=== PATIENT | female | born 1980 | race Caucasian/White ===

== ENCOUNTER 2019-06-28 15:25 | Observation (INO) | payer OTHER, SELFPAY ==
[2019-06-28] VITALS (8 sets, daily range): BP systolic 131–136; BP diastolic 72–86; PULSE 110–127; RESP 13–19; TEMP 36.7–38.5; O2SAT 94–100; BMI 42.5; BMI 41.6
--- NOTE | 2019-06-28 15:38 | EKG12_ITS ---
Test Reason : CP ADMIT Blood Pressure : / mmHG Vent. Rate : 109 BPM Atrial Rate : 109 BPM P-R Int : 130 ms QRS Dur : 088 ms QT Int : 328 ms P-R-T Axes : 018 051 003 degrees QTc Int : 441 ms Sinus tachycardia Otherwise normal ECG No previous ECGs available Confirmed by FÁTIMA MCCULLOUGH, DARNELL ([id number]), associate entertainment editor MIRANDA HODGE ([id number]) on 07/06/2019 10:38:45 AM Referred By: DR LORA Confirmed By:FRAN SHINE MD
--- NOTE | 2019-06-28 15:39 | CT_ITS ---
STUDY: CTA CHEST REASON FOR EXAM: Female, 39 years old. Palpitations and shortness of breath RADIATION DOSAGE (If Supplied By Facility): CTDIvol = ( 21.43 ) mGy, DLP = ( 748.76 ) mGycm TECHNIQUE: The examination was performed with the intravenous administration of 100mL Isovue-370. Post-processing of the angiographic images was performed, with multiplanar reformation and 3D reconstruction. Individualized dose optimization techniques were used for this CT. COMPARISON: None. FINDINGS: Normal enhancement of the main pulmonary artery and right and left pulmonary arteries. Motion artifact limits evaluation of segmental pulmonary arteries. There is no demonstrated pulmonary embolism. Normal thoracic aorta and visualized great vessels. There is no demonstrated aortic dissection. Normal heart and pericardium. Normal mediastinum. Normal hilar regions. Normal visualized trachea and bronchi. The lungs are well expanded. Normal pulmonary parenchyma. Normal pleura. Normal chest wall structures. There are degenerative changes of thoracic spine. The liver is enlarged and diminished in density suggesting hepatic steatosis. There are small calcifications of the upper left kidney. CT/CTA Chest W/WO Contrast IMPRESSION: 1. No central or obvious segmental pulmonary embolism. 2. Hepatomegaly. Hepatic steatosis. 3. Left nephrolithiasis. Electronically Signed: Shalom Sanchez MD (Brooks) at 17:18 EST , Service support ,
--- NOTE | 2019-06-28 15:50 | ED.DCSUM_ITS ---
- ER Visit Summary Date of Service: 06/28/19 Chief Complaint: Palpitations History of Present Illness: The patient is a 39 F presenting with palpitations. Patient states this started yesterday. It was intermittent. She states palpitations have been more persistent today. She initially denied chest pain. She has associated shortness of breath. She has upper back pain. She denies injury. She had recent travel to [facility] and has a family history of DVT, no other PE/DVT risk factors. No recent change in her medications. Denies fever. Denies other complaints. Physical Examination: Vitals are stable. Patient is afebrile. Alert no acute distress. HEENT exam is unremarkable. Neck is supple. Lungs are clear and equal bilaterally. Heart is regular and tachycardic Abdomen is soft nontender nondistended. Extremities are unremarkable. Skin is warm and dry. No focal neurologic deficit. Remainder of exam is unremarkable. Emergency Department Course and Treatment: Patient was given IV fluids. EKG is sinus tachycardia rate of 122. CBC normal except hemoglobin 11.3. Chemistries normal except for glucose 128. Troponin is negative. CTA chest shows no central or obvious segmental pulmonary embolism. Hepatomegaly. Hepatic alberto atosis. Left nephrolithiasis. On reevaluation patient is now complaining of more pressure in her mid chest. Heart rate is 110. Will discuss with hospitalist for observation. Disposition: Observation Impression: Chest pain, palpitations This note was generated with Lucidity (Member[employer]) dictation software. It may contain incorrect words, spelling, and punctuation that were not noted in review of the chart prior to signing ED Disposition - Plan for ED Patient: Referrals: Erick Paez MD [Primary Care Provider] -
[2019-06-28] MEDS: 0.9% Normal Saline 1,000 ML 1000 ML IV (16:08)
[2019-06-28 16:16] LABS: Absolute Lymphocyte Count 0.74 X10^3/uL (0.83-4.51); Absolute Neutrophil Count 7.4 X10^3/uL (2.0-7.7); Basophil# 0.01 X10^3/uL; Basophil% 0.1 % (0-1); Eosinophil# 0.07 X10^3/uL; Eosinophils% 0.8 % (0-5); Hematocrit 35.6 % (37-47); Hemoglobin 11.3 g/dL (12.0-15.0); Lymphocyte # 0.74 X10^3/ul (4.0); Lymphocyte % 8.5 % (19-41); Mean Corp Hgb Conc 31.7 g/dL (32-36); Mean Corpuscular Hgb 26.6 pg (27.0-32.0); Mean Corpuscular Volume 83.8 fL (81-99); Mean Platelet Vol. 9.5 fl (6.2-12.0); Monocyte# 0.46 X10^3/uL; Monocyte% 5.3 % (0-10); NRBC Flagged by Analyzer 0 % (0-5); Neutrophil # 7.38 X10^3/uL (2.7-7.7); Neutrophil % 84.7 % (47-70); Platelet Count 257 K/mm3 (150-450); RBC Distribution Width CV 15.8 % (11.6-14.6); RBC Distribution Width SD 47.5 fl (35.1-43.9); Red Blood Count 4.25 M/mm3 (4.2-5.4); White Blood Count 8.7 K/mm3 (4.4-11.0)
[2019-06-28 16:36] LABS: Anion Gap 7 (5-15); BUN 10 mg/dL (7-18); BUN/Creat Ratio 14.6 RATIO (10-20); Calcium,Total 8.6 mg/dL (8.5-10.1); Chloride 101 mmol/L (98-107); Creatinine, Serum 0.68 mg/dL (0.55-1.02); EST Glomerular Filtration Rate 101 mL/min (>60); Est Glom Filt Rate - Afr Amer 122 mL/min (>60); Estimated Creatinine Clearance 102.95 ml/min; Glucose 128 mg/dL (74-106); Sodium Level 136 mmol/L (136-145)
--- NOTE | 2019-06-28 17:48 | PCM.HP.STD ---
Problem List (1) Chest pain Status: Acute (2) Diabetes mellitus type 2 Status: Chronic (3) OCD (obsessive compulsive disorder) Status: Chronic (4) Anxiety and depression Status: Chronic (5) Seasonal allergic rhinitis Status: Chronic (6) Hypertension Status: Chronic (7) Dyslipidemia Status: Chronic (8) GERD Status: Chronic History of Present Illness Date of Admission: 06/28/19 Chief Complaint: Shortness of breath and palpitation since yesterday The patient is a 39 year old F with history of diabetes mellitus type 2 and hypertension with recent flight from [place] about 3 days ago came to ER with shortness of breath and palpitation since yesterday. Then today she started having intrascapular pain and in ER complaining of burning pain retrosternal with radiation to throat, worse on supine position. Patient does not have a history of coronary artery disease and is not had prior stress or echo. In ED, CTPA was done is negative for PE although shows hepatomegaly and hepatic steatosis and left nephrolithiasis. Triage vitals shows tachycardia, heart rate 127, blood pressure 136/83 no hypoxia or tachypnea. EKG normal sinus tachycardia [address]-T changes. Past Medical History Past Medical History (Chronic Problems): Chronic Problems Diabetes mellitus type 2 (Chronic) OCD (obsessive compulsive disorder) (Chronic) Anxiety and depression (Chronic) Seasonal allergic rhinitis (Chronic) Hypertension (Chronic) Dyslipidemia (Chronic) GERD (Chronic) Allergies amoxicillin Allergy (Verified 06/28/19 15:42) Rash azithromycin Allergy (Verified 06/28/19 15:42) Rash bupropion [From Wellbutrin] Allergy (Verified 06/28/19 15:42) Hives Sulfa (Sulfonamide Antibiotics) Allergy (Verified 06/28/19 15:42) Rash sulfamethoxazole [From Bactrim] Allergy (Verified 06/28/19 15:42) Rash trimethoprim [From Bactrim] Allergy (Verified 06/28/19 15:42) Rash Home Medications: Ambulatory Orders Medication Instructions Recorded Ferrous Sulfate 650 tab PO DAILY 08/02/17 Pyridoxine HCl [Vitamin B-6] 50 mg PO DAILY 08/02/17 Sertraline HCl [Zoloft] 100 mg PO DAILY 08/02/17 metFORMIN HCl [Glucophage] 1,000 tab PO BID 08/02/17 traZODone [Desyrel] 50 mg PO QHS 08/02/17 Armodafinil 250 mg PO DAILY 06/28/19 Atorvastatin Calcium [Lipitor] 10 mg PO QHS 06/28/19 Cholecalciferol (Vitamin D3) 2,000 unit PO DAILY 06/28/19 [Vitamin D3] DiphenhydrAMINE [Benadryl] 25 mg PO DAILY PRN PRN 06/28/19 Esomeprazole Magnesium 20 mg PO DAILY 06/28/19 Glimepiride [Amaryl] 1 mg PO DAILY 06/28/19 Ibuprofen 800 mg PO DAILY PRN PRN 06/28/19 Levocetirizine Dihydrochloride 5 mg PO DAILY 06/28/19 [Xyzal] Lisinopril [Zestril] 5 mg PO DAILY 06/28/19 Multivitamin with Minerals 1 tab PO DAILY 06/28/19 [Multiple Vitamin] Norgestimate-Ethinyl Estradiol 1 tab PO DAILY 06/28/19 [Norg-Ee 0.18-0.215-0.25/0.035] Smoking Status: Never smoker Tobacco Use: Non-smoker - *Family History Maternal History Items: Heart Disease - CHF with chronic lung disease Review of Systems Constitutional: Denies: Chills, Fever, Weight Change HEENT: Denies: Head Aches, Sinus Congestion, Sinus Drainage Cardiovascular: Reports: Chest Pain, Chest Tightness. Denies: Palpitations Respiratory: Reports: Shortness of breath upon exertion. Denies: Cough, Shortness of breath at rest, Sputum production Gastrointestinal: Denies: Abdominal Pain, Nausea, Vomiting Genitourinary: Denies: Dysuria, Frequency, Hesitancy Gynecological: Denies: Breast symptoms Musculoskeletal: Reports: Back Pain - Lumbar spine pain with disc herniation, Joint Pain. Denies: Joint Tenderness Skin: Reports: - - History of allergic reaction pollen. Denies: Rash, Wounds Neurological: Denies: Numbness, Tingling, Focal weakness Psychiatric: Reports: Anxiety, Depression. Denies: Homicidal Ideations, Suicidal Ideations Hematologic/ Lymphatic: Denies: Easy Bruising, Easy Bleeding VTE Information - Inpt Only VTE Present on Admission: No VTE Mechan Device Prophylaxis: None VTE Pharm Prophylaxis ordered?: Yes Patient Problems: Active and Suspected Problems Chest pain (Acute) - Physical Exam Vitals/I&O's: Vital Signs Temp Pulse Resp BP Pulse Ox 98.8 F 115 H 19 H 131/72 H 99 06/28/19 15:32 06/28/19 17:11 06/28/19 17:11 06/28/19 17:11 06/28/19 17:11 Oxygen Delivery Method Room Air Weight: 263 lb 14.293 oz Body Mass Index (BMI) 42.5 General: Alert, Oriented x3, Cooperative HEENT: Atraumatic, PERRLA, EOMI, Normocephalic Neck: Supple, No JVD, Negative Carotid Bruits Lungs: Clear to auscultation, Normal air movement, No rhonchi, No wheeze, No rales Cardiovascular: Regular rate, Regular Rhythm, Normal S1, Normal S2, No murmurs Abdomen: Bowel Sounds Present, Soft, Non Tender, Non-Distended Extremities: No edema, Capillary Refill Less than 3 Seconds Skin: No rashes, No breakdown Musculoskeletal: No Tenderness to Palpation of Joints or Extremities, Arthritic Changes Neurological: Cranial nerves II-XII grossly intact, Deep Tendon Reflexes 2+/4 and Symmetrical, Neuro grossly intact Psych/Mental Status: Normal Affect, Appropriate Microbiology Past 72 Hours 06/28/19 16:05 Mucosa - Nasopharyngeal Influenza Types A,B Direct FA (RAHEEM) - Final Laboratory Results 06/28/19 16:05: WBC 8.7, RBC 4.25, Hgb 11.3 L, Hct 35.6 L, MCV 83.8, MCH 26.6 L, MCHC 31.7 L, RDW Std Deviation 47.5 H, RDW Coeff of Tiny 15.8 H, Plt Count 257, MPV 9.5, Immature Gran % (Auto) 0.600, Neut % (Auto) 84.7 H, Lymph % (Auto) 8.5 L, [place] % (Auto) 5.3, Eos % (Auto) 0.8, Baso % (Auto) 0.1, Absolute Neuts (auto) 7.4, Absolute Lymphs (auto) 0.74 L, Nucleated RBC % 0 06/28/19 16:05: Sodium 136, Potassium 4.0, Chloride 101, Carbon Dioxide 28.0, Anion Gap 7, BUN 10, Creatinine 0.68, Estim Creat Clear Calc 102.95, Est GFR (MDRD) Af Amer 122, Est GFR (MDRD) Non-Af 101, BUN/Creatinine Ratio 14.6, Glucose 128 H, Calcium 8.6, Troponin I < 0.015 Assessment/Plan All Active Problems Chest pain (Acute) The patient is a 39 year old F with history of diabetes mellitus type 2 and hypertension with recent flight from [place] about 3 days ago came to ER with shortness of breath and palpitation since yesterday. Then today she started having intrascapular pain and in ER complaining of burning pain retrosternal with radiation to throat, worse on supine position. Patient does not have a history of coronary artery disease and is not had prior stress or echo. In ED, CTPA was done is negative for PE although shows hepatomegaly and hepatic steatosis and left nephrolithiasis. Triage vitals shows tachycardia, heart rate 127, blood pressure 136/83 no hypoxia or tachypnea. EKG normal sinus tachycardia [address]-T changes. 1. Atypical chest pain rule out acute coronary syndrome although since most probably GERD: Patient is being admitted in PCU. Serial troponin enzymes. Repeat EKG. Treadmill nuclear stress test tomorrow morning. PE ruled out. 2. GERD: Protonix 40 mg IV and then 40 mg daily. Patient might need repeat EGD as an outpatient. She had EGD in the past suggestive of GERD as per patient. 3. Hypertension, dyslipidemia, diabetes mellitus type 2: We will hold metformin but continue glimepiride, lisinopril and atorvastatin. Fasting profile tomorrow a.m. 4. Other comorbidities include anxiety, depression, OCD, chronic back pain, chronic anemia mostly redness and same anemia on ferrous sulfate, obstructive sleep apnea on CPAP: Home medication reconciliation done. Continue CPAP at night. DVT prophylaxis: On Lovenox 40 mg subcu daily. Clinical Impression(s) from Imaging Studies Chest CTA 06/28/19 15:39 IMPRESSION: 1. No central or obvious segmental pulmonary embolism. 2. Hepatomegaly. Hepatic steatosis. 3. Left nephrolithiasis. Code Visit OBSV E&M: 34814 Initial observation care L3
[2019-06-28] MEDS: Aspirin 325 MG Tablet PO (18:05)
--- NOTE | 2019-06-28 18:32 | EKG12_ITS ---
Test Reason : PALPITATIONS Blood Pressure : / mmHG Vent. Rate : 122 BPM Atrial Rate : 122 BPM P-R Int : 150 ms QRS Dur : 082 ms QT Int : 316 ms P-R-T Axes : 040 062 -02 degrees QTc Int : 450 ms Sinus tachycardia Nonspecific ST and T wave abnormality Abnormal ECG Confirmed by PIERRE MCCULLOUGH, LUIS ARMANDO ([id number]), newspaper photo editor ERIC GUEVARA ([id number]) on 07/02/2019 11:32:18 AM Referred By: SERENITY Confirmed By:LUIS ARMANDO JAY MD
[2019-06-28] MEDS: 0.9% Normal Saline 1,000 ML 100 ML IV (18:57)
[2019-06-28] MEDS: 0.9% Saline Lock 10 ML Syringe IV (19:07)
[2019-06-28] MEDS: Enoxaparin 40 MG/0.4 ML Syringe SC (19:07)
[2019-06-28] MEDS: oxyCODONE 5 MG Tablet PO (19:07)
[2019-06-28] MEDS: proCHLORPERazine 10 MG/2 ML Vial 5 MG IV (19:07)
--- NOTE | 2019-06-28 20:41 | CPS ---
pt brought her own bipap in to wear tonight
[2019-06-28] MEDS: Atorvastatin Calcium 10 MG Tablet PO (21:41)
[2019-06-28] MEDS: Acetaminophen 325 MG Tablet 650 MG PO (21:44)
[2019-06-28] MEDS: traZODone 50 MG Tablet PO (21:44)
[2019-06-28 22:20] LABS: Bedside Glucose 138 mg/dL (70-110)
[2019-06-29] VITALS (15 sets, daily range): BP systolic 96–138; BP diastolic 34–81; PULSE 70–97; RESP 16–18; TEMP 36.6–37; O2SAT 94–98
--- NOTE | 2019-06-29 05:55 | EKG12_ITS ---
Test Reason : AM EKG Blood Pressure : / mmHG Vent. Rate : 085 BPM Atrial Rate : 085 BPM P-R Int : 116 ms QRS Dur : 088 ms QT Int : 376 ms P-R-T Axes : 009 064 028 degrees QTc Int : 447 ms Normal sinus rhythm Normal ECG When compared with ECG of 28-JUN-2019 19:44, MANUAL COMPARISON REQUIRED, DATA IS UNCONFIRMED Confirmed by FÁTIMA MCCULLOUGH, DARNELL ([id number]), fan mail editor MIRANDA HODGE ([id number]) on 07/06/2019 10:37:22 AM Referred By: GENO Confirmed By:FRAN SHINE MD
[2019-06-29 06:26] LABS: Cholesterol 131 mg/dL (200); High Density Lipoprotein 46 mg/dL; Thyroid Stim Hormone (TSH) 1.58 uIU/mL (0.358-3.74); Triglycerides 237 mg/dL; Very Low Density Lipoprotein 47 mg/dL (5-40)
[2019-06-29] MEDS: Aspirin E.C. 81 MG Tablet PO (06:35)
[2019-06-29] MEDS: Lisinopril 5 MG Tablet PO (06:35)
[2019-06-29 06:46] LABS: Bedside Glucose 124 mg/dL (70-110)
[2019-06-29] MEDS: Ferrous Sulfate 325 MG Tablet PO (11:11)
[2019-06-29] MEDS: Glimepiride 1 MG Tablet PO (11:11)
[2019-06-29] MEDS: Pyridoxine HCl 50 MG Tablet PO (11:13)
[2019-06-29] MEDS: Pantoprazole Sodium 40 MG Tablet PO (11:13)
[2019-06-29] MEDS: Sertraline 100 MG Tablet PO (11:14)
[2019-06-29 11:20] LABS: Bedside Glucose 138 mg/dL (70-110)
[2019-06-29] MEDS: Ibuprofen 400 MG Tablet 800 MG PO (11:25)
--- NOTE | 2019-06-29 11:27 | PCM.DC ---
- Discharge Diagnoses Current Active Problems: Current Active and Chronic Problems Chest pain (Acute) Diabetes mellitus type 2 (Chronic) OCD (obsessive compulsive disorder) (Chronic) Anxiety and depression (Chronic) Seasonal allergic rhinitis (Chronic) Hypertension (Chronic) Dyslipidemia (Chronic) GERD (Chronic) You will use the following diet at home:: Calorie/Carbohydrate Controlled (specify 1200, 1400, etc) Your food should be the consistency of: Regular Your liquids should be the consistency of: Regular/Thin Discharge Activity: May Not Drive - For 1 week Weight Bearing Status: Weight bearing as tolerated Call your doctor if you observe: Fever of 101 or Higher, Coldness, Increased Pain, Numbness or Tingling, Inability to urinate, Inability to have a bowel movement, Shortness of breath, Dizziness, Fainting spells, Swelling in the ankles, Prolonged hiccoughing Additional Instructions: Patient usually drinks alcohol occasionally. Advised to stop alcohol altogether at least for 1 month. After that Allergies/Adverse Reactions: Allergies amoxicillin Allergy (Verified 06/28/19 15:42) Rash azithromycin Allergy (Verified 06/28/19 15:42) Rash bupropion [From Wellbutrin] Allergy (Verified 06/28/19 15:42) Hives Sulfa (Sulfonamide Antibiotics) Allergy (Verified 06/28/19 15:42) Rash sulfamethoxazole [From Bactrim] Allergy (Verified 06/28/19 15:42) Rash trimethoprim [From Bactrim] Allergy (Verified 06/28/19 15:42) Rash Medications to take at Discharge Ferrous Sulfate 650 tab PO DAILY 08/02/17 Pyridoxine HCl [Vitamin B6] 50 mg PO DAILY 08/02/17 Sertraline HCl [Zoloft] 100 mg PO DAILY 08/02/17 traZODone [Desyrel] 50 mg PO QHS 08/02/17 Armodafinil 250 mg PO DAILY 06/28/19 Cholecalciferol (Vitamin D3) [Vitamin D3] 2,000 unit PO DAILY 06/28/19 DiphenhydrAMINE [Benadryl] 25 mg PO DAILY PRN PRN 06/28/19 Glimepiride [Amaryl] 1 mg PO DAILY 06/28/19 Levocetirizine Dihydrochloride [Xyzal] 5 mg PO DAILY 06/28/19 Lisinopril [Zestril] 5 mg PO DAILY 06/28/19 Multivitamin with Minerals [Multiple Vitamin] 1 tab PO DAILY 06/28/19 Norgestimate-Ethinyl Estradiol [Norg-Ee 0.18-0.215-0.25/0.035] 1 tab PO DAILY 06/28/19 Atorvastatin Calcium [Lipitor] 40 mg PO QHS #30 tab 06/29/19 Esomeprazole Magnesium 40 mg PO DAILY #30 capsule. 06/29/19 metFORMIN HCl [Glucophage] 1,000 tab PO BID #0 06/29/19 The following prescriptions were given: Esomeprazole Magnesium 40 mg PO DAILY #30 capsule. [facility]: [facility] Atorvastatin Calcium [Lipitor] 40 mg PO QHS #30 tab Transmission Status: Pending to [facility] Primary Care Physician: Erick Paez MD [Primary Care Provider] - Please follow up with your Primary Care Physician in: In 1 to 2 weeks Test Results: Test results from this visit will be discussed in further detail at your follow-up appointment, if applicable.
--- NOTE | 2019-06-29 12:34 | STRESSREP_ITS ---
Stress Test Report Date: 06-29-19 Procedure: Exercise tolerance test/imaging study Indications: Chest pain; dyspnea; palpitations Consent: Per the patient Procedure: The patient exercised on a Tom protocol for 7 minutes completing Stage II and 1 minute of Stage III achieving a peak heart rate of 181 bpm (100 % predicted maximal heart rate) with a peak blood pressure 164/70 mmHg and a peak MET capacity of 8 METs. The baseline ECG demonstrated normal sinus rhythm. The peak exercise ECG demonstrated somatic/motion artifact with no obvious ECG changes. There were no cardiac dysrhythmias pretest, during exercise, or recovery. The functional capacity was considered average. There was no complaint of chest discomfort during exercise or recovery. The examination was discontinued secondary to dyspnea. Impression: 1. Technically adequate (percent predicted maximal heart rate greater than 85%) exercise tolerance test 2. Peak exercise ECG with somatic/motion artifact with no obvious ECG changes 3. There were no cardiac dysrhythmias pretest, during exercise, or recovery 4. Nuclear images pending Myocardial perfusion imaging study: Technique: The patient was injected with 11.0 mCi of technetium 99m Cardiolite and subsequently rest SPECT Cardiolite nuclear imaging was obtained in the horizontal long, vertical long, and short axis views. The patient exercised on a Tom protocol for 7 minutes completing Stage II and 1 minute of Stage III achieving a peak heart rate of 181 bpm (100 % predicted maximal heart rate) with a peak blood pressure 164/70 mmHg and a peak MET capacity of 8 METs. The patient was injected with 33.0 mCi of technetium 99m Cardiolite and subsequently stress SPECT Cardiolite nuclear imaging was obtained in the horizontal long, vertical long, and short axis views. A gated Cardiolite study at peak stress was obtained. Interpretation: Rest and stress SPECT Cardiolite nuclear imaging status post realignment, normalization, and attenuation correction, demonstrates discrepancies between the pre attenuation and post attenuation images, however, the appearance at rest of an area of diminished tracer uptake to absence of tracer uptake in portions of the basal to mid anterior segments which status post stress appear to be demonstrating additional areas of diminished tracer uptake in portions of the ba tino towards distal anterior and anteroseptal segments. There is end systolic thickening and brightening. The gated Cardiolite study demonstrates myocardial thickening and inward wall motion. The reported LVEF is 65 %. Impression: 1. Rest and stress SPECT Cardiolite nuclear imaging demonstrate myocardial perfusion changes demonstrating discrepancies between the pre-attenuation and post attenuation images, however, at rest and stress potentially compatible with an area of previous myocardial injury/infarction involving portions of the basal to mid anterior segments with post stress myocardial perfusion changes concerning for suzi-infarct related myocardial ischemia in portions of the anterior and anteroseptal segments. 2. The gated Cardiolite study reports an LVEF of 65 %. This note was generated with EngineLab[employer] software. It may contain incorrect words, spelling, and punctuation that were not noted in checking the note before signing.
[2019-06-29] MEDS: Morphine 2 MG/ML Syringe IV (12:48)
[2019-06-29] MEDS: proCHLORPERazine 10 MG/2 ML Vial 5 MG IV (12:48)
[2019-06-29] MEDS: Sucralfate 1 GM Tablet PO ×2 (13:06→15:52)
--- NOTE | 2019-06-29 13:15 | NURSING ---
This RN called report to pie bakery laborer LUIS Scott. Notified that pt's prep has not been done and consent needs signed. Urine for test will be sent to lab.
--- NOTE | 2019-06-29 13:42 | CASEMGMT ---
Addendum entered by Willem Vealsquez 06/29/19 14:00: Called to [facility] to verify [facility] facilities. Original Note: [facility] Insurance review for Tertiary care if transfer is recommended. CC, [facility], [facility], [place]; [facility]; [facility], [facility]
[2019-06-29 13:50] LABS: Internal QC Validated? YES +Cl - CLEAR BKGD; Pregnancy, Urine Negative Negative
[2019-06-29] MEDS: 0.9% Normal Saline 1,000 ML 15 ML IV (14:00)
--- NOTE | 2019-06-29 14:28 | CL.D_ITS ---
Patient Name: WILFRED RAO Study Date: 06/29/2019 Performing: Raghavendra Curry MD Ht: 66.14 inches 168 cm : 1980 Wt: 257.94 lbs 117 kg Age: 39 Gender: female BSA: 2.23 PROCEDURE(S) PERFORMED ME11-YED/COR/LV CLINICAL PROFILE AND INDICATIONS Indications: Suspected CAD Heart Failure: None Stress/Imaging Date: 06/29/2019Stress Test with SPECT MPI: Positive Low Risk CAD Presentations: Symptom unlikely to be ischemic. CONCLUSIONS Normal coronary arteries Normal LV size, wall motion,and systolic function RECOMMENDATIONS Medical therapy DESCRIPTION OF PROCEDURE The patient arrived to the procedure lab. The risks and benefits of the procedure as well as a full d escription of our services here and current unavailability of surgical backup were fully explained to the patient and/or their significant other prior to the catheterization. The Timeout was completed, verifying the correct patient and procedure. The patient's procedural site was prepped and draped in the usual fashion. Local anesthetic was given subcutaneously to right radial region with Lidocaine 2% . Local anesthetic was given subcutaneously to right groin region with Lidocaine 2%. Using a modified Seldinger technique, arterial access was obtained via the right femoral artery, a 5Fr sheath was ins erted. Left Coronary Artery selective angiography was performed in multiple views using a 5 Fr. JL4 catheter. Right Coronary Artery selective angiography was then performed in multiple views using a 5 Fr. 3DRC (Gavin) catheter. Left Ventriculography was performed in YARBROUGH projection using a 5 Fr. Pigtail catheter. LV to AO pullback pressures were then recorded.Contrast was injected throug h the sheath and the Right Iliac and Femoral artery were assessed for possible closure device.The art erial sheath was pulled and a Mynx closure device was deployed for hemostasis CORONARY ANGIOGRAPHY DOMINANCE: Right Dominant LEFT HEART ASSESSMENT Left Ventricular Ejection Fraction: by LV Gram 60 % Normal Left Ventricular systolic function Normal Left Ventricular systolic function LEFT MAIN: Angiographically normal LEFT ANTERIOR DESCENDING ARTERY: Angiographically normal CIRCUMFLEX ARTERY: Angiographically normal RIGHT CORONARY ARTERY: Angiographically normal COMPLICATIONS No Complications PROCEDURE MEDICATIONS Versed 1 mg IV Fentanyl 50 mcg IV Versed 1 mg IV Fentanyl 25 mcg IV Oxygen: 2 L/min via nasal cannula SUMMARY OF HEMODYNAMIC DATA Time AIR REST ECG 13:41:49 AO 134/100 (116) SA 14:09:13 LV 130/19, 25 14:15:16 LV 128/19, 25 14:15:23 LV 128/22, 28 14:15:52 LVp 127/22, 28 14:15:55 AOp 129/42 (79) 14:16:00 Signed By Raghavendra Curry MD On 06/29/2019 14:27:47 Raghavendra Curry MD
--- NOTE | 2019-06-29 15:33 | US_ITS ---
STUDY: ABDOMINAL ULTRASOUND - RIGHT UPPER QUADRANT REASON FOR VISIT: Female, 39 years old DYSPEPSIA, ABD PAIN TECHNIQUE: Ultrasound evaluation of the right upper quadrant was performed with real-time and static trujillo-scale imaging. TECHNICAL QUALITY: Adequate. COMPARISON: None. FINDINGS: Liver: The liver measures 21 cm. There is fatty echogenicity of the liver. Probable focal fatty sparing adjacent to the gallbladder. The bile ducts are within normal limits. There is hepatic color flow. The direction of portal flow is hepatopetal. There are up to 1.7 cm hypoechoic hepatic nodules. Gallbladder: Normal distended gallbladder. The gallbladder wall measures 2.6 mm. There is a negative sonographic Jack''s sign. There is no pericholecystic fluid. There are no gallstones. Common Bile Duct (C.B.D.): The common bile duct measures 3.5 mm. Pancreas: Normal size of the head, body and tail of the pancreas. There is increased echogenicity of the pancreas. There is no demonstrated pancreatic mass or cyst. Right Kidney: Normal size of the right kidney. The right kidney measures 12.9 x 6.6 x 4.7 cm. Normal renal cortex. The right cortex measures 1.4 cm. There is no demonstrated renal mass or cyst. There is no right hydronephrosis. US/Abdomen Limited IMPRESSION: Fatty liver with hypoechoic nodules. No cholelithiasis or biliary dilatation. Electronically Signed: Justin Carreon DO at 18:09 EST Tel [phone], Service support ,
--- NOTE | 2019-06-29 15:33 | PN_ITS ---
Patient Problems: Active and Suspected Problems Chest pain (Acute) Reason for Visit: Interscapular burning pain. Burning pain in throat. Patient has history of GERD. Stress test was abnormal and patient went for cardiac cath. Objective: Patient was crying because of pain. Protonix 40 mg IV ordered. Vitals/I&O's: Vital Signs Temp Pulse Resp BP Pulse Ox 97.8 F 82 18 124/70 H 97 06/29/19 15:15 06/29/19 15:15 06/29/19 15:15 06/29/19 15:15 06/29/19 15:15 Oxygen Delivery Method Room Air Weight: 258 lb Body Mass Index (BMI) 41.6 Intake and Output for Last 24 Hours 06/27/19 06/28/19 06/29/19 23:59 23:59 23:59 Intake Total 1260 / 1260 960 / 960 Balance 1260 / 1260 960 / 960 General: Alert, Oriented x3, Cooperative HEENT: Atraumatic, PERRLA, EOMI, Normocephalic Neck: Supple, No JVD, Negative Carotid Bruits Lungs: Clear to auscultation, Normal air movement, No rhonchi, No wheeze, No rales Cardiovascular: Regular rate, Regular Rhythm, Normal S1, Normal S2, No murmurs Abdomen: Bowel Sounds Present, Soft Extremities: No edema, Capillary Refill Less than 3 Seconds Skin: No rashes, No breakdown Musculoskeletal: No Tenderness to Palpation of Joints or Extremities, Arthritic Changes Neurological: Cranial nerves II-XII grossly intact Psych/Mental Status: Normal Affect, Appropriate Microbiology Past 72 Hours 06/28/19 16:05 Mucosa - Nasopharyngeal Influenza Types A,B Direct FA (RAHEEM) - Final Laboratory Results 06/28/19 16:05: WBC 8.7, RBC 4.25, Hgb 11.3 L, Hct 35.6 L, MCV 83.8, MCH 26.6 L, MCHC 31.7 L, RDW Std Deviation 47.5 H, RDW Coeff of Tiny 15.8 H, Plt Count 257, MPV 9.5, Immature Gran % (Auto) 0.600, Neut % (Auto) 84.7 H, Lymph % (Auto) 8.5 L, [place] % (Auto) 5.3, Eos % (Auto) 0.8, Baso % (Auto) 0.1, Absolute Neuts (auto) 7.4, Absolute Lymphs (auto) 0.74 L, Nucleated RBC % 0 06/28/19 16:05: Sodium 136, Potassium 4.0, Chloride 101, Carbon Dioxide 28.0, Anion Gap 7, BUN 10, Creatinine 0.68, Estim Creat Clear Calc 102.95, Est GFR (MDRD) Af Amer 122, Est GFR (MDRD) Non-Af 101, BUN/Creatinine Ratio 14.6, Glucose 128 H, Calcium 8.6, Troponin I < 0.015 06/28/19 18:49: Troponin I < 0.015 06/28/19 21:35: POC Glucose 138 H 06/28/19 22:45: Troponin I < 0.015 06/29/19 05:27: Triglycerides 237 H, Cholesterol 131, LDL Cholesterol 38, VLDL Cholesterol 47 H, HDL Cholesterol 46, TSH 1.58 06/29/19 06:37: POC Glucose 124 H 06/29/19 11:07: POC Glucose 138 H 06/29/19 13:25: Urine Test Negative Current Medications Acetaminophen (Tylenol) 650 mg PO Q6H PRN PRN PRN Reason: Pain Score 1-3/Temp > 100.7 F Last Admin: 06/28/19 21:44 Dose: 650 mg Documented by: Aspirin (Ecotrin) 81 mg PO DAILY@0800 [facility] Last Admin: 06/29/19 06:35 Dose: 81 mg Documented by: Atorvastatin Calcium (Lipitor) 10 mg PO QHS [facility] Last Admin: 06/28/19 21:41 Dose: 10 mg Documented by: Cholecalciferol (Vitamin D) 2,000 unit PO DAILY [facility] Last Admin: 06/29/19 11:11 Dose: 2,000 unit Documented by: Diphenhydramine HCl (Benadryl) 25 mg PO DAILY PRN PRN PRN Reason: ALLERGIES Enoxaparin Sodium (Lovenox) 40 mg SC DAILY [facility] Last Admin: 06/29/19 11:09 Dose: Not Given Documented by: Ferrous Sulfate ([facility]ous Sulfate) [facility] Last Admin: 06/29/19 11:11 Dose: 325 mg Documented by: Glimepiride (Amaryl) [facility] Last Admin: 06/29/19 11:11 Dose: 1 mg Documented by: Glucagon () 1 mg IM .X1 PRN PRN Reason: Hypoglycemia Heparin Sodium (Beef Lung) (Heparin 500 Unit/5 Ml (100/Ml)) 500 unit IV UD PRN PRN Reason: HEPARIN FLUSH Dextrose (Dextrose 10%-Water) 250 mls @ 999 mls/hr IV .Q16M PRN; Protocol PRN Reason: HYPOGLYCEMIA Sodium Chloride () 1,000 mls @ 15 mls/hr IV .Q48H [facility] Last Admin: 06/29/19 14:00 Dose: 15 mls/hr Documented by: Ibuprofen (Motrin) 800 mg PO DAILY PRN PRN PRN Reason: Pain Score 1-10/10 Last Admin: 06/29/19 11:25 Dose: 800 mg Documented by: Insulin Human Lispro (Humalog Kwikpen (Bkc)) 0 unit SC ACHS [facility]; Protocol Last Admin: 06/29/19 11:09 Dose: Not Given Documented by: Labetalol HCl (Trandate) 5 mg IV X1 PRN PRN Reason: SBP > 160 prior to sheath pull Stop: 07/01/19 14:24 Lisinopril (Zestril) 5 mg PO DAILY [facility] Last Admin: 06/29/19 06:35 Dose: 5 mg Documented by: Loratadine (Claritin) 5 mg PO DAILY [facility] Last Admin: 06/29/19 11:11 Dose: Not Given Documented by: Morphine Sulfate () 2 mg IV Q3H PRN PRN PRN Reason: Pain Score 6-10/10 Last Admin: 06/29/19 12:48 Dose: 2 mg Documented by: Multivitamins/Minerals (Multivitamin With Minerals) 1 tablet PO DAILY@0800 [facility] Last Admin: 06/29/19 11:13 Dose: Not Given Documented by: Nitroglycerin (Nitrostat) 0.4 mg SUBLINGUAL Q5M PRN PRN Reason: CARDIAC/CHEST PAIN Oxycodone HCl (Oxyir) 5 mg PO Q4H PRN PRN PRN Reason: Pain Score 4-5/10 Last Admin: 06/28/19 19:07 Dose: 5 mg Documented by: Pantoprazole Sodium (Protonix) 40 mg PO DAILY [facility] Last Admin: 06/29/19 11:13 Dose: 40 mg Documented by: Prochlorperazine Edisylate (Compazine Iv) 5 mg IV Q4H PRN PRN PRN Reason: Breakthrough Nausea/Vomiting Last Admin: 06/29/19 12:48 Dose: 5 mg Documented by: Pyridoxine HCl (Vitamin B-6) 50 mg PO DAILY [facility] Last Admin: 06/29/19 11:13 Dose: 50 mg Documented by: Senna/Docusate Sodium (Senokot-S, Suzi-Colace) 2 tablet PO BID PRN PRN PRN Reason: Constipation Sertraline HCl (Zoloft) 100 mg PO DAILY [facility] Last Admin: 06/29/19 11:14 Dose: 100 mg Documented by: Sodium Chloride () 10 - 40 ml IV UD PRN PRN Reason: SALINE FLUSH Last Admin: 06/28/19 19:07 Dose: 10 ml Documented by: Sucralfate (Carafate) 1 gm PO 1HR_ACHS [facility] Last Admin: 06/29/19 13:06 Dose: 1 gm Documented by: Trazodone HCl (Desyrel) 50 mg PO QHS [facility] Last Admin: 06/28/19 21:44 Dose: 50 mg Documented by: STROKE Vital Signs/Narrative: Vital Signs Temp Pulse Resp BP Pulse Ox 06/29/19 15:15 97.8 F 82 18 124/70 H 97 06/29/19 15:06 87 06/29/19 15:00 97.8 F 78 18 119/78 94 06/29/19 14:45 97.8 F 77 18 121/76 H 94 Medical Necessity - Tobacco Use Smoking Status: Never smoker Tobacco Use: Non-smoker Assessment/Plan All Active Problems Chest pain (Acute) The patient is a 39 year old F with history of diabetes mellitus type 2 and hypertension with recent flight from [place] about 3 days ago came to ER with shortness of breath and palpitation since yesterday. Then today she started having intrascapular pain and in ER complaining of burning pain retrosternal with radiation to throat, worse on supine position. Patient does not have a history of coronary artery disease and is not had prior stress or echo. In ED, CTPA was done is negative for PE although shows hepatomegaly and hepatic steatosis and left nephrolithiasis. Triage vitals shows tachycardia, heart rate 127, blood pressure 136/83 no hypoxia or tachypnea. EKG normal sinus tachycardia [address]-T changes. 1. Atypical chest pain rule out acute coronary syndrome although since most probably GERD: Patient is being admitted in PCU. Serial troponin enzymes. Repeat EKG. Treadmill nuclear stress test tomorrow morning. PE ruled out. 07/07/2019: A stress test was read abnormal with potential area of previous [place] in basal to mid anterior segment and positive stress myocardial perfusion changes concerning for suzi-infarct related to myocardial ischemia. Subsequently cardiac cath was done. Cardiac cath reported angiographically normal. EF 60% by LV gram. Patient continues to have dyspeptic symptoms burning pain interscapular area with history of GERD, LFT and right upper quadrant sonogram ordered. 2. GERD: Protonix 40 mg IV and then 40 mg daily. Patient might need repeat EGD as an outpatient. She had EGD in the past suggestive of GERD as per patient. Fasting profile profile TG 237, LDL 38, HDL 46. On high intensity statin, atorvastatin 40 mg daily at bedtime. 4. Other comorbidities include anxiety, depression, OCD, chronic back pain, chronic anemia mostly redness and same anemia on ferrous sulfate, obstructive sleep apnea on CPAP: Home medication reconciliation done. Continue CPAP at night. DVT prophylaxis: On Lovenox 40 mg subcu daily. Clinical Impression(s) from Imaging Studies Chest CTA 06/28/19 15:39 IMPRESSION: 1. No central or obvious segmental pulmonary embolism. 2. Hepatomegaly. Hepatic steatosis. 3. Left nephrolithiasis. Microbiology Past 72 Hours 06/28/19 16:05 Mucosa - Nasopharyngeal Influenza Types A,B Direct FA (RAHEEM) - Final Laboratory Results 06/28/19 16:05: WBC 8.7, RBC 4.25, Hgb 11.3 L, Hct 35.6 L, MCV 83.8, MCH 26.6 L, MCHC 31.7 L, RDW Std Deviation 47.5 H, RDW Coeff of Tiny 15.8 H, Plt Count 257, MPV 9.5, Immature Gran % (Auto) 0.600, Neut % (Auto) 84.7 H, Lymph % (Auto) 8.5 L, [place] % (Auto) 5.3, Eos % (Auto) 0.8, Baso % (Auto) 0.1, Absolute Neuts (auto) 7.4, Absolute Lymphs (auto) 0.74 L, Nucleated RBC % 0 12/19/19 16:05: Sodium 136, Potassium 4.0, Chloride 101, Carbon Dioxide 28.0, Anion Gap 7, BUN 10, Creatinine 0.68, Estim Creat Clear Calc 102.95, Est GFR (MDRD) Af Amer 122, Est GFR (MDRD) Non-Af 101, BUN/Creatinine Ratio 14.6, Glucose 128 H, Calcium 8.6, Troponin I < 0.015 06/28/19 18:49: Troponin I < 0.015 06/28/19 21:35: POC Glucose 138 H 06/28/19 22:45: Troponin I < 0.015 06/29/19 05:27: Triglycerides 237 H, Cholesterol 131, LDL Cholesterol 38, VLDL Cholesterol 47 H, HDL Cholesterol 46, TSH 1.58 06/29/19 06:37: POC Glucose 124 H 06/29/19 11:07: POC Glucose 138 H 06/29/19 13:25: Urine Test Negative Code Visit Inpatient E&M: 49921 Subs Hosp L2
[2019-06-29 16:00] LABS: AST(SGOT) 78 U/L (15-37); Alanine Aminotransfer ALT/SGPT 66 U/L (13-56); Albumin, Serum 2.9 g/dL (3.2-5.0); Alkaline Phosphatase 44 U/L (45-117); Bilirubin, Direct 0.09 mg/dL (0.00-0.30); GGTP 60 U/L (5-55); Globulin 3.4 g/dL (2.2-4.2); Protein, Total 6.3 g/dL (6.4-8.2)
--- NOTE | 2019-06-29 16:35 | PCM.DC.SUM ---
Discharge Date and Diagnosis Date of Admission: 06/28/19 Date of Discharge: 06/29/19 - Primary Discharge Diagnosis Active and Suspected Problems Chest pain (Acute) - Secondary Discharge Diagnosis Chronic Problems Diabetes mellitus type 2 (Chronic) OCD (obsessive compulsive disorder) (Chronic) Anxiety and depression (Chronic) Seasonal allergic rhinitis (Chronic) Hypertension (Chronic) Dyslipidemia (Chronic) GERD (Chronic) Hospital Course and Treatment Imaging Results: 06/29/19 05:55 Nuclear Stress Test - Treadmil [NM] AM (NON MEDS) Summary of Care Provided: The patient is a 39 year old F [] The patient is a 39 year old F with history of diabetes mellitus type 2 and hypertension with recent flight from [place] [employer] [place] about 3 days ago came to ER with shortness of breath and palpitation since yesterday. Then today she started having intrascapular pain and in ER complaining of burning pain retrosternal with radiation to throat, worse on supine position. Patient does not have a history of coronary artery disease and is not had prior stress or echo. In ED, CTPA was done is negative for PE although shows hepatomegaly and hepatic steatosis and left nephrolithiasis. Triage vitals shows tachycardia, heart rate 127, blood pressure 136/83 no hypoxia or tachypnea. EKG normal sinus tachycardia [address]-T changes. 1. Atypical chest pain rule out acute coronary syndrome although since most probably GERD: Patient is being admitted in PCU. Serial troponin enzymes. Repeat EKG. Treadmill nuclear stress test tomorrow morning. PE ruled out. 07/07/2019: A stress test was read abnormal with potential area of previous [place] in basal to mid anterior segment and positive stress myocardial perfusion changes concerning for candy-infarct related to myocardial ischemia. Subsequently cardiac cath was done. Cardiac cath reported angiographically normal. EF 60% by LV gram. Patient continues to have dyspeptic symptoms burning pain interscapular area with history of GERD, LFT and right upper quadrant sonogram ordered. 2. GERD: Protonix 40 mg IV and then 40 mg daily. Patient might need repeat EGD as an outpatient. She had EGD in the past suggestive of GERD as per patient. Fasting profile profile TG 237, LDL 38, HDL 46. On high intensity statin, atorvastatin 40 mg daily at bedtime. 3. Acute alcoholic hepatitis: LFT was done. AST 78, ALT 66, GGT 60 alk phos low 44. Albumin 2.9. Patient stated she was drinking heavily tequila about 6 hours every day during vacation in [facility]. Patient was advised to stop alcohol at least for 1 month completely. Right upper quadrant sonogram shows fatty echogenicity of liver. No cholelithiasis or biliary dilatation. No features of acute cholecystitis. 4. Other comorbidities include anxiety, depression, OCD, chronic back pain, chronic anemia mostly redness and same anemia on ferrous sulfate, obstructive sleep apnea on CPAP: Continue CPAP at night. DVT prophylaxis: On Lovenox 40 mg subcu daily. Discharge medication reconciliation done. Discharge follow-up instructions completed. Discharge process discussed with the patient and all questions were answered to patient's satisfaction.. Total time spent, exact 35 minutes on discharge meds reconciliation, examination, review of imaging and blood test and discussion with the patient on follow-up instructions. Clinical Impression(s) from Imaging Studies Chest CTA 06/28/19 15:39 IMPRESSION: 1. No central or obvious segmental pulmonary embolism. 2. Hepatomegaly. Hepatic steatosis. 3. Left nephrolithiasis. Microbiology Past 72 Hours 06/28/19 16:05 Mucosa - Nasopharyngeal Influenza Types A,B Direct FA (RAHEEM) - Final Laboratory Results 06/28/19 16:05: Sodium 136, Potassium 4.0, Chloride 101, Carbon Dioxide 28.0, Anion Gap 7, BUN 10, Creatinine 0.68, Estim Creat Clear Calc 102.95, Est GFR (MDRD) Af Amer 122, Est GFR (MDRD) Non-Af 101, BUN/Creatinine Ratio 14.6, Glucose 128 H, Calcium 8.6, Troponin I < 0.015 06/28/19 18:49: Troponin I < 0.015 06/28/19 21:35: POC Glucose 138 H 06/28/19 22:45: Troponin I < 0.015 06/29/19 05:27: Triglycerides 237 H, Cholesterol 131, LDL Cholesterol 38, VLDL Cholesterol 47 H, HDL Cholesterol 46, TSH 1.58 06/29/19 05:27: Total Bilirubin 0.30, Direct Bilirubin 0.09, GGT 60 H, AST 78 H, ALT 66 H, Alkaline Phosphatase 44 L, Total Protein 6.3 L, Albumin 2.9 L, Globulin 3.4 06/29/19 06:37: POC Glucose 124 H 06/29/19 11:07: POC Glucose 138 H 06/29/19 13:25: Urine Test Negative Clinical Impression(s) from Imaging Studies Chest CTA 06/28/19 15:39 IMPRESSION: 1. No central or obvious segmental pulmonary embolism. 2. Hepatomegaly. Hepatic steatosis. 3. Left nephrolithiasis. Electronically Signed: Shalom Sanchez MD (Brooks) at 17:18 EST , Service support , Abdomen Ultrasound 06/29/19 15:33 IMPRESSION: Fatty liver with hypoechoic nodules. No cholelithiasis or biliary dilatation. Subjective: Patient complained of burning pain over the interscapular area after she returned from stress test about 1220. Seen and examined. Patient stated that that usually she drinks alcohol, beer 1-2 occasionally during the weekend but while on vacation in [facility] she drinks heavily tequila about 5 to 6 hours daily. Denies right upper quadrant pain or epigastric pain. - Physical Exam Vitals/I&O's: Vital Signs Temp Pulse Resp BP Pulse Ox 98.1 F 97 16 118/80 96 06/29/19 11:27 06/29/19 11:27 06/29/19 11:27 06/29/19 11:27 06/29/19 11:27 Oxygen Delivery Method Room Air Weight: 258 lb Body Mass Index (BMI) 41.6 Intake and Output for Last 24 Hours 06/27/19 06/28/19 06/29/19 23:59 23:59 23:59 Intake Total 1260 / 1260 850 / 850 Balance 1260 / 1260 850 / 850 General: Alert, Oriented x3, Cooperative HEENT: Atraumatic, PERRLA, EOMI, Normocephalic Neck: Supple, No JVD, Negative Carotid Bruits Lungs: Clear to auscultation, Normal air movement, No rhonchi, No wheeze, No rales Cardiovascular: Regular rate, Regular Rhythm, Normal S1, Normal S2, No murmurs Abdomen: Bowel Sounds Present, Soft, Non Tender, Non-Distended, No Hepato-splenomegaly Extremities: No edema, Capillary Refill Less than 3 Seconds Skin: No rashes, No breakdown Musculoskeletal: No Tenderness to Palpation of Joints or Extremities Neurological: Cranial nerves II-XII grossly intact Psych/Mental Status: Normal Affect, Appropriate Microbiology Past 72 Hours 06/28/19 16:05 Mucosa - Nasopharyngeal Influenza Types A,B Direct FA (RAHEEM) - Final Laboratory Results 06/28/19 16:05: WBC 8.7, RBC 4.25, Hgb 11.3 L, Hct 35.6 L, MCV 83.8, MCH 26.6 L, MCHC 31.7 L, RDW Std Deviation 47.5 H, RDW Coeff of Tiny 15.8 H, Plt Count 257, MPV 9.5, Immature Gran % (Auto) 0.600, Neut % (Auto) 84.7 H, Lymph % (Auto) 8.5 L, [place] % (Auto) 5.3, Eos % (Auto) 0.8, Baso % (Auto) 0.1, Absolute Neuts (auto) 7.4, Absolute Lymphs (auto) 0.74 L, Nucleated RBC % 0 06/28/19 16:05: Sodium 136, Potassium 4.0, Chloride 101, Carbon Dioxide 28.0, Anion Gap 7, BUN 10, Creatinine 0.68, Estim Creat Clear Calc 102.95, Est GFR (MDRD) Af Amer 122, Est GFR (MDRD) Non-Af 101, BUN/Creatinine Ratio 14.6, Glucose 128 H, Calcium 8.6, Troponin I < 0.015 06/28/19 18:49: Troponin I < 0.015 06/28/19 21:35: POC Glucose 138 H 06/28/19 22:45: Troponin I < 0.015 06/29/19 05:27: Triglycerides 237 H, Cholesterol 131, LDL Cholesterol 38, VLDL Cholesterol 47 H, HDL Cholesterol 46, TSH 1.58 06/29/19 06:37: POC Glucose 124 H 06/29/19 11:07: POC Glucose 138 H Current Medications Acetaminophen (Tylenol) 650 mg PO Q6H PRN PRN PRN Reason: Pain Score 1-3/Temp > 100.7 F Last Admin: 06/28/19 21:44 Dose: 650 mg Documented by: Aspirin (Ecotrin) 81 mg PO DAILY@0800 [facility] Last Admin: 06/29/19 06:35 Dose: 81 mg Documented by: Atorvastatin Calcium (Lipitor) 10 mg PO QHS [facility] Last Admin: 06/28/19 21:41 Dose: 10 mg Documented by: Cholecalciferol (Vitamin D) 2,000 unit PO DAILY [facility] Last Admin: 06/29/19 11:11 Dose: 2,000 unit Documented by: Diphenhydramine HCl (Benadryl) 25 mg PO DAILY PRN PRN PRN Reason: ALLERGIES Enoxaparin Sodium (Lovenox) 40 mg SC DAILY [facility] Last Admin: 06/29/19 11:09 Dose: Not Given Documented by: Ferrous Sulfate ([facility] Sulfate) [facility] Last Admin: 06/29/19 11:11 Dose: 325 mg Documented by: Glimepiride (Amaryl) [facility] Last Admin: 06/29/19 11:11 Dose: 1 mg Documented by: Glucagon () 1 mg IM .X1 PRN PRN Reason: Hypoglycemia Dextrose (Dextrose 10%-Water) 250 mls @ 999 mls/hr IV .Q16M PRN; Protocol PRN Reason: HYPOGLYCEMIA Pantoprazole Sodium 40 mg/ (Sodium Chloride) 110 mls @ 330 mls/hr IV X1 ONE Stop: 06/29/19 12:41 Ibuprofen (Motrin) 800 mg PO DAILY PRN PRN PRN Reason: Pain Score 1-10/10 Last Admin: 06/29/19 11:25 Dose: 800 mg Documented by: Insulin Human Lispro (Humalog Kwikpen (Bkc)) 0 unit SC ACHS [facility]; Protocol Last Admin: 06/29/19 11:09 Dose: Not Given Documented by: Lisinopril (Zestril) 5 mg PO DAILY [facility] Last Admin: 06/29/19 06:35 Dose: 5 mg Documented by: Loratadine (Claritin) 5 mg PO DAILY [facility] Last Admin: 06/29/19 11:11 Dose: Not Given Documented by: Morphine Sulfate () 2 mg IV Q3H PRN PRN PRN Reason: Pain Score 6-10/10 Multivitamins/Minerals (Multivitamin With Minerals) 1 tablet PO DAILY@0800 [facility] Last Admin: 06/29/19 11:13 Dose: Not Given Documented by: Nitroglycerin (Nitrostat) 0.4 mg SUBLINGUAL Q5M PRN PRN Reason: CARDIAC/CHEST PAIN Non-Formulary Medication (Norgestimate-Ethinyl Estradiol [Norg-Ee 0.18-0.215-0.25/0.035]) 1 tab PO DAILY [facility] Oxycodone HCl (Oxyir) 5 mg PO Q4H PRN PRN PRN Reason: Pain Score 4-5/10 Last Admin: 06/28/19 19:07 Dose: 5 mg Documented by: Pantoprazole Sodium (Protonix) 40 mg PO DAILY [facility] Last Admin: 06/29/19 11:13 Dose: 40 mg Documented by: Prochlorperazine Edisylate (Compazine Iv) 5 mg IV Q4H PRN PRN PRN Reason: Breakthrough Nausea/Vomiting Last Admin: 06/28/19 19:07 Dose: 5 mg Documented by: Pyridoxine HCl (Vitamin B-6) 50 mg PO DAILY [facility] Last Admin: 06/29/19 11:13 Dose: 50 mg Documented by: Senna/Docusate Sodium (Senokot-S, Candy-Colace) 2 tablet PO BID PRN PRN PRN Reason: Constipation Sertraline HCl (Zoloft) 100 mg PO DAILY [facility] Last Admin: 06/29/19 11:14 Dose: 100 mg Documented by: Sodium Chloride () 10 - 40 ml IV UD PRN PRN Reason: SALINE FLUSH Last Admin: 06/28/19 19:07 Dose: 10 ml Documented by: Sucralfate (Carafate) 1 gm PO 1HR_ACHS [facility] Trazodone HCl (Desyrel) 50 mg PO QHS [facility] Last Admin: 06/28/19 21:44 Dose: 50 mg Documented by: Home Medications: Medications to take at Discharge Ferrous Sulfate 650 tab PO DAILY 08/02/17 Pyridoxine HCl [Vitamin B6] 50 mg PO DAILY 08/02/17 Sertraline HCl [Zoloft] 100 mg PO DAILY 08/02/17 traZODone [Desyrel] 50 mg PO QHS 08/02/17 Armodafinil 250 mg PO DAILY 06/28/19 Cholecalciferol (Vitamin D3) [Vitamin D3] 2,000 unit PO DAILY 06/28/19 DiphenhydrAMINE [Benadryl] 25 mg PO DAILY PRN PRN 06/28/19 Glimepiride [Amaryl] 1 mg PO DAILY 06/28/19 Levocetirizine Dihydrochloride [Xyzal] 5 mg PO DAILY 06/28/19 Lisinopril [Zestril] 5 mg PO DAILY 06/28/19 Multivitamin with Minerals [Multiple Vitamin] 1 tab PO DAILY 06/28/19 Norgestimate-Ethinyl Estradiol [Norg-Ee 0.18-0.215-0.25/0.035] 1 tab PO DAILY 06/28/19 Atorvastatin Calcium [Lipitor] 40 mg PO QHS #30 tab 06/29/19 Esomeprazole Magnesium 40 mg PO DAILY #30 capsule. 06/29/19 metFORMIN HCl [Glucophage] 1,000 tab PO BID #0 06/29/19 Following Prescrptions Were Given to Patient: Esomeprazole Magnesium 40 mg PO DAILY #30 capsule. Transmission Status: Received by [address] Atorvastatin Calcium [Lipitor] 40 mg PO QHS #30 tab Transmission Status: Received by [address] Primary Care Physician: Erick Paez MD [Primary Care Provider] - Medical Necessity - Tobacco Use Smoking Status: Never smoker Tobacco Use: Non-smoker Meaningful Use Info Meaningful Use Diagnoses (Choose all that apply): None applicable Code Visit OBSV E&M: 50596 Observation care discharge
[2019-06-29 16:50] LABS: Bedside Glucose 108 mg/dL (70-110)
[2019-06-29 18:36] LABS: Alcohol, Blood (Medical)-Serum < 3.0 mg/dL
== END 2019-06-29 12:27 | disposition home or self-care (01) ==
LOC: ED 15:57 → PCU 19:14
PROVIDERS: Internal Medicine Cardiovascular Disease; Admitting Provider Internal Medicine; Emergency Provider Emergency Medicine; Family Provider Family Medicine; PCP Family Medicine; Visit Provider Internal Medicine
DX: R07.89 Other chest pain (principal); K21.9 Gastro-esophageal reflux disease without esophagitis; E78.5 Hyperlipidemia, unspecified; E11.9 Type 2 diabetes mellitus without complications; I10 Essential (primary) hypertension; F42.9 Obsessive-compulsive disorder, unspecified; F41.9 Anxiety disorder, unspecified; F32.9 Major depressive disorder, single episode, unspecified; G47.33 Obstructive sleep apnea (adult) (pediatric); D64.9 Anemia, unspecified; G89.29 Other chronic pain; K70.10 Alcoholic hepatitis without ascites; Z79.899 Other long term (current) drug therapy; Z79.84 Long term (current) use of oral hypoglycemic drugs
CPT/HCPCS: 36415; 71275; 76705; 78452; 80048; 80061; 80076; 80320; 81025; 82962; 82977; 84443; 84484; 85025; 87804; 93005; 93017; 93458; 96361; 96365; 96366; 96375; 96376; 99152; 99153; 99218; 99285; A9500; C1760; J7030; Q9967; A4216; C1769; C1894; G0378; G0480

== ENCOUNTER → 2021-06-10 13:04 | Outpatient (CLI) | payer OTHER, SELFPAY | PROVIDERS: PCP Family Medicine; Visit Provider Family Medicine | DX: Z23 Encounter for immunization (principal) | CPT/HCPCS: 0004A; 91300 ==

== ENCOUNTER → 2024-05-02 | Outpatient (CLI) | payer OTHER, SELFPAY ==
--- OUTSIDE RECORDS SUMMARY | 2024-05-02 20:10 | XMS RPT_ITS | CCD ---
Author Organization [facility] Care Team Providers Care Neon Sign Mechanic Name Role Phone Donal Howard Unavailable Unavailable PROVIDER, UNKNOWN Unavailable Merlyn Rodriguez Unavailable AARON Douglas JR Unavailable Unavailable JAZ TATUM Unavailable Unavailable JAZ TATUM Unavailable Merlyn Rodriguez MD Primary Care Provider Merlyn Paez MD Primary Care Provider Merlyn Paez MD Primary Care Provider Merlyn Paez MD Primary Care Provider FANTA KIRAN Attending Unavailable KATHY WILKINS Referring Unavailable MERLYN PAEZ Primary Care Unavailab le PODLOGKATHY DUNCAN Attending Unavailable MERLYN PAEZ Primary Care Unavailab le SELF Referring Unavailable AARON ALMANZA JR Attending Unavailable MERLYN PAEZ Referring Unavailab le MERLYN PAEZ Primary Care Unavailab MERLYN Avilez Referring Unavailab le MERLYN PAEZ Primary Care Unavailab le PODLOGKATHY DUNCAN Attending Unavailable MERLYN PAEZ Primary Care Unavailab le TESTROCKY MCCLURE Attending Unavailable MERLYN PAEZ Referring Unavailab le MERLYN PAEZ Primary Care Unavailab MERLYN Avilez Attending Unavailab MERLYN Avilez Primary Care Unavailab le PODLOGKATHY DUNCAN Attending Unavailable MERLYN PAEZ Primary Care Unavailab le TESTROCKY MCCLURE Attending Unavailable MERLYN PAEZ Primary Care Unavailab AARON Cohen JR Referring Unavailable MERLYN PAEZ Primary Care Unavailab AARON Cohen JR Attending Unavailable AARON ALMANZA JR Referring Unavailable MERLYN PAEZ Primary Care Unavailab le PODLOGAR, KATHY Referring Unavailable MERLYN PAEZ Primary Care Unavailab le O'FANTA REEVES Attending Unavailable PODLOGAR, KATHY Referring Unavailable MERLYN PAEZ Primary Care Unavailab le O'RAJFANTA MIRANDA Attending Unavailable PODLOGAR, KATHY Referring Unavailable MERLYN PAEZ Primary Care Unavailab le O'RAJFANTA MIRANDA Attending Unavailable PODLOGAR, KATHY Referring Unavailable MERLYN PAEZ Primary Care Unavailab le Allergies Allergy Classification Reported Allergen(s) Allergy Type Date of Onset Reaction(s) Facility Aminoketones (1 source) buPROPion Drug Allergy 08-24-19 Rash, Other: See Comments [facility] Work Phone: Macrolides (antibiotic) (1 source) Erythromycin Drug Allergy 04-16-20 03 [facility] Penicillins (antibiotic) (1 source) Amoxicillin Drug Allergy 04-16-20 03 [facility] Sulfamethoxazole / Trimethoprim (1 source) Sulfamethoxazole / Trimethoprim Drug Allergy 08-21-19 10 Rash [facility] Sulfonamides (antibiotic) (1 source) Sulfonamides (Antibiotic) Drug Allergy 04-16-20 [facility] (20 sources) amoxicillin; Translations: [AMOXICILLIN] Drug Allergy 04-16-20 [facility] Repository (20 sources) buPROPion; Translations: [BUPROPION HCL] Drug Allergy 08-24-19 18 Rash, Other: See Comments [facility] Repository (20 sources) sulfamethoxazole / trimethoprim; Translations: [SULFAMETHOXAZOLE-T RIMETHOPRIM] Drug Allergy 08-21-19 10 Rash [facility] Repository (20 sources) Sulfonamides (Antibiotic); Translations: [SULFA (SULFONAMIDE ANTIBIOTICS)] Propensity to adverse reactions to drug (disorder) 04-16-20 [facility] Repository (20 sources) ERYTHROMYCIN BASE; Translations: [ERYTHROMYCIN BASE] Propensity to adverse reactions to drug (disorder) 04-16-20 [facility] Repository Medications Current Medications Medication Drug Class(es) Dates Sig (Normalized) Sig (Original) acetaminophen 500 mg oral tablet (20 sources) acetaminophen (TYLENOL) 500 mg tablet Take 500 mg by mouth as needed. Active Comment on above: Take 500 mg by mouth as needed. armodafinil 250 mg oral tablet (20 sources) Start: 01-31-2023 End: 08-11-2024 take 1 tablet by mouth once daily armodafinil (NUVIGIL) 250 mg tab Indications: Obstructive sleep apnea syndrome , Hypersomnia Take 1 tablet by mouth once daily for 180 days. 90 tablet 1 02/13/2024 08/11/2024 Active Start: 08-06-2021 End: 01-29-2023 take 1 tablet by mouth once daily armodafinil (NUVIGIL) 250 mg tab Indications: Obstructive sleep apnea syndrome , Hypersomnia Take 1 tablet by mouth once daily for 180 days. 90 tablet 1 11/23/2021 06/15/2022 Discontinued Comment on above: Take 1 tablet by roxie th once daily for 90 days. Take 1 tablet by roxie th once daily for 180 days. atorvastatin 10 mg oral tablet (20 sources) HMG-CoA Reductase Inhibitor Start: 01-31-2023 End: 12-07-2023 atorvastatin (LIPITOR) 10 mg tablet Indications: Controlled type 2 diabetes mellitus without complication, without long-term current use of insulin ([facility]) TAKE 1 TABLET DAILY AT BEDTIME FOR CHOLESTEROL 90 tablet 1 12/07/2023 Active Start: 08-10-2022 atorvastatin ( LIPITOR) 10 mg tablet Indications: Controlled type 2 diabetes mellitus without complication, without long-term current use of insulin (HCC) TAKE 1 TABLET DAILY AT BEDTIME FOR CHOLESTEROL 90 tablet 1 08/10/2022 Active Start: 07-30-2021 End: 04-23-2022 atorvastatin (LIPITOR) 10 mg tablet Indications: Controlled type 2 diabetes mellitus without complication, without long-term current use of insulin ([facility]) TAKE 1 TABLET DAILY AT BEDTIME FOR CHOLESTEROL 90 tablet 01/06/2022 04/23/2022 Discontinued Comment on above: TAKE 1 TABLET DAILY AT BEDTIME FOR CHOLESTEROL benzoyl peroxide 0.05 mg/mg / clindamycin 0.01 mg/mg topical gel (20 sources) Lincosamide Antibacterial Start: 11-06-2021 Clindamycin-Benzoyl Peroxide 1-5 % gel Indications: Acne vulgaris Apply to affected area once daily. 50 g 1 11/06/2021 Active Start: 06-06-2018 End: 11-06-2021 Clindamycin-Benzoyl Peroxide 1-5 % gel Indications: Acne vulgaris apply topically to affected area twice a day 50 g 1 06/06/2018 11/06/2021 Discontinued Comment on above: apply topically to a ffected area twice a day Apply to affected ar ea once daily. Blood-Glucose Meter (ONETOUCH ULTRA2 METER) (4 sources) Start: 02-13-2024 Blood-Glucose Meter (ONETOUCH ULTRA2 METER) Indications: Uncontrolled type 2 diabetes mellitus with hyperglycemia (HCC) 1 Device once daily. 1 Each 02/13/2024 Active Start: 02-13-2024 Blood-Glucose Meter (ONETOUCH ULTRA2 METER) Indications: Uncontrolled type 2 diabetes mellitus with hyperglycemia (HCC) 1 Device once daily. 1 Each 0 02/13/2024 Active cholecalciferol 0.05 mg oral capsule (20 sources) Vitamin D Start: 01-21-2016 take 1 tablet by mouth once daily Cholecalciferol, Vitamin D3, 2,000 unit cap Indications: Vitamin D deficiency Take 1 tablet by mouth once daily. 0 01/21/2016 Active Comment on above: Take 1 tablet by roxie th once daily. CPAP (20 sources) Start: 01-31-2023 CPAP Indications: Obstructive sleep apnea syndrome Auto Bilevel PAP with humidification IPAP max 19, EPAP min 10 cmH2O, with pressure support of 4 cmH2O (Resmed). Lifetime supplies. 1 Each [id number] 01/31/2023 Active Start: 11-23-2021 CPAP Indicatio ns: Obstructive sleep apnea syndrome Lower PAP to 17/13 cmH2O. Also please fit with a Wisp nasal mask. Current mask leaking and headgear not maintaining appropriate position. Lifetime supplies. 1 Each [id number] 11/23/2021 Active Start: 01-05-2021 End: 01-31-2023 CPAP Indications: Obstructiv e sleep apnea syndrome Decrease PAP setting to 19/15 cmH2O. DME = [facility]. 1 Device 01/05/2021 01/31/2023 Discontinued Start: 01-05-2021 CPAP Indicatio ns: Obstructive sleep apnea syndrome Decrease PAP setting to 19/15 cmH2O. DME = [facility]. 1 Device 01/05/2021 Active Start: 08-04-2020 CPAP Indicatio ns: Obstructive sleep apnea syndrome Please fit patient with a dreamwear under the nose nasal mask. Please provide download 2 weeks later. Thank you. 1 Device 08/04/2020 Active Start: 10-31-2017 CPAP Bilevel P AP 21/17 cmH2O with humidification. A small/medium Sleep Bustos nasal mask, HUMIDITY. LIFETIME SUPPLIES. Dx: G47.33 1 Device 10/31/2017 Active Start: 10-31-2017 CPAP Bilevel P AP 21/17 cmH2O with humidification. A small/medium Sleep Bustos nasal mask, HUMIDITY. LIFETIME SUPPLIES. Dx: G47.33 1 Device 0 10/31/2017 Active Comment on above: Bilevel PAP 21/17 cm H2O with humidification. A small/medium Sleep Bustos nasal mask, HUMIDITY. LIFETIME SUPPLIES. Dx: G47.33 Please fit patient w ith a dreamwear under the nose nasal mask. Please provide download 2 weeks later. Thank you. Decrease PAP setting to 19/15 cmH2O. DME = [facility]. Lower PAP to 17/13 c mH2O. Also please fit with a Wisp nasal mask. Current mask leaking and headgear not maintaining appropriate position. Lifetime supplies. Auto Bilevel PAP wit h humidification IPAP max 19, EPAP min 10 cmH2O, with pressure support of 4 cmH2O (Resmed). Lifetime supplies. Ethinyl Estradiol / norgestimate (20 sources) Progestin, Estrogen Start: 03-19-2024 Norgestimate-Ethinyl Estradiol 0.18/0.215/0.25 mg-35 mcg (28) take 1 tablet daily 84 tablet 3 03/19/2024 Active Start: 04-18-2023 End: 03-19-2024 Norgestimate-Ethinyl Estradi ol 0.18/0.215/0.25 mg-35 mcg (28) take 1 tablet daily 84 tablet 3 04/18/2023 03/19/2024 Discontinued Start: 04-18-2023 Norgestimate-E thinyl Estradiol 0.18/0.215/0.25 mg-35 mcg (28) take 1 tablet daily 84 tablet 3 04/18/2023 Active Start: 05-17-2022 Norgestimate-E thinyl Estradiol 0.18/0.215/0.25 mg-35 mcg (28) TAKE 1 TABLET DAILY 84 tablet 3 05/17/2022 Active Start: 06-15-2021 End: 05-17-2022 Norgestimate-Ethinyl Estradi ol 0.18/0.215/0.25 mg-35 mcg (28) TAKE 1 TABLET DAILY 84 tablet 3 06/15/2021 05/17/2022 Discontinued Start: 06-15-2021 Norgestimate-E thinyl Estradiol 0.18/0.215/0.25 mg-35 mcg (28) TAKE 1 TABLET DAILY 84 tablet 3 06/15/2021 Active Comment on above: TAKE 1 TABLET DAILY Famotidine (20 sources) Histamine-2 Receptor Antagonist famotidine (PEPCID ORAL) Take by mouth. Active famotidine (PEPC ID ORAL) Take by mouth. 0 Active Comment on above: Take by mouth. glimepiride 1 mg oral tablet (20 sources) Sulfonylurea Start: 01-31-2023 End: 12-07-2023 take 1 tablet by mouth once daily at breakfast glimepiride (AMARYL) 1 mg tablet Indications: Controlled type 2 diabetes mellitus without complication, without long-term current use of insulin (HCC) Take 1 tablet by mouth daily with breakfast. 90 tablet 1 12/07/2023 Active Start: 08-10-2022 take 1 tablet by roxie th once daily at breakfast glimepiride (AMARYL) 1 mg tablet Indications: Controlled type 2 diabetes mellitus without complication, without long-term current use of insulin (HCC) Take 1 tablet by mouth daily with breakfast. 90 tablet 1 08/10/2022 Active Start: 07-30-2021 End: 04-23-2022 take 1 tablet by mouth once daily at breakfast glimepiride (AMARYL) 1 mg tablet Indications: Controlled type 2 diabetes mellitus without complication, without long-term current use of insulin (HCC) Take 1 tablet by mouth daily with breakfast. 90 tablet 01/06/2022 04/23/2022 Discontinued Comment on above: Take 1 tablet by roxie th daily with breakfast. ipratropium bromide 0.042 mg/actuat metered dose nasal spray (20 sources) Anticholinergic Start: 018 ipratropium bromide (ATROVENT) 42 mcg (0.06 %) nasal spray Use 2 Sprays in the nose as needed. 06/06/2018 Active Comment on above: Use 2 Sprays in the nose as needed. levocetirizine (20 sources) Histamine-1 Receptor Antagonist take 1 tablet by mouth once daily levocetirizine dihydrochloride (LEVOCETIRIZINE ORAL) Take 1 tablet by mouth once daily. Active take 1 tablet by mouth once alicja y levocetirizine dihydrochloride (LEVOCETIRIZINE ORAL) Take 1 tablet by mouth once daily. 0 Active Comment on above: Take 1 tablet by roxie th once daily. lisinopril 5 mg oral tablet (20 sources) Angiotensin Converting Enzyme Inhibitor Start: 01-31-2023 End: 12-07-2023 take 1 tablet by mouth once daily lisinopril (ZESTRIL) 5 mg tablet Indications: Controlled type 2 diabetes mellitus without complication, without long-term current use of insulin (HCC) Take 1 tablet by mouth once daily. 90 tablet 1 12/07/2023 Active Start: 08-10-2022 take 1 tablet by roxie th once daily lisinopril (ZESTRIL, PRINIVIL) 5 mg tablet Indications: Controlled type 2 diabetes mellitus without complication, without long-term current use of insulin (HCC) Take 1 tablet by mouth once daily. 90 tablet 1 08/10/2022 Active Start: 07-30-2021 End: 04-23-2022 take 1 tablet by mouth once daily lisinopril (ZESTRIL, PRINIVIL) 5 mg tablet Indications: Controlled type 2 diabetes mellitus without complication, without long-term current use of insulin (HCC) Take 1 tablet by mouth once daily. 90 tablet 01/06/2022 04/23/2022 Discontinued Comment on above: Take 1 tablet by roxie th once daily. metFORMIN hydrochloride 1000 mg oral tablet (20 sources) Biguanide Start: 3 End: 4 take 1 tablet by mouth twice daily at mealtime metFORMIN (GLUCOPHAGE) 1,000 mg tablet Indications: Controlled type 2 diabetes mellitus without complication, without long-term current use of insulin (HCC) Take 1 tablet by mouth two times a day with meals. 180 tablet 1 12/07/2023 Active Start: 08-10-2022 take 1 tablet by roxie th twice daily at mealtime metFORMIN (GLUCOPHAGE) 1,000 mg tablet Indications: Controlled type 2 diabetes mellitus without complication, without long-term current use of insulin (HCC) Take 1 tablet by mouth twice daily with meals. 180 tablet 1 08/10/2022 Active Start: 07-30-2021 End: 04-23-2022 take 1 tablet by mouth twice daily at mealtime metFORMIN (GLUCOPHAGE) 1,000 mg tablet Indications: Controlled type 2 diabetes mellitus without complication, without long-term current use of insulin (HCC) Take 1 tablet by mouth twice daily with meals. 180 tablet 01/06/2022 04/23/2022 Discontinued Comment on above: Take 1 tablet by roxie th twice daily with meals. modafinil 200 mg oral tablet (20 sources) Sympathomimetic-li ke Agent Start: 3 End: 5 modafinil (PROVIGIL) 200 mg tablet Indications: Obstructive sleep apnea syndrome , Hypersomnia Take 1 tablet in mid afternoon (no later than 5PM) as needed. 90 tablet 1 02/13/2024 08/15/2024 Active Comment on above: Take 1 tablet in mid afternoon (no later than 5PM) as needed. multivitamin tablet (20 sources) Start: 6 take 1 tablet by mouth once daily multivitamin tablet Take 1 tablet by mouth once daily. 0 01/21/2016 Active Comment on above: Take 1 tablet by roxie once daily. sertraline 100 mg oral tablet (20 sources) Serotonin Reuptake Inhibitor Start: 3 End: 4 take 2 tablets by mouth once daily sertraline (ZOLOFT) 100 mg tablet Take 2 tablets by mouth once daily. 180 tablet 1 12/07/2023 Active Start: 06-15-2021 End: 07-02-2022 take 2 tablets by mouth once daily sertraline (ZOLOFT) 100 mg tablet Take 2 tablets by mouth once daily. 180 tablet 1 01/06/2022 07/02/2022 Discontinued Comment on above: Take 2 tablets by mo [facility] once daily. tirzepatide (MOUNJARO) 2.5 mg/0.5 mL pen injector (12 sources) Start: 02-13-20 24 inject 2.5 mg by subcutaneous injection every week tirzepatide (MOUNJARO) 2.5 mg/0.5 mL pen injector Indications: Uncontrolled type 2 diabetes mellitus with hyperglycemia (HCC) Inject 2.5 mg subcutaneously one time a week. 4 Each 2 02/13/2024 Active Start: 01-16-2024 End: 02-13-2024 inject 2.5 mg by subcutaneous injection every week tirzepatide (MOUNJARO) 2.5 mg/0.5 mL pen injector Indications: Uncontrolled type 2 diabetes mellitus with hyperglycemia (HCC) Inject 2.5 mg subcutaneously one time a week. 4 Each 0 01/16/2024 02/13/2024 Discontinued Start: 01-16-2024 inject 2.5 mg by sub cutaneous injection every week tirzepatide (MOUNJARO) 2.5 mg/0.5 mL pen injector Indications: Uncontrolled type 2 diabetes mellitus with hyperglycemia (HCC) Inject 2.5 mg subcutaneously one time a week. 4 Each 0 01/16/2024 Active Start: 01-03-2024 End: 01-16-2024 inject 2.5 mg by subcutaneous injection every week tirzepatide (MOUNJARO) 2.5 mg/0.5 mL pen injector Indications: Uncontrolled type 2 diabetes mellitus with hyperglycemia (HCC) Inject 2.5 mg subcutaneously one time a week. 4 Each 0 01/03/2024 01/16/2024 Discontinued Start: 01-03-2024 inject 2.5 mg by sub cutaneous injection every week tirzepatide (MOUNJARO) 2.5 mg/0.5 mL pen injector Indications: Uncontrolled type 2 diabetes mellitus with hyperglycemia (HCC) Inject 2.5 mg subcutaneously one time a week. 4 Each 0 01/03/2024 Active Start: 12-12-2023 End: 01-03-2024 inject 2.5 mg by subcutaneous injection every week tirzepatide (MOUNJARO) 2.5 mg/0.5 mL pen injector Indications: Uncontrolled type 2 diabetes mellitus with hyperglycemia (HCC) Inject 2.5 mg subcutaneously one time a week. 4 Each 0 12/12/2023 01/03/2024 Discontinued Start: 12-12-2023 inject 2.5 mg by sub cutaneous injection every week tirzepatide (MOUNJARO) 2.5 mg/0.5 mL pen injector Indications: Uncontrolled type 2 diabetes mellitus with hyperglycemia (HCC) Inject 2.5 mg subcutaneously one time a week. 4 Each 0 12/12/2023 Active vitamin b12 1 mg oral tablet (20 sources) Vitamin B12 Start: 01-21-2016 take 1 tablet by mouth once daily cyanocobalamin (VITAMIN B-12) 1,000 mcg tab Indications: Carpal tunnel syndrome of right wrist Take 1 tablet by mouth once daily. 0 01/21/2016 Active Comment on above: Take 1 tablet by mouth once daily. vitamin b6 100 mg oral tablet (20 sources) Start: 01-21-2016 take 1 tablet by mouth once daily pyridoxine, vitamin B6, (VITAMIN B-6) 100 mg tablet Indications: Carpal tunnel syndrome of right wrist Take 100 mg by mouth once daily. 0 01/21/2016 Active Comment on above: Take 100 mg by mouth once daily. Completed/Discontinued Medications Medication Drug Class(es) Dates Sig (Normalized) Sig (Original) gabapentin 300 mg oral capsule (20 sources) Anti-epileptic Agent Start: 11-23-2021 End: 12-31-2024 gabapentin (NEURONTIN) 300 mg capsule Indications: RLS (restless legs syndrome) Take 1-2 capsules 1 hour before bedtime. 180 capsule 1 11/23/2021 08/02/2022 Discontinued Start: 01-05-2021 End: 11-23-2021 gabapentin (NEURONTIN) 300 m g capsule Indications: RLS (restless legs syndrome) Take 2 capsules 1 hour before bedtime. 180 capsule 1 01/05/2021 11/23/2021 Discontinued Comment on above: Take 2 capsules 1 ho ur before bedtime. Take 1-2 capsules 1 hour before bedtime. magnesium oxide 400 mg oral capsule (8 sources) End: 11-23 take 1 capsule by mouth once daily magnesium oxide 400 mg magnesium cap Take 400 mg by mouth once daily. 0 11/23/2021 Discontinued Comment on above: Take 400 mg by mouth once daily. 1 ml medroxyPROGESTERone acetate 150 mg/ml injection (11 sources) Progestin Start : 06-10 End: 01-06 medroxyPROGESTERone (DEPO-PROVERA) 150 mg/mL injection Inject 1 mL intramuscularly every 12 weeks. 1 Vial 3 06/10/2020 01/06/2022 Discontinued (Course of therapy completed) Comment on above: Inject 1 mL intramus cularly every 12 weeks. meloxicam 15 mg oral tablet (12 sources) Nonsteroidal Anti-inflammatory Drug Start : 07-22 End: 02-12 take 1 tablet by mouth once daily as needed for pain meloxicam (MOBIC) 15 mg tablet Take 1 tablet by mouth once daily as needed for pain. With food. 30 tablet 07/22/2023 12/07/2023 Discontinued Comment on above: Take 1 tablet by roxie th once daily as needed for pain. With food. montelukast 10 mg oral tablet (20 sources) Leukotriene Receptor Antagonist Start : 05-29 End: 02-12 take 1 tablet by mouth once daily montelukast (SINGULAIR) 10 mg tablet Take 10 mg by mouth once daily. 05/29/2021 02/13/2024 Discontinued (Course of therapy completed) Comment on above: Take 10 mg by mouth once daily. traZODone hydrochloride 50 mg oral tablet (20 sources) Serotonin Reuptake Inhibitor Start : 01-31 End: 08-15 take 1 tablet by mouth once daily at bedtime traZODone (DESYREL) 50 mg tablet Take 1 tablet by mouth daily at bedtime. 90 tablet 3 01/31/2023 08/15/2023 Discontinued Start: 09-25-2021 End: 12-17-2022 traZODone (DESYREL) 50 mg ta blet TAKE 1 TABLET DAILY AT BEDTIME 90 tablet 3 12/22/2021 12/17/2022 Discontinued Comment on above: TAKE 1 TABLET DAILY AT BEDTIME Take 1 tablet by roxie th daily at bedtime. Problems Active Problems Problem Classification Problem Date Documented Date Episodic/Chronic Allergic reactions (4 sources) Allergy status to other antibiotic agents status; Translations: [Allergy status to other drugs, medicaments and biological substances status] Onset: 12-19-2017 Episodic Anxiety disorders (20 sources) Obsessive-compulsive disorder; Translations: [Obsessive-compulsive disorder, unspecified] 09-17-2014 Chronic Deficiency and other anemia (20 sources) Iron deficiency anemia due to blood loss; Translations: [Iron deficiency anemia secondary to blood loss (chronic)] Onset: 12-23-2016 12-23-2016 Chronic Deficiency and other anemia (1 source) Iron deficiency anemia secondary to blood loss (chronic); Translations: [Iron deficiency anemia due to chronic blood loss] Onset: 12-23-2016 Chronic Deficiency and other anemia (2 sources) Iron deficiency anemia; Translations: [Iron deficiency anemia, unspecified] Episodic Diabetes mellitus with complications (5 sources) Type II diabetes mellitus uncontrolled; Translations: [Type 2 diabetes mellitus with hyperglycemia] Onset: 02-13-2024 12-12-2023 Chronic Diabetes mellitus without complication (20 sources) Type 2 diabetes mellitus without complications; Translations: [Diabetes mellitus without complication] Onset: 05-30-2016 05-30-2016 Chronic Disorders of lipid metabolism (20 sources) Mixed hyperlipidemia; Translations: [Mixed hyperlipidemia] Onset: 09-29-2017 09-29-2017 Chronic Esophageal disorders (20 sources) Gastro-esophageal reflux disease without esophagitis; Translations: [Gastroesophageal reflux disease] Onset: 12-06-2006 12-06-2006 Chronic Nutritional deficiencies (1 source) Serum iron low; Translations: [Iron deficiency] Episodic Other aftercare (1 source) H/O: high risk medication; Translations: [Other terminologist (current) drug therapy] 02-13-2024 Episodic Other aftercare (1 source) Other shelter (current) drug therapy; Translations: [Long-term use of high-risk medication] Onset: 02-13-2024 Episodic Other congenital anomalies (2 sources) Talipes cavus; Translations: [Congenital pes cavus, right foot] 08-15-2023 Chronic Other connective tissue disease (4 sources) Other myositis, right ankle and foot; Translations: [Pain in right foot] Onset: 12-19-2017 Episodic Other connective tissue disease (20 sources) Pain in right foot; Translations: [Pain in right foot] Onset: 02-28-2023 Episodic Other connective tissue disease (1 source) Pain in both feet; Translations: [Pain in right foot] Episodic Other connective tissue disease (3 sources) Chronic pain of right foot; Translations: [Pain in right foot] 08-15-2023 Episodic Other hereditary and degenerative nervous system conditions (20 sources) Restless legs; Translations: [Restless legs syndrome] Onset: 11-30-2019 11-30-2019 Chronic Other hereditary and degenerative nervous system conditions (1 source) Restless legs syndrome; Translations: [RLS (restless legs syndrome)] Onset: 11-30-2019 Chronic Other injuries and conditions due to external causes (1 source) Injury of right ankle; Translations: [Unspecified injury of right ankle, initial encounter] 02-08-2022 Episodic Other nervous system disorders (20 sources) Carpal tunnel syndrome; Translations: [Carpal tunnel syndrome, unspecified upper limb] 07-06-2021 Chronic Other nervous system disorders (1 source) Sleep-wake schedule disorder, delayed phase type; Translations: [Circadian rhythm sleep disorder, delayed sleep phase type] 02-13-2024 Chronic Other nervous system disorders (1 source) Circadian rhythm sleep disorder, delayed sleep phase type; Translations: [Delayed sleep phase syndrome] Onset: 02-13-2024 Chronic Other nervous system disorders (1 source) Other chronic pain; Translations: [Chronic foot pain, right] Onset: 07-22-2023 Chronic Other non-traumatic joint disorders (1 source) Acute ankle pain; Translations: [Pain in right ankle and joints of right foot] 02-08-2022 Episodic Other nutritional; endocrine; and metabolic disorders (20 sources) Simple obesity ; Translations: [Other obesity due to excess calories] Onset: 01-21-2016 01-21-2016 Chronic Other nutritional; endocrine; and metabolic disorders (20 sources) Body mass index 40+ - severely obese; Translations: [Morbid (severe) obesity due to excess calories] 06-28-2017 Chronic Other nutritional; endocrine; and metabolic disorders (20 sources) Obese class II; Translations: [Obesity, unspecified] Onset: 08-10-2022 08-10-2022 Chronic Other nutritional; endocrine; and metabolic disorders (20 sources) Obesity caused by energy imbalance; Translations: [Other obesity due to excess calories] Onset: 01-21-2016 01-21-2016 Chronic Other nutritional; endocrine; and metabolic disorders (2 sources) Obesity; Translations: [Obesity, unspecified] 08-15-2023 Chronic Other nutritional; endocrine; and metabolic disorders (2 sources) Obesity, unspecified; Translations: [Class 2 obesity with body mass index (BMI) of 36.0 to 36.9 in adult, unspecified obesity type, unspecified whether serious comorbidity present] Onset: 08-15-2023 Chronic Other nutritional; endocrine; and metabolic disorders (1 source) Body mass index (BMI) 36.0-36.9, adult; Translations: [Class 2 obesity with body mass index (BMI) of 36.0 to 36.9 in adult, unspecified obesity type, unspecified whether serious comorbidity present] Onset: 02-13-2024 Chronic Other nutritional; endocrine; and metabolic disorders (1 source) Body mass index (BMI) 39.0-39.9, adult; Translations: [Class 2 obesity with body mass index (BMI) of 39.0 to 39.9 in adult, unspecified obesity type, unspecified whether serious comorbidity present] Onset: 08-15-2023 Chronic Other screening for suspected conditions (not mental disorders or infectious disease) (6 sources) Patient encounter status; Translations: [Encounter for screening mammogram for malignant neoplasm of breast] Onset: 02-13-2024 Episodic Other skin disorders (1 source) Acne vulgaris; Translations: [Acne vulgaris] Episodic Other upper respiratory disease (20 sources) Seasonal allergy; Translations: [Other seasonal allergic rhinitis] 06-28-2017 Chronic Residual codes; unclassified (20 sources) Obstructive sleep apnea syndrome; Translations: [Obstructive sleep apnea (adult) (pediatric)] 11-21-2020 Chronic Residual codes; unclassified (20 sources) Hypersomnia; Translations: [Hypersomnia, unspecified] Onset: 11-30-2019 11-30-2019 Chronic Residual codes; unclassified (1 source) Hypersomnia, unspecified; Translations: [Hypersomnia] Onset: 11-30-2019 Chronic Residual codes; unclassified (1 source) Swelling; Translations: [Edema, unspecified] Episodic Residual codes; unclassified (2 sources) Pain; Translations: [Pain, unspecified] Episodic Spondylosis; intervertebral disc disorders; other back problems (20 sources) Prolapsed lumbar intervertebral disc; Translations: [Other intervertebral disc displacement, lumbar region] 09-17-2014 Chronic Unclassified (3 sources) Obstructive sleep apnea (adult) (pediatric); Translations: [Obstructive sleep apnea (adult) (pediatric)] Onset: 10-18-2017 Chronic Unclassified (2 sources) Sleep apnea, unspecified; Translations: [Sleep apnea, unspecified] Onset: 12-19-2017 Unclassified (2 sources) Obsessive-compulsive disorder, unspecified; Translations: [Obsessive-compulsive disorder, unspecified] Onset: 12-19-2017 Unclassified (2 sources) 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; Translations: [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] Onset: 12-19-2017 Unclassified (1 source) Unknown / UNK(Unknown) Onset: 01-14-2017 Past or Other Problems Problem Classification Problem Date Documented Da te Episodic/Chronic Deficiency and other anemia (1 source) Iron deficiency anemia, unspecified; Translations: [Iron deficiency anemia, unspecified iron deficiency anemia type] Onset: 08-15-2023 Episodic Other connective tissue disease (1 source) Pain in right foot; Translations: [Chronic foot pain, right] Onset: 07-22-2023 Episodic Other non-traumatic joint disorders (20 sources) Pain in right knee; Translations: [Pain in joint, lower leg] Onset: 02-28-2023 02-08-2023 Episodic Personality disorders (17 sources) Obsessive compulsive personality disorder; Translations: [Obsessive-compulsi ve personality disorder] Onset: 07-27-2005 Resolved: 09-17-2014 09-17-2014 Chronic Residual codes; unclassified (17 sources) Tobacco use and exposure - finding; Translations: [Tobacco use] Resolved: 01-03-2018 01-03-2018 Episodic Results Test Name Value Interpretation Reference Range Facility [facility] 03-27-2024 CNOV Office Visit (PODIWS ) ----- SUSHMA BOTELLO ([id number]) 1980 F Date Time Provider Department 03/27/24 10:15 AM ROCKY RO PODIWS During your visit today, we recorded the following information about you: Sowmya Cramer RN 03/27/2024 10:38 AM Signed AMB ROOMING INTAKE FLOWSHEET DATA Pain Pain Level: 3 Pain Location: Foot-Right Description: Dull Duration Units: Months Frequency: Continuous Intervention/Comfort measure: Relaxation Comments: Pain worse in the evening Patient presents with: Right Foot - Established Patient, Follow Up, Pain Patient presents for follow up right foot pain. Has tried supportive shoes and powerstep inserts. Would like to try custom orthotics. VISH 08/15/23 Rocky Ro 03/27/2024 10:38 AM Signed FOLLOW UP PODIATRIC OFFICE VISIT Chief Complaint: This 43 year old who presents for follow up:b/l foot pain Patient presents to clinic for follow-up b/l foot pain Patient continues to complain of pain to the lateral aspect of both feet Had been doing physical therapy and the exercises recommended did help but she stopped performing Is interested in trying custom orthotic. Does complain of intermittent cramping of feet. PAIN EVALUATION 03/27/2024 1016 Pain Level: 3 Pain Location: Foot-Right Description: Dull Duration Units: Months Frequency: Continuous Intervention/Comfort measure: Relaxation Comments: Pain worse in the evening Hemoglobin A1C (POCT) Date Value Ref Range Status 02/13/2024 6.5 (A) 4.3 - 5.6 % Final Comment: Location:[address], [facility] Point of care (POC) Hemoglobin A1c (HGBA1C) testing is intended to assess glucose control and provide a management tool for patients known to have diabetes and their healthcare providers. Target HGBA1C levels may depend on specific clinical circumstances. POC HGBA1C is not intended for use as a diagnostic or screening test; laboratory-based testing should be used for diagnostic purposes. The following information is supplemental and may not be applicable to specific diabetes management situations: The POC device floral decorator provides a normal range of 4.2% to 6.5% for the HGBA1C POC test. However, the [place] [employer] guidelines indicate that patients with HGBA1C in the range of 5.7% to 6.4% are at increased risk for development of diabetes and that intervention by lifestyle modification may be beneficial. A HGBA1C level greater than or equal to 6.5% is considered diagnostic of diabetes, pending confirmatory testing. Use of HGBA1C testing to evaluate glucose control may not be appropriate for patients with hemoglobin variants or other conditions (e.g. anemia) that alter red blood cell lifespan. PCP: Merlyn Paez MD PAST MEDICAL HISTORY Diagnosis Date CTS (carpal tunnel syndrome) bilateral on NCT Diabetes mellitus type II, controlled ([facility]) Eczema GERD (gastroesophageal reflux disease) Hyperlipidemia Insomnia Iron deficiency anemia Lumbar disc herniation age 24 Morbid obesity with BMI of 40.0-44.9, adult ([facility]) OCD (obsessive compulsive disorder) was on prozac and paxil in past Seasonal allergies Dr. Bassett Sleep apnea bipap, seeing Dr. Almanza Tobacco use Current Outpatient Medications Medication Sig Norgestimate-Ethinyl Estradiol 0.18/0.215/0.25 mg-35 mcg (28) take 1 tablet daily traZODone (DESYREL) 50 mg tablet Take 50 mg by mouth daily at bedtime. armodafinil (NUVIGIL) 250 mg tab Take 1 tablet by mouth once daily for 180 days. gabapentin (NEURONTIN) 300 mg capsule Take 1-2 capsules 1 hour before bedtime. modafinil (PROVIGIL) 200 mg tablet Take 1 tablet in mid afternoon (no later than 5PM) as needed. Blood-Glucose Meter (PrismaticUCH ULTRA2 METER) 1 Device once daily. blood sugar diagnostic (BLOOD GLUCOSE TEST) test strip Test blood sugar(s) 1 times daily. Dx: Type 2 DM - Uncontrolled E11.65 Insulin: No tirzepatide (MOUNJARO) 2.5 mg/0.5 mL pen injector Inject 2.5 mg subcutaneously one time a week. sertraline (ZOLOFT) 100 mg tablet Take 2 tablets by mouth once daily. metFORMIN (GLUCOPHAGE) 1,000 mg tablet Take 1 tablet by mouth two times a day with meals. lisinopril (ZESTRIL) 5 mg tablet Take 1 tablet by mouth once daily. glimepiride (AMARYL) 1 mg tablet Take 1 tablet by mouth daily with breakfast. atorvastatin (LIPITOR) 10 mg tablet TAKE 1 TABLET DAILY AT BEDTIME FOR CHOLESTEROL CPAP Auto Bilevel PAP with humidification IPAP max 19, EPAP min 10 cmH2O, with pressure support of 4 cmH2O (Resmed). Lifetime supplies. famotidine (PEPCID ORAL) Take by mouth. CPAP Lower PAP to 17/13 cmH2O. Also please fit with a Wisp nasal mask. Current mask leaking and headgear not maintaining appropriate position. Lifetime supplies. CPAP Please fit patient with a dreamwear under the nose nasal mask. Please provide downlo (more content not included)... [facility] SUSH[facility] BOTELLO ([id number]) 1980 F Date Time Provider Department 02/28/24 AARON ALMANZA JR During your visit today, we recorded the following information about you: Fanta Dyer 02/28/2024 1:05 PM Signed Patient contacted the office stating she received a message from [employer] [facility] stating her insurance company is denying her prescription for a new unit without a sleep study. Please forward to [facility]. Rona Lanza LPN 03/06/2024 3:14 PM Signed Pt calling in to ask if provider has checked into her message regarding bipap being denied by insurance company, see previous message. MARKO Marcum Jessica, LPN 03/06/2024 3:25 PM Signed Spoke with [facility] and insurance is denying a new machine, they are requiring an in lab titration study. MARKO Jenkins William J Jr., MD 03/06/2024 4:07 PM Signed Please contact [facility] and clarify reason for need of in lab titration. Thank you, MD Shelia Duong Jessica, LPN 03/07/2024 11:54 AM Signed Fax sent to [facility] requesting letter of denial. MARKO Jenkins Donna M, RN 03/07/2024 5:34 PM Signed Sg @ [facility] calling to speak with Fanta directly with question regarding Bipap machine. His ph# [phone] LUIS Coulter Gillian, OCCA 03/08/2024 8:54 AM Signed TC to Sg at [facility] who transferred this staff to Shauna. Shauna stating patient insurance is denying the CPAP because her study is over 10 years old, they want either split night or titration with up to date setting requirements. Aaron Almanza Jr., MD 03/08/2024 12:18 PM Signed Please clarify: if patient undergoes HSAT to confirm dx of SERGEY, would that in fact be enough as we know per downloads that PAP is controlling symptoms and adequately treating. Thank you, MD Rodney Duong Gillian, OCCA 03/08/2024 12:29 PM Signed Clarified with [facility], insurance is requiring an in lab study, not HSAT. Can either be split night or titration. RL Dickey William J Jr., MD 03/12/2024 9:12 AM Signed Please let pt know. If she is ok with it, will get a split night. Thank you, MD Rodney Duong Gillian, OCCA 03/16/2024 11:32 AM Signed TC to patient who states she is okay with split night, requesting for orders to be sent to [facility]. RL Dickey Jessica, LPN 03/16/2024 1:57 PM Signed Orders faxed to [facility] for sleep study. Fanta Bass LPN Allergies As of Date: 02/28/2024 Noted Allergy Reaction AMOXICILLIN 04/16/2003 Comments: rash and swelling BACTRIM (SULFAMETHOXAZOLE-TRIMETH *08/21/2009 2 - Rash ERYTHROMYCIN BASE 04/16/2003 Comments: rash and swelling SULFA (SULFONAMIDE ANTIBIOTICS) 04/16/2003 Comments: bactrim rash and swelling WELLBUTRIN (BUPROPION HCL) 08/24/2017 2 - Rash 14 - Other: See Comments Comments: Chest pain Date Reviewed: 02/17/2024 Reviewed by: Aaron Almanza Jr., MD - Fully Assessed Reason for Visit: Patient Question [2137] Cmt: Regarding BiPap Primary Visit Diagnosis:Obstructive sleep apnea syndrome [G47.33] Order(s):POLYSOMNOGRAM (PSG) [[id number]] Order #: [id number] FUTURE Prescriptions as of 03/16/2024 - traZODone (DESYREL) 50 mg tablet Take 50 mg by mouth daily at bedtime. - armodafinil (NUVIGIL) 250 mg tab Take 1 tablet by mouth once daily for 180 days. - gabapentin (NEURONTIN) 300 mg capsule Take 1-2 capsules 1 hour before bedtime. - modafinil (PROVIGIL) 200 mg tablet Take 1 tablet in mid afternoon (no later than 5PM) as needed. - Blood-Glucose Meter (ONETOUCH ULTRA2 METER) 1 Device once daily. - blood sugar diagnostic (BLOOD GLUCOSE TEST) test strip Test blood sugar(s) 1 times daily. Dx: Type 2 DM - Uncontrolled E11.65 Insulin: No - tirzepatide (MOUNJARO) 2.5 mg/0.5 mL pen injector Inject 2.5 mg subcutaneously one time a week. - sertraline (ZOLOFT) 100 mg tablet Take 2 tablets by mouth once daily. - metFORMIN (GLUCOPHAGE) 1,000 mg tablet Take 1 tablet by mouth two times a day with meals. - lisinopril (ZESTRIL) 5 mg tablet Take 1 tablet by mouth once daily. - glimepiride (AMARYL) 1 mg tablet Take 1 tablet by mouth daily with breakfast. - atorvastatin (LIPITOR) 10 mg tablet TAKE 1 TABLET DAILY AT BEDTIME FOR CHOLESTEROL - Norgestimate-Ethinyl Estradiol 0.18/0.215/0.25 mg-35 mcg (28) take 1 tablet daily - CPAP Auto Bilevel PAP with humidification IPAP max 19, EPAP min 10 cmH2O, with pressure support of 4 cmH2O (Resmed). Lifetime supplies. - famotidine (PEPCID ORAL) Take by mouth. - CPAP Lower PAP to 17/13 cmH2O. Also please fit with a Wisp nasal mask. Current mask leaking and headgear not maintaining appropriate position. Lifetime supplies. - Clindamycin-Benzoyl Peroxide 1-5 % gel Apply to affected area once daily. - blood sugar diagnostic (ONETOUCH (more content not included)... Normal [facility] CNOVon 02-13-2024 CNOV Office Visit (FAMPWS ) ----- SUSHMA BOTELLO ([id number]) 1980 F Date Time Provider Department 02/13/24 11:40 AM KATHY WILKINS During your visit today, we recorded the following information about you: Pulse Respiration Blood pressure Weight 106/minute 16/minute 118/78 105.2 kg Kathy Wilkins APRN.CNP 02/13/2024 1:11 PM Signed 02/08/2024 Patient presents with: F/U 6 months SUBJECTIVE: This is a 43 year old that is here today for Above Complaints. DIABETES MELLITUS: Since our last visit she denies excessive thirst or increased frequency of urination, chest pain or dyspnea , numbness, tingling or pain in extremities, new or unusual visual symptoms, low sugar/hypoglycemic reactions, weight loss/gain, lightheadedness/dizziness , and bowel changes/loose stools. Follows a diabetic diet most of the time. She is compliant with medication(s) and is tolerating med(s) without any side effects. She reports checking her glucose on a infrequent to not at all basis schedule . Patient's last HgA1C was Hemoglobin A1C (%) Date Value 12/09/2023 7.3 07/22/2023 6.7 07/01/2021 6.8 09/23/2020 6.4 ) Last Ophthalmology exam was In July and August SERGEY: Follows with sleep medicine with last appointment today. No changes in current regime HYPERLIPIDEMIA: Patient is taking medications: Yes. Patient is watching diet: Yes. Patient denies myalgias: Yes. Patient denies gi upset: Yes PAST MEDICAL HISTORY No date: CTS (carpal tunnel syndrome) Comment: bilateral on NCT No date: Diabetes mellitus type II, controlled ([facility]) No date: Eczema No date: GERD (gastroesophageal reflux disease) No date: Hyperlipidemia No date: Insomnia No date: Iron deficiency anemia No date: Lumbar disc herniation Comment: age 24 No date: Morbid obesity with BMI of 40.0-44.9, adult ([facility]) No date: OCD (obsessive compulsive disorder) Comment: was on prozac and paxil in past No date: Seasonal allergies Comment: Dr. Bassett No date: Sleep apnea Comment: ananda, seeing Dr. Almanza No date: Tobacco use ALLERGIES Amoxicillin, Bactrim [Sulfamethoxazole-Trimeth oprim], Erythromycin Base, Sulfa (Sulfonamide Antibiotics), and Wellbutrin [Bupropion Hcl] MEDICATIONS Current Outpatient Medications Medication Sig tirzepatide (MOUNJARO) 2.5 mg/0.5 mL pen injector Inject 2.5 mg subcutaneously one time a week. sertraline (ZOLOFT) 100 mg tablet Take 2 tablets by mouth once daily. meloxicam (MOBIC) 15 mg tablet Take 1 tablet by mouth once daily as needed for pain. With food. metFORMIN (GLUCOPHAGE) 1,000 mg tablet Take 1 tablet by mouth two times a day with meals. lisinopril (ZESTRIL) 5 mg tablet Take 1 tablet by mouth once daily. glimepiride (AMARYL) 1 mg tablet Take 1 tablet by mouth daily with breakfast. atorvastatin (LIPITOR) 10 mg tablet TAKE 1 TABLET DAILY AT BEDTIME FOR CHOLESTEROL gabapentin (NEURONTIN) 300 mg capsule Take 1-2 capsules 1 hour before bedtime. modafinil (PROVIGIL) 200 mg tablet Take 1 tablet in mid afternoon (no later than 5PM) as needed. armodafinil (NUVIGIL) 250 mg tab Take 1 tablet by mouth once daily for 180 days. Norgestimate-Ethinyl Estradiol 0.18/0.215/0.25 mg-35 mcg (28) take 1 tablet daily CPAP Auto Bilevel PAP with humidification IPAP max 19, EPAP min 10 cmH2O, with pressure support of 4 cmH2O (Resmed). Lifetime supplies. famotidine (PEPCID ORAL) Take by mouth. CPAP Lower PAP to 17/13 cmH2O. Also please fit with a Wisp nasal mask. Current mask leaking and headgear not maintaining appropriate position. Lifetime supplies. Clindamycin-Benzoyl Peroxide 1-5 % gel Apply to affected area once daily. montelukast (SINGULAIR) 10 mg tablet Take 10 mg by mouth once daily. (Patient not taking: Reported on 08/15/2023) blood sugar diagnostic (FarmLinkTOUCH VERIO TEST STRIPS) test strip Test blood sugar(s) 1x times daily. Dx: Type 2 DM - Controlled E11.9 Insulin: No (Patient not taking: Reported on 12/23/2022) CPAP Please fit patient with a dreamwear under the nose nasal mask. Please provide download 2 weeks later. Thank you. acetaminophen (TYLENOL) 500 mg tablet Take 500 mg by mouth as needed. ipratropium bromide (ATROVENT) 42 mcg (0.06 %) nasal spray Use 2 Sprays in the nose as needed. levocetirizine dihydrochloride (LEVOCETIRIZINE ORAL) Take 1 tablet by mouth once daily. CPAP Bilevel PAP 21/17 cmH2O with humidification. A small/medium Sleep Bustos nasal mask, HUMIDITY. LIFETIME SUPPLIES. Dx: G47.33 multivitamin tablet Take 1 tablet by mouth once daily. pyridoxine, vitamin B6, (VITAMIN B-6) 100 mg tablet Take 100 mg by mouth once daily. cyanocobalamin (VITAMIN B-12) 1,000 mcg tab Take 1 tablet by mouth once daily. Cholecalciferol, Vitamin D3, 2,000 unit cap Take 1 tablet by mouth once daily. No current facility-administered medications for this visit. Medications and allergies reviewed by (more content not included)... Normal [facility] Office Visit (SLEWST ) ----- JALENSUSHMA LOPEZ ([id number]) 1980 F Date Time Provider Department 02/13/24 10:20 AM AARON ALMANZA JR During your visit today, we recorded the following information about you: Pulse Respiration Blood pressure Weight 90/minute 16/minute 131/79 105.1 kg Aaron Almanza Jr., MD 02/17/2024 11:07 AM Signed ESTABLISHED PATIENT VISIT CHIEF COMPLAINT: Follow Up HISTORY OF PRESENT ILLNESS: Sushma Botello is a 43 year old female, BMI 36.31 kg/m2 with a PMH significant for and per last office visit note of 08/15/23: 1. 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 Patient would like to fall asleep and wake up earlier. While pt estimates being in bed for 8 hours not getting true 8 hours of sleep (especially with fragmentation of sleep over the last 2 hours). Concern with adding melatonin is that it might be counter productive given wake promoting agents currently in use. Thus, will have patient wake up 30 minutes earlier each week in an attempt to advance her sleep wake cycle. This week, will wake no later than 830AM (setting alarms and having to get out of bed). Suspect will be easier than expected as pt will sleep solid until 830AM rather than fragmenting sleep by struggling with alarm for 2 hours. Pt understanding and agrees with plan. 2. Obstructive sleep apnea syndrome - ICD9: 327.23, ICD10: G47.33 PAP compliance confirmed by subjective history and objective PAP data download. Encouraged compliance. Reminded to clean and replace PAP equipment regularly. Advised pt not to drive or operate heavy machinery if sleepy. 3. Hypersomnia - ICD9: 780.54, ICD10: G47.10 Combination of Nuvigil and Provigil appear to be working well and without side effect. Feels more awake now in the evening so that she can get needed tasks done, but also does not feel the Provigil is keeping her up at night. Reviewed SE and ADRs and med med interactions. Refills provided. 4. Class 2 obesity with body mass index (BMI) of 39.0 to 39.9 in adult, unspecified obesity type, unspecified whether serious comorbidity present - ICD9: 278.00, V85.39, ICD10: E66.9, Z68.39 Encouraged weight loss. Encouraged pt to schedule with bariatric medicine as previously discussed at prior visit. 5. Long-term use of high-risk medication - ICD9: V58.69, ICD10: Z79.899 UDS completed <1 year ago. 6. RLS (restless legs syndrome) - ICD9: 333.94, ICD10: G25.81 Stable on gabapentin as above. No changes to Rx at this time with refills provided. PAP data download shows nightly use over past 30 days for avg of 9 hours and 2 minutes. Set at 17/13 cmH2O. AHI is 1.9. 95% leak is 15 LPM. Due for annual Urine tox for controlled meds. Patient reports in 1 month getting a new job with pt excited about it. Also started on Monjuaro. Has lost 20 pounds in last 2 months. States sleep schedule is advanced. Bedtime is about 11PM and no issues falling asleep now. However, now back on Trazodone as was not staying asleep - 50mg nightly. No RLS symptoms so long as takes gabapentin. Currently no issues falling or staying asleep. New job will be more relaxed and will allow pt to sleep in if necessary. Currently taking Nuvigil daily unless wants to sleep on Tuesday. Taking Provigil as needed in the afternoon. Feels great during day - not sleepy. No falling asleep driving. PHQ 9 Data More data exists 01/27/2023 08/10/2022 04/19/2022 PHQ-9 All Questions Little interest or pleasure in doing things 0 0 0 Feeling down, depressed, or hopeless 0 0 0 Trouble falling or staying asleep, or sleeping too much 1 - 0 Feeling tired or having little energy 1 - 2 Poor appetite or overeating 0 - 0 Feeling bad about yourself - or that you are a failure or have let yourself or your family down 0 - 0 Trouble concentrating on things, such as reading the newspaper or watching television 1 - 1 Moving or speaking so slowly that other people could have noticed. Or the opposite - being so fidgety or restless that you have been moving around a lot more than usual 0 - 0 Thoughts that you would be better off , or of hurting yourself in some way 0 - 0 PHQ-9 Score 3 - 3 ELLIE 7 Data More data may exist 12/08/2023 07/21/2021 04/13/2021 ELLIE-7 All Questions Feeling nervous, anxious, or on edge Several days Not at all Not at all Not being able to stop or control worrying Several days Not at all Not at all Worrying too much about different things Several days Not at all Not at all Trouble relaxing Several days Several days Several days Being so restless that it is hard to sit still Not at all Not at all Not at all Becoming easily annoyed or irritable Not at all Not at all Sev (more content not included)... Normal [facility] [id number] 02-13-2024 ECG01 Ventricular Rate : 8 9 BPM Atrial Rate : 89 BPM P-R Interval : 120 ms QRS Duration : 84 ms Q-T Interval : 356 ms QTC Calculation(Bazett) : 433 ms Calculated P Stockett : 1 degrees Calculated R Stockett : 44 degrees Calculated T Stockett : 7 degrees NORMAL SINUS RHYTHM NORMAL ECG Confirmed by MD MORALES QARAB ([id number]) on 02/14/2024 12:17:50 PM NAME : SUSHMA BOTELLO PID : [id number] : 1980 Gender : Female Race : ORD : Procedure Date : Feb 13 2024 11:18:53 Edit Date : Feb 14 2024 12:17:54 Diagnosis: NORMAL SINUS RHYTHM NORMAL ECG Confirmed by MD MORALES QARAB ([id number]) on 02/14/2024 12:17:50 PM Test Reason : Location : [facility] : [facility] Overread By : MD MORALES QARAB Edited By : MD MORALES QARAB Referred By : AARON ALMANZA JR Acquired by : Lars APPIAH [facility] HEMOGLOBIN A1C (POC)on 02-12 HbA1c (Bld) [Mass fraction] 6.5 % Abnormal 4.3 - 5.6 % [facility] Comment on above: Location:[address], [place], [address] Point of care (POC) Hemoglobin A1c (HGBA1C) testing is intended to assess glucose control and provide a management tool for patients known to have diabetes and their healthcare providers. Target HGBA1C levels may depend on specific clinical circumstances. POC HGBA1C is not intended for use as a diagnostic or screening test; laboratory-based testing should be used for diagnostic purposes. The following information is supplemental and may not be applicable to specific diabetes management situations: The POC device floral decorator provides a normal range of 4.2% to 6.5% for the HGBA1C POC test. However, the [place] Diabetes [employer] guidelines indicate that patients with HGBA1C in the range of 5.7% to 6.4% are at increased risk for development of diabetes and that intervention by lifestyle modification may be beneficial. A HGBA1C level greater than or equal to 6.5% is considered diagnostic of diabetes, pending confirmatory testing. Use of HGBA1C testing to evaluate glucose control may not be appropriate for patients with hemoglobin variants or other conditions (e.g. anemia) that alter red blood cell lifespan. Interpretation and review of laboratory results Abnormal [facility] TOXICOLOGY SCREEN, ROUTINE U RINEon 02-13-2024 Amphetamines Confirm (U) [Mass/Vol] Negative Negative [facility] Comment on above: Cutoff threshold at 1000 ng/mL. Barbiturates Urine Negative Negative [facility] Comment on above: Cutoff threshold at 200 ng/mL. Benzodiazepines Urine Negative Negative [facility] Comment on above: Cutoff threshold at 200 ng/mL. Cannabinoids Screen Ql (U) Negative Negative [facility] Cocaine Ql (U) Negative Negative [facility] Comment on above: Cutoff threshold at 300 ng/mL. Ethanol (U) [Mass/Vol] mg/dL NINF - 11 mg/dL [facility] Interpretation and review of laboratory results Normal [facility] Opiates Screen Ql (U) Negative Negative [facility] Comment on above: Cutoff threshold at 300 ng/mL. oxyCODONE cutoff Screen (U) [Mass/Vol] Negative Negative [facility] Comment on above: Cutoff threshold at 100 ng/mL. Phencyclidine Ql (U) Negative Negative [facility] Comment on above: Cutoff threshold at 25 ng/mL. Immunoassay screen o nly. Cross reactivity with other substances can occur with immunoassay screening. Detection of any drug(s) in this urine toxicology panel is presumptive only. These tests are for medical purposes only and should not be used for compliance monitoring, legal, or forensic use. Samples should be within normal physiological conditions (e.g. pH). This assay does not include adulteration/specimen validity testing. In clinical settings, confirmatory testing is at the practitioner's discretion [1]. If clinically indicated, confirmation by high specificity, quantitative methodology, which includes adulteration/specimen validity testing, may be requested on the same specimen through Client Services ([phone]) if contacted within 48 hours of initial testing. [1]Substance Abuse and Mental Health Services Administration (2012). Clinical Drug Testing in Primary Care Technical Assistance Publication Series 32. Department of Health and Human Services, [place], p.10. [facility] Amphetamines Confirm (U) [Mass/Vol] Negative Normal Negative [facility] Comment on above: Order Comment: Speci men Type: URINE SPECIMEN Ordering Facility: [facility] Address: [address] [place] [address] Result Comment: Cuto ff threshold at 1000 ng/mL. Performed By: #### U TOX2 #### [facility] CLIA [id number] [facility] [place] [address] [place] BARBITURATES, URINE Negative Normal Negative [facility] Comment on above: Order Comment: Speci men Type: URINE SPECIMEN Ordering Facility: [facility] Address: [address] [place] [address] Result Comment: Cuto ff threshold at 200 ng/mL. Performed By: #### U TOX2 #### [facility] CLIA [id number] [address] [place] [address] [place] BENZODIAZEPINES, UR Negative Normal Negative [facility] Comment on above: Order Comment: Speci men Type: URINE SPECIMEN Ordering Facility: [facility] Address: [address] [place] [address] Result Comment: Cuto ff threshold at 200 ng/mL. Performed By: #### U TOX2 #### [facility] CLIA [id number] [address] [place] [address] [place] Cannabinoids Screen Ql (U) Negative Normal Negative [facility] Comment on above: Order Comment: Speci men Type: URINE SPECIMEN Ordering Facility: [facility] Address: [address] [place] [address] Performed By: #### U TOX2 #### [facility] CLIA [id number] [address] [place] [address] [place] Cocaine Ql (U) Negative Normal Negative [facility] Comment on above: Order Comment: Speci men Type: URINE SPECIMEN Ordering Facility: [facility] Address: [address] [place] [address] Result Comment: Cuto ff threshold at 300 ng/mL. Performed By: #### U TOX2 #### [facility] CLIA [id number] [address] [place] [address] [place] Ethanol (U) [Mass/Vol] <11 Normal <11 [facility] Comment on above: Order Comment: Speci men Type: URINE SPECIMEN Ordering Facility: [facility] Address: [address] [place] [address] Performed By: #### U TOX2 #### [facility] CLIA [id number] [address] [place] [address] [place] Opiates Screen Ql (U) Negative Normal Negative [facility] Comment on above: Order Comment: Speci men Type: URINE SPECIMEN Ordering Facility: [facility] Address: [address] [place] [address] Result Comment: Cuto ff threshold at 300 ng/mL. Performed By: #### U TOX2 #### [facility] CLIA [id number] [address] [place] [address] [place] oxyCODONE cutoff Screen (U) [Mass/Vol] Negative Normal Negative [facility] Comment on above: Order Comment: Speci men Type: URINE SPECIMEN Ordering Facility: [facility] Address: [address] [place] [address] Result Comment: Cuto ff threshold at 100 ng/mL. Performed By: #### U TOX2 #### [facility] [place] [id number] [address] [place] [address] [place] Phencyclidine Ql (U) Negative Normal Negative [facility] Comment on above: Order Comment: Speci men Type: URINE SPECIMEN Ordering Facility: [facility] Address: [address] [place] [address] Result Comment: Cuto ff threshold at 25 ng/mL. Performed By: #### U TOX2 #### [facility] CLIA [id number] [address] [place] [address] [place] Yuli 12-12-2023 CNPN Telephone (FAMPWS) ----- SUSHMA BOTELLO ([id number]) 1980 F Date Time Provider Department 12/12/23 KATHY WILKINS During your visit today, we recorded the following information about you: Lesley Cotton LPN 12/12/2023 11:30 AM Signed ----- Message from Kathy Wilkins APRN.DOOR CORE ASSEMBLER sent at 12/12/2023 11:06 AM EDT ----- A1c has increased from 6.7% to 7.3%- I can try sending in an order for Ozempic and see if insurance will cover due to uncontrolled diabetes. Kathy Wilkins APRN.Lesley Gonzales LPN 12/12/2023 11:33 AM Signed Patient notified and voices understanding. Patient requesting if she could try Monjaro first. Please advise. If so, send to [facility]. Lesley Cotton LPN PodKathy womack APRN.VIVI 12/12/2023 12:29 PM Signed I sent order for Mounjaro. I do see it ca decrease the effectiveness of contraceptive which I did not know so please let her know that. Kathy Wilkins APRN.Juliann Armijo MA 12/12/2023 12:37 PM Signed Patient notified and verbalized understanding. Juliann Mo MA Allergies As of Date: 12/12/2023 Noted Allergy Reaction AMOXICILLIN 04/16/2003 Comments: rash and swelling BACTRIM (SULFAMETHOXAZOLE-TRIMETH *08/21/2009 2 - Rash ERYTHROMYCIN BASE 04/16/2003 Comments: rash and swelling SULFA (SULFONAMIDE ANTIBIOTICS) 04/16/2003 Comments: bactrim rash and swelling WELLBUTRIN (BUPROPION HCL) 08/24/2017 2 - Rash 14 - Other: See Comments Comments: Chest pain Date Reviewed: 12/09/2023 Reviewed by: Lesley Cotton LPN - Fully Assessed Reason for Visit: Results [95] Primary Visit Diagnosis:Uncontrolled type 2 diabetes mellitus with hyperglycemia (HCC) [E11.65] Order(s):tirzepatide (MOUNJARO) 2.5 mg/0.5 mL pen injectorInject 2.5 mg subcutaneously one time a week.Disp: 4 EachRfl: 0 Prescriptions as of 12/12/2023 - tirzepatide (MOUNJARO) 2.5 mg/0.5 mL pen injector Inject 2.5 mg subcutaneously one time a week. - sertraline (ZOLOFT) 100 mg tablet Take 2 tablets by mouth once daily. - meloxicam (MOBIC) 15 mg tablet Take 1 tablet by mouth once daily as needed for pain. With food. - metFORMIN (GLUCOPHAGE) 1,000 mg tablet Take 1 tablet by mouth two times a day with meals. - lisinopril (ZESTRIL) 5 mg tablet Take 1 tablet by mouth once daily. - glimepiride (AMARYL) 1 mg tablet Take 1 tablet by mouth daily with breakfast. - atorvastatin (LIPITOR) 10 mg tablet TAKE 1 TABLET DAILY AT BEDTIME FOR CHOLESTEROL - gabapentin (NEURONTIN) 300 mg capsule Take 1-2 capsules 1 hour before bedtime. - modafinil (PROVIGIL) 200 mg tablet Take 1 tablet in mid afternoon (no later than 5PM) as needed. - armodafinil (NUVIGIL) 250 mg tab Take 1 tablet by mouth once daily for 180 days. - Norgestimate-Ethinyl Estradiol 0.18/0.215/0.25 mg-35 mcg (28) take 1 tablet daily - CPAP Auto Bilevel PAP with humidification IPAP max 19, EPAP min 10 cmH2O, with pressure support of 4 cmH2O (Resmed). Lifetime supplies. - famotidine (PEPCID ORAL) Take by mouth. - CPAP Lower PAP to 17/13 cmH2O. Also please fit with a Wisp nasal mask. Current mask leaking and headgear not maintaining appropriate position. Lifetime supplies. - Clindamycin-Benzoyl Peroxide 1-5 % gel Apply to affected area once daily. - montelukast (SINGULAIR) 10 mg tablet Take 10 mg by mouth once daily. - blood sugar diagnostic (FarmLinkTOUCH VERIO TEST STRIPS) test strip Test blood sugar(s) 1x times daily. Dx: Type 2 DM - Controlled E11.9 Insulin: No - CPAP Please fit patient with a dreamwear under the nose nasal mask. Please provide download 2 weeks later. Thank you. - acetaminophen (TYLENOL) 500 mg tablet Take 500 mg by mouth as needed. - ipratropium bromide (ATROVENT) 42 mcg (0.06 %) nasal spray Use 2 Sprays in the nose as needed. - levocetirizine dihydrochloride (LEVOCETIRIZINE ORAL) Take 1 tablet by mouth once daily. - CPAP Bilevel PAP 21/17 cmH2O with humidification. A small/medium Sleep Bustos nasal mask, HUMIDITY. LIFETIME SUPPLIES. Dx: G47.33 - multivitamin tablet Take 1 tablet by mouth once daily. - pyridoxine, vitamin B6, (VITAMIN B-6) 100 mg tablet Take 100 mg by mouth once daily. - cyanocobalamin (VITAMIN B-12) 1,000 mcg tab Take 1 tablet by mouth once daily. - Cholecalciferol, Vitamin D3, 2,000 unit cap Take 1 tablet by mouth once daily. Problem List As Of Date 12/12/2023 Noted Resolved OBSESSIVE-COMPULSIVE DISORDER [F60.5] 07/27/2005 09/17/2014 ESOPHAGEAL REFLUX [K21.9] 12/06/2006 OCD (obsessive compulsive disorder) [F42.9] SERGEY on CPAP [G47.33] CTS (carpal tunnel syndrome) [G56.00] Lumbar disc herniation [M51.26] Non morbid obesity due to excess calories [E66.*01/21/2016 Diabetes mellitus without complication (HCC) [E*05/30/2016 Iron deficiency anemia due to chronic blood los*12/23/2016 Morbid obesity with BMI of 40.0-44.9, adult (HC* Tobacco use [Z72 (more content not included)... Normal [facility] CNOVon 12-09-2023 CNOV Office Visit (GRACEPWS ) ----- SUSHMA BOTELLO ([id number]) 1980 F Date Time Provider Department 12/09/23 8:00 AM KATHY WILKINS During your visit today, we recorded the following information about you: Pulse Respiration Blood pressure Weight 97/minute 18/minute 130/88 113.3 kg Kathy Wilkins APRN.CNP 12/09/2023 9:21 AM Signed 12/09/2023 Patient presents with: Weight Loss SUBJECTIVE: This is a 43 year old that is here today for Above Complaints. Would like to discuss weight loss. Has an appointment with bariatrics in April but does not want to wait that long to discuss possible medication options. Tries to eat lower carbohydrate diet. Gets 92830 steps a day but no specific exercise regime PAST MEDICAL HISTORY Diagnosis Date CTS (carpal tunnel syndrome) bilateral on NCT Diabetes mellitus type II, controlled ([facility]) Eczema GERD (gastroesophageal reflux disease) Hyperlipidemia Insomnia Iron deficiency anemia Lumbar disc herniation age 24 Morbid obesity with BMI of 40.0-44.9, adult ([facility]) OCD (obsessive compulsive disorder) was on prozac and paxil in past Seasonal allergies Dr. Bassett Sleep apnea bipap, seeing Dr. Almanza Tobacco use ALLERGIES Amoxicillin, Bactrim [Sulfamethoxazole-Trimeth oprim], Erythromycin Base, Sulfa (Sulfonamide Antibiotics), and Wellbutrin [Bupropion Hcl] MEDICATIONS Current Outpatient Medications Medication Sig sertraline (ZOLOFT) 100 mg tablet Take 2 tablets by mouth once daily. meloxicam (MOBIC) 15 mg tablet Take 1 tablet by mouth once daily as needed for pain. With food. metFORMIN (GLUCOPHAGE) 1,000 mg tablet Take 1 tablet by mouth two times a day with meals. lisinopril (ZESTRIL) 5 mg tablet Take 1 tablet by mouth once daily. glimepiride (AMARYL) 1 mg tablet Take 1 tablet by mouth daily with breakfast. atorvastatin (LIPITOR) 10 mg tablet TAKE 1 TABLET DAILY AT BEDTIME FOR CHOLESTEROL gabapentin (NEURONTIN) 300 mg capsule Take 1-2 capsules 1 hour before bedtime. modafinil (PROVIGIL) 200 mg tablet Take 1 tablet in mid afternoon (no later than 5PM) as needed. armodafinil (NUVIGIL) 250 mg tab Take 1 tablet by mouth once daily for 180 days. Norgestimate-Ethinyl Estradiol 0.18/0.215/0.25 mg-35 mcg (28) take 1 tablet daily CPAP Auto Bilevel PAP with humidification IPAP max 19, EPAP min 10 cmH2O, with pressure support of 4 cmH2O (Resmed). Lifetime supplies. famotidine (PEPCID ORAL) Take by mouth. CPAP Lower PAP to 17/13 cmH2O. Also please fit with a Wisp nasal mask. Current mask leaking and headgear not maintaining appropriate position. Lifetime supplies. Clindamycin-Benzoyl Peroxide 1-5 % gel Apply to affected area once daily. montelukast (SINGULAIR) 10 mg tablet Take 10 mg by mouth once daily. (Patient not taking: Reported on 08/15/2023) blood sugar diagnostic (PrismaticUCH VERIO TEST STRIPS) test strip Test blood sugar(s) 1x times daily. Dx: Type 2 DM - Controlled E11.9 Insulin: No (Patient not taking: Reported on 12/23/2022) CPAP Please fit patient with a dreamwear under the nose nasal mask. Please provide download 2 weeks later. Thank you. acetaminophen (TYLENOL) 500 mg tablet Take 500 mg by mouth as needed. ipratropium bromide (ATROVENT) 42 mcg (0.06 %) nasal spray Use 2 Sprays in the nose as needed. levocetirizine dihydrochloride (LEVOCETIRIZINE ORAL) Take 1 tablet by mouth once daily. CPAP Bilevel PAP 21/17 cmH2O with humidification. A small/medium Sleep Bustos nasal mask, HUMIDITY. LIFETIME SUPPLIES. Dx: G47.33 multivitamin tablet Take 1 tablet by mouth once daily. pyridoxine, vitamin B6, (VITAMIN B-6) 100 mg tablet Take 100 mg by mouth once daily. cyanocobalamin (VITAMIN B-12) 1,000 mcg tab Take 1 tablet by mouth once daily. Cholecalciferol, Vitamin D3, 2,000 unit cap Take 1 tablet by mouth once daily. No current facility-administered medications for this visit. Medications and allergies reviewed by this provider. SOCIAL HISTORY Social History Tobacco Use Smoking status: Former Packs/day: 0.25 Years: 1.00 Additional pack years: 0.00 Total pack years: 0.25 Types: Cigarettes Quit date: 03/25/2019 Years since quittin.7 Smokeless tobacco: Never Vaping Use Vaping Use: Never used Substance Use Topics Alcohol use: Yes Alcohol/week: 12.0 standard drinks of alcohol Types: 12 Cans of Beer (12oz) per week Comment: socially Drug use: No REVIEW OF SYSTEMS All other reviewed and negative other than HPI. OBJECTIVE: BP 130/88 Pulse 97 Resp 18 Wt 113.3 kg (249 lb 12.8 oz) LMP (LMP Unknown) SpO2 98% BMI 39.12 kg/m? . Vital signs reviewed by this provider. APPEARANCE Well appearing, alert, in no acute distress, well-hydrated, well nourished. Hepatitis C Screening Never done HIV Screening Never done Dilated Retinal Exam due on 08/03/2022 Pap Testing due on 09/23/2022 HPV Testing (more content not included)... Normal [facility] Comprehensive metabolic 2000 panelon 12-09-2023 Albumin [Mass/Vol] 4.1 g/dL Normal 3.9-4.9 [facility] Comment on above: Order Comment: Speci men Type: BLOOD SPECIMEN Ordering Facility: [facility] Address: [address] [place] [address] Performed By: #### 5 7021-8 #### [facility] CLIA [id number] [address] [place] [address] [place] ALP [Catalytic activity/Vol] 55 U/L Normal 34-123 [facility] Comment on above: Order Comment: Speci men Type: BLOOD SPECIMEN Ordering Facility: [facility] Address: [address] [place] [address] Performed By: #### 5 7021-8 #### [facility] CLIA [id number] [address] [place] [address] [place] ALT [Catalytic activity/Vol] 17 U/L Normal 7-38 [facility] Comment on above: Order Comment: Speci men Type: BLOOD SPECIMEN Ordering Facility: [facility] Address: [address] [place] [address] Performed By: #### 5 7021-8 #### [facility] CLIA [id number] [address] [place] [address] [place] Anion gap [Moles/Vol] 16 mmol/L Normal 9-18 [facility] Comment on above: Order Comment: Speci men Type: BLOOD SPECIMEN Ordering Facility: [facility] Address: [address] [place] [address] Performed By: #### 5 7021-8 #### [facility] CLIA [id number] [address] [place] [address] [place] AST [Catalytic activity/Vol] 20 U/L Normal 13-35 [facility] Comment on above: Order Comment: Speci men Type: BLOOD SPECIMEN Ordering Facility: [facility] Address: [address] [place] [address] Performed By: #### 5 7021-8 #### [facility] CLIA [id number] [address] [place] [address] [place] Bilirubin [Mass/Vol] 0.3 mg/dL Normal 0.2-1.3 [facility] Comment on above: Order Comment: Speci men Type: BLOOD SPECIMEN Ordering Facility: [facility] Address: [address] [place] [address] Performed By: #### 5 7021-8 #### [facility] CLIA [id number] [address] [place] [address] [place] Calcium [Mass/Vol] 9.5 mg/dL Normal 8.5-10.2 [facility] Comment on above: Order Comment: Speci men Type: BLOOD SPECIMEN Ordering Facility: [facility] Address: [address] [place] [address] Performed By: #### 5 7021-8 #### [facility] CLIA [id number] [address] [place] [address] [place] Chloride [Moles/Vol] 98 mmol/L Normal 97-105 [facility] Comment on above: Order Comment: Speci men Type: BLOOD SPECIMEN Ordering Facility: [facility] Address: [address] [place] [address] Performed By: #### 5 7021-8 #### [facility] CLIA [id number] [address] [place] [address] [place] CO2 [Moles/Vol] 23 mmol/L Normal 22-30 [facility] Comment on above: Order Comment: Speci men Type: BLOOD SPECIMEN Ordering Facility: [facility] Address: [address] [place] [address] Performed By: #### 5 7021-8 #### [facility] CLIA [id number] [address] [place] [address] [place] Creatinine [Mass/Vol] 0.49 mg/dL Low 0.58-0.96 [facility] Comment on above: Order Comment: Speci men Type: BLOOD SPECIMEN Ordering Facility: [facility] Address: [address] [place] [address] Performed By: #### 5 7021-8 #### [facility] CLIA [id number] [address] [place] [address] [place] Creatinine and Glomerular filtration rate.predicted panel (S/P/Bld) 119 mL/min/1.73m??? Normal >=60 [facility] Comment on above: Order Comment: Speci men Type: BLOOD SPECIMEN Ordering Facility: [facility] Address: [address] [place] [address] Result Comment: Teresa mated Glomerular Filtration Rate (eGFR) is calculated using the 2020 CKD-EPI creatinine equation. This equation utilizes serum creatinine, sex, and age as parameters. The creatinine assay has traceable calibration to isotope dilution-mass spectrometry. Refer to KDIGO guidelines for clinical interpretation. In patients with unstable renal function, e.g. those with acute kidney injury, the eGFR may not accurately reflect actual GFR. Performed By: #### 5 7021-8 #### [facility] CLIA [id number] [facility] [place] [address] [place] Glucose [Mass/Vol] 139 mg/dL High 74-99 [facility] Comment on above: Order Comment: Speci men Type: BLOOD SPECIMEN Ordering Facility: [facility] Address: [address] [place] [address] Result Comment: The [place] Diabetes [employer] (ADA) provides guidance for cutoff values for fasting glucose and random glucose. The ADA defines fasting as no caloric intake for at least 8 hours. Fasting plasma glucose results between 100 to 125 mg/dL indicate increased risk for diabetes (prediabetes). Fasting plasma glucose results greater than or equal to 126 mg/dL meet the criteria for diagnosis of diabetes. In the absence of unequivocal hyperglycemia, results should be confirmed by repeat testing. In a patient with classic symptoms of hyperglycemia or hyperglycemic crisis, random plasma glucose results greater than or equal to 200 mg/dL meet the criteria for diagnosis of diabetes. Reference: Standards of Medical Care in Diabetes 2016, [place] [employer] Association. Diabetes Care. 2016.39(Suppl 1). Performed By: #### 5 7021-8 #### [facility] CLIA [id number] [facility] [place] [address] [place] Potassium [Moles/Vol] 4.8 mmol/L Normal 3.7-5.1 [facility] Comment on above: Order Comment: Speci men Type: BLOOD SPECIMEN Ordering Facility: [facility] Address: [address] [place] [address] Performed By: #### 5 7021-8 #### [facility] CLIA [id number] [address] [place] [address] [place] Protein [Mass/Vol] 7.0 g/dL Normal 6.3-8.0 [facility] Comment on above: Order Comment: Speci men Type: BLOOD SPECIMEN Ordering Facility: [facility] Address: [address] [place] [address] Performed By: #### 5 7021-8 #### [facility] CLIA [id number] [address] [place] [address] [place] Sodium [Moles/Vol] 137 mmol/L Normal 136-144 [facility] Comment on above: Order Comment: Speci men Type: BLOOD SPECIMEN Ordering Facility: [facility] Address: [address] [place] [address] Performed By: #### 5 7021-8 #### [facility] CLIA [id number] [address] [place] [address] [place] Urea nitrogen [Mass/Vol] 10 mg/dL Normal 7-21 [facility] Comment on above: Order Comment: Jonathan maos Type: BLOOD SPECIMEN Ordering Facility: [facility] Address: [address] [place] [address] Performed By: #### 5 7021-8 #### [facility] CLIA [id number] [address] [place] [address] [place] HbA1c (Bld)on 12-09-2023 Average glucose Estimated from glycated hemoglobin (Bld) [Mass/Vol] 163 mg/dL Normal [facility] Comment on above: Order Comment: Jonathan amos Type: BLOOD SPECIMENOrdering Facility: [facility] Address: [address] [place] [address] Result Comment: eAG: (Estimated average glucose) is a calculated value from HgbA1c and is chain sales representative of the average blood glucose level in the last 2-3 month period. Performed By: #### 5 5454-3 ####[facility]IA [id number] [place] [address] [place] HbA1c (Bld) [Mass fraction] 7.3 % High 4.3-5.6 [facility] Comment on above: Order Comment: Jonathan amos Type: BLOOD SPECIMENOrdering Facility: [facility] Address: [address] [place] [address] Result Comment: [place] Diabetes Association guidelines indicate that patients with HgbA1c in the range 5.7-6.4% are at increased risk for development of diabetes, and intervention by lifestyle modification may be beneficial. HgbA1c greater or equal to 6.5% is considered diagnostic of diabetes. Performed By: #### 5 5454-3 ####[facility]CLIA [id number] [place] [address] [place] CNOVon 08-15-2023 CNOV Office Visit (PODIWS ) ----- SUSHMA BOTELLO ([id number]) 1980 F Date Time Provider Department 08/15/23 2:00 PM ROCKY RO During your visit today, we recorded the following information about you: Harriet Parks LPN 08/15/2023 2:41 PM Signed AMB ROOMING INTAKE FLOWSHEET DATA Pain Pain Level: 6 Pain Location: Foot-Right Description: Aching Duration Units: Years Frequency: Continuous Intervention/Comfort measure: Reposition, Relaxation, Medication (ibuprofen) Patient presents with: Right Foot - New, Pain, Numbness, Diabetic Foot Care Left Foot - Diabetic Foot Care, New MAKRO Posadas Matthew 08/15/2023 2:41 PM Signed Consultation requested by Dr. Paez for an opinion regarding right foot pain. My final recommendations will be communicated back to the requesting physician by way of shared Medical record or letter to requesting physician via US mail. Initial Office Visit Subjective: This 43 year old female presents to clinic for diabetic foot check. Patient has the following complaints: right foot pain. Patient presents to clinic for evaluation of right foot. She states that she has been dealing with right foot pain for 1.5 years. She states it all started when she did a lot of walking last year in [facility]. When she returned from her [place]. She rolled her right ankle and then sprained her knee. She went to rehab and was informed that her right lower extremity was weaker than the left. She did therapy and the strength in her lower extremity has improved but she still has intermittent pain to the plantar and dorsal aspect of right foot. She states that though the pain changes from the top or the bottom of right foot, pain is on a daily basis. Patient will take advil if the pain is really bad but she tries to avoid medication. Patient was prescribed mobic by Dr. Paez but he has not yet taken. Patient admits to being diabetic for 4-5 years now. Patient +B/T/N in feet at this time. Patient -pain in legs when walking. No other pedal complaints at this time. No change in medications or medical history since last visit. PAIN EVALUATION 08/15/2023 1405 Pain Level: 6 Pain Location: Foot-Right Description: Aching Duration Units: Years Frequency: Continuous Intervention/Comfort measure: Reposition;Relaxation;Med ication ibuprofen Hemoglobin A1C (%) Date Value 07/22/2023 6.7 08/06/2022 6.4 10/07/2021 6.7 07/01/2021 6.8 09/23/2020 6.4 06/13/2020 7.1 03/14/2020 7.0 08/29/2019 6.4 PCP: Merlyn Paez MD PAST MEDICAL HISTORY Diagnosis Date CTS (carpal tunnel syndrome) bilateral on NCT Diabetes mellitus type II, controlled ([facility]) Eczema GERD (gastroesophageal reflux disease) Hyperlipidemia Insomnia Iron deficiency anemia Lumbar disc herniation age 24 Morbid obesity with BMI of 40.0-44.9, adult ([facility]) OCD (obsessive compulsive disorder) was on prozac and paxil in past Seasonal allergies Dr. Bassett Sleep apnea bipap, seeing Dr. Almanza Tobacco use Current Outpatient Medications Medication Sig gabapentin (NEURONTIN) 300 mg capsule Take 1-2 capsules 1 hour before bedtime. modafinil (PROVIGIL) 200 mg tablet Take 1 tablet in mid afternoon (no later than 5PM) as needed. armodafinil (NUVIGIL) 250 mg tab Take 1 tablet by mouth once daily for 180 days. meloxicam (MOBIC) 15 mg tablet Take 1 tablet by mouth once daily as needed for pain. With food. Norgestimate-Ethinyl Estradiol 0.18/0.215/0.25 mg-35 mcg (28) take 1 tablet daily sertraline (ZOLOFT) 100 mg tablet Take 2 tablets by mouth once daily. metFORMIN (GLUCOPHAGE) 1,000 mg tablet Take 1 tablet by mouth twice daily with meals. lisinopril (ZESTRIL) 5 mg tablet Take 1 tablet by mouth once daily. glimepiride (AMARYL) 1 mg tablet Take 1 tablet by mouth daily with breakfast. atorvastatin (LIPITOR) 10 mg tablet TAKE 1 TABLET DAILY AT BEDTIME FOR CHOLESTEROL CPAP Auto Bilevel PAP with humidification IPAP max 19, EPAP min 10 cmH2O, with pressure support of 4 cmH2O (Resmed). Lifetime supplies. famotidine (PEPCID ORAL) Take by mouth. CPAP Lower PAP to 17/13 cmH2O. Also please fit with a Wisp nasal mask. Current mask leaking and headgear not maintaining appropriate position. Lifetime supplies. Clindamycin-Benzoyl Peroxide 1-5 % gel Apply to affected area once daily. montelukast (SINGULAIR) 10 mg tablet Take 10 mg by mouth once daily. (Patient not taking: Reported on 08/15/2023) blood sugar diagnostic (FarmLinkTOUCH VERIO TEST STRIPS) test strip Test blood sugar(s) 1x times daily. Dx: Type 2 DM - Controlled E11.9 Insulin: No (Patient not taking: Reported on 12/23/2022) CPAP Please fit patient with a dreamwear under the nose nasal mask. Please provide download 2 weeks later. Thank you. acetaminophen (TYLENOL) 500 mg tablet Take 500 mg by mouth as needed. ipratropiu (more content not included)... Normal [facility] CN Office Visit (GRACEWS ) ----- SUSHMA BOTELLO ([id number]) 1980 F Date Time Provider Department 08/15/23 12:40 PM KATHY WILKINS During your visit today, we recorded the following information about you: Pulse Respiration Blood pressure Weight 111/minute 18/minute 134/87 115.1 kg Kathy Wilkins APRN.CNP 08/15/2023 3:12 PM Signed 08/15/2023 Patient presents with: F/U 6 months SUBJECTIVE: This is a 43 year old that is here today for Above Complaints. DIABETES MELLITUS: Since our last visit she denies excessive thirst or increased frequency of urination, chest pain or dyspnea , numbness, tingling or pain in extremities, new or unusual visual symptoms, low sugar/hypoglycemic reactions, weight loss/gain, lightheadedness/dizziness , and bowel changes/loose stools. Follows a diabetic diet some of the time. She is compliant with medication(s) and is tolerating med(s) without any side effects. She reports checking her glucose on a infrequent to not at all basis schedule . Patient's last HgA1C was Hemoglobin A1C (%) Date Value 07/22/2023 6.7 08/06/2022 6.4 07/01/2021 6.8 09/23/2020 6.4 ) Last Ophthalmology exam was within the past 6 months SERGEY: Follows with sleep medicine with last appointment today. No changes in current regime PAST MEDICAL HISTORY Diagnosis Date CTS (carpal tunnel syndrome) bilateral on NCT Diabetes mellitus type II, controlled ([facility]) Eczema GERD (gastroesophageal reflux disease) Hyperlipidemia Insomnia Iron deficiency anemia Lumbar disc herniation age 24 Morbid obesity with BMI of 40.0-44.9, adult ([facility]) OCD (obsessive compulsive disorder) was on prozac and paxil in past Seasonal allergies Dr. Bassett Sleep apnea bipap, seeing Dr. Almanza Tobacco use ALLERGIES Amoxicillin, Bactrim [Sulfamethoxazole-Trimeth oprim], Erythromycin Base, Sulfa (Sulfonamide Antibiotics), and Wellbutrin [Bupropion Hcl] MEDICATIONS Current Outpatient Medications Medication Sig gabapentin (NEURONTIN) 300 mg capsule Take 1-2 capsules 1 hour before bedtime. modafinil (PROVIGIL) 200 mg tablet Take 1 tablet in mid afternoon (no later than 5PM) as needed. armodafinil (NUVIGIL) 250 mg tab Take 1 tablet by mouth once daily for 180 days. meloxicam (MOBIC) 15 mg tablet Take 1 tablet by mouth once daily as needed for pain. With food. Norgestimate-Ethinyl Estradiol 0.18/0.215/0.25 mg-35 mcg (28) take 1 tablet daily sertraline (ZOLOFT) 100 mg tablet Take 2 tablets by mouth once daily. metFORMIN (GLUCOPHAGE) 1,000 mg tablet Take 1 tablet by mouth twice daily with meals. lisinopril (ZESTRIL) 5 mg tablet Take 1 tablet by mouth once daily. glimepiride (AMARYL) 1 mg tablet Take 1 tablet by mouth daily with breakfast. atorvastatin (LIPITOR) 10 mg tablet TAKE 1 TABLET DAILY AT BEDTIME FOR CHOLESTEROL CPAP Auto Bilevel PAP with humidification IPAP max 19, EPAP min 10 cmH2O, with pressure support of 4 cmH2O (Resmed). Lifetime supplies. famotidine (PEPCID ORAL) Take by mouth. CPAP Lower PAP to 17/13 cmH2O. Also please fit with a Wisp nasal mask. Current mask leaking and headgear not maintaining appropriate position. Lifetime supplies. Clindamycin-Benzoyl Peroxide 1-5 % gel Apply to affected area once daily. montelukast (SINGULAIR) 10 mg tablet Take 10 mg by mouth once daily. (Patient not taking: Reported on 08/15/2023) blood sugar diagnostic ([employer] VERIO TEST STRIPS) test strip Test blood sugar(s) 1x times daily. Dx: Type 2 DM - Controlled E11.9 Insulin: No (Patient not taking: Reported on 12/23/2022) CPAP Please fit patient with a dreamwear under the nose nasal mask. Please provide download 2 weeks later. Thank you. acetaminophen (TYLENOL) 500 mg tablet Take 500 mg by mouth as needed. ipratropium bromide (ATROVENT) 42 mcg (0.06 %) nasal spray Use 2 Sprays in the nose as needed. levocetirizine dihydrochloride (LEVOCETIRIZINE ORAL) Take 1 tablet by mouth once daily. CPAP Bilevel PAP 21/17 cmH2O with humidification. A small/medium Sleep Bustos nasal mask, HUMIDITY. LIFETIME SUPPLIES. Dx: G47.33 multivitamin tablet Take 1 tablet by mouth once daily. pyridoxine, vitamin B6, (VITAMIN B-6) 100 mg tablet Take 100 mg by mouth once daily. cyanocobalamin (VITAMIN B-12) 1,000 mcg tab Take 1 tablet by mouth once daily. Cholecalciferol, Vitamin D3, 2,000 unit cap Take 1 tablet by mouth once daily. No current facility-administered medications for this visit. Medications and allergies reviewed by this provider. SOCIAL HISTORY Social History Tobacco Use Smoking status: Former Packs/day: 0.25 Years: 1.00 Additional pack years: 0.00 Total pack years: 0.25 Types: Cigarettes Quit date: 03/25/2019 Years since quittin.3 Smokeless tobacco: Never Vaping Use Vaping Use: Never used Substance Use Topics Alcohol use: Yes Alcohol/week: 12.0 standard drinks of alcoho (more content not included)... Normal [facility] CNOV Office Visit (SLEWST ) ----- SUSHMA BOTELLO ([id number]) 1980 F Date Time Provider Department 08/15/23 10:40 AM AARON ALMANZA JR [place]SON During your visit today, we recorded the following information about you: Pulse Respiration Blood pressure Weight 124/minute 16/minute 140/88 114.1 kg Aaron Almanza Jr., MD 08/15/2023 1:01 PM Signed ESTABLISHED PATIENT VISIT CHIEF COMPLAINT: Follow Up HISTORY OF PRESENT ILLNESS: Sushma Botello is a 43 year old female, BMI 39.41 kg/m2 with a PMH significant for and per last office visit note of 01/31/23: 1. RLS (restless legs syndrome) - ICD9: 333.94, ICD10: G25.81 (primary diagnosis) Stable as above. No changes in meds. Rx provided for gabapentin 300-600mg QHS. 2. Obstructive sleep apnea syndrome - ICD9: 327.23, ICD10: G47.33 No PAP complaints. Subjective and Objective compliance confirmed with perceived benefit. Pt however is in need of new PAP device. Given goal of weight loss and possible need for less pressure in future, will request that new device is an auto-bilevel PAP with humidification set at IPAP max of 20 and EPAP min of 10 with PS of 4 cmH2O. Reminded pt to clean and replace equipment regularly. 3. Hypersomnia - ICD9: 780.54, ICD10: G47.10 4. Circadian rhythm disorder - ICD9: 327.30, ICD10: G47.20 5. Insufficient sleep syndrome - ICD9: 307.44, ICD10: F51.12 Worsening daytime sleepiness in late afternoon that I suspect is multifactorial including change in circadian pattern due to needing to provide her dog medications after midnight as well as insufficient sleep. Recommended pt try to sleep as in the past, going to bed around 9-10PM, but then wake up to give medications and then return to bed. This way not only would patient return to prior circadian pattern but also increase the amount of PAP use during the night (otherwise falling asleep on sofa without PAP). She will try. In meantime, will also provide, in addition to her Nuvigil 250mg in AM, Provigil 100 to 200mg in mid to late afternoon in case needing to be up during early evening hours. SE and ADRs d/w pt. She agrees with plan. Advised pt not to drive or operate heavy machinery if sleepy. Note BP stable and no cardiac symptoms. 6. Class 2 obesity with body mass index (BMI) of 39.0 to 39.9 in adult, unspecified obesity type, unspecified whether serious comorbidity present - ICD9: 278.00, V85.39, ICD10: E66.9, Z68.39 Encouraged weight loss. After d/w pt, will make referral to: - CONSULT TO [facility]ESITY [facility]IC[facility] (Laura) 7. Long-term use of high-risk medication - ICD9: V58.69, ICD10: Z79.899 - TOX SCREEN ROUT UR PAP data download for past 90 days shows 90/90 with avg use of 9 hours and 44 minutes. PAP set at 17/13 cmH2O. AHI is 1.9. 95% leak is 7.2 LPM. Addition of Provigil to Nuvigil is helping and when takes, will do so about 4PM, and that helps her stay awake once home. Does not remember to take it everyday. Pt states that still going to bed too late and waking up too late. Currently going to bed about MN-1AM and waking about 9AM. However, should be at work by 9AM. Alarm is set for 7AM. RLS is doing well. Taking Gabapentin 600mg nightly. No longer taking Trazodone. No longer falling asleep driving. If takes Provigil, definitely no issues falling asleep in afternoon. Provigil will let her stay up until bedtime. No PAP complaints. Has not contacted bariatric med yet. Sleep Questionnaire Data Depression Screening 04/19/2022 08/10/2022 01/27/2023 PHQ-2 Score 0 0 0 PHQ-9 Score 3 - 3 PED PHQ-9 04/19/2022 08/10/2022 01/27/2023 Little interest or pleasure in doing things Not at all - Not at all Feeling down, depressed, or hopeless Not at all - Not at all Trouble falling or staying asleep, or sleeping too much Not at all - Several days Feeling tired or having little energy More than half the days - Several days Poor appetite or overeating Not at all - Not at all Feeling bad about yourself - or that you are a failure or have let yourself or your family down Not at all - Not at all Trouble concentrating on things, such as reading the newspaper or watching television Several days - Several days Moving or speaking so slowly that other people could have noticed. Or the opposite - being so fidgety or restless that you have been moving around a lot more than usual Not at all - Not at all Thoughts that you would be better off , or of hurting yourself in some way Not at all - Not at all If you checked off any problems, how difficult have these problems made it for you to do your work, take care of things at home, or get along with other people? Somewhat difficult - Somewhat difficult PHQ-9 Score 3 (None-Minimal Depression) - 3 (None-Minimal Depression) [place] Sleepiness Scale 04/19/2022 08/10/2022 01/27/2023 Score 11 (present daytime sleepiness) - 13 (present daytime sleepiness) TABBY (more content not included)... Normal [facility] SUSHMA BOTELLO ([id number]) 1980 F Date Time Provider Department 07/26/23 [facility] your visit today, we recorded the following information about you: Rona Malagon LPN 07/26/2023 10:08 AM Signed ----- Message from Merlyn Paez MD sent at 07/26/2023 8:46 AM EST ----- Iron levels improving without anemia. Ferritin level is high, but this could be inflammatory response from right foot pain. Diabetes well controlled. Other labs unremarkable. Keep f/u appointment as scheduled to discuss further. No changes to regimen at this time. Rona Malagon LPN 07/26/2023 10:10 AM Signed Phoned patient and reviewed results and recommendations with her. Patient voiced understanding. Allergies As of Date: 07/26/2023 Noted Allergy Reaction AMOXICILLIN 04/16/2003 Comments: rash and swelling BACTRIM (SULFAMETHOXAZOLE-TRIMETH *08/21/2009 2 - Rash ERYTHROMYCIN BASE 04/16/2003 Comments: rash and swelling SULFA (SULFONAMIDE ANTIBIOTICS) 04/16/2003 Comments: bactrim rash and swelling WELLBUTRIN (BUPROPION HCL) 08/24/2017 2 - Rash 14 - Other: See Comments Comments: Chest pain Date Reviewed: 02/08/2023 Reviewed by: Juliann Mo MA - Fully Assessed Reason for Visit: Results [95] Prescriptions as of 07/26/2023 - meloxicam (MOBIC) 15 mg tablet Take 1 tablet by mouth once daily as needed for pain. With food. - Norgestimate-Ethinyl Estradiol 0.18/0.215/0.25 mg-35 mcg (28) take 1 tablet daily - sertraline (ZOLOFT) 100 mg tablet Take 2 tablets by mouth once daily. - metFORMIN (GLUCOPHAGE) 1,000 mg tablet Take 1 tablet by mouth twice daily with meals. - lisinopril (ZESTRIL) 5 mg tablet Take 1 tablet by mouth once daily. - glimepiride (AMARYL) 1 mg tablet Take 1 tablet by mouth daily with breakfast. - atorvastatin (LIPITOR) 10 mg tablet TAKE 1 TABLET DAILY AT BEDTIME FOR CHOLESTEROL - gabapentin (NEURONTIN) 300 mg capsule Take 1-2 capsules 1 hour before bedtime. - traZODone (DESYREL) 50 mg tablet Take 1 tablet by mouth daily at bedtime. - CPAP Auto Bilevel PAP with humidification IPAP max 19, EPAP min 10 cmH2O, with pressure support of 4 cmH2O (Resmed). Lifetime supplies. - armodafinil (NUVIGIL) 250 mg tab Take 1 tablet by mouth once daily for 180 days. - modafinil (PROVIGIL) 200 mg tablet Take 1 tablet in mid afternoon (no later than 5PM) as needed. - famotidine (PEPCID ORAL) Take by mouth. - CPAP Lower PAP to 17/13 cmH2O. Also please fit with a Wisp nasal mask. Current mask leaking and headgear not maintaining appropriate position. Lifetime supplies. - Clindamycin-Benzoyl Peroxide 1-5 % gel Apply to affected area once daily. - montelukast (SINGULAIR) 10 mg tablet Take 10 mg by mouth once daily. - blood sugar diagnostic ([employer] VERIO TEST STRIPS) test strip Test blood sugar(s) 1x times daily. Dx: Type 2 DM - Controlled E11.9 Insulin: No - CPAP Please fit patient with a dreamwear under the nose nasal mask. Please provide download 2 weeks later. Thank you. - acetaminophen (TYLENOL) 500 mg tablet Take 500 mg by mouth as needed. - ipratropium bromide (ATROVENT) 42 mcg (0.06 %) nasal spray Use 2 Sprays in the nose as needed. - levocetirizine dihydrochloride (LEVOCETIRIZINE ORAL) Take 1 tablet by mouth once daily. - CPAP Bilevel PAP 21/17 cmH2O with humidification. A small/medium Sleep Bustos nasal mask, HUMIDITY. LIFETIME SUPPLIES. Dx: G47.33 - multivitamin tablet Take 1 tablet by mouth once daily. - pyridoxine, vitamin B6, (VITAMIN B-6) 100 mg tablet Take 100 mg by mouth once daily. - cyanocobalamin (VITAMIN B-12) 1,000 mcg tab Take 1 tablet by mouth once daily. - Cholecalciferol, Vitamin D3, 2,000 unit cap Take 1 tablet by mouth once daily. Problem List As Of Date 07/26/2023 Noted Resolved OBSESSIVE-COMPULSIVE DISORDER [F60.5] 07/27/2005 09/17/2014 ESOPHAGEAL REFLUX [K21.9] 12/06/2006 OCD (obsessive compulsive disorder) [F42.9] SERGEY on CPAP [G47.33] CTS (carpal tunnel syndrome) [G56.00] Lumbar disc herniation [M51.26] Non morbid obesity due to excess calories [E66.*01/21/2016 Diabetes mellitus without complication (HCC) [E*05/30/2016 Iron deficiency anemia due to chronic blood los*12/23/2016 Morbid obesity with BMI of 40.0-44.9, adult (HC* Tobacco use [Z72.0] 01/03/2018 Seasonal allergies [J30.2] Hyperlipidemia, mixed [E78.2] 09/29/2017 RLS (restless legs syndrome) [G25.81] 11/30/2019 Hypersomnia [G47.10] 11/30/2019 Obesity, Class II, BMI 35-39.9 [E66.9] 08/10/2022 Foot pain, right [M79.671] 02/28/2023 Acute pain of right knee [M25.561] 02/28/2023 Encounter Status:Closed by RONA MALAGON on 07/26/23 Normal [facility] XR Foot - right AP and Later al and obliqueon 07-25-2023 IMPRESSION: No acute bony abnormality. Remote Sensing Analyst: TIA Transcribe Date/Time: Jul 25 2023 8:57P Dictated by : JACEK CORREA MD This examination was interpreted and the report reviewed and electronically signed by: JACEK CORREA MD on Jul 25 2023 8:57PM [facility] DIVISION OF RADIOLOGY * * *Final Report* * * DATE OF EXAM: Jul 22 2023 12:31PM [id number] - XR FOOT 3V AP/LAT/OBL RT / PROCEDURE REASON: multiple diagnoses * * * * Physician Interpretation * * * * EXAMINATION / TECHNIQUE: XR FOOT 3V AP/LAT/OBL RT HISTORY: Chronic right foot pain. Pt did physical therapy for foot pain but it did not help the pain. Pain on dorsal side of foot along 4th and 5th metatarsals, with pain wrapping around to plantar side of foot. Bottom of foot becomes numb at times too. Chronic foot pain, right Chronic foot pain, right COMPARISON: 01/07/2022. RESULT: No acute fracture or osseous malalignment is identified. The joint spaces are preserved. Calcaneal enthesophytes are noted. DIVISION OF RADIOLOGY Provider, Nina Devyn Singh - 07/25/2023 * * *Final Report* * * DATE OF EXAM: Jul 22 2023 12:31PM [id number] - XR FOOT 3V AP/LAT/OBL RT / PROCEDURE REASON: multiple diagnoses * * * * Physician Interpretation * * * * EXAMINATION / TECHNIQUE: XR FOOT 3V AP/LAT/OBL RT HISTORY: Chronic right foot pain. Pt did physical therapy for foot pain but it did not help the pain. Pain on dorsal side of foot along 4th and 5th metatarsals, with pain wrapping around to plantar side of foot. Bottom of foot becomes numb at times too. Chronic foot pain, right Chronic foot pain, right COMPARISON: 01/07/2022. RESULT: No acute fracture or osseous malalignment is identified. The joint spaces are preserved. Calcaneal enthesophytes are noted. IMPRESSION IMPRESSION: No acute bony abnormality. Remote Sensing Analyst: TIA Transcribe Date/Time: Jul 25 2023 8:57P Dictated by : JACEK CORREA MD This examination was interpreted and the report reviewed and electronically signed by: JACEK CORREA MD on Jul 25 2023 8:57PM EST [facility] XR Foot - right AP and Later al and obliqueOrdered By: [facility] Provider on 07-25-2023 [facility] ALBUMIN/CREAT RATIO RND URon 07-22-2023 Albumin DL <= 20 mg/L (U) [Mass/Vol] 23.1 mg/L Normal [facility] Comment on above: Order Comment: Speci men Type: URINE SPECIMENOrdering Facility: [facility] Address: [address] [place] [address] Performed By: #### U ACR ####[facility]IA [id number] [facility] [id number] [address] [place] Albumin/Creatinine (U) [Mass ratio] 27 mg/g Normal <30 [facility] Comment on above: Order Comment: Speci men Type: URINE SPECIMENOrdering Facility: [facility] Address: [address] [place] [address] Result Comment: Adul t Male and Female Nephrotic Criteria: <30 mg/g is considered normal to mildly increased 30-300 mg/g is considered moderately increased >300 mg/g is considered severely increased KDIGO. (2013). KDIGO 2012 Clinical Practice Guideline for the Evaluation and Management of Chronic Kidney Disease. Official Journal of the International Society of Nephrology, 3(1), 1-150. Performed By: #### U ACR ####[facility] [id number] [place] [address] [place] Creatinine (U) [Mass/Vol] 85.5 mg/dL Normal 20.0-300.0 [facility] Comment on above: Order Comment: Speci men Type: URINE SPECIMENOrdering Facility: [facility] Address: [address] [place] [address] Performed By: #### U ACR ####[facility]IA [id number] [place] [address] [place] CBC W Auto Differential pane l (Bld)on 07-22-2023 Basophils (Bld) [#/Vol] 0.08 10*3/uL Normal <0.11 [facility] Comment on above: Order Comment: Speci men Type: BLOOD SPECIMEN [facility]ing Facility: [facility] Address: [address] [place] [address] Performed By: #### 5 7021-8 #### [facility] CLIA [id number] [address] [place] [address] [place] Basophils/100 WBC (Bld) 0.8 % Normal [facility] Comment on above: Order Comment: Speci men Type: BLOOD SPECIMEN [facility]ing [facility]: [facility] Address: [address] [place] [address] Performed By: #### 5 7021-8 #### [facility] CLIA [id number] [address] [place] [address] [place] Differential cell count method Nom (Bld) Auto Normal [facility] Comment on above: Order Comment: Speci men Type: BLOOD SPECIMEN [facility] Address: [address] [place] [address] Performed By: #### 5 7021-8 #### [facility] CLIA [id number] [address] [place] [address] [place] Eosinophils (Bld) [#/Vol] 0.26 10*3/uL Normal <0.46 [facility] Comment on above: Order Comment: Speci men Type: BLOOD SPECIMEN [facility]: [facility] Address: [address] [place] [address] Performed By: #### 5 7021-8 #### [facility] CLIA [id number] [address] [place] [address] [place] Eosinophils/100 WBC (Bld) 2.5 % Normal [facility] Comment on above: Order Comment: Speci men Type: BLOOD SPECIMEN [facility] Address: [address] [place] [address] Performed By: #### 5 7021-8 #### [facility] CLIA [id number] [address] [place] [address] [place] Erythrocyte distribution width (RBC) [Ratio] 13.7 % Normal 11.5-15.0 [facility] Comment on above: Order Comment: Speci men Type: BLOOD SPECIMEN [facility] Address: [address] [place] [address] Performed By: #### 5 7021-8 #### [facility] CLIA [id number] [address] [place] [address] [place] Hematocrit (Bld) [Volume fraction] 37.3 % Normal 36.0-46.0 [facility] Comment on above: Order Comment: Speci men Type: BLOOD SPECIMEN [facility]: [facility] Address: [address] [place] [address] Performed By: #### 5 7021-8 #### [facility] CLIA [id number] [address] [place] [address] [place] Hemoglobin (Bld) [Mass/Vol] 11.9 g/dL Normal 11.5-15.5 [facility] Comment on above: Order Comment: Speci men Type: BLOOD SPECIMEN [facility] Address: [address] [place] [address] Performed By: #### 5 7021-8 #### [facility] CLIA [id number] [address] [place] [address] [place] Immature granulocytes (Bld) [#/Vol] 0.06 10*3/uL Normal <0.10 [facility] Comment on above: Order Comment: Speci men Type: BLOOD SPECIMEN [facility] Address: [address] [place] [address] Performed By: #### 5 7021-8 #### [facility] CLIA [id number] [address] [place] [address] [place] Immature granulocytes/100 WBC (Bld) 0.6 % Normal [facility] Comment on above: Order Comment: Speci men Type: BLOOD SPECIMEN [facility] Address: [address] [place] [address] Performed By: #### 5 7021-8 #### [facility] CLIA [id number] [address] [place] [address] [place] Lymphocytes (Bld) [#/Vol] 3.18 10*3/uL Normal 1.00-4.00 [facility] Comment on above: Order Comment: Speci men Type: BLOOD SPECIMEN [facility] Address: [address] [place] [address] Performed By: #### 5 7021-8 #### [facility] CLIA [id number] [address] [place] [address] [place] Lymphocytes/100 WBC (Bld) 30.3 % Normal [facility] Comment on above: Order Comment: Speci men Type: BLOOD SPECIMEN [facility] Address: [address] [place] [address] Performed By: #### 5 7021-8 #### [facility] CLIA [id number] [address] [place] [address] [place] MCH (RBC) [Entitic mass] 29.2 pg Normal 26.0-34.0 [facility] Comment on above: Order Comment: Speci men Type: BLOOD SPECIMEN [facility] Address: [address] [place] [address] Performed By: #### 5 7021-8 #### [facility] CLIA [id number] [facility] [place] [address] [place] MCHC (RBC) [Mass/Vol] 31.9 g/dL Normal 30.5-36.0 [facility] Comment on above: Order Comment: Speci men Type: BLOOD SPECIMEN [facility] Address: [address] [place] [address] Performed By: #### 5 7021-8 #### [facility] CLIA [id number] [address] [place] [address] [place] MCV (RBC) [Entitic vol] 91.4 fL Normal 80.0-100.0 [facility] Comment on above: Order Comment: Speci men Type: BLOOD SPECIMEN [facility] Address: [address] [place] [address] Performed By: #### 5 7021-8 #### [facility] CLIA [id number] [address] [place] [address] [place] Monocytes (Bld) [#/Vol] 0.70 10*3/uL Normal <0.87 [facility] Comment on above: Order Comment: Speci men Type: BLOOD SPECIMEN [facility] Address: [address] [place] [address] Performed By: #### 5 7021-8 #### [facility] CLIA [id number] [address] [place] [address] [place] Monocytes/100 WBC (Bld) 6.7 % Normal [facility] Comment on above: Order Comment: Speci men Type: BLOOD SPECIMEN [facility] Address: [address] [place] [address] Performed By: #### 5 7021-8 #### [facility] CLIA [id number] [address] [place] [address] [place] Neutrophils (Bld) [#/Vol] 6.21 10*3/uL Normal 1.45-7.50 [facility] Comment on above: Order Comment: Speci men Type: BLOOD SPECIMEN [facility] Address: [address] [place] [address] Performed By: #### 5 7021-8 #### [facility] CLIA [id number] [address] [place] [address] [place] Neutrophils/100 WBC (Bld) 59.1 % Normal [facility] Comment on above: Order Comment: Speci men Type: BLOOD SPECIMEN [facility] Address: [address] [place] [address] Performed By: #### 5 7021-8 #### [facility] CLIA [id number] [address] [place] [address] [place] Nucleated RBC (Bld) [#/Vol] 10*3/uL Normal <0.01 [facility] Comment on above: Order Comment: Speci men Type: BLOOD SPECIMEN [facility] Address: [address] [place] [address] Performed By: #### 5 7021-8 #### [facility] CLIA [id number] [address] [place] [address] [place] Nucleated RBC/100 WBC (Bld) [Ratio] 0.0 /100 WBC Normal [facility] Comment on above: Order Comment: Speci men Type: BLOOD SPECIMEN [facility] Address: [address] [place] [address] Performed By: #### 5 7021-8 #### [facility] CLIA [id number] [address] [place] [address] [place] Platelet mean volume (Bld) [Entitic vol] 10.2 fL Normal 9.0-12.7 [facility] Comment on above: Order Comment: Speci men Type: BLOOD SPECIMEN [facility] Address: [address] [place] [address] Performed By: #### 5 7021-8 #### [facility] CLIA [id number] [address] [place] [address] [place] Platelets (Bld) [#/Vol] 342 10*3/uL Normal 150-400 [facility] Comment on above: Order Comment: Speci men Type: BLOOD SPECIMEN [facility] Address: [address] [place] [address] Performed By: #### 5 7021-8 #### [facility] CLIA [id number] [address] [place] [address] [place] RBC (Bld) [#/Vol] 4.08 10*6/uL Normal 3.90-5.20 [facility] Comment on above: Order Comment: Speci men Type: BLOOD SPECIMEN [facility] Address: [address] [place] [address] Performed By: #### 5 7021-8 #### [facility] CLIA [id number] [address] [place] [address] [place] WBC (Bld) [#/Vol] 10.49 10*3/uL Normal 3.70-11.00 [facility] Comment on above: Order Comment: Speci men Type: BLOOD SPECIMEN [facility] Address: [address] [place] [address] Performed By: #### 5 7021-8 #### [facility] CLIA [id number] [address] [place] [address] [place] CNOVon 07-22-2023 CNOV Office Visit (FAMPWS ) ----- SUSHMA BOTELLO ([id number]) 1980 F Date Time Provider Department 07/22/23 11:20 AM [facility] During your visit today, we recorded the following information about you: Pulse Respiration Blood pressure 107/minute 16/minute 118/78 Merlyn Paez MD 07/26/2023 3:01 PM Signed Chief Complaint Patient presents with: Follow Up: Right foot pain HPI Sushma Botello is a 43 year old female who presents here today for Above Complaints.. Patient referred to PT back in February after complaining of persistent pain x 1 year. Patient attended total of 10 sessions with last on 05/11 with discontinuation due to maximal benefit and was referred back to our office for continued RLE numbnes with relief for only a few hours with HEP. Today, states that her foot pain has improved, but has not completely resolved and flares up with more than 10,000 steps which is frequent. Has pain on the top of her foot, described as aching, currently 3/10. Has numbness on the bottom of her foot and tingling into her toes. Aside from HEP, not treating with anything OTC regularly or using ice/heat. Denies redness, swelling, bruising, new injury, limited ROM, weakness. Past medical history, appointments, medications, allergies reviewed. Previous Medical History PAST MEDICAL HISTORY Diagnosis Date CTS (carpal tunnel syndrome) bilateral on NCT Diabetes mellitus type II, controlled (HCC) Eczema GERD (gastroesophageal reflux disease) Hyperlipidemia Insomnia Iron deficiency anemia Lumbar disc herniation age 24 Morbid obesity with BMI of 40.0-44.9, adult (HCC) OCD (obsessive compulsive disorder) was on prozac and paxil in past Seasonal allergies Dr. Bassett Sleep apnea bipap, seeing Dr. Almanza Tobacco use Previous Surgical History PAST SURGICAL HISTORY Procedure Laterality Date COLONOSCOPY FLX DX W/COLLJ SPEC WHEN PFRMD 06/23/2016 Colonoscopy mac ESOPHAGOGASTRODUODENOSCOP Y TRANSORAL DIAGNOSTIC 06/23/2016 EGD mac LIPOMA (LARGE) 02/06/2019 excision lipoma abdomen NEUROPLASTY AND/TRANSPOS MEDIAN NRV CARPAL TUNNE 12/2013 right Family History FAMILY HISTORY Problem Relation Age of Onset Depression Mother COPD Mother Diabetes Mother Depression Father OCD Father Cancer Father multiple myeloma, leukemia Bipolar disorder Brother GI Brother absorption issues ADD/ADHD Brother Ischemic Heart Disease Maternal Grandfather Cancer Paternal Grandfather esophageal other (no colon cancer) Other other (no breast cancer) Other Diabetes Other Patient Allergies ALLERGIES Allergen Reactions Amoxicillin rash and swelling Bactrim [Sulfametho* Rash Erythromycin Base rash and swelling Sulfa (Sulfonamide * bactrim rash and swelling Wellbutrin [Bupropi* Rash, Other: See Comments Chest pain Current Medications Current Outpatient Medications on File Prior to Visit Medication Sig Norgestimate-Ethinyl Estradiol 0.18/0.215/0.25 mg-35 mcg (28) take 1 tablet daily sertraline (ZOLOFT) 100 mg tablet Take 2 tablets by mouth once daily. metFORMIN (GLUCOPHAGE) 1,000 mg tablet Take 1 tablet by mouth twice daily with meals. lisinopril (ZESTRIL) 5 mg tablet Take 1 tablet by mouth once daily. glimepiride (AMARYL) 1 mg tablet Take 1 tablet by mouth daily with breakfast. atorvastatin (LIPITOR) 10 mg tablet TAKE 1 TABLET DAILY AT BEDTIME FOR CHOLESTEROL gabapentin (NEURONTIN) 300 mg capsule Take 1-2 capsules 1 hour before bedtime. traZODone (DESYREL) 50 mg tablet Take 1 tablet by mouth daily at bedtime. CPAP Auto Bilevel PAP with humidification IPAP max 19, EPAP min 10 cmH2O, with pressure support of 4 cmH2O (Resmed). Lifetime supplies. armodafinil (NUVIGIL) 250 mg tab Take 1 tablet by mouth once daily for 180 days. modafinil (PROVIGIL) 200 mg tablet Take 1 tablet in mid afternoon (no later than 5PM) as needed. famotidine (PEPCID ORAL) Take by mouth. CPAP Lower PAP to 17/13 cmH2O. Also please fit with a Wisp nasal mask. Current mask leaking and headgear not maintaining appropriate position. Lifetime supplies. Clindamycin-Benzoyl Peroxide 1-5 % gel Apply to affected area once daily. montelukast (SINGULAIR) 10 mg tablet Take 10 mg by mouth once daily. blood sugar diagnostic (FarmLinkTOUCH VERIO TEST STRIPS) test strip Test blood sugar(s) 1x times daily. Dx: Type 2 DM - Controlled E11.9 Insulin: No (Patient not taking: Reported on 12/23/2022) CPAP Please fit patient with a dreamwear under the nose nasal mask. Please provide download 2 weeks later. Thank you. acetaminophen (TYLENOL) 500 mg tablet Take 500 mg by mouth as needed. ipratropium bromide (ATROVENT) 42 mcg (0.06 %) nasal spray Use 2 Sprays in the nose as needed. levocetirizine dihydrochloride (LEVOCETIRIZINE ORAL) Take 1 tablet by mouth once daily. CPAP Bilevel PAP 21/17 cm (more content not included)... Normal [facility] Comprehensive metabolic 2000 panelon 07-22-2023 Albumin [Mass/Vol] 4.4 g/dL Normal 3.9-4.9 [facility] Comment on above: Order Comment: Speci men Type: BLOOD SPECIMEN [facility] Address: [address] [place] [address] Performed By: #### 5 7021-8 #### [facility] CLIA [id number] [address] [place] [address] [place] ALP [Catalytic activity/Vol] 69 U/L Normal 34-123 [facility] Comment on above: Order Comment: Speci men Type: BLOOD SPECIMEN [facility] Address: [address] [place] [address] Performed By: #### 5 7021-8 #### [facility] CLIA [id number] [address] [place] [address] [place] ALT [Catalytic activity/Vol] 25 U/L Normal 7-38 [facility] Comment on above: Order Comment: Speci men Type: BLOOD SPECIMEN [facility] Address: [address] [place] [address] Performed By: #### 5 7021-8 #### [facility] CLIA [id number] [address] [place] [id number] [place] Anion gap [Moles/Vol] 15 mmol/L Normal 9-18 [facility] Comment on above: Order Comment: Speci men Type: BLOOD SPECIMEN [facility] Address: [address] [place] [address] Performed By: #### 5 7021-8 #### [facility] CLIA [id number] [address] [place] [address] [place] AST [Catalytic activity/Vol] 23 U/L Normal 13-35 [facility] Comment on above: Order Comment: Speci men Type: BLOOD SPECIMEN [facility] Address: [address] [place] [address] Performed By: #### 5 7021-8 #### [facility] CLIA [id number] [address] [place] [address] [place] Bilirubin [Mass/Vol] 0.2 mg/dL Normal 0.2-1.3 [facility] Comment on above: Order Comment: Speci men Type: BLOOD SPECIMEN [facility] Address: [address] [place] [address] Performed By: #### 5 7021-8 #### [facility] CLIA [id number] [address] [place] [address] [place] Calcium [Mass/Vol] 9.9 mg/dL Normal 8.5-10.2 [facility] Comment on above: Order Comment: Speci men Type: BLOOD SPECIMEN [facility] Address: [address] [place] [address] Performed By: #### 5 7021-8 #### [facility] CLIA [id number] [address] [place] [id number] [place] Chloride [Moles/Vol] 98 mmol/L Normal 97-105 [facility] Comment on above: Order Comment: Speci men Type: BLOOD SPECIMEN [facility] Address: [address] [place] [address] Performed By: #### 5 7021-8 #### [facility] CLIA [id number] [facility] [place] [address] [place] CO2 [Moles/Vol] 24 mmol/L Normal 22-30 [facility] Comment on above: Order Comment: Speci men Type: BLOOD SPECIMEN [facility] Address: [address] [place] [address] Performed By: #### 5 7021-8 #### [facility] CLIA [id number] [address] [place] [address] [place] Creatinine [Mass/Vol] 0.47 mg/dL Low 0.58-0.96 [facility] Comment on above: Order Comment: Speci men Type: BLOOD SPECIMEN [facility] Address: [address] [place] [address] Performed By: #### 5 7021-8 #### [facility] CLIA [id number] [address] [place] [address] Creatinine and Glomerular filtration rate.predicted panel (S/P/Bld) 121 mL/min/1.73m??? Normal >=60 [facility] Comment on above: Order Comment: Speci men Type: BLOOD SPECIMEN [facility] Address: [address] [place] [address] Result Comment: Teresa mated Glomerular Filtration Rate (eGFR) is calculated using the 2020 CKD-EPI creatinine equation. This equation utilizes serum creatinine, sex, and age as parameters. The creatinine assay has traceable calibration to isotope dilution-mass spectrometry. Refer to KDIGO guidelines for clinical interpretation. In patients with unstable renal function, e.g. those with acute kidney injury, the eGFR may not accurately reflect actual GFR. Performed By: #### 5 7021-8 #### [facility] CLIA [id number] [facility] [place] [address] [place] Glucose [Mass/Vol] 150 mg/dL High 74-99 [facility] Comment on above: Order Comment: Jonathan amos Type: BLOOD SPECIMEN [facility] Address: [address] [place] [address] Result Comment: The [place] [employer] (ADA) provides guidance for cutoff values for fasting glucose and random glucose. The ADA defines fasting as no caloric intake for at least 8 hours. Fasting plasma glucose results between 100 to 125 mg/dL indicate increased risk for diabetes (prediabetes). Fasting plasma glucose results greater than or equal to 126 mg/dL meet the criteria for diagnosis of diabetes. In the absence of unequivocal hyperglycemia, results should be confirmed by repeat testing. In a patient with classic symptoms of hyperglycemia or hyperglycemic crisis, random plasma glucose results greater than or equal to 200 mg/dL meet the criteria for diagnosis of diabetes. Reference: Standards of Medical Care in Diabetes 2016, [place] [employer]. Diabetes Care. 2016.39(Suppl 1). Performed By: #### 5 7021-8 #### [facility] CLIA [id number] [facility] [place] [address] [place] Potassium [Moles/Vol] 4.9 mmol/L Normal 3.7-5.1 [facility] Comment on above: Order Comment: Jonathan amos Type: BLOOD SPECIMEN [facility] Address: [address] [place] [address] Performed By: #### 5 7021-8 #### [facility] CLIA [id number] [address] [place] [address] [place] Protein [Mass/Vol] 7.4 g/dL Normal 6.3-8.0 [facility] Comment on above: Order Comment: Jonathan amos Type: BLOOD SPECIMEN [facility] Address: [address] [place] [address] Performed By: #### 5 7021-8 #### [facility] CLIA [id number] [address] [place] [address] [place] Sodium [Moles/Vol] 137 mmol/L Normal 136-144 [facility] Comment on above: Order Comment: Speci men Type: BLOOD SPECIMEN [facility] Address: [address] [place] [address] Performed By: #### 5 7021-8 #### [facility] CLIA [id number] [address] [place] [address] [place] Urea nitrogen [Mass/Vol] 11 mg/dL Normal 7-21 [facility] Comment on above: Order Comment: Speci men Type: BLOOD SPECIMEN [facility] Address: [address] [place] [address] Performed By: #### 5 7021-8 #### [facility] CLIA [id number] [address] [place] [address] [place] Ferritin SerPl-mCncon 2023 Ferritin [Mass/Vol] 310.0 ng/mL High 14.7-205.1 [facility] Comment on above: Order Comment: Speci men Type: BLOOD SPECIMEN [facility] Address: [address] [place] [address] Performed By: #### 5 7021-8 #### [facility] CLIA [id number] [address] [place] [address] [place] HbA1c (Bld)on 07-22-2023 Average glucose Estimated from glycated hemoglobin (Bld) [Mass/Vol] 146 mg/dL Normal [facility] Comment on above: Order Comment: Speci men Type: BLOOD SPECIMENOrdering Facility: [facility] Address: [address] [place] [address] Result Comment: eAG: (Estimated average glucose) is a calculated value from HgbA1c and is chain sales representative of the average blood glucose level in the last 2-3 month period. Performed By: #### 5 5454-3 ####[facility] [id number] [place] [address] [place] HbA1c (Bld) [Mass fraction] 6.7 % High 4.3-5.6 [facility] Comment on above: Order Comment: Speci men Type: BLOOD SPECIMENOrdering Facility: [facility] Address: [address] [place] [address] Result Comment: [place]ary [place] Diabetes Association guidelines indicate that patients with HgbA1c in the range 5.7-6.4% are at increased risk for development of diabetes, and intervention by lifestyle modification may be beneficial. HgbA1c greater or equal to 6.5% is considered diagnostic of diabetes. Performed By: #### 5 5454-3 ####[facility] [id number] [place] [address] [place] Iron and Iron binding capaci ty panelon 07-22-2023 Iron [Mass/Vol] 82 ug/dL Normal 41-186 [facility] Comment on above: Order Comment: Speci men Type: BLOOD SPECIMEN [facility] Address: [address] [place] [address] Performed By: #### 5 7021-8 #### [facility] CLIA [id number] [address] [place] [address] [place] Iron binding capacity [Mass/Vol] 391 ug/dL High 232-386 [facility] Comment on above: Order Comment: Speci men Type: BLOOD SPECIMEN [facility] Address: [address] [place] [address] Performed By: #### 5 7021-8 #### [facility] CLIA [id number] [address] [place] [address] [place] Iron/TIBC [Molar ratio] 21.0 % Normal 15.0-57.0 [facility] Comment on above: Order Comment: Speci men Type: BLOOD SPECIMEN Ordering Facility: [facility] Address: [address] [place] [address] Performed By: #### 5 7021-8 #### [facility] CLIA [id number] [address] [place] [address] [place] LIPID PANEL, NONFASTINGon Cholesterol [Mass/Vol] 188 mg/dL Normal <200 [facility] Comment on above: Order Comment: Jonathan amos Type: BLOOD SPECIMEN Ordering Facility: [facility] Address: [address] [place] [address] Result Comment: <200 mg/dL, Desirable 200-239 mg/dL, Borderline high >239 mg/dL, High Performed By: #### 5 7021-8 #### [facility] CLIA [id number] [address] [place] HDL CHOLESTEROL, NF 58 mg/dL Normal >39 [facility] Comment on above: Order Comment: Jonathan amos Type: BLOOD SPECIMEN Ordering Facility: [facility] Address: [address] [place] [address] Result Comment: 40-5 9 mg/dL, Acceptable >59 mg/dL, High: Negative risk factor for coronary heart disease <40 mg/dL, Low: Positive risk factor for coronary heart disease Performed By: #### 5 7021-8 #### [facility] CLIA [id number] [address] [place] LDL CHOLESTEROL, NF 84 mg/dL Normal <100 [facility] Comment on above: Order Comment: Jonathan amos Type: BLOOD SPECIMEN Ordering Facility: [facility] Address: [address] [place] [address] Result Comment: <100 mg/dL, Optimal 100-129 mg/dL, Near optimal/above optimal 130-159 mg/dL, Borderline high 160-189 mg/dL, High >189 mg/dL, Very high Secondary prevention optimal LDL Cholesterol levels are recommended to be < 70 mg/dL Performed By: #### 5 7021-8 #### [facility] CLIA [id number] [address] [place] [address] [place] LDL/HDL RATIO, NF 1.45 mg/dL Normal <2.54 [facility] Comment on above: Order Comment: Jonathan amos Type: BLOOD SPECIMEN Ordering Facility: [facility] Address: [address] [place] [address] Result Comment: Efren naidu: 1. National Cholesterol Education Program ATP III Guideline At-A-Glance Quick Desk Reference: National Heart, Lung, and Blood Centennial. National Institutes of Health. 2001: NIH Publication No. 01-3305. 2. An International Atherosclerosis Society position paper: global recommendations for the management of dyslipidemia: executive summary, Atherosclerosis. 2014: 232(2):410-413. Performed By: #### 5 7021-8 #### [facility] CLIA [id number] [address] [place] [address] [place] NON HDL CHOL, NF 130 mg/dL High <130 [facility] Comment on above: Order Comment: Jonathan amos Type: BLOOD SPECIMEN Ordering Facility: [facility] Address: [address] [place] [address] Result Comment: <130 mg/dL, Optimal 130-159 mg/dL, Near optimal/above optimal 160-189 mg/dL, Borderline high 190-219 mg/dL, High >219 mg/dL, Very high Secondary prevention optimal non HDL Cholesterol levels are recommended to be <100 mg/dL Performed By: #### 5 7021-8 #### [facility] CLIA [id number] [address] [place] [address] [place] T CHOL/HDL RATIO NF 3.24 mg/dL Normal <5.10 [facility] Comment on above: Order Comment: Jonathan amos Type: BLOOD SPECIMEN Ordering Facility: [facility] Address: [address] [place] [address] Performed By: #### 5 7021-8 #### [facility] CLIA [id number] [address] [place] [address] [place] TRIGLYCERIDES, NF 231 mg/dL High <150 [facility] Comment on above: Order Comment: Jonathan amos Type: BLOOD SPECIMEN Ordering Facility: [facility] Address: [address] [place] [address] Result Comment: <150 mg/dL, Normal 150-199 mg/dL, Borderline high 200-499 mg/dL, High >499 mg/dL, Very high Performed By: #### 5 7021-8 #### [facility] CLIA [id number] [address] [place] [address] [place] VLDL CHOLESTEROL, NF 46 mg/dL High <30 [facility] Comment on above: Order Comment: Speci men Type: BLOOD SPECIMEN Ordering Facility: [facility] Address: [address] [place] [address] Performed By: #### 5 7021-8 #### [facility] CLIA [id number] [address] [place] [address] [place] XR FOOT 3V AP/LAT/OBL RTon 0 07-22-2023 XR FOOT 3V AP/LAT/OBL RT * * *Final Report* * * DATE OF EXAM: Jul 22 2023 12:31PM WOX 5337 - XR FOOT 3V AP/LAT/OBL RT / PROCEDURE REASON: multiple diagnoses * * * * Physician Interpretation * * * * EXAMINATION / TECHNIQUE: XR FOOT 3V AP/LAT/OBL RT HISTORY: Chronic right foot pain. Pt did physical therapy for foot pain but it did not help the pain. Pain on dorsal side of foot along 4th and 5th metatarsals, with pain wrapping around to plantar side of foot. Bottom of foot becomes numb at times too. Chronic foot pain, right Chronic foot pain, right COMPARISON: 01/07/2022. RESULT: No acute fracture or osseous malalignment is identified. The joint spaces are preserved. Calcaneal enthesophytes are noted. IMPRESSION: No acute bony abnormality. Remote Sensing Analyst: PSCB Transcribe Date/Time: Jul 25 2023 8:57P Dictated by : JACEK CORREA MD This examination was interpreted and the report reviewed and electronically signed by: JACEK CORREA MD on Jul 25 2023 8:57PM EST [id number] Normal [facility] XR Foot - right AP and Later al and obliqueon 07-22-2023 Radiology Study observation (narrative) [facility] CNTHERAPYon 05-11-2023 CNTHERAPY OT/PT/Speech Visit ( PTWS) ----- SUSHMA BOTELLO ([id number]) 1980 F Date Time Provider Department 05/11/23 12:45 PM [facility] PTWS Date Time Provider Department [place] 05/11/2023 12:45 PM [id number] KIRAN PTYULY Grant Reason for Visit: PT Discharge [752] Primary Visit Diagnosis:Foot pain, right [M79.671] Allergies As of Date: 05/11/2023 Noted Allergy Reaction AMOXICILLIN 04/16/2003 Comments: rash and swelling BACTRIM (SULFAMETHOXAZOLE-TRIMETH *08/21/2009 2 - Rash ERYTHROMYCIN BASE 04/16/2003 Comments: rash and swelling SULFA (SULFONAMIDE ANTIBIOTICS) 04/16/2003 Comments: bactrim rash and swelling WELLBUTRIN (BUPROPION HCL) 08/24/2017 2 - Rash 14 - Other: See Comments Comments: Chest pain Date Reviewed: 02/08/2023 Reviewed by: Juliann Mo MA - Fully Assessed Prescriptions as of 05/11/2023 - Norgestimate-Ethinyl Estradiol 0.18/0.215/0.25 mg-35 mcg (28) take 1 tablet daily - sertraline (ZOLOFT) 100 mg tablet Take 2 tablets by mouth once daily. - metFORMIN (GLUCOPHAGE) 1,000 mg tablet Take 1 tablet by mouth twice daily with meals. - lisinopril (ZESTRIL) 5 mg tablet Take 1 tablet by mouth once daily. - glimepiride (AMARYL) 1 mg tablet Take 1 tablet by mouth daily with breakfast. - atorvastatin (LIPITOR) 10 mg tablet TAKE 1 TABLET DAILY AT BEDTIME FOR CHOLESTEROL - gabapentin (NEURONTIN) 300 mg capsule Take 1-2 capsules 1 hour before bedtime. - traZODone (DESYREL) 50 mg tablet Take 1 tablet by mouth daily at bedtime. - CPAP Auto Bilevel PAP with humidification IPAP max 19, EPAP min 10 cmH2O, with pressure support of 4 cmH2O (Resmed). Lifetime supplies. - armodafinil (NUVIGIL) 250 mg tab Take 1 tablet by mouth once daily for 180 days. - modafinil (PROVIGIL) 200 mg tablet Take 1 tablet in mid afternoon (no later than 5PM) as needed. - famotidine (PEPCID ORAL) Take by mouth. - CPAP Lower PAP to 17/13 cmH2O. Also please fit with a Wisp nasal mask. Current mask leaking and headgear not maintaining appropriate position. Lifetime supplies. - Clindamycin-Benzoyl Peroxide 1-5 % gel Apply to affected area once daily. - montelukast (SINGULAIR) 10 mg tablet Take 10 mg by mouth once daily. - blood sugar diagnostic ([employer] VERIO TEST STRIPS) test strip Test blood sugar(s) 1x times daily. Dx: Type 2 DM - Controlled E11.9 Insulin: No - CPAP Please fit patient with a dreamwear under the nose nasal mask. Please provide download 2 weeks later. Thank you. - acetaminophen (TYLENOL) 500 mg tablet Take 500 mg by mouth as needed. - ipratropium bromide (ATROVENT) 42 mcg (0.06 %) nasal spray Use 2 Sprays in the nose as needed. - levocetirizine dihydrochloride (LEVOCETIRIZINE ORAL) Take 1 tablet by mouth once daily. - CPAP Bilevel PAP 21/17 cmH2O with humidification. A small/medium Sleep Bustos nasal mask, HUMIDITY. LIFETIME SUPPLIES. Dx: G47.33 - multivitamin tablet Take 1 tablet by mouth once daily. - pyridoxine, vitamin B6, (VITAMIN B-6) 100 mg tablet Take 100 mg by mouth once daily. - cyanocobalamin (VITAMIN B-12) 1,000 mcg tab Take 1 tablet by mouth once daily. - Cholecalciferol, Vitamin D3, 2,000 unit cap Take 1 tablet by mouth once daily. ----- Normal [facility] CNTHERAPYon 04-25-2023 CNTHERAPY OT/PT/Speech Visit ( PTWS) ----- JALENSUSHMA Davis ([id number]) 1980 F Date Time Provider Department 04/25/23 3:30 PM [facility] Date Time Provider Department [facility] 04/25/2023 3:30 PM [id number] KIRAN Reason for Visit: Physical Therapy [503] Primary Visit Diagnosis:Foot pain, right [M79.671] Allergies As of Date: 04/25/2023 Noted Allergy Reaction AMOXICILLIN 04/16/2003 Comments: rash and swelling BACTRIM (SULFAMETHOXAZOLE-TRIMETH *08/21/2009 2 - Rash ERYTHROMYCIN BASE 04/16/2003 Comments: rash and swelling SULFA (SULFONAMIDE ANTIBIOTICS) 04/16/2003 Comments: bactrim rash and swelling WELLBUTRIN (BUPROPION HCL) 08/24/2017 2 - Rash 14 - Other: See Comments Comments: Chest pain Date Reviewed: 02/08/2023 Reviewed by: Juliann Mo MA - Fully Assessed Prescriptions as of 04/25/2023 - acetaminophen (TYLENOL) 500 mg tablet Take 500 mg by mouth as needed. - armodafinil (NUVIGIL) 250 mg tab Take 1 tablet by mouth once daily for 180 days. - atorvastatin (LIPITOR) 10 mg tablet TAKE 1 TABLET DAILY AT BEDTIME FOR CHOLESTEROL - blood sugar diagnostic (ONETOUCH VERIO TEST STRIPS) test strip Test blood sugar(s) 1x times daily. Dx: Type 2 DM - Controlled E11.9 Insulin: No - Cholecalciferol, Vitamin D3, 2,000 unit cap Take 1 tablet by mouth once daily. - Clindamycin-Benzoyl Peroxide 1-5 % gel Apply to affected area once daily. - CPAP Bilevel PAP 21/17 cmH2O with humidification. A small/medium Sleep Bustos nasal mask, HUMIDITY. LIFETIME SUPPLIES. Dx: G47.33 - CPAP Please fit patient with a dreamwear under the nose nasal mask. Please provide download 2 weeks later. Thank you. - CPAP Lower PAP to 17/13 cmH2O. Also please fit with a Wisp nasal mask. Current mask leaking and headgear not maintaining appropriate position. Lifetime supplies. - CPAP Auto Bilevel PAP with humidification IPAP max 19, EPAP min 10 cmH2O, with pressure support of 4 cmH2O (Resmed). Lifetime supplies. - cyanocobalamin (VITAMIN B-12) 1,000 mcg tab Take 1 tablet by mouth once daily. - famotidine (PEPCID ORAL) Take by mouth. - gabapentin (NEURONTIN) 300 mg capsule Take 1-2 capsules 1 hour before bedtime. - glimepiride (AMARYL) 1 mg tablet Take 1 tablet by mouth daily with breakfast. - ipratropium bromide (ATROVENT) 42 mcg (0.06 %) nasal spray Use 2 Sprays in the nose as needed. - levocetirizine dihydrochloride (LEVOCETIRIZINE ORAL) Take 1 tablet by mouth once daily. - lisinopril (ZESTRIL) 5 mg tablet Take 1 tablet by mouth once daily. - metFORMIN (GLUCOPHAGE) 1,000 mg tablet Take 1 tablet by mouth twice daily with meals. - modafinil (PROVIGIL) 200 mg tablet Take 1 tablet in mid afternoon (no later than 5PM) as needed. - montelukast (SINGULAIR) 10 mg tablet Take 10 mg by mouth once daily. - multivitamin tablet Take 1 tablet by mouth once daily. - Norgestimate-Ethinyl Estradiol 0.18/0.215/0.25 mg-35 mcg (28) take 1 tablet daily - pyridoxine, vitamin B6, (VITAMIN B-6) 100 mg tablet Take 100 mg by mouth once daily. - sertraline (ZOLOFT) 100 mg tablet Take 2 tablets by mouth once daily. - traZODone (DESYREL) 50 mg tablet Take 1 tablet by mouth daily at bedtime. ----- Normal [facility] CNTHERAPYon 04-18-2023 CNTHERAPY OT/PT/Speech Visit ( PTWS) ----- SUSHMA BOTELLO ([id number]) 1980 F Date Time Provider Department 04/18/23 2:45 PM [facility] Date Time Provider Department Center 04/18/2023 2:45 PM [id number] KIRAN Reason for Visit: Physical Therapy [503] Primary Visit Diagnosis:Foot pain, right [M79.671] Allergies As of Date: 04/18/2023 Noted Allergy Reaction AMOXICILLIN 04/16/2003 Comments: rash and swelling BACTRIM (SULFAMETHOXAZOLE-TRIMETH *08/21/2009 2 - Rash ERYTHROMYCIN BASE 04/16/2003 Comments: rash and swelling SULFA (SULFONAMIDE ANTIBIOTICS) 04/16/2003 Comments: bactrim rash and swelling WELLBUTRIN (BUPROPION HCL) 08/24/2017 2 - Rash 14 - Other: See Comments Comments: Chest pain Date Reviewed: 02/08/2023 Reviewed by: Juliann Mo MA - Fully Assessed Prescriptions as of 04/18/2023 - Norgestimate-Ethinyl Estradiol 0.18/0.215/0.25 mg-35 mcg (28) take 1 tablet daily - sertraline (ZOLOFT) 100 mg tablet Take 2 tablets by mouth once daily. - metFORMIN (GLUCOPHAGE) 1,000 mg tablet Take 1 tablet by mouth twice daily with meals. - lisinopril (ZESTRIL) 5 mg tablet Take 1 tablet by mouth once daily. - glimepiride (AMARYL) 1 mg tablet Take 1 tablet by mouth daily with breakfast. - atorvastatin (LIPITOR) 10 mg tablet TAKE 1 TABLET DAILY AT BEDTIME FOR CHOLESTEROL - gabapentin (NEURONTIN) 300 mg capsule Take 1-2 capsules 1 hour before bedtime. - traZODone (DESYREL) 50 mg tablet Take 1 tablet by mouth daily at bedtime. - CPAP Auto Bilevel PAP with humidification IPAP max 19, EPAP min 10 cmH2O, with pressure support of 4 cmH2O (Resmed). Lifetime supplies. - armodafinil (NUVIGIL) 250 mg tab Take 1 tablet by mouth once daily for 180 days. - modafinil (PROVIGIL) 200 mg tablet Take 1 tablet in mid afternoon (no later than 5PM) as needed. - famotidine (PEPCID ORAL) Take by mouth. - CPAP Lower PAP to 17/13 cmH2O. Also please fit with a Wisp nasal mask. Current mask leaking and headgear not maintaining appropriate position. Lifetime supplies. - Clindamycin-Benzoyl Peroxide 1-5 % gel Apply to affected area once daily. - montelukast (SINGULAIR) 10 mg tablet Take 10 mg by mouth once daily. - blood sugar diagnostic ([employer] VERIO TEST STRIPS) test strip Test blood sugar(s) 1x times daily. Dx: Type 2 DM - Controlled E11.9 Insulin: No - CPAP Please fit patient with a dreamwear under the nose nasal mask. Please provide download 2 weeks later. Thank you. - acetaminophen (TYLENOL) 500 mg tablet Take 500 mg by mouth as needed. - ipratropium bromide (ATROVENT) 42 mcg (0.06 %) nasal spray Use 2 Sprays in the nose as needed. - levocetirizine dihydrochloride (LEVOCETIRIZINE ORAL) Take 1 tablet by mouth once daily. - CPAP Bilevel PAP 21/17 cmH2O with humidification. A small/medium Sleep Bustos nasal mask, HUMIDITY. LIFETIME SUPPLIES. Dx: G47.33 - multivitamin tablet Take 1 tablet by mouth once daily. - pyridoxine, vitamin B6, (VITAMIN B-6) 100 mg tablet Take 100 mg by mouth once daily. - cyanocobalamin (VITAMIN B-12) 1,000 mcg tab Take 1 tablet by mouth once daily. - Cholecalciferol, Vitamin D3, 2,000 unit cap Take 1 tablet by mouth once daily. ----- Normal [facility] CNTHERAPYon 04-11-2023 CNTHERAPY OT/PT/Speech Visit ( PTWS) ----- SUSHMA BOTELLO ([id number]) 1980 F Date Time Provider Department 04/11/23 12:30 PM FANTA [facility]IR[facility] PTYULY Date Time Provider Department Center 04/11/2023 12:30 PM [id number] KIRAN PTYULY Grant Reason for Visit: PT Progress Note [1596] Primary Visit Diagnosis:Foot pain, right [M79.671] Allergies As of Date: 04/11/2023 Noted Allergy Reaction AMOXICILLIN 04/16/2003 Comments: rash and swelling BACTRIM (SULFAMETHOXAZOLE-TRIMETH *08/21/2009 2 - Rash ERYTHROMYCIN BASE 04/16/2003 Comments: rash and swelling SULFA (SULFONAMIDE ANTIBIOTICS) 04/16/2003 Comments: bactrim rash and swelling WELLBUTRIN (BUPROPION HCL) 08/24/2017 2 - Rash 14 - Other: See Comments Comments: Chest pain Date Reviewed: 02/08/2023 Reviewed by: Juliann Mo MA - Fully Assessed Prescriptions as of 04/11/2023 - sertraline (ZOLOFT) 100 mg tablet Take 2 tablets by mouth once daily. - metFORMIN (GLUCOPHAGE) 1,000 mg tablet Take 1 tablet by mouth twice daily with meals. - lisinopril (ZESTRIL) 5 mg tablet Take 1 tablet by mouth once daily. - glimepiride (AMARYL) 1 mg tablet Take 1 tablet by mouth daily with breakfast. - atorvastatin (LIPITOR) 10 mg tablet TAKE 1 TABLET DAILY AT BEDTIME FOR CHOLESTEROL - gabapentin (NEURONTIN) 300 mg capsule Take 1-2 capsules 1 hour before bedtime. - traZODone (DESYREL) 50 mg tablet Take 1 tablet by mouth daily at bedtime. - CPAP Auto Bilevel PAP with humidification IPAP max 19, EPAP min 10 cmH2O, with pressure support of 4 cmH2O (Resmed). Lifetime supplies. - armodafinil (NUVIGIL) 250 mg tab Take 1 tablet by mouth once daily for 180 days. - modafinil (PROVIGIL) 200 mg tablet Take 1 tablet in mid afternoon (no later than 5PM) as needed. - famotidine (PEPCID ORAL) Take by mouth. - Norgestimate-Ethinyl Estradiol 0.18/0.215/0.25 mg-35 mcg (28) TAKE 1 TABLET DAILY - CPAP Lower PAP to 17/13 cmH2O. Also please fit with a Wisp nasal mask. Current mask leaking and headgear not maintaining appropriate position. Lifetime supplies. - Clindamycin-Benzoyl Peroxide 1-5 % gel Apply to affected area once daily. - montelukast (SINGULAIR) 10 mg tablet Take 10 mg by mouth once daily. - blood sugar diagnostic (ONETOUCH VERIO TEST STRIPS) test strip Test blood sugar(s) 1x times daily. Dx: Type 2 DM - Controlled E11.9 Insulin: No - CPAP Please fit patient with a dreamwear under the nose nasal mask. Please provide download 2 weeks later. Thank you. - acetaminophen (TYLENOL) 500 mg tablet Take 500 mg by mouth as needed. - ipratropium bromide (ATROVENT) 42 mcg (0.06 %) nasal spray Use 2 Sprays in the nose as needed. - levocetirizine dihydrochloride (LEVOCETIRIZINE ORAL) Take 1 tablet by mouth once daily. - CPAP Bilevel PAP 21/17 cmH2O with humidification. A small/medium Sleep Bustos nasal mask, HUMIDITY. LIFETIME SUPPLIES. Dx: G47.33 - multivitamin tablet Take 1 tablet by mouth once daily. - pyridoxine, vitamin B6, (VITAMIN B-6) 100 mg tablet Take 100 mg by mouth once daily. - cyanocobalamin (VITAMIN B-12) 1,000 mcg tab Take 1 tablet by mouth once daily. - Cholecalciferol, Vitamin D3, 2,000 unit cap Take 1 tablet by mouth once daily. ----- Normal [facility] SCREENINGon 03-02-2023 [facility] XR KNEE GENERAL 4V AP BOTH/P A BOTH/LAT/MERC RIGHTon 12-23-2022 [facility] XR Knee - right 4 Viewson IMPRESSION: No acute osseous abnormality. Early degenerative changes. Remote Sensing Analyst: TIA Transcribe Date/Time: Dec 23 2022 5:44P Dictated by : BRANDON BENZ DO This examination was interpreted and the report reviewed and electronically signed by: BRANDON BENZ DO on Dec 23 2022 5:47PM [facility] DIVISION OF RADIOLOGY * * *Final Report* * * DATE OF EXAM: Dec 23 2022 5:38PM WOX 5203 - XR KNEE 4V AP/PA BOTH+LAT/ROSARIO RT / PROCEDURE REASON: Pain * * * * Physician Interpretation * * * * EXAMINATION: XR KNEE 4V AP/PA BOTH+LAT/ROSARIO RT PATIENT/TECHNOLOGIST PROVIDED HISTORY: Right knee pain with some swelling after hiking 10 days ago. Pain/swelling is on lateral side of knee. CLINICAL INFORMATION: 42 years old Female with Pain TECHNIQUE: XR KNEE 4V AP/PA BOTH+LAT/RSOARIO RT Laterality: RIGHT Number of different views (projections): 4 COMPARISON: Radiographs 09/17/2014 RESULT: Tricompartmental osteophytes. Joint spaces are maintained. Small joint effusion. No fracture. Images of the LEFT knee demonstrate tricompartmental osteophytes. DIVISION OF RADIOLOGY Provider, [facility] Devyn Singh - 12/23/2022 * * *Final Report* * * DATE OF EXAM: Dec 23 2022 5:38PM WOX 5203 - XR KNEE 4V AP/PA BOTH+LAT/ROSARIO RT / PROCEDURE REASON: Pain * * * * Physician Interpretation * * * * EXAMINATION: XR KNEE 4V AP/PA BOTH+LAT/ROSARIO RT PATIENT/TECHNOLOGIST PROVIDED HISTORY: Right knee pain with some swelling after hiking 10 days ago. Pain/swelling is on lateral side of knee. CLINICAL INFORMATION: 42 years old Female with Pain TECHNIQUE: XR KNEE 4V AP/PA BOTH+LAT/ROSARIO RT Laterality: RIGHT Number of different views (projections): 4 COMPARISON: Radiographs 09/17/2014 RESULT: Tricompartmental osteophytes. Joint spaces are maintained. Small joint effusion. No fracture. Images of the LEFT knee demonstrate tricompartmental osteophytes. IMPRESSION IMPRESSION: No acute osseous abnormality. Early degenerative changes. Remote Sensing Analyst: TIA Transcribe Date/Time: Dec 23 2022 5:44P Dictated by : BRANDON BENZ DO This examination was interpreted and the report reviewed and electronically signed by: BRANDON BENZ DO on Dec 23 2022 5:47PM EST [facility] Radiology Study observation (narrative) [facility] XR Knee - right 4 ViewsOrder ed By: Ccf Provider on 12-23-2022 [facility] XR Ankle - right AP and Late ral and obliqueon 02-08-2022 IMPRESSION: No acute fracture or dislocation of the right ankle Remote Sensing Analyst: TIA Transcribe Date/Time: Feb 08 2022 3:02P Dictated by : PAYAL ALFARO MD This examination was interpreted and the report reviewed and electronically signed by: PAYAL ALFARO MD on Feb 08 2022 3:05PM EST [email or web address] E_DIVISION OF RADIOLOGY * * *Final Report* * * DATE OF EXAM: Feb 08 2022 2:32PM WOX 5297 - XR ANKLE 3V AP/LAT/OBL RT / PROCEDURE REASON: multiple diagnoses * * * * Physician Interpretation * * * * EXAMINATION: XR ANKLE 3V AP/LAT/OBL RT CLINICAL HISTORY: Pain and swelling lateral malleolus Technique: XR ANKLE 3V AP/LAT/OBL RT -- RIGHT with 3 views on 3 images Comparison: X-ray right foot 01/07/2022 RESULT: No acute fracture or dislocation. Again noted is a well-corticated bone fragment adjacent to the distal lateral malleolus likely due to remote trauma. Plantar and posterior calcaneal spurs. [email or web address] E_DIVISION OF RADIOLOGY Provider, Gabby Shepard [facility] - 02/08/2022 * * *Final Report* * * DATE OF EXAM: Feb 08 2022 2:32PM WOX 5297 - XR ANKLE 3V AP/LAT/OBL RT / PROCEDURE REASON: multiple diagnoses * * * * Physician Interpretation * * * * EXAMINATION: XR ANKLE 3V AP/LAT/OBL RT CLINICAL HISTORY: Pain and swelling lateral malleolus Technique: XR ANKLE 3V AP/LAT/OBL RT -- RIGHT with 3 views on 3 images Comparison: X-ray right foot 01/07/2022 RESULT: No acute fracture or dislocation. Again noted is a well-corticated bone fragment adjacent to the distal lateral malleolus likely due to remote trauma. Plantar and posterior calcaneal spurs. IMPRESSION IMPRESSION: No acute fracture or dislocation of the right ankle Remote Sensing Analyst: [facility] Transcribe Date/Time: Feb 08 2022 3:02P Dictated by : PAYAL ALFARO MD This examination was interpreted and the report reviewed and electronically signed by: PAYAL ALFARO MD on Feb 08 2022 3:05PM EST [facility] Radiology Study observation (narrative) [facility] XR Ankle - right AP and Late ral and obliqueOrdered By: Cc Provider on 02-08-2022 [facility] XR Foot - right AP and Later al and obliqueon 01-07-2022 IMPRESSION: No acute abnormality Remote Sensing Analyst: PSCB Transcribe Date/Time: Jan 07 2022 4:20P Dictated by : MARGOT JETER MD This examination was interpreted and the report reviewed and electronically signed by: MARGOT JETER MD on Jan 07 2022 4:21PM EST [email or web address] E_DIVISION OF RADIOLOGY * * *Final Report* * * DATE OF EXAM: Jan 07 2022 1:49PM WOX 5337 - XR FOOT 3V AP/LAT/OBL RT / PROCEDURE REASON: Foot pain, right * * * * Physician Interpretation * * * * PROCEDURE: Right foot INDICATION: Foot pain, right .Pt was walking at [place] for a week x 3 weeks ago. Plantar and lateral right forefoot pain. TECHNIQUE: XR FOOT 3V AP/LAT/OBL RT COMPARISON: None FINDINGS: No acute fracture or dislocation. No evidence for stress fracture. Joint spaces are maintained. Plantar and dorsal calcaneal spurs. [email or web address]_US E_DIVISION OF RADIOLOGY Provider, bart Shepard [facility] - 01/07/2022 * * *Final Report* * * DATE OF EXAM: Jan 07 2022 1:49PM WOX 5337 - XR FOOT 3V AP/LAT/OBL RT / PROCEDURE REASON: Foot pain, right * * * * Physician Interpretation * * * * PROCEDURE: Right foot INDICATION: Foot pain, right .Pt was walking at [place] for a week x 3 weeks ago. Plantar and lateral right forefoot pain. TECHNIQUE: XR FOOT 3V AP/LAT/OBL RT COMPARISON: None FINDINGS: No acute fracture or dislocation. No evidence for stress fracture. Joint spaces are maintained. Plantar and dorsal calcaneal spurs. IMPRESSION IMPRESSION: No acute abnormality Remote Sensing Analyst: [facility] Transcribe Date/Time: Jan 07 2022 4:20P Dictated by : MARGOT JETER MD This examination was interpreted and the report reviewed and electronically signed by: MARGOT JETER MD on Jan 07 2022 4:21PM EST [facility] Radiology Study observation (narrative) [facility] XR Foot - right AP and Later al and obliqueOrdered By: [facility] Provider on 01-07-2022 [facility] FERRITIN BLDon 11-10-2021 Ferritin [Mass/Vol] 446.0 ng/mL High 14.7 - 2 05.1 ng/mL [facility] Iron and Iron binding capaci ty panelon 11-10-2021 Iron [Mass/Vol] 18 ug/dL Low 41 - 186 ug/dL [facility] Iron binding capacity [Mass/Vol] 333 ug/dL 232 - 386 ug/dL [facility] Iron/TIBC [Molar ratio] 5 % Low 15 - 57 % [facility] MIRACLE SCREENINGon 11-10-2021 [facility] CNPNon 02-22-2020 CNPN Telephone (NEURBA) ----- SUSHMA BOTELLO ([id number]) 1980 F Date Time Provider Department 02/22/20 KENTON WILLSON, AARON VIRGEN During your visit today, we recorded the following information about you: Irene Morrell 02/22/2020 10:09 AM Signed Called patient and she was given the phone number to schedule with Dr. Almanza at [facility]. Allergies As of Date: 02/22/2020 Noted Allergy Reaction AMOXICILLIN 04/16/2003 Comments: rash and swelling BACTRIM (SULFAMETHOXAZOLE-TRIMETH *08/21/2009 2 - Rash ERYTHROMYCIN BASE 04/16/2003 Comments: rash and swelling SULFA (SULFONAMIDE ANTIBIOTICS) 04/16/2003 Comments: bactrim rash and swelling WELLBUTRIN (BUPROPION HCL) 08/24/2017 2 - Rash 14 - Other: See Comments Comments: Chest pain Date Reviewed: 02/21/2020 Reviewed by: Aaron Almanza Jr. - Fully Assessed Reason for Visit: Future Appointment [256] Cmt: Neurology Prescriptions as of 02/22/2020 Sig: GABAPENTIN 300 MG CAPSULE Take 1 to 2 capsules 1 hour b* ARMODAFINIL 250 MG TABLET Take 1 tablet by mouth once d* LISINOPRIL 5 MG TABLET Take 1 tablet by mouth once d* ESOMEPRAZOLE MAGNESIUM 40 MG * Take 1 capsule by mouth once * TRAZODONE 50 MG TABLET Take 1 tablet by mouth daily * METFORMIN 1,000 MG TABLET Take 1 tablet by mouth twice * SERTRALINE 100 MG TABLET Take 2 tablets by mouth once * FERROUS SULFATE 325 MG (65 MG* Take 1 tablet by mouth twice * ATORVASTATIN 10 MG TABLET TAKE 1 TABLET DAILY AT BEDTIM* NORGESTIMATE-ETHINYL ESTRADIO* take 1 tablet by mouth once d* IPRATROPIUM BROMIDE 42 MCG (0* LEVOCETIRIZINE ORAL Take by mouth. IPRATROPIUM BROMIDE 0.03 % NA* Use 2 Sprays in the nose ever* CLINDAMYCIN 1 %-BENZOYL PEROX* apply topically to affected a* BLOOD SUGAR DIAGNOSTIC STRIPS Test blood sugar(s) 1x times * LANCETS 33 GAUGE Test blood sugar(s) 1x daily.* CPAP Bilevel PAP 21/17 cmH2O with * IBUPROFEN 200 MG TABLET Take 200 mg by mouth every 6 * MULTIVITAMIN TABLET Take 1 tablet by mouth once d* PYRIDOXINE (VITAMIN B6) 100 M* Take 1 tablet by mouth once d* VITAMIN B-12 1,000 MCG TABLET Take 1 tablet by mouth once d* CHOLECALCIFEROL (VITAMIN D3) * Take 1 tablet by mouth once d* Problem List As Of Date 02/22/2020 Noted Resolved OBSESSIVE-COMPULSIVE DISORDER [F60.5] 07/27/2005 09/17/2014 ESOPHAGEAL REFLUX [K21.9] 12/06/2006 OCD (obsessive compulsive disorder) [F42.9] SERGEY on CPAP [G47.33, Z99.89] More... CTS (carpal tunnel syndrome) [G56.00] More... Lumbar disc herniation [M51.26] Non morbid obesity due to excess calories [E66.*01/21/2016 Diabetes mellitus without complication (HCC) [E*05/30/2016 Iron deficiency anemia due to chronic blood los*12/23/2016 Morbid obesity with BMI of 40.0-44.9, adult (HC* Tobacco use [Z72.0] 01/03/2018 Seasonal allergies [J30.2] Hyperlipidemia, mixed [E78.2] 09/29/2017 RLS (restless legs syndrome) [G25.81] 11/30/2019 Hypersomnia [G47.10] 11/30/2019 Encounter Status:Closed by IRENE MORRELL on 02/22/20 [facility] PROGRESSon 02-21-2020 PROGRESS HNO ID: [id number] Author: Aaron Almanza Jr. Service: ? Author Type: Physician Type: Progress Notes Filed: 02/21/2020 11:58 AM Note Text: ESTABLISHED PATIENT VISIT (Virtual Visit with Video) With the current coronavirus outbreak, we want to minimize the risk of exposing patients to this illness. I have reviewed this patient's chart and, per patient's request for an opportunity to be seen without having to present to the office, feel appropriate that this appointment be made a virtual visit. For this virtual visit, the patient has been identified by name and (MRN and photo identification as well if available). Those taking part in visit: patient and physician via [employer]. Consent for this visit received from patient. HISTORY OF PRESENT ILLNESS: Sushma Botello is a 39 year old female,with a PMH significant for and per my last office note of 11/30/2019: 1. RLS (restless legs syndrome) - ICD9: 333.94, ICD10: G25.81 (primary diagnosis) Patient endorses difficulties falling asleep. Note previously and still on Trazodone 50mg QHS. However, onset insomnia by history, appears to be secondary to RLS - discomfort, worse at night, with urge to move legs, and relieved with activity. Known history of anemia, DM and on SSRI. ?Will trial gabapentin 300 to 600mg 1 hour before bedtime. SE and ADRs d/w pt. If sleeping better on gabapentin advised to try and stop Trazodone (may also exacerbate RLS). ? 2. SERGEY on CPAP - ICD9: 327.23, V46.8, ICD10: G47.33, Z99.89 Doing well on PAP. Encouraged further compliance. Reminded to clean and replace equipment regularly. ? 3. Hypersomnia - ICD9: 780.54, ICD10: G47.10 Stable and well treated with Nuvigil 250mg QAM. Reviewed SE and ADRs with patient. Refills provided. ESS as above. Advised not to drive or operate heavy machinery when sleepy.. Patient reports doing well. Gabapentin controlling RLS with 300mg QHS. She is still taking the Trazodone as she felt it allows her to fall asleep easier. Legs no longer restless. No side effects from gabapentin. Still taking Nuvigil AM - my favorite medication ever . Sometimes skips on weekends if going to have a lazy day. Still serving purpose of keeping her awake. No falling asleep driving. Going to bed about midnight and waking about 9-10AM -- states everything shifted due to COVID. On days working 9AM. PAP download from 11/23/2019 to 02/20/2020: 90/90 days. Avg 11 hours and 39 minutes per night (Sleeping more due to COVID and change in her work schedule and wears PAP if in bed reading). Pressure 21/17 cmH2O. AHI is 1.8. Leak 95% 14.6LPM. ESS = 04/03 (Nuvigil) REVIEW OF SYSTEMS GENERAL:No weight loss, malaise or fevers. HEENT:Negative for frequent or significant headaches, No changes in hearing or vision, no nose bleeds or other nasal problems NECK:Negative for lumps, goiter, pain and significant neck swelling RESPIRATORY: Negative for cough, wheezing or shortness of breath. CARDIOVASCULAR: Negative for chest pain, leg swelling or palpitations. GASTROINTESTINAL: Negative for abdominal discomfort, blood in stools or black stools or change in bowel habits GENITOURINARY: No history of dysuria, frequency or incontinence LAB/IMAGING: Those performed since patient's last visit have been reviewed. WBC (k/uL) Date Value 03/29/2019 8.82 RBC (m/uL) Date Value 03/29/2019 4.04 Hemoglobin (g/dL) Date Value 03/29/2019 10.5 (L) Hematocrit (%) Date Value 03/29/2019 35.4 (L) MCV (fL) Date Value 03/29/2019 87.6 MCH (pG) Date Value 03/29/2019 26.0 MCHC (g/dL) Date Value 03/29/2019 29.7 (L) RDW-CV (%) Date Value 03/29/2019 16.4 (H) Platelet Count (k/uL) Date Value 03/29/2019 359 MPV (fL) Date Value 03/29/2019 10.5 Glucose (mg/dL) Date Value 08/29/2019 140 (H) BUN (mg/dL) Date Value 08/29/2019 10 Creatinine (mg/dL) Date Value 08/29/2019 0.43 (L) Sodium (mmol/L) Date Value 08/29/2019 135 (L) Potassium (mmol/L) Date Value 08/29/2019 4.4 Chloride (mmol/L) Date Value 08/29/2019 99 CO2 (mmol/L) Date Value 08/29/2019 19 (L) Protein, Total (g/dL) Date Value 06/12/2018 7.4 Albumin (g/dL) Date Value 06/12/2018 3.8 Calcium (mg/dL) Date Value 08/29/2019 9.2 Alkaline Phosphatase (U/L) Date Value 06/12/2018 68 Bilirubin, Total (mg/dL) Date Value 06/12/2018 0.2 AST (U/L) Date Value 06/12/2018 26 ALT (U/L) Date Value 06/12/2018 46 MEDICATIONS: lisinopril (ZESTRIL, PRINIVIL) 5 mg tablet Take 1 tablet by mouth once daily. esomeprazole (NEXIUM) 40 mg capsule Take 1 capsule by mouth once daily. traZODone (DESYREL) 50 mg tablet Take 1 tablet by mouth daily at bedtime. armodafinil (NUVIGIL) 250 mg tab Take 1 tablet by mouth once daily for 90 days. gabapentin (NEURONTIN) 300 mg capsule Take 1 to 2 capsules 1 hour before bedtime. metFORMIN (GLUCOPHAGE) 1,000 mg tablet Take 1 tablet by mouth twice daily with meals. sertraline (ZOLOFT) 100 mg tablet Take 2 tablets by mouth once daily. ferrous sulfate 325 mg (65 mg iron) tablet Take 1 tablet by mouth twice daily. atorvastatin (LIPITOR) 10 mg tablet TAKE 1 TABLET DAILY AT BEDTIME FOR CHOLESTEROL Norgestimate-Ethinyl Estradiol 0.18/0.215/0.25 mg-35 mcg (28) tab take 1 tablet by mouth once daily as directed ipratropium bromide (ATROVENT) 42 mcg (0.06 %) nasal spray levocetirizine dihydrochloride (LEVOCETIRIZINE ORAL) Take by mouth. Ipratropium [place] (ATROVENT) 0.03 % nasal spray Use 2 Sprays in the nose every 12 hours. Clindamycin-Benzoyl Peroxide 1-5 % gel apply topically to affected area twice a day blood sugar diagnostic (ONETOUCH VERIO) test strip Test blood sugar(s) 1x times daily. Dx: Type 2 DM - Controlled E11.9 Insulin: No lancets (ONE TOUCH DELICA) 33 gauge misc Test blood sugar(s) 1x daily. Dx: Type 2 DM - Controlled E11.9 Insulin: No CPAP Bilevel PAP 21/17 cmH2O with humidification. A small/medium Sleep Bustos nasal mask, HUMIDITY. LIFETIME SUPPLIES.Dx: G47.33 ibuprofen (ADVIL) 200 mg tablet Take 200 mg by mouth every 6 hours as needed. multivitamin tablet Take 1 tablet by mouth once daily. pyridoxine, vitamin B6, (VITAMIN B-6) 100 mg tablet Take 1 tablet by mouth once daily. cyanocobalamin (VITAMIN B-12) 1,000 mcg tab Take 1 tablet by mouth once daily. Cholecalciferol, Vitamin D3, 2,000 unit cap Take 1 tablet by mouth once daily. HISTORIES PAST MEDICAL HISTORY Diagnosis Date - CTS (carpal tunnel syndrome) bilateral on NCT - Diabetes mellitus type II, controlled ([facility]) - Eczema - GERD (gastroesophageal reflux disease) - Hyperlipidemia - Insomnia - Iron deficiency anemia - Lumbar disc herniation age 24 - Morbid obesity with BMI of 40.0-44.9, adult ([facility]) - OCD (obsessive compulsive disorder) was on prozac and paxil in past - Seasonal allergies Dr. Bassett - Sleep apnea bipap, seeing Dr. Almanza - Tobacco use FAMILY HISTORY Problem Relation Age of Onset - COPD Mother - Diabetes Mother - Cancer Father multiple myeloma, leukemia - other (no colon cancer) Other - other (no breast cancer) Other - Diabetes Other - Ischemic Heart Disease Maternal Grandfather - GI Brother absorption issues - Cancer Paternal Grandfather esophageal SOCIAL HISTORY Social History Tobacco Use - Smoking status: Former Smoker Packs/day: 0.25 Years: 1.00 Pack years: 0.25 Types: Cigarettes - Smokeless tobacco: Never Used Substance Use Topics - Alcohol use: Yes Alcohol/week: 30.0 standard drinks Types: 12 Cans of Beer (12oz) per week Comment: socially - Drug use: No PHYSICAL EXAMINATION LMP (LMP Unknown) Height 167.6 cm (5' 6 ), weight 115.7 kg (255 lb). GENERAL EXAM: General appearance: NAD, pleasant. HEENT: NC/AT, nasal congestion absent, no oral lesions, membranes moist. NECK: ROM nml. Lungs: No audible cough, wheeze, sob. NEUROLOGICAL EXAM: General: Awake, alert, oriented x3 (person,place,time), speech fluent, no dysarthria; comprehension, naming, repetition intact. Fund of knowledge grossly normal by MOCA. CN: EOMI and without nystagmus, VFF to confrontation, facial sensation and strength are normal and symmetric, hearing is intact to finger rub bilaterally, palate and tongue movements are intact and symmetric. SCM and trapezius strength symemtric. Motor: Normal tone, bulk and strength (5/5) bilaterally (throughout extremities x4). Coordination: FNF intact. No tremors. Sensation: No reported numbness. Gait: Unable to view. Assessment and Plan: ASSESSMENT/PLAN: 1. SERGEY on CPAP - ICD9: 327.23, V46.8, ICD10: G47.33, Z99.89 (primary diagnosis) Doing well on PAP. Encouraged continued compliance. Reminded to clean and replace equipment regularly. Advised of PAP risks and precautions in setting of COVID19. 2. RLS (restless legs syndrome) - ICD9: 333.94, ICD10: G25.81 Well controlled. Continue Gabapentin 300mg QHS (can increase to 600mg if needed). She will continue Trazodone which she has been on for years - is not exacerbating RLS symptoms. 3. Hypersomnia - ICD9: 780.54, ICD10: G47.10 Worse due to changes in sleep schedule secondary to COVID19. Explained need to keep a regular sleep schedule including weekends. She will try to advance wake time to 8AM daily. As for daytime sleepiness, overall controlled with Nuvigil 250mg QAM. No side effects. Will not make any changes to meds at this time. Advised patient to regularly check BP and HR. Aaron Almanza MD I spent 25 minutes in the visit, with more than 50% of the total qlib-su-mprn time of the visit in counseling / coordination of care. PDMP website checked and validated. All prescriptions have been APPROPRIATELY filled. No suspicious activity was identified. 02/21/2020 by Aaron Almanza MD [facility] [place] 12-07-2019 VIVI Telephone (NEURGABRIELE) ----- SUSHMA BOTELLO ([id number]) 1980 F Date Time Provider Department 12/07/19 AARON ALMANZA JR During your visit today, we recorded the following information about you: JASMYNE Kelly 12/07/2019 10:29 AM Signed Aaron Almanza Jr. Tiffany Ch[facility] HospitalPrashant Lucas ? Please let patient know that she can take magnesium oxide 400mg at bedtime to supplement.. ?Also should follow up with her PCP in the future regarding this finding. Thank you WJVirgie Left message to call back. Tiffany StaffordJASMYNE ulloa Tiffany LucasJASMYNE 12/12/2019 12:33 PM Signed Patient notified and verbalized understanding. States the Gabapentin is working well for her RLS. Tiffany JASMYNE Lucas Allergies As of Date: 12/07/2019 Noted Allergy Reaction AMOXICILLIN 04/16/2003 Comments: rash and swelling BACTRIM (SULFAMETHOXAZOLE-TRIMETH *08/21/2009 2 - Rash ERYTHROMYCIN BASE 04/16/2003 Comments: rash and swelling SULFA (SULFONAMIDE ANTIBIOTICS) 04/16/2003 Comments: bactrim rash and swelling WELLBUTRIN (BUPROPION HCL) 08/24/2017 2 - Rash 14 - Other: See Comments Comments: Chest pain Date Reviewed: 11/30/2019 Reviewed by: Aaron Almanza Jr. - Fully Assessed Reason for Visit: Results [95] Prescriptions as of 12/07/2019 Sig: TRAZODONE 50 MG TABLET Take 1 tablet by mouth daily * ARMODAFINIL 250 MG TABLET Take 1 tablet by mouth once d* GABAPENTIN 300 MG CAPSULE Take 1 to 2 capsules 1 hour b* LISINOPRIL 5 MG TABLET Take 1 tablet by mouth once d* ESOMEPRAZOLE MAGNESIUM 40 MG * Take 1 capsule by mouth once * METFORMIN 1,000 MG TABLET Take 1 tablet by mouth twice * SERTRALINE 100 MG TABLET Take 2 tablets by mouth once * FERROUS SULFATE 325 MG (65 MG* Take 1 tablet by mouth twice * ATORVASTATIN 10 MG TABLET TAKE 1 TABLET DAILY AT BEDTIM* NORGESTIMATE-ETHINYL ESTRADIO* take 1 tablet by mouth once d* IPRATROPIUM BROMIDE 42 MCG (0* LEVOCETIRIZINE ORAL Take by mouth. IPRATROPIUM BROMIDE 0.03 % NA* Use 2 Sprays in the nose ever* CLINDAMYCIN 1 %-BENZOYL PEROX* apply topically to affected a* BLOOD SUGAR DIAGNOSTIC STRIPS Test blood sugar(s) 1x times * LANCETS 33 GAUGE Test blood sugar(s) 1x daily.* CPAP Bilevel PAP 21/17 cmH2O with * IBUPROFEN 200 MG TABLET Take 200 mg by mouth every 6 * MULTIVITAMIN TABLET Take 1 tablet by mouth once d* PYRIDOXINE (VITAMIN B6) 100 M* Take 1 tablet by mouth once d* VITAMIN B-12 1,000 MCG TABLET Take 1 tablet by mouth once d* CHOLECALCIFEROL (VITAMIN D3) * Take 1 tablet by mouth once d* Problem List As Of Date 12/07/2019 Noted Resolved OBSESSIVE-COMPULSIVE DISORDER [F60.5] 07/27/2005 09/17/2014 ESOPHAGEAL REFLUX [K21.9] 12/06/2006 OCD (obsessive compulsive disorder) [F42.9] SERGEY on CPAP [G47.33, Z99.89] More... CTS (carpal tunnel syndrome) [G56.00] More... Lumbar disc herniation [M51.26] Non morbid obesity due to excess calories [E66.*01/21/2016 Diabetes mellitus without complication (HCC) [E*05/30/2016 Iron deficiency anemia due to chronic blood los*12/23/2016 Morbid obesity with BMI of 40.0-44.9, adult (HC* Tobacco use [Z72.0] 01/03/2018 Seasonal allergies [J30.2] Hyperlipidemia, mixed [E78.2] 09/29/2017 RLS (restless legs syndrome) [G25.81] 11/30/2019 Hypersomnia [G47.10] 11/30/2019 Encounter Status:Closed by TIFFANY PARISH on 12/13/19 [facility] PROGRESSon 11-30-2019 PROGRESS HNO ID: [id number] Author: Aaron Almanza Jr. Service: ? Author Type: Physician Type: Progress Notes Filed: 11/30/2019 4:36 PM Note Text: ESTABLISHED PATIENT VISIT (Virtual Visit with Video) With the current coronavirus outbreak, we want to minimize the risk of exposing patients to this illness. I have reviewed this patient's chart and, per patient's request for an opportunity to be seen without having to present to the office, feel appropriate that this appointment be made a virtual visit. For this virtual visit, the patient has been identified by name and (MRN and photo identification as well if available). Those taking part in visit: patient and physician: Consent for this visit received from patient. HISTORY OF PRESENT ILLNESS: Sushma Botello is a 39 year old female, with past medical history significant for and per my last office note of 06/12/18: 1. Obstructive sleep apnea syndrome - ICD9: 327.23, ICD10: G47.33 (primary diagnosis) Reports doing well on bilevel. Encouraged compliance. No mask or pressure issues. Requested download from [facility] ([employer]) ? 2. Hypersomnia - ICD9: 780.54, ICD10: G47.10 Better on PAP and Nuvigil, but impaired concentration during second half of the day. ESS is 07/03. Talked about other options of therapy such as stimulants or trial of Provigil BID. However, question if symptoms secondary to underlying med condition - ? worsening DM, thyroid dz, anemia. Encouraged pt to stay off Benadryl that may have also contributed to symptoms. In addition she will try taking Nuvigil 250mg 1/2 tab in AM and 1/2 tab in Noon-1PM time range. She will avoid using tabs that appear to be 200mg rather than 250mg by description and photo comparison. Will consider trial of Provigil BID if no other etiology of symptoms and if pt does not respond to Nuvigil. Also await PAP download to confirm SERGEY adequately treated. ? During the interim, patient saw Ryan Valentine CNP in 03/2019 at which time there were no changes and meds and pateint was reportedly happy with her condition. PAP download reviewed with patient (from 08/28/2019-11/25/2019) Uses 90/90 days for avg of 11 hours and 26 minutes. Pressure set at 21/17 cmH2O. 95% leak is 16.1 LPM. AHI is 1.8. Patient loves her bilevel. Can't sleep without it. No mask issues. She is having some insomnia. States getting out of bed improved after she bought a Riiid alarm clock with bright light therapy. States since the quarantine having RLS symptoms. Reports legs feel like they are jumping at night, once in the bed. Has an urge to move. Tingling. Resolves with activity. Known his of DM, but symptoms more suggestive of RLS as when patient stands up out of bed, symptoms immediately go away. On Zoloft but not new and symptoms started long after starting Zoloft. Note she is still taking Trazodone at night as well. Exercising more. Loves the Nuvigil - my favorite medication . Giving plenty of energy. States around 4PM does feel more tired. Currently taking Nuvigil 250mg QAM. [place] Sleepiness Scale: Sitting and readin Watching TV: 1 Sitting, inactive in a public place (e.g. a theatre or a meeting): 2 As a passenger in a car for an hour without a break: 2 Lying down to rest in the afternoon when circumstances permit: 2 Sitting and talking to someone: 0 Sitting quietly after a lunch without alcohol: 1 In a car, while stopped for a few minutes in the traffic: 0 Total: 9 (on Nuvigil) REVIEW OF SYSTEMS GENERAL:No weight loss, malaise or fevers. HEENT:Negative for frequent or significant headaches, No changes in hearing or vision, no nose bleeds or other nasal problems NECK:Negative for lumps, goiter, pain and significant neck swelling RESPIRATORY: Negative for cough, wheezing or shortness of breath. CARDIOVASCULAR: Negative for chest pain, leg swelling or palpitations. GASTROINTESTINAL: Negative for abdominal discomfort, blood in stools or black stools or change in bowel habits GENITOURINARY: No history of dysuria, frequency or incontinence MUSCULOSKELETAL: Negative for joint pain or swelling, back pain or muscle pain. NEUROLOGIC:See HPI SKIN:Negative for lesions, rash, and itching. HEMATOLOGIC/LYMPHATIC/IMM UNOLOGIC:Negative for prolonged bleeding, bruising easily or swollen nodes. ENDOCRINE: Negative for cold or heat intolerance, polyuria, polydipsia and goiter. The remainder of the ROS was reviewed and is negative. LAB/IMAGING: Those performed since patient's last visit have been reviewed. WBC (k/uL) Date Value 03/29/2019 8.82 RBC (m/uL) Date Value 03/29/2019 4.04 Hemoglobin (g/dL) Date Value 03/29/2019 10.5 (L) Hematocrit (%) Date Value 03/29/2019 35.4 (L) MCV (fL) Date Value 03/29/2019 87.6 MCH (pG) Date Value 03/29/2019 26.0 MCHC (g/dL) Date Value 03/29/2019 29.7 (L) RDW-CV (%) Date Value 03/29/2019 16.4 (H) Platelet Count (k/uL) Date Value 03/29/2019 359 MPV (fL) Date Value 03/29/2019 10.5 Glucose (mg/dL) Date Value 08/29/2019 140 (H) BUN (mg/dL) Date Value 08/29/2019 10 Creatinine (mg/dL) Date Value 08/29/2019 0.43 (L) Sodium (mmol/L) Date Value 08/29/2019 135 (L) Potassium (mmol/L) Date Value 08/29/2019 4.4 Chloride (mmol/L) Date Value 08/29/2019 99 CO2 (mmol/L) Date Value 08/29/2019 19 (L) Protein, Total (g/dL) Date Value 06/12/2018 7.4 Albumin (g/dL) Date Value 06/12/2018 3.8 Calcium (mg/dL) Date Value 08/29/2019 9.2 Alkaline Phosphatase (U/L) Date Value 06/12/2018 68 Bilirubin, Total (mg/dL) Date Value 06/12/2018 0.2 AST (U/L) Date Value 06/12/2018 26 ALT (U/L) Date Value 06/12/2018 46 MEDICATIONS: lisinopril (ZESTRIL, PRINIVIL) 5 mg tablet Take 1 tablet by mouth once daily. armodafinil (NUVIGIL) 250 mg tab take 1 tablet by mouth once daily esomeprazole (NEXIUM) 40 mg capsule Take 1 capsule by mouth once daily. metFORMIN (GLUCOPHAGE) 1,000 mg tablet Take 1 tablet by mouth twice daily with meals. sertraline (ZOLOFT) 100 mg tablet Take 2 tablets by mouth once daily. ferrous sulfate 325 mg (65 mg iron) tablet Take 1 tablet by mouth twice daily. atorvastatin (LIPITOR) 10 mg tablet TAKE 1 TABLET DAILY AT BEDTIME FOR CHOLESTEROL traZODone (DESYREL) 50 mg tablet Take 1 tablet by mouth daily at bedtime. Norgestimate-Ethinyl Estradiol 0.18/0.215/0.25 mg-35 mcg (28) tab take 1 tablet by mouth once daily as directed glimepiride (AMARYL) 1 mg tablet Take 1 tablet by mouth daily with breakfast. ipratropium bromide (ATROVENT) 42 mcg (0.06 %) nasal spray levocetirizine dihydrochloride (LEVOCETIRIZINE ORAL) Take by mouth. Ipratropium [place] (ATROVENT) 0.03 % nasal spray Use 2 Sprays in the nose every 12 hours. Clindamycin-Benzoyl Peroxide 1-5 % gel apply topically to affected area twice a day blood sugar diagnostic (ONETOUCH VERIO) test strip Test blood sugar(s) 1x times daily. Dx: Type 2 DM - Controlled E11.9 Insulin: No lancets (ONE TOUCH DELICA) 33 gauge misc Test blood sugar(s) 1x daily. Dx: Type 2 DM - Controlled E11.9 Insulin: No CPAP Bilevel PAP 21/17 cmH2O with humidification. A small/medium Sleep Bustos nasal mask, HUMIDITY. LIFETIME SUPPLIES.Dx: G47.33 fluticasone (FLONASE) 50 mcg/actuation nasal spray Use 2 Sprays in each nostril once daily. ibuprofen (ADVIL) 200 mg tablet Take 200 mg by mouth every 6 hours as needed. multivitamin tablet Take 1 tablet by mouth once daily. pyridoxine, vitamin B6, (VITAMIN B-6) 100 mg tablet Take 1 tablet by mouth once daily. cyanocobalamin (VITAMIN B-12) 1,000 mcg tab Take 1 tablet by mouth once daily. Cholecalciferol, Vitamin D3, 2,000 unit cap Take 1 tablet by mouth once daily. HISTORIES PAST MEDICAL HISTORY Diagnosis Date - CTS (carpal tunnel syndrome) bilateral on NCT - Diabetes mellitus type II, controlled ([facility]) - Eczema - GERD (gastroesophageal reflux disease) - Hyperlipidemia - Insomnia - Iron deficiency anemia - Lumbar disc herniation age 24 - Morbid obesity with BMI of 40.0-44.9, adult ([facility]) - OCD (obsessive compulsive disorder) was on prozac and paxil in past - Seasonal allergies Dr. Bassett - Sleep apnea bipap, seeing Dr. Almanza - Tobacco use FAMILY HISTORY Problem Relation Age of Onset - COPD Mother - Diabetes Mother - Cancer Father multiple myeloma, leukemia - other (no colon cancer) Other - other (no breast cancer) Other - Diabetes Other - Ischemic Heart Disease Maternal Grandfather - GI Brother absorption issues - Cancer Paternal Grandfather esophageal SOCIAL HISTORY Social History Tobacco Use - Smoking status: Former Smoker Packs/day: 0.25 Years: 1.00 Pack years: 0.25 Types: Cigarettes - Smokeless tobacco: Never Used Substance Use Topics - Alcohol use: Yes Alcohol/week: 30.0 standard drinks Types: 12 Cans of Beer (12oz) per week Comment: socially - Drug use: No PHYSICAL EXAMINATION LMP (LMP Unknown) - not able to measure vitals. GENERAL EXAM: General appearance: NAD, pleasant. HEENT: NC/AT, nasal congestion absent, no oral lesions, membranes moist. NECK: ROM nml. Lungs: No audible wheeze, cough, sob. NEUROLOGICAL EXAM: General: Awake, alert, oriented x3 (person,place,time), speech fluent, no dysarthria; comprehension, naming, repetition intact. CN: EOMI and without nystagmus, facial sensation and strength are normal and symmetric, hearing is intact to finger rub bilaterally, palate and tongue movements are intact and symmetric. SCM and trapezius strength normal. Motor: CASTILLO equal and symmetric with no pro drift. Coordination: FNF, TERRENCE intact. No tremors. Sensation: No reported numbness. Gait: Stable. Assessment and Plan: ASSESSMENT/PLAN: 1. RLS (restless legs syndrome) - ICD9: 333.94, ICD10: G25.81 (primary diagnosis) Patient endorses difficulties falling asleep. Note previously and still on Trazodone 50mg QHS. However, onset insomnia by history, appears to be secondary to RLS - discomfort, worse at night, with urge to move legs, and relieved with activity. Known history of anemia, DM and on SSRI. Will evaluate for reversible causes with following lab work: - MAGNESIUM BLD - VITAMIN B12 BLOOD - TSH BLD - T4 FREE/FREE THYROX - FERRITIN BLD In the meantime, will trial gabapentin 300 to 600mg 1 hour before bedtime. SE and ADRs d/w pt. If sleeping better on gabapentin advised to try and stop Trazodone (may also exacerbate RLS). 2. SERGEY on CPAP - ICD9: 327.23, V46.8, ICD10: G47.33, Z99.89 Doing well on PAP. Encouraged further compliance. Reminded to clean and replace equipment regularly. 3. Hypersomnia - ICD9: 780.54, ICD10: G47.10 Stable and well treated with Nuvigil 250mg QAM. Reviewed SE and ADRs with patient. Refills provided. ESS as above. Advised not to drive or operate heavy machinery when sleepy. Aaron Almanza MD I spent 25 minutes in the visit, with more than 50% of the total [id number] time of the visit in counseling / coordination of care. PDMP website checked and validated. All prescriptions have been APPROPRIATELY filled. No suspicious activity was identified. 11/30/2019 by Aaron Almanza MD [facility] OBSOLETEon 10-01-2019 OBSOLETE Refill (NEURGN) ----- JALENSUSHMA ([id number]) 1980 F Date Time Provider Department 10/01/19 JASEN VALENTINE (ELECTRICAL EQUIPMENT ASSEMBLER, DOOR CORE ASSEMBLER) NEURGN During your visit today, we recorded the following information about you: Maribel Lazaro CMA 10/01/2019 12:51 PM Signed Pharmacy faxed requesting the following refill Refill(s) Requested: Pending Prescriptions Disp Refills ARMODAFINIL 250 MG TABLET 90 tablet Sig: take 1 tablet by mouth once daily [id number] Class: C-IV BLOSSOM: Yes ALLERGIES Allergen Reactions - Amoxicillin rash and swelling - Bactrim [Sulfametho* Rash - Erythromycin Base rash and swelling - Sulfa (Sulfonamide * bactrim rash and swelling - Wellbutrin [Bupropi* Rash, Other: See Comments Chest pain (home) [phone] (cell) Last Visit date: 04/02/2019 Future appointment: Visit date not found The patients preferred pharmacy has been captured for this encounter? yes Request is for script(s) to be escript to pharmacy. ERIN Soliz APRN.[facility] 10/01/2019 1:20 PM Signed Chart and OARRS reviewed Pt has appt with Dr. Almanza 11/29 Allergies As of Date: 10/01/2019 Noted Allergy Reaction AMOXICILLIN 04/16/2003 Comments: rash and swelling BACTRIM (SULFAMETHOXAZOLE-TRIMETH *08/21/2009 2 - Rash ERYTHROMYCIN BASE 04/16/2003 Comments: rash and swelling SULFA (SULFONAMIDE ANTIBIOTICS) 04/16/2003 Comments: bactrim rash and swelling WELLBUTRIN (BUPROPION HCL) 08/24/2017 2 - Rash 14 - Other: See Comments Comments: Chest pain Date Reviewed: 08/31/2019 Reviewed by: Kylee Peck (Operation Agent) MARKO Little - Fully Assessed Reason for Visit: Refill Request [94] Cmt: Nuvigil Reason For Visit History Recorded Visit Diagnoses:Obstructive sleep apnea syndrome [G47.33] Hypersomnia [G47.10] Order(s):armodafinil (NUVIGIL) 250 mg tabtake 1 tablet by mouth once dailyDisp: 90 tabletRfl: 0 Prescriptions as of 10/01/2019 Sig: ARMODAFINIL 250 MG TABLET take 1 tablet by mouth once d* ESOMEPRAZOLE MAGNESIUM 40 MG * Take 1 capsule by mouth once * METFORMIN 1,000 MG TABLET Take 1 tablet by mouth twice * SERTRALINE 100 MG TABLET Take 2 tablets by mouth once * FERROUS SULFATE 325 MG (65 MG* Take 1 tablet by mouth twice * ATORVASTATIN 10 MG TABLET TAKE 1 TABLET DAILY AT BEDTIM* LISINOPRIL 5 MG TABLET Take 1 tablet by mouth once d* TRAZODONE 50 MG TABLET Take 1 tablet by mouth daily * NORGESTIMATE-ETHINYL ESTRADIO* take 1 tablet by mouth once d* GLIMEPIRIDE 1 MG TABLET Take 1 tablet by mouth daily * IPRATROPIUM BROMIDE 42 MCG (0* LEVOCETIRIZINE ORAL Take by mouth. IPRATROPIUM BROMIDE 0.03 % NA* Use 2 Sprays in the nose ever* CLINDAMYCIN 1 %-BENZOYL PEROX* apply topically to affected a* BLOOD SUGAR DIAGNOSTIC STRIPS Test blood sugar(s) 1x times * LANCETS 33 GAUGE Test blood sugar(s) 1x daily.* CPAP Bilevel PAP 21/17 cmH2O with * FLUTICASONE PROPIONATE 50 MCG* Use 2 Sprays in each nostril * IBUPROFEN 200 MG TABLET Take 200 mg by mouth every 6 * MULTIVITAMIN TABLET Take 1 tablet by mouth once d* PYRIDOXINE (VITAMIN B6) 100 M* Take 1 tablet by mouth once d* VITAMIN B-12 1,000 MCG TABLET Take 1 tablet by mouth once d* CHOLECALCIFEROL (VITAMIN D3) * Take 1 tablet by mouth once d* Problem List As Of Date 10/01/2019 Noted Resolved OBSESSIVE-COMPULSIVE DISORDER [F60.5] 07/27/2005 09/17/2014 ESOPHAGEAL REFLUX [K21.9] 12/06/2006 OCD (obsessive compulsive disorder) [F42.9] Sleep apnea [G47.30] More... CTS (carpal tunnel syndrome) [G56.00] More... Lumbar disc herniation [M51.26] Non morbid obesity due to excess calories [E66.*01/21/2016 Diabetes mellitus without complication (HCC) [E*05/30/2016 Iron deficiency anemia due to chronic blood los*12/23/2016 Morbid obesity with BMI of 40.0-44.9, adult (HC* Tobacco use [Z72.0] 01/03/2018 Seasonal allergies [J30.2] Hyperlipidemia, mixed [E78.2] 09/29/2017 Prescriptions ordered this encounter Disp Refills Start End ARMODAFINIL 250 MG TABLET 90 t* 0 10/01/2019 12/30/2019 Sig: take 1 tablet by mouth once daily Medications Discontinued During This Encounter armodafinil (NUVIGIL) 250 mg tab 90 t* 1 04/02/2019 10/01/2019 Class: Print RX Route: ORAL Sig: Take 1 tablet by mouth once daily for 90 days. Disc: Reason for discontinue is not on file. Encounter Status:Closed by JASEN VALENTINE CNP on 10/01/19 [facility] CNOVshirlene 04-02-2019 CNOV Office Visit (NEURGN ) ----- SUSHMA BOTELLO ([id number]) 1980 F Date Time Provider Department 04/02/19 8:30 AM JASEN VALENTINE (VIVI) NEURGN During your visit today, we recorded the following information about you: Pulse Blood pressure Weight Height 91/minute 130/80 120.7 kg 1.676 m Jasen Valentine APRN.CNP, CNP 04/02/2019 8:58 AM Signed Continue with current medications Get download from Results [facility] Follow up in 6 months Jasen Valentine APRN.CNP, CNP 04/02/2019 9:43 AM Signed Neurology Follow Up Note Date: April 02, 2019 Patient Name: Sushma Botello HPI: This is Ms. Sushma Botello a 38 year old female who presents to [facility] Neurology for follow up of SERGEY and insomnia. Pt was last seen by Dr. Almanza 06/27. At the time of her last visit, patient was working on a basis. She was having a lot of issues with concentration. Patient does use a bilevel nightly and she has been done very well. Patient states that she does get a good 6-8 hours nightly of good sleep. She was on individual at the last visit and attempted to try Provigil. She states that she did not get any relief with Provigil. She was then placed back on Nuvigil 250 mg daily.. Her mother late spring and she finished her stasis up in February. She states that she still trying to come down from being so stressed from these 2 events. We have not received any download from [facility]. She is happy with her medication at this time. I have asked her to contact [employer] to send a download to Dr. Almanza. She still has issues getting up in the morning to get to work on time. I discussed with her setting alarm an hour before she is actually to get up to take her Nuvigil. Then when she does get up to get ready her Nuvigil has kicked in, and she should be able to get to work on time. She will trial this. A 90 day supply of individual was given with 1 refill. Patient is to follow up in 6 months or sooner if needed. Medications: armodafinil (NUVIGIL) 250 mg tab Take 1 tablet by mouth once daily for 90 days. ferrous sulfate 325 mg (65 mg iron) tablet Take 1 tablet by mouth twice daily. atorvastatin (LIPITOR) 10 mg tablet TAKE 1 TABLET DAILY AT BEDTIME FOR CHOLESTEROL lisinopril (ZESTRIL, PRINIVIL) 5 mg tablet Take 1 tablet by mouth once daily. glimepiride (AMARYL) 1 mg tablet Take 1 tablet by mouth daily with breakfast. traZODone (DESYREL) 50 mg tablet Take 1 tablet by mouth daily at bedtime. metFORMIN (GLUCOPHAGE) 1,000 mg tablet Take 1 tablet by mouth twice daily with meals. sertraline (ZOLOFT) 100 mg tablet Take 2 tablets by mouth once daily. esomeprazole (NEXIUM) 20 mg capsule Take 1 capsule by mouth DAILY (6 AM). TRI-LINYAH 0.18/0.215/0.25 mg-35 mcg (28) tab take 1 tablet by mouth daily as directed levocetirizine dihydrochloride (LEVOCETIRIZINE ORAL) Take by mouth. Ipratropium [place] (ATROVENT) 0.03 % nasal spray Use 2 Sprays in the nose every 12 hours. Clindamycin-Benzoyl Peroxide 1-5 % gel apply topically to affected area twice a day blood sugar diagnostic (ONETOUCH VERIO) test strip Test blood sugar(s) 1x times daily. Dx: Type 2 DM - Controlled E11.9 Insulin: No lancets (ONE TOUCH DELICA) 33 gauge misc Test blood sugar(s) 1x daily. Dx: Type 2 DM - Controlled E11.9 Insulin: No CPAP Bilevel PAP 21/17 cmH2O with humidification. A small/medium Sleep Bustos nasal mask, HUMIDITY. LIFETIME SUPPLIES.Dx: G47.33 ibuprofen (ADVIL) 200 mg tablet Take 200 mg by mouth every 6 hours as needed. multivitamin tablet Take 1 tablet by mouth once daily. pyridoxine, vitamin B6, (VITAMIN B-6) 100 mg tablet Take 1 tablet by mouth once daily. cyanocobalamin (VITAMIN B-12) 1,000 mcg tab Take 1 tablet by mouth once daily. Cholecalciferol, Vitamin D3, 2,000 unit cap Take 1 tablet by mouth once daily. ipratropium bromide (ATROVENT) 42 mcg (0.06 %) nasal spray fluticasone (FLONASE) 50 mcg/actuation nasal spray Use 2 Sprays in each nostril once daily. PMH/PSH/FH/ALLERGIES: Reviewed from last visit and unchanged. ROS: Reviewed from prior visit and unchanged. Physical Exam: Vitals: BP 130/80 (BP Site: Left Arm, BP Position: Sitting, BP Cuff Size: Regular Adult) Pulse 91 Ht 5' 6 (1.676 m) Wt 266 lb (120.7 kg) SpO2 98% BMI 42.93 kg/m? Gen: well appearing, in no acute distress CV: 2+ radial pulses Alert, oriented to person, place, time. Speech fluent with no dysarthria or aphasia. Attention and concentration intact. Recent and remote memory intact. Fund of knowledge is normal. Pupils equally round and reactive to light. Extraocular muscles intact. Visual charles full, face symmetric. Normal muscles bulk and tone Muscle strength symmetric, 5/5 bilateral upper and lower extremities. Sensation intact to light touch throughout Coordination intact Gait is normal Studies: Most recent labs Most recent imaging ASSESSMENT/PLAN: 1. Hypersomnia - ICD9: 780.54, ICD10: G47.10 (primary diagnosis) - ARMODAFINIL 250 MG TABLET 2. SERGEY on CPAP - ICD9: 327.23, V46.8, ICD10: G47.33, Z99.89 - continue with compliance and have [employer] send download of machine 3. Obesity without serious comorbidity, unspecified classification, unspecified obesity type - ICD9: 278.00, ICD10: E66.9 4. Obstructive sleep apnea syndrome - ICD9: 327.23, ICD10: G47.33 - ARMODAFINIL 250 MG TABLET RTC in 6 months Jasen Valentine APRN.[facility], Department of Neurology Referring Provider: AARON ALMANZA JR [[id number]] Allergies As of Date: 04/02/2019 Noted Allergy Reaction AMOXICILLIN 04/16/2003 Comments: rash and swelling BACTRIM (SULFAMETHOXAZOLE-TRIMETH *08/21/2009 2 - Rash ERYTHROMYCIN BASE 04/16/2003 Comments: rash and swelling SULFA (SULFONAMIDE ANTIBIOTICS) 04/16/2003 Comments: bactrim rash and swelling WELLBUTRIN (BUPROPION HCL) 08/24/2017 2 - Rash 14 - Other: See Comments Comments: Chest pain Date Reviewed: 04/02/2019 Reviewed by: Maribel Lazaro - Fully Assessed Reason for Visit: Established Patient [175] Cmt: follow up Primary Visit Diagnosis:Hypersomnia [G47.10] Other Visit Diagnoses:SERGEY on CPAP [G47.33, Z99.89] Obesity without serious comorbidity, unspecified classification, unspecified obesity type [E66.9] Obstructive sleep apnea syndrome [G47.33] Order(s):armodafinil (NUVIGIL) 250 mg tabTake 1 tablet by mouth once daily for 90 days.Disp: 90 tabletRfl: 1 Prescriptions as of 04/02/2019 Sig: ARMODAFINIL 250 MG TABLET Take 1 tablet by mouth once d* FERROUS SULFATE 325 MG (65 MG* Take 1 tablet by mouth twice * ATORVASTATIN 10 MG TABLET TAKE 1 TABLET DAILY AT BEDTIM* LISINOPRIL 5 MG TABLET Take 1 tablet by mouth once d* GLIMEPIRIDE 1 MG TABLET Take 1 tablet by mouth daily * TRAZODONE 50 MG TABLET Take 1 tablet by mouth daily * METFORMIN 1,000 MG TABLET Take 1 tablet by mouth twice * SERTRALINE 100 MG TABLET Take 2 tablets by mouth once * ESOMEPRAZOLE MAGNESIUM 20 MG * Take 1 capsule by mouth DAILY* TRI-LINYAH (28) 0.18 MG(7)/0.* take 1 tablet by mouth daily * LEVOCETIRIZINE ORAL Take by mouth. IPRATROPIUM BROMIDE 0.03 % NA* Use 2 Sprays in the nose ever* CLINDAMYCIN 1 %-BENZOYL PEROX* apply topically to affected a* BLOOD SUGAR DIAGNOSTIC STRIPS Test blood sugar(s) 1x times * LANCETS 33 GAUGE Test blood sugar(s) 1x daily.* CPAP Bilevel PAP 21/17 cmH2O with * IBUPROFEN 200 MG TABLET Take 200 mg by mouth every 6 * MULTIVITAMIN TABLET Take 1 tablet by mouth once d* PYRIDOXINE (VITAMIN B6) 100 M* Take 1 tablet by mouth once d* VITAMIN B-12 1,000 MCG TABLET Take 1 tablet by mouth once d* CHOLECALCIFEROL (VITAMIN D3) * Take 1 tablet by mouth once d* IPRATROPIUM BROMIDE 42 MCG (0* FLUTICASONE PROPIONATE 50 MCG* Use 2 Sprays in each nostril * Problem List As Of Date 04/02/2019 Noted Resolved OBSESSIVE-COMPULSIVE DISORDER [F60.5] INVALID FOR*09/17/2014 ESOPHAGEAL REFLUX [K21.9] INVALID FOR* OCD (obsessive compulsive disorder) [F42.9] Sleep apnea [G47.30] More... CTS (carpal tunnel syndrome) [G56.00] More... Lumbar disc herniation [M51.26] Non morbid obesity due to excess calories [E66.*INVALID FOR* Diabetes mellitus without complication (HCC) [E*INVALID FOR* Iron deficiency anemia due to chronic blood los*INVALID FOR* Morbid obesity with BMI of 40.0-44.9, adult (HC* Tobacco use [Z72.0] 01/03/2018 Seasonal allergies [J30.2] Hyperlipidemia, mixed [E78.2] INVALID FOR* Other instructions from your clinician: Continue with current medications Get download from [facility] Follow up in 6 months Prescriptions ordered this encounter Disp Refills Start End ARMODAFINIL 250 MG TABLET 90 t* 1 04/02/2019 07/01/2019 Class: Print RX Route: ORAL Sig: Take 1 tablet by mouth once daily for 90 days. Medications Discontinued During This Encounter modafinil (PROVIGIL) 200 mg tablet 60 t* 0 08/18/2018 04/02/2019 Class: Call Rx Route: ORAL Sig: Take 1 tablet by mouth twice daily for 30 days. Patient not taking: Reported on 04/02/2019 Disc: Side Effects azelastine (ASTELIN,ASTEPRO) 0.1% na* 1 Jimmy* 5 01/19/2018 04/02/2019 Route: EACH NOSTRIL Sig: Use 1 [place] in each nostril twice daily. Patient not taking: Reported on 03/28/2018 Disc: Course of therapy completed armodafinil (NUVIGIL) 250 mg tab 90 t* 0 01/04/2019 04/02/2019 Class: Print RX Route: ORAL Sig: Take 1 tablet by mouth once daily for 90 days. Disc: Reason for discontinue is not on file. Disposition: Return in about 6 months (around 10/01/2019). Follow-up and Disposition History Recorded Encounter Status:Closed by JASEN VALENTINE CNP on 04/02/19 [facility] PROGRESSon 04-02-2019 PROGRESS HNO ID: [id number] Author: Jasen Concepcion) VIVI Valentine Service: ? Author Type: Nurse Practitioner Type: Progress Notes Filed: 04/02/2019 9:43 AM Note Text: Neurology Follow Up Note Date: April 02, 2019 Patient Name: Sushma Botello HPI: This is Ms. Sushma Botello a 38 year old female who presents to [facility] Neurology for follow up of SERGEY and insomnia. Pt was last seen by Dr. Almanza 06/27. At the time of her last visit, patient was working on a basis. She was having a lot of issues with concentration. Patient does use a bilevel nightly and she has been done very well. Patient states that she does get a good 6-8 hours nightly of good sleep. She was on individual at the last visit and attempted to try Provigil. She states that she did not get any relief with Provigil. She was then placed back on Nuvigil 250 mg daily.. Her mother late spring and she finished her stasis up in February. She states that she still trying to come down from being so stressed from these 2 events. We have not received any download from [employer]. She is happy with her medication at this time. I have asked her to contact [employer] to send a download to Dr. Almanza. She still has issues getting up in the morning to get to work on time. I discussed with her setting alarm an hour before she is actually to get up to take her Nuvigil. Then when she does get up to get ready her Nuvigil has kicked in, and she should be able to get to work on time. She will trial this. A 90 day supply of individual was given with 1 refill. Patient is to follow up in 6 months or sooner if needed. Medications: armodafinil (NUVIGIL) 250 mg tab Take 1 tablet by mouth once daily for 90 days. ferrous sulfate 325 mg (65 mg iron) tablet Take 1 tablet by mouth twice daily. atorvastatin (LIPITOR) 10 mg tablet TAKE 1 TABLET DAILY AT BEDTIME FOR CHOLESTEROL lisinopril (ZESTRIL, PRINIVIL) 5 mg tablet Take 1 tablet by mouth once daily. glimepiride (AMARYL) 1 mg tablet Take 1 tablet by mouth daily with breakfast. traZODone (DESYREL) 50 mg tablet Take 1 tablet by mouth daily at bedtime. metFORMIN (GLUCOPHAGE) 1,000 mg tablet Take 1 tablet by mouth twice daily with meals. sertraline (ZOLOFT) 100 mg tablet Take 2 tablets by mouth once daily. esomeprazole (NEXIUM) 20 mg capsule Take 1 capsule by mouth DAILY (6 AM). TRI-LINYAH 0.18/0.215/0.25 mg-35 mcg (28) tab take 1 tablet by mouth daily as directed levocetirizine dihydrochloride (LEVOCETIRIZINE ORAL) Take by mouth. Ipratropium [place] (ATROVENT) 0.03 % nasal spray Use 2 Sprays in the nose every 12 hours. Clindamycin-Benzoyl Peroxide 1-5 % gel apply topically to affected area twice a day blood sugar diagnostic ([employer]CH VERIO) test strip Test blood sugar(s) 1x times daily. Dx: Type 2 DM - Controlled E11.9 Insulin: No lancets (ONE TOUCH DELICA) 33 gauge misc Test blood sugar(s) 1x daily. Dx: Type 2 DM - Controlled E11.9 Insulin: No CPAP Bilevel PAP 21/17 cmH2O with humidification. A small/medium Sleep Bustos nasal mask, HUMIDITY. LIFETIME SUPPLIES.Dx: G47.33 ibuprofen (ADVIL) 200 mg tablet Take 200 mg by mouth every 6 hours as needed. multivitamin tablet Take 1 tablet by mouth once daily. pyridoxine, vitamin B6, (VITAMIN B-6) 100 mg tablet Take 1 tablet by mouth once daily. cyanocobalamin (VITAMIN B-12) 1,000 mcg tab Take 1 tablet by mouth once daily. Cholecalciferol, Vitamin D3, 2,000 unit cap Take 1 tablet by mouth once daily. ipratropium bromide (ATROVENT) 42 mcg (0.06 %) nasal spray fluticasone (FLONASE) 50 mcg/actuation nasal spray Use 2 Sprays in each nostril once daily. PMH/PSH/FH/ALLERGIES: Reviewed from last visit and unchanged. ROS: Reviewed from prior visit and unchanged. Physical Exam: Vitals: BP 130/80 (BP Site: Left Arm, BP Position: Sitting, BP Cuff Size: Regular Adult) Pulse 91 Ht 5' 6 (1.676 m) Wt 266 lb (120.7 kg) SpO2 98% BMI 42.93 kg/m? Gen: well appearing, in no acute distress CV: 2+ radial pulses Alert, oriented to person, place, time. Speech fluent with no dysarthria or aphasia. Attention and concentration intact. Recent and remote memory intact. Fund of knowledge is normal. Pupils equally round and reactive to light. Extraocular muscles intact. Visual charles full, face symmetric. Normal muscles bulk and tone Muscle strength symmetric, 5/5 bilateral upper and lower extremities. Sensation intact to light touch throughout Coordination intact Gait is normal Studies: Most recent labs Most recent imaging ASSESSMENT/PLAN: 1. Hypersomnia - ICD9: 780.54, ICD10: G47.10 (primary diagnosis) - ARMODAFINIL 250 MG TABLET 2. SERGEY on CPAP - ICD9: 327.23, V46.8, ICD10: G47.33, Z99.89 - continue with compliance and have [employer] send download of machine 3. Obesity without serious comorbidity, unspecified classification, unspecified obesity type - ICD9: 278.00, ICD10: E66.9 4. Obstructive sleep apnea syndrome - ICD9: 327.23, ICD10: G47.33 - ARMODAFINIL 250 MG TABLET RTC in 6 months Jasen Valentine APRN.DOOR CORE ASSEMBLER [facility], Department of Neurology Normal [facility] Glucose [place] 02-06-2019 Glucose [Mass/Vol] 113 mg/dL High 70-99 [facility] Comment on above: Result Comment: MD Garvin OTIFIED [place] [address] Performed By: #### L GLMT #### [place] [id number] Surgical Tissue Examon 02-06 Surgical Tissue Exam Test performed at [place] [address] NAME: SUSHMA BOTELLO REQUESTING: KYLEE CARR MD FINAL DIAGNOSIS: SOFT TISSUE MASS OF ABDOMINAL WALL, EXCISION - MATURE ADIPOSE TISSUES CONSISTENT WITH LIPOMA. OPERATIVE PROCEDURE: Excision of abdominal lipoma CLINICAL INFORMATION: Lipoma of abdominal wall [D17.1] GROSS DESCRIPTION: Abdominal wall lipoma Received in formalin labeled abdominal lipoma are multiple yellow fatty segments of tissue aggregating to 13.5 x 7.8 x 3.5 cm. Upon sectioning, the specimens display a yellow fatty cut surface. County Director sections are submitted in formalin in five cassettes. KVB:hai RAMSEY M.D., PATHOLOGIST (Electronic signature on file) Signed out: 02/09/2019 09:26 PRINTED: 02/09/2019 Page 1 of 1 Normal [facility] Comment on above: Performed By: #### S URG #### [facility] [address] [place], [place] [address] Urine HCG, Qual.on 9 Beta HCG ( test) Ql (U) Negative Normal Negative [facility] Comment on above: Performed By: #### L HCG2 #### [facility] [address] [place], [place] [address] Specific [place], Ur 1.020 Normal 1.005-1.030 [facility] Comment on above: Performed By: #### L HCG2 #### [facility] [address] [place], [place] [address] CR Foot Complete 3+ Views Cintia almanzar 12-20-2017 CR Foot Complete 3+ Views Right Patient Name: SUSHMA BOTELLO Diagnostic Radiology Exam Date/Time 12/19/2017 21:32:51 EDT Exam CR Foot Complete 3+ Views Right Ordering Physician MD HOWARD DAVID Accession Number [id number] CPT4 Codes 64472 () Reason For Exam pain Report RIGHT FOOT THREE VIEWS CLINICAL INDICATION: pain TECHNIQUE: Three views of the right foot. COMPARISON: None FINDINGS: Joint spaces are maintained. No acute fracture or dislocation seen. No acute bone destruction. No significant foreign body. Calcaneal spurring noted at the attachment of the Achilles tendon and plantar fascia. IMPRESSION: 1. No acute finding. Report Dictated on Final Dictating Physician: MD BARRIENTOS JOHN R Signed Date and Time: 12/19/2017 10:44 pm Signed by: MD BARRIENTOS JOHN R Transcribed Date and Time: 12/19/2017 10:45 Normal [facility] MRI ABDOMEN WO/W IVCONon MRI ABDOMEN WO/W IVCON * * *Final Report* * *DATE OF EXAM: Jan 14 2017 10:04AM [facility] 0689 - MRI ABDOMEN WO/W IVCON / REASON: SOFT TISSUE MASS M79.9 * * * * Physician Interpretation * * * *RESULT: MRI OF THE ABDOMEN WITHOUT AND WITH CONTRAST:CLINICAL HISTORY: Mass left upper quadrant anterior abdominal wallCOMPARISON: None.TECHNIQUE: [employer]O 1.0 T (Open MRI) scanner. Using the torso phased array coil, axial STIR and T1 weighted in- and fhx-qf-icxlo images were obtained. Then, using a 3-D GRE T1 weighted sequence, dynamic images were obtained before, during and after the administration of intravenous contrast. Subsequently, axial and coronal HASTE, axial diffusion weighted and axial T2 weighted images were obtained. Flow sensitive imaging of the portal vein was performed. Finally, a delayed post-contrast phase was obtained using the same 3D GRE sequence.Contrast:IV: 20 ml of DotaremOral Contrast: NoneRESULT:No abnormality found of the left upper quadrant anterior abdominal wall in the region of the patient's described abnormality. On some of the sequences artifact is present in this area due to large patient body habitus in relation to the magnet bore but on the sequences that the anterior abdominal wall of the left upper quadrant is seen and there is no focal abnormality.Liver: Diffuse loss of signal on the out of phase images consistent with steatosis. Few small enhancing lesions on the arterial phase with no correlate found on the T1 and T2-weighted sequences or the delayed postcontrast sequences. Also no diffusion abnormality. Findings consistent with transient intensity differences.Spleen -unremarkable spleen Pancreaticobiliary: There is no intrahepatic biliary dilation. The common bile duct is normal in course and caliber. No filling defects are identified within the common bile duct. The gallbladder is normal in appearance. The pancreas has normal precontrast signal, enhances normally and is without focal lesions. The visualized portions of the pancreatic duct are normal.The adrenals are normal.Kidneys: The visualized portions of the kidneys enhance symmetrically. There is no hydroureteronephrosis. There is no focal enhancing renal lesion.Other: There is no ascites. There are no abnormal fluid collections. There is no lymphadenopathy.IMPRESSIO N:NO FOCAL ABNORMALITY OF THE ANTERIOR ABDOMINAL WALL OF THE LEFT UPPER QUADRANT OF THE ABDOMEN IS FOUND. FINDINGS ON SONOGRAM MAY REPRESENT A PROMINENT FAT LOBULE. CLINICAL CORRELATION IS RECOMMENDED FOR THE PALPABLE FINDING AND IF THERE IS INTERVAL ENLARGEMENT SAMPLING MAY BE CONSIDERED.HEPATIC STEATOSIS.v12.13.12Transc ribed Using Voice RecognitionTranscribe Date/Time: Jan 14 2017 11:37ADictated by: RAYMON SIMPSON MDThis examination was interpreted and the report reviewed and electronically signed by: RAYMON SIMPSON MD on Jan 14 2017 12:08PM [facility] Vital Signs Date Time Vital Sign Value Performing Clinician Pramod scherer 02-13-2024 11:41-0400 Body mass index (BMI) [Ratio] 36.32 kg/m2 Kathy Podlogar ELECTRICAL EQUIPMENT ASSEMBLER.DOOR CORE ASSEMBLER Work Phone: [facility] 02-13-2024 11:41-0400 Body weight 105.2 kg Kathy Podlogar ELECTRICAL EQUIPMENT ASSEMBLER.DOOR CORE ASSEMBLER Work Phone: [facility] 02-13-2024 11:41-0400 Diastolic blood pressure 78 mm[Hg] Kathy Podlogar ELECTRICAL EQUIPMENT ASSEMBLER.DOOR CORE ASSEMBLER Work Phone: [facility] 02-13-2024 11:41-0400 Heart rate 106 /min Kathy Podlogar ELECTRICAL EQUIPMENT ASSEMBLER.DOOR CORE ASSEMBLER Work Phone: [facility] 02-13-2024 11:41-0400 Respiratory rate 16 /min Kathy Podlogar ELECTRICAL EQUIPMENT ASSEMBLER.DOOR CORE ASSEMBLER Work Phone: [facility] 02-13-2024 11:41-0400 SaO2% (BldA) [Mass fraction] 97 % Kathy Podlogar ELECTRICAL EQUIPMENT ASSEMBLER.DOOR CORE ASSEMBLER Work Phone: [facility] 02-13-2024 11:41-0400 Systolic blood pressure 118 mm[Hg] Kathy Podlogar ELECTRICAL EQUIPMENT ASSEMBLER.DOOR CORE ASSEMBLER Work Phone: [facility] 02-13-2024 10:16-0400 Body mass index (BMI) [Ratio] 36.31 kg/m2 Aaron Almanza Jr., MD Work Phone: [facility] 02-13-2024 10:16-0400 Body weight 105.14 kg Aaron Almanza Jr., MD Work Phone: [facility] 02-13-2024 10:16-0400 Diastolic blood pressure 79 mm[Hg] Aaron Almanza Jr., MD Work Phone: [facility] 02-13-2024 10:16-0400 Heart rate 90 /min Aaron Almanza Jr., MD Work Phone: [facility] 02-13-2024 10:16-0400 Respiratory rate 16 /min Aaron Almanza Jr., MD Work Phone: [facility] 02-13-2024 10:16-0400 SaO2% (BldA) [Mass fraction] 99 % Aaron Almanza Jr., MD Work Phone: [facility] 02-13-2024 10:16-0400 Systolic blood pressure 131 mm[Hg] Aaron Almanza Jr., MD Work Phone: [facility] 12-09-2023 08:10-0400 Body mass index (BMI) [Ratio] 39.12 kg/m2 Kathy Podlogar ELECTRICAL EQUIPMENT ASSEMBLER.DOOR CORE ASSEMBLER Work Phone: [facility] 12-09-2023 08:10-0400 Body weight 113.31 kg Kathy Podlogar ELECTRICAL EQUIPMENT ASSEMBLER.DOOR CORE ASSEMBLER Work Phone: [facility] 12-09-2023 08:10-0400 Diastolic blood pressure 88 mm[Hg] Kathy Podlogar ELECTRICAL EQUIPMENT ASSEMBLER.DOOR CORE ASSEMBLER Work Phone: [facility] 12-09-2023 08:10-0400 Heart rate 97 /min Kathy Podlogar ELECTRICAL EQUIPMENT ASSEMBLER.DOOR CORE ASSEMBLER Work Phone: [facility] 12-09-2023 08:10-0400 Respiratory rate 18 /min Kathy Podlogar ELECTRICAL EQUIPMENT ASSEMBLER.DOOR CORE ASSEMBLER Work Phone: [facility] 12-09-2023 08:10-0400 SaO2% (BldA) [Mass fraction] 98 % Kathy Podlogar ELECTRICAL EQUIPMENT ASSEMBLER.DOOR CORE ASSEMBLER Work Phone: [facility] 12-09-2023 08:10-0400 Systolic blood pressure 130 mm[Hg] Kathy Podlogar ELECTRICAL EQUIPMENT ASSEMBLER.DOOR CORE ASSEMBLER Work Phone: [facility] 08-15-2023 13:06-0500 Diastolic blood pressure 87 mm[Hg] Kathy Podlogar ELECTRICAL EQUIPMENT ASSEMBLER.DOOR CORE ASSEMBLER Work Phone: [facility] 08-15-2023 13:06-0500 Heart rate 111 /min Kathy Podlogar ELECTRICAL EQUIPMENT ASSEMBLER.DOOR CORE ASSEMBLER Work Phone: [facility] 08-15-2023 13:06-0500 Systolic blood pressure 134 mm[Hg] Kathy Podlogar ELECTRICAL EQUIPMENT ASSEMBLER.DOOR CORE ASSEMBLER Work Phone: [facility] 08-15-2023 12:42-0500 Body weight 115.12 kg Kathy Podlogar ELECTRICAL EQUIPMENT ASSEMBLER.DOOR CORE ASSEMBLER Work Phone: [facility] 08-15-2023 12:42-0500 Respiratory rate 18 /min Kathy Podlogar ELECTRICAL EQUIPMENT ASSEMBLER.DOOR CORE ASSEMBLER Work Phone: [facility] 08-15-2023 12:42-0500 SaO2% (BldA) [Mass fraction] 98 % Kathy Podlogar ELECTRICAL EQUIPMENT ASSEMBLER.DOOR CORE ASSEMBLER Work Phone: [facility] 02-08-2023 10:26-0400 Body height 170.2 cm Kathy Podlogar ELECTRICAL EQUIPMENT ASSEMBLER.DOOR CORE ASSEMBLER Work Phone: [facility] 02-08-2023 10:26-0400 Body weight 112.49 kg Kathy Podlogar ELECTRICAL EQUIPMENT ASSEMBLER.DOOR CORE ASSEMBLER Work Phone: [facility] 02-08-2023 10:26-0400 Diastolic blood pressure 84 mm[Hg] Kathy Podlogar ELECTRICAL EQUIPMENT ASSEMBLER.DOOR CORE ASSEMBLER Work Phone: [facility] 02-08-2023 10:26-0400 Heart rate 72 /min Kathy Podlogar ELECTRICAL EQUIPMENT ASSEMBLER.DOOR CORE ASSEMBLER Work Phone: [facility] 02-08-2023 10:26-0400 Respiratory rate 16 /min Kathy Podlogar ELECTRICAL EQUIPMENT ASSEMBLER.DOOR CORE ASSEMBLER Work Phone: [facility] 02-08-2023 10:26-0400 Systolic blood pressure 132 mm[Hg] Kathy Podlogar ELECTRICAL EQUIPMENT ASSEMBLER.DOOR CORE ASSEMBLER Work Phone: [facility] 12-23-2022 16:40-0400 Body temperature 97.81 [degF] Jessica Margot MIMS.DOOR CORE ASSEMBLER Work Phone: [facility] 12-23-2022 16:40-0400 Body weight 111.86 kg Jessicalauren Uriarte APRN.DOOR CORE ASSEMBLER Work Phone: [facility] 12-23-2022 16:40-0400 Diastolic blood pressure 84 mm[Hg] Jessica Uriarte APRN.DOOR CORE ASSEMBLER Work Phone: [facility] 12-23-2022 16:40-0400 Heart rate 94 /min Jessicajer Uriarte APRN.DOOR CORE ASSEMBLER Work Phone: [facility] 12-23-2022 16:40-0400 Respiratory rate 16 /min Jessicalauren Uriarte APRN.DOOR CORE ASSEMBLER Work Phone: [facility] 12-23-2022 16:40-0400 SaO2% (BldA) [Mass fraction] 97 % Jessica Uriarte APRN.DOOR CORE ASSEMBLER Work Phone: [facility] 12-23-2022 16:40-0400 Systolic blood pressure 132 mm[Hg] Jessica Uriarte APRN.DOOR CORE ASSEMBLER Work Phone: [facility] 08-02-2022 10:11-0500 Body temperature 96.91 [degF] Aaron Almanza Jr., MD Work Phone: [facility] 08-02-2022 10:11-0500 Body weight 108.86 kg Aaron Almanza Jr., MD Work Phone: [facility] 08-02-2022 10:11-0500 Diastolic blood pressure 84 mm[Hg] Aaron Almanza Jr., MD Work Phone: [facility] 08-02-2022 10:11-0500 Heart rate 97 /min Aaron Almanza Jr., MD Work Phone: [facility] 08-02-2022 10:11-0500 Respiratory rate 16 /min Aaron Almanza Jr., MD Work Phone: [facility] 08-02-2022 10:11-0500 SaO2% (BldA) [Mass fraction] 98 % Aaron Almanza Jr., MD Work Phone: [facility] 08-02-2022 10:11-0500 Systolic blood pressure 130 mm[Hg] Aaron Almanza Jr., MD Work Phone: [facility] 11-23-2021 11:50-0400 Body temperature 97.5 [degF] Aaron Almanza Jr., MD Work Phone: [facility] 11-23-2021 11:50-0400 Body weight 108.86 kg Aaron Almanza Jr., MD Work Phone: [facility] 11-23-2021 11:50-0400 Diastolic blood pressure 72 mm[Hg] Aaron Almanza Jr., MD Work Phone: [facility] 11-23-2021 11:50-0400 Heart rate 89 /min Aaron Almanza Jr., MD Work Phone: [facility] 11-23-2021 11:50-0400 Respiratory rate 18 /min Aaron Almanza Jr., MD Work Phone: [facility] 11-23-2021 11:50-0400 SaO2% (BldA) [Mass fraction] 98 % Aaron Almanza Jr., MD Work Phone: [facility] 11-23-2021 11:50-0400 Systolic blood pressure 120 mm[Hg] Aaron Almanza Jr., MD Work Phone: [facility] Encounters Encounter Date Encounter Type Care Provider Facility Start: 03-27-2024 End: 03-27-2024 ambulatory ROCKY RO Facility:[facility] Start: 03-27-2024 End: 03-27-2024 Patient encounter procedure Rocky Corbettsheila Work Phone: Podiatry Comment on above: Chronic foot pain, r ight (Primary Dx); Pes cavus of both feet Start: 03-19-2024 End: 03-19-2024 Refill Alexys Holden MD Work Phone: [facility] Comment on above: Refill Request Start: 02-28-2024 End: 03-16-2024 Telephone encounter Aaron Almanza MD Work Phone: Neurology Comment on above: Patient Question (Re garding BiPap/) Start: 02-13-2024 End: 02-13-2024 Patient encounter procedure Kathy Raineylogar ELECTRICAL EQUIPMENT ASSEMBLER.DOOR CORE ASSEMBLER Work Phone: [facility] Comment on above: Uncontrolled type 2 diabetes mellitus with hyperglycemia (HCC) (Primary Dx); SERGEY on CPAP; Hyperlipidemia, mixed; Encounter for screening mammogram for breast cancer Start: 02-13-2024 End: 02-13-2024 ambulatory AARON ALMANZA JR Facility:[facility] Start: 02-13-2024 End: 02-13-2024 Patient encounter procedure Aaron Almanza MD Work Phone: Neurology Comment on above: Obstructive sleep ap natacha syndrome (Primary Dx); Hypersomnia; RLS (restless legs syndrome); Long-term use of high-risk medication; Delayed sleep phase syndrome; Class 2 obesity with body mass index (BMI) of 36.0 to 36.9 in adult, unspecified obesity type, unspecified whether serious comorbidity present Start: 02-13-2024 End: 02-13-2024 ambulatory KATHY PODLOGAR Facility:[facility] Start: 02-06-2024 Orders Only Merlyn Paez MD Work Phone: [facility] Start: 01-16-2024 Refill Kathy Podlogar ELECTRICAL EQUIPMENT ASSEMBLER.DOOR CORE ASSEMBLER Work Phone: [facility] Comment on above: Refill Request Start: 01-03-2024 Refill Kathy Podlogar ELECTRICAL EQUIPMENT ASSEMBLER.DOOR CORE ASSEMBLER Work Phone: [facility] Comment on above: Refill Request Start: 12-12-2023 Telephone encounter Kathy Horton ogdakota ELECTRICAL EQUIPMENT ASSEMBLER.DOOR CORE ASSEMBLER Work Phone: [facility] Comment on above: Results Start: 12-09-2023 End: 12-09-2023 ambulatory KATHY PODLOGAR Facility:[facility] Start: 12-09-2023 End: 12-09-2023 Patient encounter procedure Kathy Podlogdakota SOLANONYariDOOR CORE ASSEMBLER Work Phone: [facility] Comment on above: Obesity, Class II, B VA 35-39.9 (Primary Dx); Controlled type 2 diabetes mellitus without complication, without long-term current use of insulin (HCC) Start: 12-07-2023 Refill Merlyn Paez MD Work Phone: [facility] Comment on above: Refill Request Start: 08-15-2023 End: 08-15-2023 Patient encounter procedure Rocky Ro Work Phone: Podiatry Comment on above: Pes cavus of both fe et (Primary Dx); Chronic foot pain, right Controlled type 2 di abetes mellitus without complication, without long-term current use of insulin (HCC) (Primary Dx); SERGEY on CPAP; Iron deficiency anemia, unspecified iron deficiency anemia type; Class 2 obesity with body mass index (BMI) of 39.0 to 39.9 in adult, unspecified obesity type, unspecified whether serious comorbidity present Start: 08-15-2023 End: 08-15-2023 ambulatory KATHY PODLOGDAKOTA Facility:[facility] Start: 07-22-2023 End: 07-22-2023 Subsequent hospital visit by physician Michelle [facility] Work Phone: Radiology Comment on above: Chronic foot pain, r ight [M79.671, G89.29] Start: 07-22-2023 End: 07-22-2023 ambulatory MERLYN PAEZ Facility:[facility] Start: 05-11-2023 End: 05-11-2023 ambulatory Fanta O'Raj PT [facility] Comment on above: Foot pain, right (Pr imary Dx) Start: 04-25-2023 End: 04-25-2023 ambulatory Fanta O'Raj PT [facility] Comment on above: Foot pain, right (Pr imary Dx) Start: 04-18-2023 End: 04-18-2023 ambulatory Fanta O'Raj PT [facility] Comment on above: Foot pain, right (Pr imary Dx) Start: 04-11-2023 End: 04-11-2023 ambulatory Fanta O'Raj PT [facility] Comment on above: Foot pain, right (Pr imary Dx) Start: 03-31-2023 Refill Kathy Wilkins APRN.CNP Work Phone: [facility] Comment on above: Refill Request Start: 03-23-2023 End: 03-23-2023 ambulatory Fanta O'Raj PT [facility] Comment on above: Foot pain, right (Pr imary Dx) Start: 03-21-2023 End: 03-21-2023 ambulatory Tawana Hay STUDENT SUCCESS ADVISOR Work Phone: [facility] Comment on above: Foot pain, right (Pr imary Dx) Start: 03-18-2023 End: 03-18-2023 ambulatory Tawana Hay STUDENT SUCCESS ADVISOR Work Phone: [facility] Comment on above: Foot pain, right (Pr imary Dx) Start: 03-09-2023 End: 03-09-2023 ambulatory Fanta O'Raj PT [facility] Comment on above: Foot pain, right (Pr imary Dx) Start: 03-07-2023 End: 03-07-2023 ambulatory Fanta O'Raj PT [facility] Comment on above: Foot pain, right (Pr imary Dx) Start: 03-04-2023 End: 03-04-2023 ambulatory Fanta O'Raj PT [facility] Comment on above: Foot pain, right (Pr imary Dx) Start: 03-02-2023 Documentation procedure Mammog teresita Coordinator [facility] Start: 03-02-2023 Letter encounter Mammography Coordinator [facility] Department Start: 03-02-2023 End: 03-02-2023 Subsequent hospital visit by physician Screen Mammo [facility] Comment on above: Encounter for screen ing mammogram for breast cancer [Z12.31] Start: 02-28-2023 End: 02-28-2023 ambulatory Fanta O'Raj PT [facility] Comment on above: Foot pain, right (Pr imary Dx); Acute pain of right knee Start: 02-08-2023 End: 02-08-2023 Patient encounter procedure Kathy Wilkins APRN.DOOR CORE ASSEMBLER Work Phone: [facility] Comment on above: Controlled type 2 di abetes mellitus without complication, without long-term current use of insulin (HCC) (Primary Dx); Acute pain of right knee; Foot pain, right; Hyperlipidemia, mixed; SERGEY on CPAP Start: 02-07-2023 Telephone encounter Aaron Almanza MD Work Phone: [facility] Comment on above: Medication Problem Start: 02-02-2023 ambulatory Aaron davis MD Work Phone: Neurology Comment on above: They won't give me a new BiPAP Start: 01-12-2023 Refill Aaron davis MD Work Phone: Neurology Comment on above: Refill Request Start: 12-23-2022 End: 12-23-2022 Subsequent hospital visit by physician Xr [facility] Work Phone: Radiology Comment on above: Pain [R52] Start: 12-23-2022 End: 12-23-2022 Patient encounter procedure Jesisca Uriarte APRN.DOOR CORE ASSEMBLER Work Phone: [facility] Comment on above: Swelling (Primary Dx ); Pain Start: 12-22-2022 ambulatory Merlyn Paez MD Work Phone: [facility] [place] Start: 08-02-2022 Telephone encounter Aida Downing [address] Comment on above: Appointment Start: 08-02-2022 End: 08-02-2022 Patient encounter procedure Aaron Almanza MD Work Phone: Neurology Comment on above: RLS (restless legs s yndrome); Obstructive sleep apnea syndrome; Hypersomnia Start: 07-02-2022 Refill Kathy Wilkins APRN.DOOR CORE ASSEMBLER Work Phone: [facility] Comment on above: Refill Request Start: 06-13-2022 Refill Aaron davis MD Work Phone: Neurology Comment on above: Refill Request Start: 05-17-2022 Refill Alexys phillip MD Work Phone: [facility] Comment on above: Refill Request Start: 04-23-2022 Refill Merlyn Paez MD Work Phone: [facility] Comment on above: Refill Request Start: 02-08-2022 End: 02-08-2022 Subsequent hospital visit by physician Xr [facility] Work Phone: Radiology Comment on above: Injury of right ankl e, initial encounter [S99.911C] Start: 01-25-2022 ambulatory Kathy Podlogar ELECTRICAL EQUIPMENT ASSEMBLER.DOOR CORE ASSEMBLER Work Phone: [facility] Comment on above: feet Start: 01-08-2022 Telephone encounter Kathy rucker APRN.DOOR CORE ASSEMBLER Work Phone: [facility] Comment on above: Results Start: 01-07-2022 End: 01-07-2022 Subsequent hospital visit by physician Xr [facility] Work Phone: Radiology Comment on above: Foot pain, right [M7 9.671] Start: 01-06-2022 End: 01-06-2022 ambulatory Kathy Podlogar ELECTRICAL EQUIPMENT ASSEMBLER.DOOR CORE ASSEMBLER Work Phone: [facility] Comment on above: Controlled type 2 di abetes mellitus without complication, without long-term current use of insulin (HCC) (Primary Dx); Foot pain, right; Iron deficiency anemia, unspecified iron deficiency anemia type; SERGEY on CPAP Start: 01-06-2022 End: 01-06-2022 Telemedicine consultation with patient Kathy Podlogar ELECTRICAL EQUIPMENT ASSEMBLER.DOOR CORE ASSEMBLER Work Phone: [facility] Start: 12-22-2021 Telephone encounter Aaron Almanza MD Work Phone: Neurology Comment on above: Appointment Start: 11-23-2021 Telephone encounter Aaron Almanza MD Work Phone: Neurology Comment on above: Orders Start: 11-23-2021 End: 11-23-2021 Patient encounter procedure Aaron Almanza MD Work Phone: Neurology Comment on above: Obstructive sleep ap natacha syndrome (Primary Dx); RLS (restless legs syndrome); Hypersomnia Start: 11-11-2021 Telephone encounter Kathy rucker APRN.CNP Work Phone: [facility] Comment on above: Patient Update Start: 11-10-2021 Documentation procedure Mammog teresita Coordinator [facility] Start: 11-10-2021 Letter encounter Mammography Coordinator [facility] Department Start: 11-10-2021 End: 11-10-2021 Subsequent hospital visit by physician Screen Mammo [facility] Comment on above: Encounter for screen ing mammogram for malignant neoplasm of breast [Z12.31] Start: 11-06-2021 Refill Merlyn Paez MD Work Phone: [facility] Comment on above: Refill Request Start: 10-09-2021 Telephone encounter Kathy rucker APRN.CNP Work Phone: [facility] Comment on above: Results Start: 10-08-2021 ambulatory Alexys phillip MD Work Phone: [facility] Comment on above: Mammogram Start: 12-19-2017 Emergency department patient visit [facility] Start: 10-18-2017 End: 11-01-2017 Ambulatory AARON ALMANZA [facility] Start: 01-14-2017 Ambulatory [facility] Procedures Date Procedure Procedure Detail Performing Clinician Start: 02-13-2024 Hemoglobin A1c/Hemoglobin.total in Blood Kathy Wilkins APRN.DOOR CORE ASSEMBLER Work Phone: Start: 07-22-2023 Radex foot complete minimum 3 views Merlyn Paez MD Work Phone: Start: 03-02-2023 End: 03-02-2023 Mammography Bulk Order Provider Start: 12-23-2022 Radiologic exam knee complete 4/more views Jessica Uriarte APRN.DOOR CORE ASSEMBLER Work Phone: Start: 02-08-2022 Radex ankle complete minimum 3 views Gwendolyn Purvis APRN.DOOR CORE ASSEMBLER Work Phone: Start: 01-07-2022 Radex foot complete minimum 3 views Kathy Raineylogdakota MIMS.DOOR CORE ASSEMBLER Work Phone: Start: 11-10-2021 End: 11-10-2021 Screening mammography bi 2-view breast inc cad Alexys Holden MD Work Phone: Start: 07-21-2021 Adult depression screening assessment Alexys Holden MD Work Phone: Start: 10-28-2020 Mammography Alexys briceno MD Work Phone: Plan of Treatment Date Care Activity Detail Author Start: 01-20-2026 Urine microalbumin profile [facility] Start: 02-12-2025 Annual PCP Team Elementary Secretary sotero Disease Visit Annual PCP Team Chronic Disease Visit [facility] Start: 02-12-2025 Diabetic foot examination Diabetic Foot Exam [facility] Start: 12-08-2024 Annual PCP Team Elementary Secretary sotero Disease Visit Annual PCP Team Chronic Disease Visit [facility] Start: 08-17-2024 End: 08-17-2024 Patient encounter procedure [facility] Comment on above: 6 month follow up Start: 08-15-2024 Annual PCP Team Elementary Secretary sotero Disease Visit Annual PCP Team Chronic Disease Visit [facility] Start: 08-15-2024 Hemoglobin A1c measurement HbA1C [facility] Start: 07-22-2024 Hepatitis B screening Urine Al bumin:Creatinine Ratio [facility] Start: 07-22-2024 Hepatitis B surface antibody level LDL Cholesterol [facility] Start: 06-09-2024 Hemoglobin A1c measurement HbA1C [facility] Start: 05-17-2024 End: 05-17-2024 ambulatory 05/17/2024 11:30 AM EST OT/PT/Speech Visit [facility] [address] [place] [address] Jerzy Zamarripa, PT [address] [place] [address] Chronic foot pain, right [M79.671, G89.29] [facility] Comment on above: Chronic foot pain, r ight [M79.671, G89.29] Start: 04-12-2024 End: 04-12-2024 Patient encounter procedure 04/12/2024 9:00 AM EDT Office Visit [facility] [address] [facility] [place] [address] Terra Faria, ELECTRICAL EQUIPMENT ASSEMBLER.DOOR CORE ASSEMBLER [address] [place] [address] New Patient - Non SX [facility] Comment on above: New Patient - Non SX Start: 03-27-2024 End: 03-27-2024 Patient encounter procedure 03/27/2024 10:15 AM EDT Office Visit Podiatry [address] [place], [place] [id number] Rocky Ro [address] [place], [place] [id number] foot pain, discuss orthotics Podiatry Comment on above: foot pain, discuss o rthotics Start: 03-11-2024 Covid-19 Vaccine ( season) Covid-19 Vaccine ( season) [facility] Start: 03-11-2024 Covid-19 Vaccine ( season) Covid-19 Vaccine ( season) [facility] Start: 03-11-2024 Influenza vaccination C [facility] Start: 03-05-2024 End: 03-05-2024 Patient encounter procedure 03/05/2024 10:50 AM EDT Appointment Mammogram [address] [place], [place] [id number] Encounter for screening mammogram for breast cancer [Z12.31] Mammogram Comment on above: Encounter for screen ing mammogram for breast cancer [Z12.31] Start: 03-02-2024 Mammography [facility] Start: 03-02-2024 Screening for malign ant neoplasm of breast Mammogram Screening [facility] Start: 02-13-2024 End: 05-14-2024 Comprehensive metabolic 2000 panel - Serum or Plasma COMP METABOLIC PANEL Lab Routine Controlled type 2 diabetes mellitus without complication, without long-term current use of insulin (HCC) Expected: 02/13/2024, Expires: 05/14/2024 [facility] Work Phone: Comment on above: Expected: 02/13/2024 , Expires: 05/14/2024 Start: 02-13-2024 End: 05-14-2024 Hemoglobin A1c in Blood HGB A1C Lab Routine Controlled type 2 diabetes mellitus without complication, without long-term current use of insulin (HCC) Expected: 02/13/2024, Expires: 05/14/2024 [facility] Work Phone: Comment on above: Expected: 02/13/2024 , Expires: 05/14/2024 Start: 02-13-2024 End: 02-13-2024 Patient encounter procedure 02/13/2024 11:40 AM EDT Office Visit [facility] [address] [place] [address] Kathy Wilkins APRN.DOOR CORE ASSEMBLER [address] [facility] [place] [address] 6 month follow up [facility] Comment on above: 6 month follow up Start: 02-13-2024 End: 02-13-2024 Patient encounter procedure Neurology Comment on above: 6 month follow up 6 month f/u, on Airv iew Start: 02-09-2024 ANNUAL PCP TEAM PRODUCTION SUPERINTENDENT SOTERO DISEASE VISIT ANNUAL PCP TEAM CHRONIC DISEASE VISIT [facility] Start: 01-20-2024 Hemoglobin A1c measurement HbA1C [facility] Start: 12-09-2023 End: 03-09-2024 Hemoglobin A1c in Blood [facility] Work Phone: Comment on above: Expected: 12/09/2023 , Expires: 03/09/2024 Start: 12-09-2023 End: 12-09-2023 Patient encounter procedure 12/09/2023 8:00 AM EDT Office Visit [facility] [address] [facility] [place] [address] Kathy Wilkins APRN.DOOR CORE ASSEMBLER [address] [place] [address] Weight loss [facility] Comment on above: Weight loss Start: 08-10-2023 3 comp foot exam completed DIABETIC FOOT EXAM [facility] Start: 08-10-2023 ANNUAL PCP TEAM PRODUCTION SUPERINTENDENT SOTERO DISEASE VISIT ANNUAL PCP TEAM CHRONIC DISEASE VISIT [facility] Start: 08-10-2023 Diabetic foot examination Diabetic Foot Exam [facility] Start: 08-10-2023 HEPATITIS C SCREENING HEPATITIS C SC REENING [facility] Comment on above: Postponed from 04/28 (Declined at this time) Start: 08-10-2023 HIV SCREENING HIV SCREENING [facility] Comment on above: Postponed from 04/28 (Declined at this time) Start: 08-06-2023 Hepatitis B surface antibody level LDL CHOLESTEROL [facility] Start: 07-11-2023 Behavioral Health Screening Behavioral Health Screening [facility] Start: 07-11-2023 Depression Assessment Depression Ass essment [facility] Start: 03-11-2023 Covid-19 Vaccine () Covid-19 Vaccine () [facility] Start: 03-11-2023 Influenza vaccination C [facility] Start: 02-08-2023 End: 04-10-2023 ALBUMIN/CREAT RATIO RND UR ALBUMIN/CREAT RATIO RND UR Lab Routine Controlled type 2 diabetes mellitus without complication, without long-term current use of insulin (HCC) Expected: 02/08/2023, Expires: 04/10/2023 [facility] Work Phone: Comment on above: Expected: 02/08/2023 , Expires: 04/10/2023 Start: 02-08-2023 End: 04-10-2023 Comprehensive metabolic 2000 panel - Serum or Plasma COMP METABOLIC PANEL Lab Routine Controlled type 2 diabetes mellitus without complication, without long-term current use of insulin (HCC) Expected: 02/08/2023, Expires: 04/10/2023 [facility] Work Phone: Comment on above: Expected: 02/08/2023 , Expires: 04/10/2023 Start: 02-08-2023 End: 04-10-2023 Hemoglobin A1c in Blood HGB A1C Lab Routine Controlled type 2 diabetes mellitus without complication, without long-term current use of insulin (HCC) Expected: 02/08/2023, Expires: 04/10/2023 [facility] Work Phone: Comment on above: Expected: 02/08/2023 , Expires: 04/10/2023 Start: 02-08-2023 End: 04-10-2023 Lipid 1996 panel - Serum or Plasma LIPID PANEL BASIC Lab Routine Hyperlipidemia, mixed Expected: 02/08/2023, Expires: 04/10/2023 [facility] Work Phone: Comment on above: Expected: 02/08/2023 , Expires: 04/10/2023 Start: 02-03-2023 Hemoglobin A1c/Hemoglobin.total in Blood HBA1C [facility] Start: 01-06-2023 ANNUAL PCP TEAM PRODUCTION SUPERINTENDENT SOTERO DISEASE VISIT ANNUAL PCP TEAM CHRONIC DISEASE VISIT [facility] Start: 11-10-2022 Mammography MAMMOGRAM [facility] Start: 09-23-2022 HPV TESTING HPV TESTING [facility] Start: 09-23-2022 PAP TESTING PAP TESTING [facility] Start: 09-23-2022 Screening for malign ant neoplasm of cervix [facility] Start: 08-03-2022 Glaucoma screening Dilated Retinal E xam [facility] Start: 08-03-2022 Hepatitis C antibody , confirmatory test DILATED RETINAL EXAM [facility] Start: 08-02-2022 End: 10-02-2022 CBC W Auto Differential panel - Blood CBC + DIFF Lab Routine Iron deficiency anemia due to chronic blood loss Expected: 08/02/2022, Expires: 10/02/2022 [facility] Work Phone: Comment on above: Expected: 08/02/2022 , Expires: 10/02/2022 Start: 08-02-2022 End: 10-02-2022 Comprehensive metabolic 2000 panel - Serum or Plasma COMP METABOLIC PANEL Lab Routine Diabetes mellitus without complication (HCC) Expected: 08/02/2022, Expires: 10/02/2022 [facility] Work Phone: Comment on above: Expected: 08/02/2022 , Expires: 10/02/2022 Start: 08-02-2022 End: 10-02-2022 Ferritin [Mass/volume] in Serum or Plasma FERRITIN BLD Lab Routine Iron deficiency anemia due to chronic blood loss Expected: 08/02/2022, Expires: 10/02/2022 [facility] Work Phone: Comment on above: Expected: 08/02/2022 , Expires: 10/02/2022 Start: 08-02-2022 End: 10-02-2022 Hemoglobin A1c in Blood HGB A1C Lab Routine Diabetes mellitus without complication (HCC) Expected: 08/02/2022, Expires: 10/02/2022 [facility] Work Phone: Comment on above: Expected: 08/02/2022 , Expires: 10/02/2022 Start: 08-02-2022 End: 10-02-2022 Iron and Iron binding capacity panel - Serum or Plasma IRON + TIBC Lab Routine Iron deficiency anemia due to chronic blood loss Expected: 08/02/2022, Expires: 10/02/2022 [facility] Work Phone: Comment on above: Expected: 08/02/2022 , Expires: 10/02/2022 Start: 08-02-2022 End: 10-02-2022 Lipid 1996 panel - Serum or Plasma LIPID PANEL BASIC Lab Routine Diabetes mellitus without complication (HCC) Expected: 08/02/2022, Expires: 10/02/2022 [facility] Work Phone: Comment on above: Expected: 08/02/2022 , Expires: 10/02/2022 Start: 07-21-2022 Adult depression screening assessment DEPRESSION SCREENING [facility] Start: 07-11-2022 DEPRESSION ASSESSMENT DEPRESSION ASS ESSMENT [facility] Start: 07-06-2022 3 comp foot exam completed DIABETIC FOOT EXAM [facility] Start: 07-06-2022 ANNUAL PCP TEAM PRODUCTION SUPERINTENDENT SOTERO DISEASE VISIT ANNUAL PCP TEAM CHRONIC DISEASE VISIT [facility] Start: 07-01-2022 Hepatitis B screening URINE AL BUMIN:CREATININE RATIO [facility] Start: 04-09-2022 Hemoglobin A1c/Hemoglobin.total in Blood HBA1C [facility] Start: 04-08-2022 End: 06-08-2022 CBC panel - Blood by Automated count CBC Lab Routine Iron deficiency anemia, unspecified iron deficiency anemia type Expected: 04/08/2022, Expires: 06/08/2022 [facility] Work Phone: Comment on above: Expected: 04/08/2022 , Expires: 06/08/2022 Start: 04-08-2022 End: 06-08-2022 Comprehensive metabolic 2000 panel - Serum or Plasma COMP METABOLIC PANEL Lab Routine Controlled type 2 diabetes mellitus without complication, without long-term current use of insulin (HCC) Expected: 04/08/2022, Expires: 06/08/2022 [facility] Work Phone: Comment on above: Expected: 04/08/2022 , Expires: 06/08/2022 Start: 04-08-2022 End: 06-08-2022 Ferritin [Mass/volume] in Serum or Plasma FERRITIN BLD Lab Routine Iron deficiency anemia, unspecified iron deficiency anemia type Expected: 04/08/2022, Expires: 06/08/2022 [facility] Work Phone: Comment on above: Expected: 04/08/2022 , Expires: 06/08/2022 Start: 04-08-2022 End: 06-08-2022 Hemoglobin A1c in Blood HGB A1C Lab Routine Controlled type 2 diabetes mellitus without complication, without long-term current use of insulin ([facility]) Expected: 04/08/2022, Expires: 06/08/2022 [facility] Work Phone: Comment on above: Expected: 04/08/2022 , Expires: 06/08/2022 Start: 04-08-2022 End: 06-08-2022 Iron and Iron binding capacity panel - Serum or Plasma IRON + TIBC Lab Routine Iron deficiency anemia, unspecified iron deficiency anemia type Expected: 04/08/2022, Expires: 06/08/2022 [facility] Work Phone: Comment on above: Expected: 04/08/2022 , Expires: 06/08/2022 Start: 04-08-2022 End: 06-08-2022 Lipid 1996 panel - Serum or Plasma LIPID PANEL BASIC Lab Routine Controlled type 2 diabetes mellitus without complication, without long-term current use of insulin (HCC) Expected: 04/08/2022, Expires: 06/08/2022 [facility] Work Phone: Comment on above: Expected: 04/08/2022 , Expires: 06/08/2022 Start: 03-11-2022 Influenza vaccination INFLUENZA (#1) [facility] Start: 11-11-2021 End: 01-11-2022 CBC panel - Blood by Automated count CBC Lab Routine Low iron Expected: 11/11/2021, Expires: 01/11/2022 [facility] Work Phone: Comment on above: Expected: 11/11/2021 , Expires: 01/11/2022 Start: 10-28-2021 Mammography MAMMOGRAM [facility] Start: 09-23-2021 Hepatitis B surface antibody level LDL CHOLESTEROL [facility] Start: 08-05-2021 COVID-19 VACCINE (4 - Booster for Pfizer series) COVID-19 VACCINE (4 - Booster for Pfizer series) [facility] Start: 07-11-2021 DEPRESSION ASSESSMENT DEPRESSION ASS ESSMENT [facility] Start: 06-28-2018 PNEUMOCOCCAL (2 - PCV) PNEUMOCOCCAL (2 - PCV) [facility] Start: 1997 Anxiety Screening Anxiety Screening [facility] Start: 1997 Depression Screening Depression Scre ening [facility] Start: 1997 HEPATITIS C SCREENING HEPATITIS C [facility] Start: 1997 Hepatitis C screening Hepatitis C [facility] Start: 1997 HIV SCREENING HIV SCREENING [facility] Start: 1997 HIV screening HIV Screening [facility] End: 03-14-2025 DBT Breast - bilateral screening MIRACLE SCREENING W [facility]HAIRA Radiology Routine Encounter for screening mammogram for breast cancer 1 Occurrences starting 02/13/2024 until 03/14/2025 [facility] Work Phone: Comment on above: 1 Occurrences starti ng 02/13/2024 until 03/14/2025 Ecg routine ecg w/le ast 12 lds i&r only ECG INTERPRETATION & REPORT ONLY Cardiology Routine Long-term use of high-risk medication Ordered: 02/13/2024 [facility] Comment on above: Ordered: 02/13/2024 End: 01-21-2024 MIRACLE SCREENING MIRACLE SCREENING Radiology Routine Encounter for screening mammogram for breast cancer 1 Occurrences starting 12/22/2022 until 01/21/2024 [facility] Work Phone: Comment on above: 1 Occurrences starti ng 12/22/2022 until 01/21/2024 End: 03-16-2025 Polysomnogram POLYSOMNOGRAM (PSG) Procedures Routine Obstructive sleep apnea syndrome 1 Occurrences starting 03/16/2024 until 03/16/2025 [facility] Work Phone: Comment on above: 1 Occurrences starti ng 03/16/2024 until 03/16/2025 End: 11-07-2022 Screening mammography bi 2-view breast inc cad MIRACLE SCREENING Radiology Routine Encounter for screening mammogram for malignant neoplasm of breast 1 Occurrences starting 10/08/2021 until 11/07/2022 [facility] Work Phone: Comment on above: 1 Occurrences starti ng 10/08/2021 until 11/07/2022 TOXICOLOGY SCREEN, ROUTINE URINE TOXICOLOGY SCREEN, ROUTINE URINE Lab Routine Long-term use of high-risk medication Ordered: 02/13/2024 [facility] Work Phone: Comment on above: Ordered: 02/13/2024 End: 02-05-2023 XR FOOT GENERAL 3V AP/LAT/OBL RIGHT XR FOOT GENERAL 3V AP/LAT/OBL RIGHT Radiology Routine Foot pain, right 1 Occurrences starting 01/06/2022 until 02/05/2023 [facility] Work Phone: Comment on above: 1 Occurrences starti ng 01/06/2022 until 02/05/2023 [facility] Immunizations Immunization Date Immunization Notes Care Provider Fa florinda 08-10-2022 pneumococcal (PCV20) vaccine, 20 valent (PREVNAR 20) Jessica Uriarte APRN.DOOR CORE ASSEMBLER Work Phone: [facility] 04-27-2022 influenza virus vacc ine, unspecified formulation Fanta Kiran PT [facility] 04-16-2021 influenza, seasonal, injectable Alexys Holden MD Work Phone: [facility] Work Phone: 04-24-2019 hepatitis A and hepatitis B vaccine Alexys Holden MD Work Phone: [facility] Work Phone: 10-23-2018 hepatitis A and hepatitis B vaccine Alexys Holden MD Work Phone: [facility] Work Phone: 09-22-2018 hepatitis A and hepatitis B vaccine Alexys Holden MD Work Phone: [facility] 06-28-2017 pneumococcal polysaccharide vaccine, 23 valent Alexys Holden MD Work Phone: [facility] 01-21-2016 tetanus and diphther ia toxoids, adsorbed, preservative free, for adult use (5 Lf of tetanus toxoid and 2 Lf of diphtheria toxoid) Alexys Holden MD Work Phone: [facility] 10-05-2005 tetanus toxoid, redu chele diphtheria toxoid, and acellular pertussis vaccine, adsorbed Alexys Holden MD Work Phone: [facility] Payers Date Payer Category Payer Unknown [id number] 2020 Unknown [facility] PPO [employer] [id number] 2020-Present [phone] [address] [place] [address] PPO [id number] 2014 Unknown Social History Date Type Detail Facility Start: 09-23-2017 End: 03-25-2020 Tobacco smoking status NHIS Ex-smoker [facility] Start: 03-25-2018 End: 03-25-2019 History of tobacco use Current smoker [facility] Start: 03-25-2018 End: 03-25-2019 History of tobacco use Cigarette Smoker [facility] Start: 09-23-2017 End: 11-27-2021 Cigarettes smoked current (pack per day) - Reported 0.25 [facility] Start: 09-23-2017 End: 03-25-2020 Tobacco use and exposure Smokeless tobacco non-user [facility] Start: 07-06-2021 End: 02-08-2022 Alcohol intake Current drinker of alcohol (finding) [facility] Start: 04-02-2019 History SDOH Alcohol Comment socially [facility] Start: 1980 Sex Assigned At Female C [facility] Start: 10-31-2021 End: 02-08-2022 Exposure to SARS-CoV-2 (event) Not sure [facility] Start: 01-05-2022 History SDOH Alcohol Frequency 3 [facility] Start: 01-05-2022 History SDOH Alcohol Std Drinks 2 [facility] Start: 01-05-2022 History SDOH Social Connections Phone 4 [facility] Start: 01-05-2022 History SDOH Social Connections Sikhism 98 [facility] Start: 01-05-2022 History SDOH Social Connections Membership 1 [facility] Start: 01-05-2022 History SDOH Financial 5 [facility] Start: 11-27-2021 End: 02-07-2023 Social connection and isolation panel [facility] How often do you att end pentecostalism or orthodox services? Patient refused [facility] Do you belong to any clubs or organizations such as pentecostalism groups, unions, fraternal or athletic groups, or school groups? Yes [facility] Are you now , , , , never or living with a partner? [facility] How often to you hav e a drink containing alcohol? 2-3 time sa week [facility] How many standard dr inks containing alcohol do you have on a typical day? 3 or 4 [facility] How often do you hav e 6 or more drinks on 1 occasion? Less than monthly [facility] Do you feel stress - tense, restless, nervous, or anxious, or unable to sleep at night because your mind is troubled all the time - these days [OSQ] Only a little [facility] (I/We) worried wheyvon er (my/our) food would run out before (I/we) got money to buy more. Never true [facility] In the past 12 month s, was there a time when you were not able to pay the mortgage or rent on time? No [facility] Start: 10-16-2018 Gender identity Identifies as female gender (finding) [facility] Start: 10-16-2018 Sexual orientation Heterosexual (jerad jeanine) [facility] How often to you hav e a drink containing alcohol? 2-4 times a month [facility] How often do you hav e 6 or more drinks on 1 occasion? Monthly [facility] Do you feel stress - tense, restless, nervous, or anxious, or unable to sleep at night because your mind is troubled all the time - these days [OSQ] Not at all [facility] Medical Equipment Procedure Code Equipment Code Equipment Original Text Equipment Identifier Dates [id number], [id number] Start: 11-09-2017 End: 11-23-2021 Comment on above: Test blood sugar(s) 1x times daily. Dx: Type 2 DM - Controlled E11.9 Insulin: No Test blood sugar(s) 1x daily. Dx: Type 2 DM - Controlled E11.9 Insulin: No Clinical Notes 07-27-2005 to 03-27-2024 Harriet Parks LPN - 03/27/2024 10:51 AM Rocky Goodwin - 03/27/2024 10:24 AM Sowmya Izaguirre RN - 03/27/2024 10:14 AM EDTPatient InstructionsPatient Instructions Note Date & Type Note Facility 03-27-2024 Note HNO ID: [id number] Author: HARRIET PARKS LPN Service: ? Author Type: LICENSED NURSE Type: Progress Notes Filed: 03/27/2024 10:51 Note Text: Per Juan Pablo Popeah was provided with powerstep original inserts, size 10, and instructed/educated in its application, wear, and care. All questions were answered, and patient was able to demonstrate competence with the necessary skills to utilize the above equipment. Harriet Parks LPN [facility] 03-27-2024 History of Present illness Narrative Per Sushma Pope was provided with powerstep original inserts, size 10, and instructed/educated in its application, wear, and care. All questions were answered, and patient was able to demonstrate competence with the necessary skills to utilize the above equipment. Harriet Parks LPN FOLLOW UP PODIATRIC OFFICE VISIT Chief Complaint: This 43 year old who presents for follow up:b/l foot pain Patient presents to clinic for follow-up b/l foot pain Patient continues to complain of pain to the lateral aspect of both feet Had been doing physical therapy and the exercises recommended did help but she stopped performing Is interested in trying custom orthotic. Does complain of intermittent cramping of feet. PAIN EVALUATION 03/27/2024 1016 Pain Level: 3 Pain Location: Foot-Right Description: Dull Duration Units: Months Frequency: Continuous Intervention/Comfort measure: Relaxation Comments: Pain worse in the evening Hemoglobin A1C (POCT) Date Value Ref Range Status 02/13/2024 6.5 (A) 4.3 - 5.6 % Final Comment: Location:[address], [address] Point of care (POC) Hemoglobin A1c (HGBA1C) testing is intended to assess glucose control and provide a management tool for patients known to have diabetes and their healthcare providers. Target HGBA1C levels may depend on specific clinical circumstances. POC HGBA1C is not intended for use as a diagnostic or screening test; laboratory-based testing should be used for diagnostic purposes. The following information is supplemental and may not be applicable to specific diabetes management situations: The POC device floral decorator provides a normal range of 4.2% to 6.5% for the HGBA1C POC test. However, the [place] [employer] guidelines indicate that patients with HGBA1C in the range of 5.7% to 6.4% are at increased risk for development of diabetes and that intervention by lifestyle modification may be beneficial. A HGBA1C level greater than or equal to 6.5% is considered diagnostic of diabetes, pending confirmatory testing. Use of HGBA1C testing to evaluate glucose control may not be appropriate for patients with hemoglobin variants or other conditions (e.g. anemia) that alter red blood cell lifespan. PCP: Merlyn Paez MD PAST MEDICAL HISTORY Diagnosis Date CTS (carpal tunnel syndrome) bilateral on NCT Diabetes mellitus type II, controlled (HCC) Eczema GERD (gastroesophageal reflux disease) Hyperlipidemia Insomnia Iron deficiency anemia Lumbar disc herniation age 24 Morbid obesity with BMI of 40.0-44.9, adult (HCC) OCD (obsessive compulsive disorder) was on prozac and paxil in past Seasonal allergies Dr. Bassett Sleep apnea bipap, seeing Dr. Almanza Tobacco use Current Outpatient Medications Medication Sig Norgestimate-Ethinyl Estradiol 0.18/0.215/0.25 mg-35 mcg (28) take 1 tablet daily traZODone (DESYREL) 50 mg tablet Take 50 mg by mouth daily at bedtime. armodafinil (NUVIGIL) 250 mg tab Take 1 tablet by mouth once daily for 180 days. gabapentin (NEURONTIN) 300 mg capsule Take 1-2 capsules 1 hour before bedtime. modafinil (PROVIGIL) 200 mg tablet Take 1 tablet in mid afternoon (no later than 5PM) as needed. Blood-Glucose Meter ([employer] ULTRA2 METER) 1 Device once daily. blood sugar diagnostic (BLOOD GLUCOSE TEST) test strip Test blood sugar(s) 1 times daily. Dx: Type 2 DM - Uncontrolled E11.65 Insulin: No tirzepatide (MOUNJARO) 2.5 mg/0.5 mL pen injector Inject 2.5 mg subcutaneously one time a week. sertraline (ZOLOFT) 100 mg tablet Take 2 tablets by mouth once daily. metFORMIN (GLUCOPHAGE) 1,000 mg tablet Take 1 tablet by mouth two times a day with meals. lisinopril (ZESTRIL) 5 mg tablet Take 1 tablet by mouth once daily. glimepiride (AMARYL) 1 mg tablet Take 1 tablet by mouth daily with breakfast. atorvastatin (LIPITOR) 10 mg tablet TAKE 1 TABLET DAILY AT BEDTIME FOR CHOLESTEROL CPAP Auto Bilevel PAP with humidification IPAP max 19, EPAP min 10 cmH2O, with pressure support of 4 cmH2O (Resmed). Lifetime supplies. famotidine (PEPCID ORAL) Take by mouth. CPAP Lower PAP to 17/13 cmH2O. Also please fit with a Wisp nasal mask. Current mask leaking and headgear not maintaining appropriate position. Lifetime supplies. CPAP Please fit patient with a dreamwear under the nose nasal mask. Please provide download 2 weeks later. Thank you. acetaminophen (TYLENOL) 500 mg tablet Take 500 mg by mouth as needed. ipratropium bromide (ATROVENT) 42 mcg (0.06 %) nasal spray Use 2 Sprays in the nose as needed. levocetirizine dihydrochloride (LEVOCETIRIZINE ORAL) Take 1 tablet by mouth once daily. CPAP Bilevel PAP 21/17 cmH2O with humidification. A small/medium Sleep Bustos nasal mask, HUMIDITY. LIFETIME SUPPLIES. Dx: G47.33 multivitamin tablet Take 1 tablet by mouth once daily. pyridoxine, vitamin B6, (VITAMIN B-6) 100 mg tablet Take 100 mg by mouth once daily. cyanocobalamin (VITAMIN B-12) 1,000 mcg tab Take 1 tablet by mouth once daily. Cholecalciferol, Vitamin D3, 2,000 unit cap Take 1 tablet by mouth once daily. Clindamycin-Benzoyl Peroxide 1-5 % gel Apply to affected area once daily. blood sugar diagnostic (PrismaticUCH VERIO TEST STRIPS) test strip Test blood sugar(s) 1x times daily. Dx: Type 2 DM - Controlled E11.9 Insulin: No (Patient not taking: Reported on 12/23/2022) No current facility-administered medications for this visit. ALLERGIES Allergen Reactions Amoxicillin rash and swelling Bactrim [Sulfametho* Rash Erythromycin Base rash and swelling Sulfa (Sulfonamide * bactrim rash and swelling Wellbutrin [Bupropi* Rash, Other: See Comments Chest pain PAST SURGICAL HISTORY Procedure Laterality Date COLONOSCOPY FLX DX W/COLLJ SPEC WHEN PFRMD 06/23/2016 Colonoscopy mac ESOPHAGOGASTRODUODENOSCOPY TRANSORAL DIAGNOSTIC 06/23/2016 EGD mac LIPOMA (LARGE) 02/06/2019 excision lipoma abdomen NEUROPLASTY &/TRANSPOS MEDIAN NRV CARPAL TUNNE 12/2013 right Physical Exam: OBJECTIVE: Constitutional: Pt is a well developed 43 year old female who is alert, oriented, cooperative and in no apparent distress. Eyes: Following during examination. No redness or drainage. Respiratory: RR normal and nonlabored. Even breathing. No evidence of distress. Psychology: Patient is engaged during conversation. Normal affect and mood. Does not appear depressed or anxious. NVSI unchanged from previous visit. Dermatological: Nails 1-5 b/l are normal. Webspaces clean and dry 1-4 b/l. Skin appears well hydrated and supple. good color, texture, turgor. No open lesions present. No callosities present. Musculoskeletal/Orthopaedic: Patient has pain to palpation of lateral aspect of right foot Cavus foot is noted b/l ASSESSMENT: (M79.671, G89.29) Chronic foot pain, right (primary encounter diagnosis) (Q66.71, Q66.72) Pes cavus of both feet PLAN: Discussed pain in b/l feet. Does have high arches. Did use powerstep inserts and this does help. I do feel a custom orthotic would provide even greater support than a powerstep insert and for this reason, custom orthotics were ordered Can use powerstep inserts until she receives custom orthotic Discussed cramping. Likely related to past issues with sciatica. If pain and/or cramping persists, could consider emg Rocky Ro DPM AMB ROOMING INTAKE FLOWSHEET DATA Pain Pain Level: 3 Pain Location: Foot-Right Description: Dull Duration Units: Months Frequency: Continuous Intervention/Comfort measure: Relaxation Comments: Pain worse in the evening Patient presents with: Right Foot - Established Patient, Follow Up, Pain Patient presents for follow up right foot pain. Has tried supportive shoes and powerstep inserts. Would like to try custom orthotics. [facility] 08/15/23 documented in this encounter [facility] 03-27-2024 Instructions Rocky Ro - 03/27/2024 10:28 AM EDT Powerstep Original Full length. Can purchase at [facility] [employer] and boots,shoes and more here in [place], [employer] in [place] or [place]. Also can find in [place] in [facility]. Powersteps can also be purchased online, starting around $45.00 If you have a metatarsal or dancer pad for your feet apply the pad directly to the insole so you can interchange between your shoes. Find a shoe with a removable insole and take this out and replace with your powerstep insole. Always bring powersteps with you when shopping for shoes so that you can make sure that everything fits well together documented in this encounter [facility] 03-27-2024 Note HNO ID: [id number] Author: ROCKY RO, ? Service: ? Author Type: Physician Type: Progress Notes Filed: 03/27/2024 10:38 Note Text: FOLLOW UP PODIATRIC OFFICE VISIT Chief Complaint: This 43 year old who presents for follow up:b/l foot pain Patient presents to clinic for follow-up b/l foot pain Patient continues to complain of pain to the lateral aspect of both feet Had been doing physical therapy and the exercises recommended did help but she stopped performing Is interested in trying custom orthotic. Does complain of intermittent cramping of feet. PAIN EVALUATION 03/27/2024 1016 Pain Level: 3 Pain Location: Foot-Right Description: Dull Duration Units: Months Frequency: Continuous Intervention/Comfort measure: Relaxation Comments: Pain worse in the evening Hemoglobin A1C (POCT) Date Value Ref Range Status 02/13/2024 6.5 (A) 4.3 - 5.6 % Final Comment: Location:[facility], [address] [place] [address], [id number] Point of care (POC) Hemoglobin A1c (HGBA1C) testing is intended to assess glucose control and provide a management tool for patients known to have diabetes and their healthcare providers. Target HGBA1C levels may depend on specific clinical circumstances. POC HGBA1C is not intended for use as a diagnostic or screening test; laboratory-based testing should be used for diagnostic purposes. The following information is supplemental and may not be applicable to specific diabetes management situations: The POC device floral decorator provides a normal range of 4.2% to 6.5% for the HGBA1C POC test. However, the [place] [employer] guidelines indicate that patients with HGBA1C in the range of 5.7% to 6.4% are at increased risk for development of diabetes and that intervention by lifestyle modification may be beneficial. A HGBA1C level greater than or equal to 6.5% is considered diagnostic of diabetes, pending confirmatory testing. Use of HGBA1C testing to evaluate glucose control may not be appropriate for patients with hemoglobin variants or other conditions (e.g. anemia) that alter red blood cell lifespan. PCP: Merlyn Paez MD PAST MEDICAL HISTORY Diagnosis Date CTS (carpal tunnel syndrome) bilateral on NCT Diabetes mellitus type II, controlled (HCC) Eczema GERD (gastroesophageal reflux disease) Hyperlipidemia Insomnia Iron deficiency anemia Lumbar disc herniation age 24 Morbid obesity with BMI of 40.0-44.9, adult (HCC) OCD (obsessive compulsive disorder) was on prozac and paxil in past Seasonal allergies Dr. Bassett Sleep apnea bipap, seeing Dr. Almanza Tobacco use Current Outpatient Medications Medication Sig Norgestimate-Ethinyl Estradiol 0.18/0.215/0.25 mg-35 mcg (28) take 1 tablet daily traZODone (DESYREL) 50 mg tablet Take 50 mg by mouth daily at bedtime. armodafinil (NUVIGIL) 250 mg tab Take 1 tablet by mouth once daily for 180 days. gabapentin (NEURONTIN) 300 mg capsule Take 1-2 capsules 1 hour before bedtime. modafinil (PROVIGIL) 200 mg tablet Take 1 tablet in mid afternoon (no later than 5PM) as needed. Blood-Glucose Meter (PrismaticUCH ULTRA2 METER) 1 Device once daily. blood sugar diagnostic (BLOOD GLUCOSE TEST) test strip Test blood sugar(s) 1 times daily. Dx: Type 2 DM - Uncontrolled E11.65 Insulin: No tirzepatide (MOUNJARO) 2.5 mg/0.5 mL pen injector Inject 2.5 mg subcutaneously one time a week. sertraline (ZOLOFT) 100 mg tablet Take 2 tablets by mouth once daily. metFORMIN (GLUCOPHAGE) 1,000 mg tablet Take 1 tablet by mouth two times a day with meals. lisinopril (ZESTRIL) 5 mg tablet Take 1 tablet by mouth once daily. glimepiride (AMARYL) 1 mg tablet Take 1 tablet by mouth daily with breakfast. atorvastatin (LIPITOR) 10 mg tablet TAKE 1 TABLET DAILY AT BEDTIME FOR CHOLESTEROL CPAP Auto Bilevel PAP with humidification IPAP max 19, EPAP min 10 cmH2O, with pressure support of 4 cmH2O (Resmed). Lifetime supplies. famotidine (PEPCID ORAL) Take by mouth. CPAP Lower PAP to 17/13 cmH2O. Also please fit with a Wisp nasal mask. Current mask leaking and headgear not maintaining appropriate position. Lifetime supplies. CPAP Please fit patient with a dreamwear under the nose nasal mask. Please provide download 2 weeks later. Thank you. acetaminophen (TYLENOL) 500 mg tablet Take 500 mg by mouth as needed. ipratropium bromide (ATROVENT) 42 mcg (0.06 %) nasal spray Use 2 Sprays in the nose as needed. levocetirizine dihydrochloride (LEVOCETIRIZINE ORAL) Take 1 tablet by mouth once daily. CPAP Bilevel PAP 21/17 cmH2O with humidification. A small/medium Sleep Bustos nasal mask, HUMIDITY. LIFETIME SUPPLIES. Dx: G47.33 multivitamin tablet Take 1 tablet by mouth once daily. pyridoxine, vitamin B6, (VITAMIN B-6) 100 mg tablet Take 100 mg by mouth once daily. cyanocobalamin (VITAMIN B-12) 1,000 mcg tab Take 1 tablet by mouth once daily. Cholecalciferol, Vitamin D3, 2,000 unit cap Take (more content not included)... [facility] 03-27-2024 Note HNO ID: [id number] Author: SOWMYA CRAMER RN Service: ? Author Type: Registered Nurse Type: Progress Notes Filed: 03/27/2024 10:38 Note Text: AMB ROOMING INTAKE FLOWSHEET DATA Pain Pain Level: 3 Pain Location: Foot-Right Description: Dull Duration Units: Months Frequency: Continuous Intervention/Comfort measure: Relaxation Comments: Pain worse in the evening Patient presents with: Right Foot - Established Patient, Follow Up, Pain Patient presents for follow up right foot pain. Has tried supportive shoes and powerstep inserts. Would like to try custom orthotics. [facility] 08/15/23 [facility] 03-19-2024 Telephone encounter Note LAST REFILL: 04/18/2023 VISH: 06/10/2020 NEXT OV: No Lesley Eid MA [facility] 03-19-2024 Miscellaneous Notes LAST REFILL: 04/18/2023 VISH: 06/10/2020 NEXT OV: No Lesley Eid MA documented in this encounter [facility] 03-16-2024 Telephone encounter Note Orders faxed to [facility] for sleep study. Fanta Bass LPN [facility] 03-16-2024 Miscellaneous Notes Orders faxed to [facility] for sleep study. Fanta Bass LPN TC to patient who states she is okay with split night, requesting for orders to be sent to [facility]. RL Dickey Please let pt know. If she is ok with it, will get a split night. Thank you, Aaron Almanza MD [facility] is requiring an in lab study, not HSAT. Can either be split night or titration. RL Dickey Please clarify: if patient undergoes HSAT to confirm dx of SERGEY, would that in fact be enough as we know per downloads that PAP is controlling symptoms and adequately treating. Thank you, Aaron Almanza MD TC to Sg at [facility] who transferred this staff to Shauna. Shauna stating patient insurance is denying the CPAP because her study is over 10 years old, they want either split night or titration with up to date setting requirements. Sg @ [facility] calling to speak with Fanta directly with question regarding Bipap machine. His ph# [phone] Sheyla Arreola, RN Fax sent to [facility] requesting letter of denial. Fanta Bass LPN [facility] and clarify reason for need of in lab titration. Thank you, Aaron Almanza MD Spoke with Mildred and insurance is denying a new machine, they are requiring an in lab titration study. Fanta Bass LPN Pt calling in to ask if provider has checked into her message regarding bipap being denied by insurance company, see previous message. Rona Lanza LPN Patient contacted the office stating she received a message from [employer] stating her insurance company is denying her prescription for a new unit without a sleep study. Please forward to [facility]. documented in this encounter [facility] 03-16-2024 Telephone encounter Note TC to patient who states she is okay with split night, requesting for orders to be sent to [facility]. RL Dickey [facility] 03-12-2024 Telephone encounter Note Please let pt know. If she is ok with it, will get a split night. Thank you, Aaron Almanza MD [facility] 03-08-2024 Telephone encounter [facility] is requiring an in lab study, not HSAT. Can either be split night or titration. RL Dickey [facility] 03-08-2024 Telephone encounter Note Please clarify: if patient undergoes HSAT to confirm dx of SERGEY, would that in fact be enough as we know per downloads that PAP is controlling symptoms and adequately treating. Thank you, Aaron Almanza MD [facility] 03-08-2024 Telephone encounter Note TC to Sg at [facility] who transferred this staff to Shauna. Shauna stating patient insurance is denying the CPAP because her study is over 10 years old, they want either split night or titration with up to date setting requirements. [facility] 03-07-2024 Telephone encounter Note Sg @ [facility] calling to speak with Fanta directly with question regarding Bipap machine. His ph# [phone] Sheyla Arreola RN [facility] 03-07-2024 Telephone encounter Note Fax sent to [facility] requesting letter of denial. Fanta Bass LPN T [facility] 03-06-2024 Telephone encounter Note [facility] and clarify reason for need of in lab titration. Thank you, Aaron Almanza MD [facility] 03-06-2024 Telephone encounter Note [facility] and insurance is denying a new machine, they are requiring an in lab titration study. Fanta Bass LPN [facility] 03-06-2024 Telephone encounter Note Pt calling in to ask if provider has checked into her message regarding bipap being denied by insurance company, see previous message. Rona Lanza LPN [facility] 02-28-2024 Telephone encounter Note Patient contacted the office stating she received a message from [employer] stating her insurance company is denying her prescription for a new unit without a sleep study. Please forward to [facility] 02-13-2024 History of Present illness Narrative 02/08/2024 Patient presents with: F/U 6 months SUBJECTIVE: This is a 43 year old that is here today for Above Complaints. DIABETES MELLITUS: Since our last visit she denies excessive thirst or increased frequency of urination, chest pain or dyspnea , numbness, tingling or pain in extremities, new or unusual visual symptoms, low sugar/hypoglycemic reactions, weight loss/gain, lightheadedness/dizziness, and bowel changes/loose stools. Follows a diabetic diet most of the time. She is compliant with medication(s) and is tolerating med(s) without any side effects. She reports checking her glucose on a infrequent to not at all basis schedule . Patient's last HgA1C was Hemoglobin A1C (%) Date Value 12/09/2023 7.3 07/22/2023 6.7 07/01/2021 6.8 09/23/2020 6.4 ) Last Ophthalmology exam was In July and August SERGEY: Follows with sleep medicine with last appointment today. No changes in current regime HYPERLIPIDEMIA: Patient is taking medications: Yes. Patient is watching diet: Yes. Patient denies myalgias: Yes. Patient denies gi upset: Yes PAST MEDICAL HISTORY No date: CTS (carpal tunnel syndrome) Comment: bilateral on NCT No date: Diabetes mellitus type II, controlled ([facility]) No date: Eczema No date: GERD (gastroesophageal reflux disease) No date: Hyperlipidemia No date: Insomnia No date: Iron deficiency anemia No date: Lumbar disc herniation Comment: age 24 No date: Morbid obesity with BMI of 40.0-44.9, adult ([facility]) No date: OCD (obsessive compulsive disorder) Comment: was on prozac and paxil in past No date: Seasonal allergies Comment: Dr. Bassett No date: Sleep apnea Comment: bipap, seeing Dr. Almanza No date: Tobacco use ALLERGIES Amoxicillin, Bactrim [Sulfamethoxazole-Trimethoprim], Erythromycin Base, Sulfa (Sulfonamide Antibiotics), and Wellbutrin [Bupropion Hcl] MEDICATIONS Current Outpatient Medications Medication Sig tirzepatide (MOUNJARO) 2.5 mg/0.5 mL pen injector Inject 2.5 mg subcutaneously one time a week. sertraline (ZOLOFT) 100 mg tablet Take 2 tablets by mouth once daily. meloxicam (MOBIC) 15 mg tablet Take 1 tablet by mouth once daily as needed for pain. With food. metFORMIN (GLUCOPHAGE) 1,000 mg tablet Take 1 tablet by mouth two times a day with meals. lisinopril (ZESTRIL) 5 mg tablet Take 1 tablet by mouth once daily. glimepiride (AMARYL) 1 mg tablet Take 1 tablet by mouth daily with breakfast. atorvastatin (LIPITOR) 10 mg tablet TAKE 1 TABLET DAILY AT BEDTIME FOR CHOLESTEROL gabapentin (NEURONTIN) 300 mg capsule Take 1-2 capsules 1 hour before bedtime. modafinil (PROVIGIL) 200 mg tablet Take 1 tablet in mid afternoon (no later than 5PM) as needed. armodafinil (NUVIGIL) 250 mg tab Take 1 tablet by mouth once daily for 180 days. Norgestimate-Ethinyl Estradiol 0.18/0.215/0.25 mg-35 mcg (28) take 1 tablet daily CPAP Auto Bilevel PAP with humidification IPAP max 19, EPAP min 10 cmH2O, with pressure support of 4 cmH2O (Resmed). Lifetime supplies. famotidine (PEPCID ORAL) Take by mouth. CPAP Lower PAP to 17/13 cmH2O. Also please fit with a Wisp nasal mask. Current mask leaking and headgear not maintaining appropriate position. Lifetime supplies. Clindamycin-Benzoyl Peroxide 1-5 % gel Apply to affected area once daily. montelukast (SINGULAIR) 10 mg tablet Take 10 mg by mouth once daily. (Patient not taking: Reported on 08/15/2023) blood sugar diagnostic (PrismaticUCH VERIO TEST STRIPS) test strip Test blood sugar(s) 1x times daily. Dx: Type 2 DM - Controlled E11.9 Insulin: No (Patient not taking: Reported on 12/23/2022) CPAP Please fit patient with a dreamwear under the nose nasal mask. Please provide download 2 weeks later. Thank you. acetaminophen (TYLENOL) 500 mg tablet Take 500 mg by mouth as needed. ipratropium bromide (ATROVENT) 42 mcg (0.06 %) nasal spray Use 2 Sprays in the nose as needed. levocetirizine dihydrochloride (LEVOCETIRIZINE ORAL) Take 1 tablet by mouth once daily. CPAP Bilevel PAP 21/17 cmH2O with humidification. A small/medium Sleep Bustos nasal mask, HUMIDITY. LIFETIME SUPPLIES. Dx: G47.33 multivitamin tablet Take 1 tablet by mouth once daily. pyridoxine, vitamin B6, (VITAMIN B-6) 100 mg tablet Take 100 mg by mouth once daily. cyanocobalamin (VITAMIN B-12) 1,000 mcg tab Take 1 tablet by mouth once daily. Cholecalciferol, Vitamin D3, 2,000 unit cap Take 1 tablet by mouth once daily. No current facility-administered medications for this visit. Medications and allergies reviewed by this provider. SOCIAL HISTORY Social History Tobacco Use Smoking status: Former Packs/day: 0.25 Years: 1.00 Additional pack years: 0.00 Total pack years: 0.25 Types: Cigarettes Quit date: 03/25/2019 Years since quittin.8 Smokeless tobacco: Never Vaping Use Vaping Use: Never used Substance Use Topics Alcohol use: Yes Alcohol/week: 12.0 standard drinks of alcohol Types: 12 Cans of Beer (12oz) per week Comment: socially Drug use: No REVIEW OF SYSTEMS All other reviewed and negative other than HPI. OBJECTIVE: BP 118/78 Pulse 106 Resp 16 Wt 105.2 kg (231 lb 14.8 oz) LMP (LMP Unknown) SpO2 97% BMI 36.32 kg/m . Vital signs reviewed by this provider. APPEARANCE Well appearing, alert, in no acute distress, well-hydrated, well nourished. EYES conjunctiva and sclera normal. HEART RRR with normal S1 and S2, no murmurs, no gallops, no JVD appreciated LUNG clear to auscultation. No wheezes, rhonchi or rales EXTREMITIES Extremities normal, No deformities, No skin discoloration, No edema, and Normal pulses bilaterally. SKIN Skin color, texture, turgor normal, no suspicious rashes or lesions to exposed skin DM foot exam: shoes and socks removed, No deformities, ulcers, calluses, normal distal pulses, and sensitive to 10 gm monofilament Latest Ref Rn 12/09/2023 Protein, Total 6.3 - 8.0 g/dL 7.0 Albumin 3.9 - 4.9 g/dL 4.1 Calcium 8.5 - 10.2 mg/dL 9.5 Bilirubin, Total 0.2 - 1.3 mg/dL 0.3 Alkaline Phosphatase 34 - 123 U/L 55 AST 13 - 35 U/L 20 ALT 7 - 38 U/L 17 Glucose 74 - 99 mg/dL 139 (H) BUN 7 - 21 mg/dL 10 Creatinine 0.58 - 0.96 mg/dL 0.49 (L) Sodium 136 - 144 mmol/L 137 Potassium 3.7 - 5.1 mmol/L 4.8 Chloride 97 - 105 mmol/L 98 CO2 22 - 30 mmol/L 23 Anion Gap 9 - 18 mmol/L 16 eGFR >=60 mL/min/1.73m 119 Hemoglobin A1C 4.3 - 5.6 % 7.3 (H) Estimated Average Glucose mg/dL 163 Latest Ref Rng 07/22/2023 Total Cholesterol, Nonfasting <200 mg/dL 188 Triglycerides, Nonfasting <150 mg/dL 231 (H) HDL Cholesterol, Nonfasting >39 mg/dL 58 LDL Cholesterol, Nonfasting <100 mg/dL 84 Non HDL Cholesterol, Nonfasting <130 mg/dL 130 (H) VLDL Cholesterol, Nonfasting <30 mg/dL 46 (H) Total Chol/HDL Ratio, Nonfasting <5.10 mg/dL 3.24 LDL/HDL Ratio, Nonfasting <2.54 mg/dL 1.45 Latest Ref Rng 02/13/2024 Hemoglobin A1C (POCT) 4.3 - 5.6 % 6.5 ! Legend: ! Abnormal Depression Screening Never done Anxiety Screening Never done Hepatitis C Screening Never done HIV Screening Never done Dilated Retinal Exam due on 08/03/2022 Cervical Cancer Screening due on 09/23/2022 Covid-19 Vaccine() due on 03/11/2023 Mammogram Screening due on 03/02/2024 Influenza Vaccine(1) due on 03/11/2024 HbA1C due on 06/09/2024 Urine Albumin:Creatinine Ratio due on 07/22/2024 LDL Cholesterol due on 07/22/2024 Diabetic Foot Exam due on 02/12/2025 Annual PCP Team Chronic Disease Visit due on 02/12/2025 DTaP,Tdap,Td Vaccine(3 - Td or Tdap) due on 01/20/2026 Hepatitis B Vaccine Completed Pneumococcal Vaccine Completed HPV Vaccine Aged Out ASSESSMENT/PLAN: 1. Uncontrolled type 2 diabetes mellitus with hyperglycemia (HCC) - ICD9: 250.02, ICD10: E11.65 (primary diagnosis) - Improving control - Continue current medications - Statin prescribed - atorvastatin - Blood glucose monitoring on a once daily schedule - Counseled on healthy diet and regular exercise - Discussed need for and benefit of weight loss. BMI 36.32 kg/(m^2) - Follow up in 6 months, sooner should any other issues arise. - HEMOGLOBIN A1C - BLOOD-GLUCOSE METER - BLOOD SUGAR DIAGNOSTIC STRIPS - HEMOGLOBIN A1C (POC) - TIRZEPATIDE 2.5 MG/0.5 ML SUBCUTANEOUS PEN INJECTOR 2. SERGEY on CPAP - ICD9: 327.23, ICD10: G47.33 - stable on current regime - follow-up with sleep medicine as recommended 3. Hyperlipidemia, mixed - ICD9: 272.2, ICD10: E78.2 - Controlled - Continue current medications - Counseled on healthy diet and regular exercise - Discussed need for and benefit of weight loss. BMI 36.32 kg/(m^2) - Follow up in 6 months, sooner should any other issues arise. 4. Encounter for screening mammogram for breast cancer - ICD9: V76.12, ICD10: Z12.31 - MIRACLE SCREENING W JAHAIRA Wilkins APRN.CNP Prescription instructions reviewed with patient as applicable. Patient advised if symptoms do not improve or if symptoms worsen sooner, to contact their primary care physician. Potential red flag symptoms discussed with the patient. Reviewed appropriate action plan to take if red flag symptoms occur. Patient agreeable to treatment plan. Medical Decision Making: Problems: Moderate: 2+ stable chronic illnesses Data: Unique test(s) ordered: 1 Risk: Moderate: Drug management Medical Decision Making Level: 4 - Moderate documented in this encounter [facility] 02-13-2024 Note HNO ID: [id number] Author: KATHY WILKINS APRN.CNP Service: ? Author Type: Nurse Practitioner Type: Progress Notes Filed: 02/13/2024 13:11 Note Text: 02/08/2024 Patient presents with: F/U 6 months SUBJECTIVE: This is a 43 year old that is here today for Above Complaints. DIABETES MELLITUS: Since our last visit she denies excessive thirst or increased frequency of urination, chest pain or dyspnea , numbness, tingling or pain in extremities, new or unusual visual symptoms, low sugar/hypoglycemic reactions, weight loss/gain, lightheadedness/dizziness, and bowel changes/loose stools. Follows a diabetic diet most of the time. She is compliant with medication(s) and is tolerating med(s) without any side effects. She reports checking her glucose on a infrequent to not at all basis schedule . Patient's last HgA1C was Hemoglobin A1C (%) Date Value 12/09/2023 7.3 07/22/2023 6.7 07/01/2021 6.8 09/23/2020 6.4 ) Last Ophthalmology exam was In July and August SERGEY: Follows with sleep medicine with last appointment today. No changes in current regime HYPERLIPIDEMIA: Patient is taking medications: Yes. Patient is watching diet: Yes. Patient denies myalgias: Yes. Patient denies gi upset: Yes PAST MEDICAL HISTORY No date: CTS (carpal tunnel syndrome) Comment: bilateral on NCT No date: Diabetes mellitus type II, controlled ([facility]) No date: Eczema No date: GERD (gastroesophageal reflux disease) No date: Hyperlipidemia No date: Insomnia No date: Iron deficiency anemia No date: Lumbar disc herniation Comment: age 24 No date: Morbid obesity with BMI of 40.0-44.9, adult ([facility]) No date: OCD (obsessive compulsive disorder) Comment: was on prozac and paxil in past No date: Seasonal allergies Comment: Dr. Bassett No date: Sleep apnea Comment: ananda, seeing Dr. Almanza No date: Tobacco use ALLERGIES Amoxicillin, Bactrim [Sulfamethoxazole-Trimethoprim], Erythromycin Base, Sulfa (Sulfonamide Antibiotics), and Wellbutrin [Bupropion Hcl] MEDICATIONS Current Outpatient Medications Medication Sig tirzepatide (MOUNJARO) 2.5 mg/0.5 mL pen injector Inject 2.5 mg subcutaneously one time a week. sertraline (ZOLOFT) 100 mg tablet Take 2 tablets by mouth once daily. meloxicam (MOBIC) 15 mg tablet Take 1 tablet by mouth once daily as needed for pain. With food. metFORMIN (GLUCOPHAGE) 1,000 mg tablet Take 1 tablet by mouth two times a day with meals. lisinopril (ZESTRIL) 5 mg tablet Take 1 tablet by mouth once daily. glimepiride (AMARYL) 1 mg tablet Take 1 tablet by mouth daily with breakfast. atorvastatin (LIPITOR) 10 mg tablet TAKE 1 TABLET DAILY AT BEDTIME FOR CHOLESTEROL gabapentin (NEURONTIN) 300 mg capsule Take 1-2 capsules 1 hour before bedtime. modafinil (PROVIGIL) 200 mg tablet Take 1 tablet in mid afternoon (no later than 5PM) as needed. armodafinil (NUVIGIL) 250 mg tab Take 1 tablet by mouth once daily for 180 days. Norgestimate-Ethinyl Estradiol 0.18/0.215/0.25 mg-35 mcg (28) take 1 tablet daily CPAP Auto Bilevel PAP with humidification IPAP max 19, EPAP min 10 cmH2O, with pressure support of 4 cmH2O (Resmed). Lifetime supplies. famotidine (PEPCID ORAL) Take by mouth. CPAP Lower PAP to 17/13 cmH2O. Also please fit with a Wisp nasal mask. Current mask leaking and headgear not maintaining appropriate position. Lifetime supplies. Clindamycin-Benzoyl Peroxide 1-5 % gel Apply to affected area once daily. montelukast (SINGULAIR) 10 mg tablet Take 10 mg by mouth once daily. (Patient not taking: Reported on 08/15/2023) blood sugar diagnostic ([employer] VERIO TEST STRIPS) test strip Test blood sugar(s) 1x times daily. Dx: Type 2 DM - Controlled E11.9 Insulin: No (Patient not taking: Reported on 12/23/2022) CPAP Please fit patient with a dreamwear under the nose nasal mask. Please provide download 2 weeks later. Thank you. acetaminophen (TYLENOL) 500 mg tablet Take 500 mg by mouth as needed. ipratropium bromide (ATROVENT) 42 mcg (0.06 %) nasal spray Use 2 Sprays in the nose as needed. levocetirizine dihydrochloride (LEVOCETIRIZINE ORAL) Take 1 tablet by mouth once daily. CPAP Bilevel PAP 21/17 cmH2O with humidification. A small/medium Sleep Bustos nasal mask, HUMIDITY. LIFETIME SUPPLIES. Dx: G47.33 multivitamin tablet Take 1 tablet by mouth once daily. pyridoxine, vitamin B6, (VITAMIN B-6) 100 mg tablet Take 100 mg by mouth once daily. cyanocobalamin (VITAMIN B-12) 1,000 mcg tab Take 1 tablet by mouth once daily. Cholecalciferol, Vitamin D3, 2,000 unit cap Take 1 tablet by mouth once daily. No current facility-administered medications for this visit. Medications and allergies reviewed by this provider. SOCIAL HISTORY Social History Tobacco Use Smoking status: Former Packs/day: 0.25 Years: 1.00 Additional pack years: 0.00 Total pack years: 0.25 Types: Cigarettes Quit date: 03/25/2019 Years since quittin.8 Smokeless tobacc (more content not included)... [facility] 08-05-2024 History of Present illness Narrative ESTABLISHED PATIENT VISIT CHIEF COMPLAINT: Follow Up HISTORY OF PRESENT ILLNESS: Sushma Botello is a 43 year old female, BMI 36.31 kg/m2 with a PMH significant for and per last office visit note of 08/15/23: 1. 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 Patient would like to fall asleep and wake up earlier. While pt estimates being in bed for 8 hours not getting true 8 hours of sleep (especially with fragmentation of sleep over the last 2 hours). Concern with adding melatonin is that it might be counter productive given wake promoting agents currently in use. Thus, will have patient wake up 30 minutes earlier each week in an attempt to advance her sleep wake cycle. This week, will wake no later than 830AM (setting alarms and having to get out of bed). Suspect will be easier than expected as pt will sleep solid until 830AM rather than fragmenting sleep by struggling with alarm for 2 hours. Pt understanding and agrees with plan. 2. Obstructive sleep apnea syndrome - ICD9: 327.23, ICD10: G47.33 PAP compliance confirmed by subjective history and objective PAP data download. Encouraged compliance. Reminded to clean and replace PAP equipment regularly. Advised pt not to drive or operate heavy machinery if sleepy. 3. Hypersomnia - ICD9: 780.54, ICD10: G47.10 Combination of Nuvigil and Provigil appear to be working well and without side effect. Feels more awake now in the evening so that she can get needed tasks done, but also does not feel the Provigil is keeping her up at night. Reviewed SE and ADRs and med med interactions. Refills provided. 4. Class 2 obesity with body mass index (BMI) of 39.0 to 39.9 in adult, unspecified obesity type, unspecified whether serious comorbidity present - ICD9: 278.00, V85.39, ICD10: E66.9, Z68.39 Encouraged weight loss. Encouraged pt to schedule with bariatric medicine as previously discussed at prior visit. 5. Long-term use of high-risk medication - ICD9: V58.69, ICD10: Z79.899 UDS completed <1 year ago. 6. RLS (restless legs syndrome) - ICD9: 333.94, ICD10: G25.81 Stable on gabapentin as above. No changes to Rx at this time with refills provided. PAP data download shows nightly use over past 30 days for avg of 9 hours and 2 minutes. Set at 17/13 cmH2O. AHI is 1.9. 95% leak is 15 LPM. Due for annual Urine tox for controlled meds. Patient reports in 1 month getting a new job with pt excited about it. Also started on Monjuaro. Has lost 20 pounds in last 2 months. States sleep schedule is advanced. Bedtime is about 11PM and no issues falling asleep now. However, now back on Trazodone as was not staying asleep - 50mg nightly. No RLS symptoms so long as takes gabapentin. Currently no issues falling or staying asleep. New job will be more relaxed and will allow pt to sleep in if necessary. Currently taking Nuvigil daily unless wants to sleep on Tuesday. Taking Provigil as needed in the afternoon. Feels great during day - not sleepy. No falling asleep driving. PHQ 9 Data More data exists 01/27/2023 08/10/2022 04/19/2022 PHQ-9 All Questions Little interest or pleasure in doing things 0 0 0 Feeling down, depressed, or hopeless 0 0 0 Trouble falling or staying asleep, or sleeping too much 1 - 0 Feeling tired or having little energy 1 - 2 Poor appetite or overeating 0 - 0 Feeling bad about yourself - or that you are a failure or have let yourself or your family down 0 - 0 Trouble concentrating on things, such as reading the newspaper or watching television 1 - 1 Moving or speaking so slowly that other people could have noticed. Or the opposite - being so fidgety or restless that you have been moving around a lot more than usual 0 - 0 Thoughts that you would be better off , or of hurting yourself in some way 0 - 0 PHQ-9 Score 3 - 3 ELLIE 7 Data More data may exist 12/08/2023 07/21/2021 04/13/2021 ELLIE-7 All Questions Feeling nervous, anxious, or on edge Several days Not at all Not at all Not being able to stop or control worrying Several days Not at all Not at all Worrying too much about different things Several days Not at all Not at all Trouble relaxing Several days Several days Several days Being so restless that it is hard to sit still Not at all Not at all Not at all Becoming easily annoyed or irritable Not at all Not at all Several days Feeling afraid, as if something awful might happen Not at all Not at all Not at all ELLIE-7 Score 4 1 2 PROMIS-10 More data exists PROMIS Global Health - (T-Scores - the mean of general population = 50. Five points is a clinically meaningful difference.) Physical T-Score Mental T-Score 12/08/2023 47.7 45.8 05/11/2023 47.7 53.3 01/27/2023 47.7 48.3 [place] Sleepiness Scale Scores More data may exist 01/27/2023 04/19/2022 12/30/2020 [place] Sleepiness Scale Score 13 Abnormal 11 Abnormal 9 REVIEW OF SYSTEMS GENERAL:No weight loss, malaise or fevers. HEENT:Negative for frequent or significant headaches, No changes in hearing or vision, no nose bleeds or other nasal problems NECK:Negative for lumps, goiter, pain and significant neck swelling RESPIRATORY: Negative for cough, wheezing or shortness of breath. CARDIOVASCULAR: Negative for chest pain, leg swelling or palpitations. GASTROINTESTINAL: Negative for abdominal discomfort, blood in stools or black stools or change in bowel habits GENITOURINARY: No history of dysuria, frequency or incontinence MUSCULOSKELETAL: Negative for joint pain or swelling, back pain or muscle pain. NEUROLOGIC:Negative for focal numbness or weakness, headaches and dizziness or syncope, vision changes, speech/languag changes - EXCEPT that as per HPI above. SKIN:Negative for lesions, rash, and itching. LAB/IMAGING: Those performed since patient's last visit have been reviewed. WBC (k/uL) Date Value 07/22/2023 10.49 RBC (m/uL) Date Value 07/22/2023 4.08 Hemoglobin (g/dL) Date Value 07/22/2023 11.9 Hematocrit (%) Date Value 07/22/2023 37.3 MCV (fL) Date Value 07/22/2023 91.4 MCH (pg) Date Value 07/22/2023 29.2 MCHC (g/dL) Date Value 07/22/2023 31.9 RDW-CV (%) Date Value 07/22/2023 13.7 Platelet Count (k/uL) Date Value 07/22/2023 342 MPV (fL) Date Value 07/22/2023 10.2 Glucose (mg/dL) Date Value 12/09/2023 139 (H) BUN (mg/dL) Date Value 12/09/2023 10 Creatinine (mg/dL) Date Value 12/09/2023 0.49 (L) Sodium (mmol/L) Date Value 12/09/2023 137 Potassium (mmol/L) Date Value 12/09/2023 4.8 Chloride (mmol/L) Date Value 12/09/2023 98 CO2 (mmol/L) Date Value 12/09/2023 23 Protein, Total (g/dL) Date Value 12/09/2023 7.0 Albumin (g/dL) Date Value 12/09/2023 4.1 Calcium, Total (mg/dL) Date Value 12/09/2023 9.5 Alkaline Phosphatase (U/L) Date Value 12/09/2023 55 Bilirubin, Total (mg/dL) Date Value 12/09/2023 0.3 AST (U/L) Date Value 12/09/2023 20 ALT (U/L) Date Value 12/09/2023 17 MEDICATIONS: traZODone (DESYREL) 50 mg tablet Take 50 mg by mouth daily at bedtime. tirzepatide (MOUNJARO) 2.5 mg/0.5 mL pen injector Inject 2.5 mg subcutaneously one time a week. sertraline (ZOLOFT) 100 mg tablet Take 2 tablets by mouth once daily. metFORMIN (GLUCOPHAGE) 1,000 mg tablet Take 1 tablet by mouth two times a day with meals. lisinopril (ZESTRIL) 5 mg tablet Take 1 tablet by mouth once daily. glimepiride (AMARYL) 1 mg tablet Take 1 tablet by mouth daily with breakfast. atorvastatin (LIPITOR) 10 mg tablet TAKE 1 TABLET DAILY AT BEDTIME FOR CHOLESTEROL gabapentin (NEURONTIN) 300 mg capsule Take 1-2 capsules 1 hour before bedtime. modafinil (PROVIGIL) 200 mg tablet Take 1 tablet in mid afternoon (no later than 5PM) as needed. Norgestimate-Ethinyl Estradiol 0.18/0.215/0.25 mg-35 mcg (28) take 1 tablet daily CPAP Auto Bilevel PAP with humidification IPAP max 19, EPAP min 10 cmH2O, with pressure support of 4 cmH2O (Resmed). Lifetime supplies. famotidine (PEPCID ORAL) Take by mouth. CPAP Lower PAP to 17/13 cmH2O. Also please fit with a Wisp nasal mask. Current mask leaking and headgear not maintaining appropriate position. Lifetime supplies. CPAP Please fit patient with a dreamwear under the nose nasal mask. Please provide download 2 weeks later. Thank you. acetaminophen (TYLENOL) 500 mg tablet Take 500 mg by mouth as needed. ipratropium bromide (ATROVENT) 42 mcg (0.06 %) nasal spray Use 2 Sprays in the nose as needed. levocetirizine dihydrochloride (LEVOCETIRIZINE ORAL) Take 1 tablet by mouth once daily. CPAP Bilevel PAP 21/17 cmH2O with humidification. A small/medium Sleep Bustos nasal mask, HUMIDITY. LIFETIME SUPPLIES. Dx: G47.33 multivitamin tablet Take 1 tablet by mouth once daily. pyridoxine, vitamin B6, (VITAMIN B-6) 100 mg tablet Take 100 mg by mouth once daily. cyanocobalamin (VITAMIN B-12) 1,000 mcg tab Take 1 tablet by mouth once daily. Cholecalciferol, Vitamin D3, 2,000 unit cap Take 1 tablet by mouth once daily. meloxicam (MOBIC) 15 mg tablet Take 1 tablet by mouth once daily as needed for pain. With food. (Patient not taking: Reported on 02/13/2024) armodafinil (NUVIGIL) 250 mg tab Take 1 tablet by mouth once daily for 180 days. Clindamycin-Benzoyl Peroxide 1-5 % gel Apply to affected area once daily. montelukast (SINGULAIR) 10 mg tablet Take 10 mg by mouth once daily. (Patient not taking: Reported on 08/15/2023) blood sugar diagnostic ([employer] VERIO TEST STRIPS) test strip Test blood sugar(s) 1x times daily. Dx: Type 2 DM - Controlled E11.9 Insulin: No (Patient not taking: Reported on 12/23/2022) HISTORIES PAST MEDICAL HISTORY No date: CTS (carpal tunnel syndrome) Comment: bilateral on NCT No date: Diabetes mellitus type II, controlled ([facility]) No date: Eczema No date: GERD (gastroesophageal reflux disease) No date: Hyperlipidemia No date: Insomnia No date: Iron deficiency anemia No date: Lumbar disc herniation Comment: age 24 No date: Morbid obesity with BMI of 40.0-44.9, adult ([facility]) No date: OCD (obsessive compulsive disorder) Comment: was on prozac and paxil in past No date: Seasonal allergies Comment: Dr. Bassett No date: Sleep apnea Comment: bipap, seeing Dr. Almanza No date: Tobacco use FAMILY HISTORY Problem Relation Age of Onset Depression Mother COPD Mother Diabetes Mother Depression Father OCD Father Cancer Father multiple myeloma, leukemia Bipolar disorder Brother GI Brother absorption issues ADD/ADHD Brother Ischemic Heart Disease Maternal Grandfather Cancer Paternal Grandfather esophageal other (no colon cancer) Other other (no breast cancer) Other Diabetes Other SOCIAL HISTORY Social History Tobacco Use Smoking status: Former Packs/day: 0.25 Years: 1.00 Additional pack years: 0.00 Total pack years: 0.25 Types: Cigarettes Quit date: 03/25/2019 Years since quittin.8 Smokeless tobacco: Never Vaping Use Vaping Use: Never used Substance Use Topics Alcohol use: Yes Alcohol/week: 12.0 standard drinks of alcohol Types: 12 Cans of Beer (12oz) per week Comment: socially Drug use: No PHYSICAL EXAMINATION BP 131/79 (BP Site: Left Arm, BP Position: Sitting) Pulse 90 Resp 16 Wt 105.1 kg (231 lb 12.8 oz) LMP (LMP Unknown) SpO2 99% BMI 36.31 kg/m GENERAL EXAM: General appearance: NAD, pleasant. HEENT: NC/AT, nasal congestion absent, no oral lesions, membranes moist. NECK: No masses, supple. Lungs: CTA bilaterally. CV: RRR nl S1, S2 Extr: No cyanosis, clubbing or edema. Skin: Cool to touch. NEUROLOGICAL EXAM: General: Awake, alert, oriented x3 (person,place,time), speech fluent, no dysarthria; comprehension, naming, repetition intact. CN: PERRL, EOMI and without nystagmus, VFF to confrontation, facial sensation and strength are normal and symmetric, hearing is intact, palate and tongue movements are intact and symmetric. SCM and trapezius strength normal. Motor: Normal tone, bulk and strength (5/5) bilaterally (throughout extremities x4). Coordination: FNF, TERRENCE, HTS intact. No tremors. Sensation: LT intact throughout. No evidence of neglect. Gait: Stable with normal stride and arm swing. Assessment and Plan: ASSESSMENT/PLAN: 1. Obstructive sleep apnea syndrome - ICD9: 327.23, ICD10: G47.33 (primary diagnosis) Overall appears to be doing well on PAP therapy. Compliance confirmed by subjective history and objective PAP data download. AHI normalized. She is in need of new PAP equipment. As weight loss is further planned, will replace current bilevel with Auto bilevel PAP (see Rx for settings) as with weight loss would expect need for less pressure in the future. Patient agrees with plan. Remind pt need to clean and replace equipment regularly. Advised pt not to drive or operate heavy machinery if sleepy. 2. Hypersomnia - ICD9: 780.54, ICD10: G47.10 Stable on current dosing of Nuvigil with Provigil prn. No side effects or ADRs. Will not make any changes at this time. Subjectively if misses dose, significant worsening of daytime sleepiness. 3. RLS (restless legs syndrome) - ICD9: 333.94, ICD10: G25.81 Stable at present with no symptoms so long as taking gabapentin. Will continue on current dose. 4. Long-term use of high-risk medication - ICD9: V58.69, ICD10: Z79.899 - TOXICOLOGY SCREEN, ROUTINE URINE - ECG INTERPRETATION & REPORT ONLY 5. Delayed sleep phase syndrome - ICD9: 327.31, ICD10: G47.21 Resolved with prior recommendations for melatonin and set wake time (including non work days) as well as avoiding naps. 6. Class 2 obesity with body mass index (BMI) of 36.0 to 36.9 in adult, unspecified obesity type, unspecified whether serious comorbidity present - ICD9: 278.00, V85.36, ICD10: E66.9, Z68.36 Encouraged continued weight loss. Aaron Almanza MD Medical Decision Making: Problems: Moderate: 2+ stable chronic illnesses Data: Unique test result(s) reviewed: 2 Unique test(s) ordered: 2 Risk: Moderate: Drug management Medical Decision Making Level: 4 - Moderate PDMP website checked and validated. All prescriptions have been APPROPRIATELY filled. No suspicious activity was identified. Note: A urine tox screen and urine pain panel have been completed appropriately (after 12 weeks of initiating therapy and at least yearly thereafter). 02/13/2024 by Aaron Almanza MD documented in this encounter [facility] 02-13-2024 Note HNO ID: [id number] Author: AARON ALMANZA JR, MD Service: ? Author Type: Physician Type: Progress Notes Filed: 02/17/2024 11:07 Note Text: ESTABLISHED PATIENT VISIT CHIEF COMPLAINT: Follow Up HISTORY OF PRESENT ILLNESS: Sushma Botello is a 43 year old female, BMI 36.31 kg/m2 with a PMH significant for and per last office visit note of 08/15/23: 1. 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 Patient would like to fall asleep and wake up earlier. While pt estimates being in bed for 8 hours not getting true 8 hours of sleep (especially with fragmentation of sleep over the last 2 hours). Concern with adding melatonin is that it might be counter productive given wake promoting agents currently in use. Thus, will have patient wake up 30 minutes earlier each week in an attempt to advance her sleep wake cycle. This week, will wake no later than 830AM (setting alarms and having to get out of bed). Suspect will be easier than expected as pt will sleep solid until 830AM rather than fragmenting sleep by struggling with alarm for 2 hours. Pt understanding and agrees with plan. 2. Obstructive sleep apnea syndrome - ICD9: 327.23, ICD10: G47.33 PAP compliance confirmed by subjective history and objective PAP data download. Encouraged compliance. Reminded to clean and replace PAP equipment regularly. Advised pt not to drive or operate heavy machinery if sleepy. 3. Hypersomnia - ICD9: 780.54, ICD10: G47.10 Combination of Nuvigil and Provigil appear to be working well and without side effect. Feels more awake now in the evening so that she can get needed tasks done, but also does not feel the Provigil is keeping her up at night. Reviewed SE and ADRs and med med interactions. Refills provided. 4. Class 2 obesity with body mass index (BMI) of 39.0 to 39.9 in adult, unspecified obesity type, unspecified whether serious comorbidity present - ICD9: 278.00, V85.39, ICD10: E66.9, Z68.39 Encouraged weight loss. Encouraged pt to schedule with bariatric medicine as previously discussed at prior visit. 5. Long-term use of high-risk medication - ICD9: V58.69, ICD10: Z79.899 UDS completed <1 year ago. 6. RLS (restless legs syndrome) - ICD9: 333.94, ICD10: G25.81 Stable on gabapentin as above. No changes to Rx at this time with refills provided. PAP data download shows nightly use over past 30 days for avg of 9 hours and 2 minutes. Set at 17/13 cmH2O. AHI is 1.9. 95% leak is 15 LPM. Due for annual Urine tox for controlled meds. Patient reports in 1 month getting a new job with pt excited about it. Also started on Monjuaro. Has lost 20 pounds in last 2 months. States sleep schedule is advanced. Bedtime is about 11PM and no issues falling asleep now. However, now back on Trazodone as was not staying asleep - 50mg nightly. No RLS symptoms so long as takes gabapentin. Currently no issues falling or staying asleep. New job will be more relaxed and will allow pt to sleep in if necessary. Currently taking Nuvigil daily unless wants to sleep on Tuesday. Taking Provigil as needed in the afternoon. Feels great during day - not sleepy. No falling asleep driving. PHQ 9 Data More data exists 01/27/2023 08/10/2022 04/19/2022 PHQ-9 All Questions Little interest or pleasure in doing things 0 0 0 Feeling down, depressed, or hopeless 0 0 0 Trouble falling or staying asleep, or sleeping too much 1 - 0 Feeling tired or having little energy 1 - 2 Poor appetite or overeating 0 - 0 Feeling bad about yourself - or that you are a failure or have let yourself or your family down 0 - 0 Trouble concentrating on things, such as reading the newspaper or watching television 1 - 1 Moving or speaking so slowly that other people could have noticed. Or the opposite - being so fidgety or restless that you have been moving around a lot more than usual 0 - 0 Thoughts that you would be better off , or of hurting yourself in some way 0 - 0 PHQ-9 Score 3 - 3 ELLIE 7 Data More data may exist 12/08/2023 07/21/2021 04/13/2021 ELLIE-7 All Questions Feeling nervous, anxious, or on edge Several days Not at all Not at all Not being able to stop or control worrying Several days Not at all Not at all Worrying too much about different things Several days Not at all Not at all Trouble relaxing Several days Several days Several days Being so restless that it is hard to sit still Not at all Not at all Not at all Becoming easily annoyed or irritable Not at all Not at all Several days Feeling afraid, as if something awful might happen Not at all Not at all Not at all ELLIE-7 Score 4 1 2 PROMIS-10 More data exists PROMIS Global Health - (T-Scores - the mean of general population = 50. Five points is a clinically meaningful difference.) Phy (more content not included)... [facility] 01-16-2024 Telephone encounter Note Prescription Refill Information The patient has been identified by name and date of : Yes Caregiver verified no other encounters exist for this prescription request: Yes Caregiver confirmed with patient/requestor that no other refills are due, in the near future, with this provider at this time: Yes The last office visit in the department: 12/09/23 Does the patient have a future office visit with this provider/department: Yes, 02/13/24 Requested Prescriptions Pending Prescriptions Disp Refills tirzepatide (MOUNJARO) 2.5 mg/0.5 mL pen injector 4 Each 0 Sig: Inject 2.5 mg subcutaneously one time a week. Carlo Colvin LPN January 16, 2024 2:15 PM [facility] 01-16-2024 Miscellaneous Notes Prescription Refill Information The patient has been identified by name and date of : Yes Caregiver verified no other encounters exist for this prescription request: Yes Caregiver confirmed with patient/requestor that no other refills are due, in the near future, with this provider at this time: Yes The last office visit in the department: 12/09/23 Does the patient have a future office visit with this provider/department: Yes, 02/13/24 Requested Prescriptions Pending Prescriptions Disp Refills tirzepatide (MOUNJARO) 2.5 mg/0.5 mL pen injector 4 Each 0 Sig: Inject 2.5 mg subcutaneously one time a week. Carlo Colvin LPN January 16, 2024 2:15 PM documented in this encounter [facility] 01-03-2024 Telephone encounter Note Prescription Refill Information The patient has been identified by name and date of : Yes Caregiver verified no other encounters exist for this prescription request: Yes Caregiver confirmed with patient/requestor that no other refills are due, in the near future, with this provider at this time: Yes The last office visit in the department: 12/09/2023 Does the patient have a future office visit with this provider/department: Yes 02/13/2024 Requested Prescriptions Pending Prescriptions Disp Refills tirzepatide (MOUNJARO) 2.5 mg/0.5 mL pen injector 4 Each 0 Sig: Inject 2.5 mg subcutaneously one time a week. Lesley Cotton LPN January 03, 2024 11:20 AM [facility] 01-03-2024 Miscellaneous Notes Prescription Refill Information The patient has been identified by name and date of : Yes Caregiver verified no other encounters exist for this prescription request: Yes Caregiver confirmed with patient/requestor that no other refills are due, in the near future, with this provider at this time: Yes The last office visit in the department: 12/09/2023 Does the patient have a future office visit with this provider/department: Yes 02/13/2024 Requested Prescriptions Pending Prescriptions Disp Refills tirzepatide (MOUNJARO) 2.5 mg/0.5 mL pen injector 4 Each 0 Sig: Inject 2.5 mg subcutaneously one time a week. Lesley Cotton LPN January 03, 2024 11:20 AM documented in this encounter [facility] 12-12-2023 Telephone encounter Note Patient notified and verbalized understanding. Juliann Mo MA [facility] 12-12-2023 Miscellaneous Notes Patient notified and verbalized understanding. Juliann Mo MA I sent order for Mounjaro. I do see it ca decrease the effectiveness of contraceptive which I did not know so please let her know that. Kathy Wilkins APRN.DOOR CORE ASSEMBLER Patient notified and voices understanding. Patient requesting if she could try Monjaro first. Please advise. If so, send to [place] [facility]. Lesley Cotton LPN ----- Message from Kathy Wilkins APRN.DOOR CORE ASSEMBLER sent at 12/12/2023 11:06 AM EDT ----- A1c has increased from 6.7% to 7.3%- I can try sending in an order for Ozempic and see if insurance will cover due to uncontrolled diabetes. Kathy Wilkins APRN.VIVI documented in this encounter [facility] 12-12-2023 Telephone encounter Note I sent order for Mounjaro. I do see it ca decrease the effectiveness of contraceptive which I did not know so please let her know that. Kathy Wilkins APRN.VIVI [facility] 12-12-2023 Telephone encounter Note Patient notified and voices understanding. Patient requesting if she could try Monjaro first. Please advise. If so, send to [place] [facility]. Lesley Cotton LPN [facility] 12-12-2023 Telephone encounter Note ----- Message from Kathy Wilkins APRN.VIVI sent at 12/12/2023 11:06 AM EDT ----- A1c has increased from 6.7% to 7.3%- I can try sending in an order for Ozempic and see if insurance will cover due to uncontrolled diabetes. Kathy Wilkins APRN.DOOR CORE ASSEMBLER [facility] 12-09-2023 Note HNO ID: [id number] Author: KATHY WILKINS APRN.CNP Service: ? Author Type: Nurse Practitioner Type: Progress Notes Filed: 12/09/2023 09:21 Note Text: 12/09/2023 Patient presents with: Weight Loss SUBJECTIVE: This is a 43 year old that is here today for Above Complaints. Would like to discuss weight loss. Has an appointment with bariatrics in April but does not want to wait that long to discuss possible medication options. Tries to eat lower carbohydrate diet. [place] 35147 steps a day but no specific exercise regime PAST MEDICAL HISTORY Diagnosis Date CTS (carpal tunnel syndrome) bilateral on NCT Diabetes mellitus type II, controlled ([facility]) Eczema GERD (gastroesophageal reflux disease) Hyperlipidemia Insomnia Iron deficiency anemia Lumbar disc herniation age 24 Morbid obesity with BMI of 40.0-44.9, adult ([facility]) OCD (obsessive compulsive disorder) was on prozac and paxil in past Seasonal allergies Dr. Bassett Sleep apnea bipap, seeing Dr. Almanza Tobacco use ALLERGIES Amoxicillin, Bactrim [Sulfamethoxazole-Trimethoprim], Erythromycin Base, Sulfa (Sulfonamide Antibiotics), and Wellbutrin [Bupropion Hcl] MEDICATIONS Current Outpatient Medications Medication Sig sertraline (ZOLOFT) 100 mg tablet Take 2 tablets by mouth once daily. meloxicam (MOBIC) 15 mg tablet Take 1 tablet by mouth once daily as needed for pain. With food. metFORMIN (GLUCOPHAGE) 1,000 mg tablet Take 1 tablet by mouth two times a day with meals. lisinopril (ZESTRIL) 5 mg tablet Take 1 tablet by mouth once daily. glimepiride (AMARYL) 1 mg tablet Take 1 tablet by mouth daily with breakfast. atorvastatin (LIPITOR) 10 mg tablet TAKE 1 TABLET DAILY AT BEDTIME FOR CHOLESTEROL gabapentin (NEURONTIN) 300 mg capsule Take 1-2 capsules 1 hour before bedtime. modafinil (PROVIGIL) 200 mg tablet Take 1 tablet in mid afternoon (no later than 5PM) as needed. armodafinil (NUVIGIL) 250 mg tab Take 1 tablet by mouth once daily for 180 days. Norgestimate-Ethinyl Estradiol 0.18/0.215/0.25 mg-35 mcg (28) take 1 tablet daily CPAP Auto Bilevel PAP with humidification IPAP max 19, EPAP min 10 cmH2O, with pressure support of 4 cmH2O (Resmed). Lifetime supplies. famotidine (PEPCID ORAL) Take by mouth. CPAP Lower PAP to 17/13 cmH2O. Also please fit with a Wisp nasal mask. Current mask leaking and headgear not maintaining appropriate position. Lifetime supplies. Clindamycin-Benzoyl Peroxide 1-5 % gel Apply to affected area once daily. montelukast (SINGULAIR) 10 mg tablet Take 10 mg by mouth once daily. (Patient not taking: Reported on 08/15/2023) blood sugar diagnostic (ONETOUCH VERIO TEST STRIPS) test strip Test blood sugar(s) 1x times daily. Dx: Type 2 DM - Controlled E11.9 Insulin: No (Patient not taking: Reported on 12/23/2022) CPAP Please fit patient with a dreamwear under the nose nasal mask. Please provide download 2 weeks later. Thank you. acetaminophen (TYLENOL) 500 mg tablet Take 500 mg by mouth as needed. ipratropium bromide (ATROVENT) 42 mcg (0.06 %) nasal spray Use 2 Sprays in the nose as needed. levocetirizine dihydrochloride (LEVOCETIRIZINE ORAL) Take 1 tablet by mouth once daily. CPAP Bilevel PAP 21/17 cmH2O with humidification. A small/medium Sleep Bustos nasal mask, HUMIDITY. LIFETIME SUPPLIES. Dx: G47.33 multivitamin tablet Take 1 tablet by mouth once daily. pyridoxine, vitamin B6, (VITAMIN B-6) 100 mg tablet Take 100 mg by mouth once daily. cyanocobalamin (VITAMIN B-12) 1,000 mcg tab Take 1 tablet by mouth once daily. Cholecalciferol, Vitamin D3, 2,000 unit cap Take 1 tablet by mouth once daily. No current facility-administered medications for this visit. Medications and allergies reviewed by this provider. SOCIAL HISTORY Social History Tobacco Use Smoking status: Former Packs/day: 0.25 Years: 1.00 Additional pack years: 0.00 Total pack years: 0.25 Types: Cigarettes Quit date: 03/25/2019 Years since quittin.7 Smokeless tobacco: Never Vaping Use Vaping Use: Never used Substance Use Topics Alcohol use: Yes Alcohol/week: 12.0 standard drinks of alcohol Types: 12 Cans of Beer (12oz) per week Comment: socially Drug use: No REVIEW OF SYSTEMS All other reviewed and negative other than HPI. OBJECTIVE: BP 130/88 Pulse 97 Resp 18 Wt 113.3 kg (249 lb 12.8 oz) LMP (LMP Unknown) SpO2 98% BMI 39.12 kg/m? . Vital signs reviewed by this provider. APPEARANCE Well appearing, alert, in no acute distress, well-hydrated, well nourished. Hepatitis C Screening Never done HIV Screening Never done Dilated Retinal Exam due on 08/03/2022 Pap Testing due on 09/23/2022 HPV Testing due on 09/23/2022 Covid-19 Vaccine( season) due on 03/11/2023 Behavioral Health Screening Never done Diabetic Foot Exam due on 08/10/2023 Mammogram Screening due on 03/02/2024 HbA1C due on 01/20/2024 Influenza Vaccine(Season Ended) due on (more content not included)... [facility] 12-09-2023 History of Present illness Narrative 12/09/2023 Patient presents with: Weight Loss SUBJECTIVE: This is a 43 year old that is here today for Above Complaints. Would like to discuss weight loss. Has an appointment with bariatrics in April but does not want to wait that long to discuss possible medication options. Tries to eat lower carbohydrate diet. Gets 47189 steps a day but no specific exercise regime PAST MEDICAL HISTORY Diagnosis Date CTS (carpal tunnel syndrome) bilateral on NCT Diabetes mellitus type II, controlled ([facility]) Eczema GERD (gastroesophageal reflux disease) Hyperlipidemia Insomnia Iron deficiency anemia Lumbar disc herniation age 24 Morbid obesity with BMI of 40.0-44.9, adult ([facility]) OCD (obsessive compulsive disorder) was on prozac and paxil in past Seasonal allergies Dr. Bassett Sleep apnea bipap, seeing Dr. Almanza Tobacco use ALLERGIES Amoxicillin, Bactrim [Sulfamethoxazole-Trimethoprim], Erythromycin Base, Sulfa (Sulfonamide Antibiotics), and Wellbutrin [Bupropion Hcl] MEDICATIONS Current Outpatient Medications Medication Sig sertraline (ZOLOFT) 100 mg tablet Take 2 tablets by mouth once daily. meloxicam (MOBIC) 15 mg tablet Take 1 tablet by mouth once daily as needed for pain. With food. metFORMIN (GLUCOPHAGE) 1,000 mg tablet Take 1 tablet by mouth two times a day with meals. lisinopril (ZESTRIL) 5 mg tablet Take 1 tablet by mouth once daily. glimepiride (AMARYL) 1 mg tablet Take 1 tablet by mouth daily with breakfast. atorvastatin (LIPITOR) 10 mg tablet TAKE 1 TABLET DAILY AT BEDTIME FOR CHOLESTEROL gabapentin (NEURONTIN) 300 mg capsule Take 1-2 capsules 1 hour before bedtime. modafinil (PROVIGIL) 200 mg tablet Take 1 tablet in mid afternoon (no later than 5PM) as needed. armodafinil (NUVIGIL) 250 mg tab Take 1 tablet by mouth once daily for 180 days. Norgestimate-Ethinyl Estradiol 0.18/0.215/0.25 mg-35 mcg (28) take 1 tablet daily CPAP Auto Bilevel PAP with humidification IPAP max 19, EPAP min 10 cmH2O, with pressure support of 4 cmH2O (Resmed). Lifetime supplies. famotidine (PEPCID ORAL) Take by mouth. CPAP Lower PAP to 17/13 cmH2O. Also please fit with a Wisp nasal mask. Current mask leaking and headgear not maintaining appropriate position. Lifetime supplies. Clindamycin-Benzoyl Peroxide 1-5 % gel Apply to affected area once daily. montelukast (SINGULAIR) 10 mg tablet Take 10 mg by mouth once daily. (Patient not taking: Reported on 08/15/2023) blood sugar diagnostic (PrismaticUCH VERIO TEST STRIPS) test strip Test blood sugar(s) 1x times daily. Dx: Type 2 DM - Controlled E11.9 Insulin: No (Patient not taking: Reported on 12/23/2022) CPAP Please fit patient with a dreamwear under the nose nasal mask. Please provide download 2 weeks later. Thank you. acetaminophen (TYLENOL) 500 mg tablet Take 500 mg by mouth as needed. ipratropium bromide (ATROVENT) 42 mcg (0.06 %) nasal spray Use 2 Sprays in the nose as needed. levocetirizine dihydrochloride (LEVOCETIRIZINE ORAL) Take 1 tablet by mouth once daily. CPAP Bilevel PAP 21/17 cmH2O with humidification. A small/medium Sleep Bustos nasal mask, HUMIDITY. LIFETIME SUPPLIES. Dx: G47.33 multivitamin tablet Take 1 tablet by mouth once daily. pyridoxine, vitamin B6, (VITAMIN B-6) 100 mg tablet Take 100 mg by mouth once daily. cyanocobalamin (VITAMIN B-12) 1,000 mcg tab Take 1 tablet by mouth once daily. Cholecalciferol, Vitamin D3, 2,000 unit cap Take 1 tablet by mouth once daily. No current facility-administered medications for this visit. Medications and allergies reviewed by this provider. SOCIAL HISTORY Social History Tobacco Use Smoking status: Former Packs/day: 0.25 Years: 1.00 Additional pack years: 0.00 Total pack years: 0.25 Types: Cigarettes Quit date: 03/25/2019 Years since quittin.7 Smokeless tobacco: Never Vaping Use Vaping Use: Never used Substance Use Topics Alcohol use: Yes Alcohol/week: 12.0 standard drinks of alcohol Types: 12 Cans of Beer (12oz) per week Comment: socially Drug use: No REVIEW OF SYSTEMS All other reviewed and negative other than HPI. OBJECTIVE: BP 130/88 Pulse 97 Resp 18 Wt 113.3 kg (249 lb 12.8 oz) LMP (LMP Unknown) SpO2 98% BMI 39.12 kg/m . Vital signs reviewed by this provider. APPEARANCE Well appearing, alert, in no acute distress, well-hydrated, well nourished. Hepatitis C Screening Never done HIV Screening Never done Dilated Retinal Exam due on 08/03/2022 Pap Testing due on 09/23/2022 HPV Testing due on 09/23/2022 Covid-19 Vaccine( season) due on 03/11/2023 Behavioral Health Screening Never done Diabetic Foot Exam due on 08/10/2023 Mammogram Screening due on 03/02/2024 HbA1C due on 01/20/2024 Influenza Vaccine(Season Ended) due on 03/11/2024 Urine Albumin:Creatinine Ratio due on 07/22/2024 LDL Cholesterol due on 07/22/2024 Annual PCP Team Chronic Disease Visit due on 08/15/2024 DTaP,Tdap,Td Vaccine(3 - Td or Tdap) due on 01/20/2026 Hepatitis B Vaccine Completed Pneumococcal Vaccine Completed HPV Vaccine Aged Out ASSESSMENT/PLAN: 1. Obesity, Class II, BMI 35-39.9 - ICD9: 278.00, ICD10: E66.9 (primary diagnosis) - discussed weight loss medications - will check with insurance coverage for GLP's- common side effects, risks and benefits discussed - Lengthy discussion in office today regarding diet and exercise. Discussed use of small plate to eat meals from, drink 1 glass of water 10-15 minutes prior to eating meal, drink 8 glasses of water daily, eat fresh fruit and vegetable during meal first then lean protein such as grilled/baked chicken breast or fish, limit carbohydrate intake (less pasta, breads, rice and snack foods) as well as limiting sugars (desserts etc). Important to count / track your calories and exercise as well. 2. Controlled type 2 diabetes mellitus without complication, without long-term current use of insulin (HCC) - ICD9: 250.00, ICD10: E11.9 - HEMOGLOBIN A1C Kathy Wilkins APRN.CNP Prescription instructions reviewed with patient as applicable. Patient advised if symptoms do not improve or if symptoms worsen sooner, to contact their primary care physician. Potential red flag symptoms discussed with the patient. Reviewed appropriate action plan to take if red flag symptoms occur. Patient agreeable to treatment plan. Medical Decision Making: Problems: Moderate: New problem with uncertain prognosis Data: Unique test(s) ordered: 1 Risk: Moderate: Moderate risk from testing/treatment Medical Decision Making Level: 4 - Moderate documented in this encounter [facility] 12-07-2023 Telephone encounter Note Patient has been identified by name and date of : Yes Patient phones for refill(s): Requested Prescriptions Pending Prescriptions Disp Refills metFORMIN (GLUCOPHAGE) 1,000 mg tablet 180 tablet 1 Sig: Take 1 tablet by mouth two times a day with meals. lisinopril (ZESTRIL) 5 mg tablet 90 tablet 1 Sig: Take 1 tablet by mouth once daily. glimepiride (AMARYL) 1 mg tablet 90 tablet 1 Sig: Take 1 tablet by mouth daily with breakfast. atorvastatin (LIPITOR) 10 mg tablet 90 tablet 1 Sig: TAKE 1 TABLET DAILY AT BEDTIME FOR CHOLESTEROL Date of last office visit in primary care: 08/15/2023 Date of next office visit in primary care: 12/09/2023 Please advise. Thank you. RL Dickey. [facility] 12-07-2023 Miscellaneous Notes Patient has been identified by name and date of : Yes Patient phones for refill(s): Requested Prescriptions Pending Prescriptions Disp Refills metFORMIN (GLUCOPHAGE) 1,000 mg tablet 180 tablet 1 Sig: Take 1 tablet by mouth two times a day with meals. lisinopril (ZESTRIL) 5 mg tablet 90 tablet 1 Sig: Take 1 tablet by mouth once daily. glimepiride (AMARYL) 1 mg tablet 90 tablet 1 Sig: Take 1 tablet by mouth daily with breakfast. atorvastatin (LIPITOR) 10 mg tablet 90 tablet 1 Sig: TAKE 1 TABLET DAILY AT BEDTIME FOR CHOLESTEROL Date of last office visit in primary care: 08/15/2023 Date of next office visit in primary care: 12/09/2023 Please advise. Thank you. RL Dickey. documented in this encounter [facility] 12-07-2023 Telephone encounter Note Patient has been identified by name and date of : Yes Patient phones for refill(s): Requested Prescriptions Pending Prescriptions Disp Refills sertraline (ZOLOFT) 100 mg tablet 180 tablet 1 Sig: Take 2 tablets by mouth once daily. meloxicam (MOBIC) 15 mg tablet 30 tablet 0 Sig: Take 1 tablet by mouth once daily as needed for pain. With food. Date of last office visit in primary care: 08/15/2023 Date of next office visit in primary care: 12/09/2023 Please advise. Thank you. RL Dickey. [facility] 12-07-2023 Miscellaneous Notes Patient has been identified by name and date of : Yes Patient phones for refill(s): Requested Prescriptions Pending Prescriptions Disp Refills sertraline (ZOLOFT) 100 mg tablet 180 tablet 1 Sig: Take 2 tablets by mouth once daily. meloxicam (MOBIC) 15 mg tablet 30 tablet 0 Sig: Take 1 tablet by mouth once daily as needed for pain. With food. Date of last office visit in primary care: 08/15/2023 Date of next office visit in primary care: 12/09/2023 Please advise. Thank you. RL Dickey. documented in this encounter [facility] 08-15-2023 Amari Sadlerew - 08/15/2023 2:35 PM EST Powerstep Original Full length. Can purchase at [facility] Run[employer] and boots,shoes and more here in [place], [employer] in [place] or [place]. Also can find in [place] in [facility]. Powersteps can also be purchased online, starting around $45.00 If you have a metatarsal or dancer pad for your feet apply the pad directly to the insole so you can interchange between your shoes. Find a shoe with a removable insole and take this out and replace with your powerstep insole. Always bring powersteps with you when shopping for shoes so that you can make sure that everything fits well together Diabetes Foot Care Instructions When you have diabetes, proper foot care is very important. Poor foot care may lead to amputation of a foot or leg. As a person with diabetes, you are more vulnerable to foot problems, because diabetes can damage your nerves and reduce blood flow to your feet. Here are some diabetes foot care tips to follow: Wash and Dry Your Feet Daily Use mild soaps Use warm water Pat your skin dry; do not rub. Thoroughly dry your feet. After washing, use lotion on your feet to prevent cracking. Do not put lotion between your toes. Examine Your Feet Each Day Check the tops and bottoms of your feet. Have someone else look at your feet if you cannot see them. Check for dry, cracked skin. Look for blisters, cuts, scratches, or other sores. Check for redness, increased warmth, or tenderness when touching any area of your feet. Check for ingrown toenails, corns, and calluses. If you get a blister or sore from your shoes, do not pop it. Apply a bandage and wear a different pair of shoes. Take Care of Your Toenails Cut toenails after bathing, when they are soft. Cut toenails straight across and smooth with a nail file. Avoid cutting into the corners of toes. Do not cut cuticles. If you have neuropathy (or decreased sensation in your feet) a underwriting support specialist should always cut your toenails. Be Careful When Exercising Walk and exercise in comfortable shoes. Do not exercise when you have open sores on your feet. Protect Your Feet With Shoes and Socks Never go barefoot. Always protect your feet by wearing shoes or hard-soled slippers or footwear. Avoid shoes with high heels and pointed toes. Avoid shoes that expose your toes or heels (such as open-toed shoes or sandals). These types of shoes increase your risk for injury and potential infections. Try on new footwear with the type of socks you usually wear. Do not wear new shoes for more than an hour at a time. Change your socks daily. Look and feel inside your shoes before putting them on to make sure there are no foreign objects or rough areas. Avoid tight socks. Wear natural-fiber socks (cotton, wool, or a cotton-wool blend). Wear special shoes if your health care provider recommends them. Wear shoes/boots that will protect your feet from various weather conditions (cold, moisture, etc.). Make sure your shoes fit properly. If you have neuropathy (nerve damage), you may not notice that your shoes are too tight. Perform the footwear test described below. Footwear Test Use this simple test to see if your shoes fit correctly: Stand on a piece of paper. (Make sure you are standing and not sitting, because your foot changes shape when you stand.) Trace the outline of your foot. Trace the outline of your shoe. Compare the tracings: Is the shoe too narrow? Is your foot crammed into the shoe? The shoe should be at least 1/2 inch longer than your longest toe and as wide as your foot. Proper Shoe Choices The following types of shoes are best for people with diabetes Closed toes and heels Leather uppers without a seam inside At least 1/2 inch extra space at the end of your longest toe Inside of shoe should be soft with no rough areas Outer sole should be made of stiff material Shoes should be at least as wide as your feet Tips for Foot Care in Diabetes Don't wait to treat a minor foot problem if you have diabetes. Follow your health care provider's guidelines and first aid guidelines. Report foot injuries and infections to your health care provider immediately. Check water temperature with your elbow, not your foot. Do not use a heating pad on your feet. Do not cross your legs. Do not self-treat your corns, calluses, or other foot problems. Go to your health care provider or underwriting support specialist to treat these conditions. documented in this encounter [facility] 08-15-2023 Note HNO ID: [id number] Author: ROCKY RO, ? Service: ? Author Type: Physician Type: Progress Notes Filed: 08/15/2023 14:41 Note Text: Consultation requested by Dr. Paez for an opinion regarding right foot pain. My final recommendations will be communicated back to the requesting physician by way of shared Medical record or letter to requesting physician via US mail. Initial Office Visit Subjective: This 43 year old female presents to clinic for diabetic foot check. Patient has the following complaints: right foot pain. Patient presents to clinic for evaluation of right foot. She states that she has been dealing with right foot pain for 1.5 years. She states it all started when she did a lot of walking last year in [facility]. When she returned from her [employer] trip. She rolled her right ankle and then sprained her knee. She went to rehab and was informed that her right lower extremity was weaker than the left. She did therapy and the strength in her lower extremity has improved but she still has intermittent pain to the plantar and dorsal aspect of right foot. She states that though the pain changes from the top or the bottom of right foot, pain is on a daily basis. Patient will take advil if the pain is really bad but she tries to avoid medication. Patient was prescribed mobic by Dr. Paez but he has not yet taken. Patient admits to being diabetic for 4-5 years now. Patient +B/T/N in feet at this time. Patient -pain in legs when walking. No other pedal complaints at this time. No change in medications or medical history since last visit. PAIN EVALUATION 08/15/2023 1405 Pain Level: 6 Pain Location: Foot-Right Description: Aching Duration Units: Years Frequency: Continuous Intervention/Comfort measure: Reposition;Relaxation;Medication ibuprofen Hemoglobin A1C (%) Date Value 07/22/2023 6.7 08/06/2022 6.4 10/07/2021 6.7 07/01/2021 6.8 09/23/2020 6.4 06/13/2020 7.1 03/14/2020 7.0 08/29/2019 6.4 PCP: Merlyn Paez MD PAST MEDICAL HISTORY Diagnosis Date CTS (carpal tunnel syndrome) bilateral on NCT Diabetes mellitus type II, controlled ([facility]) Eczema GERD (gastroesophageal reflux disease) Hyperlipidemia Insomnia Iron deficiency anemia Lumbar disc herniation age 24 Morbid obesity with BMI of 40.0-44.9, adult ([facility]) OCD (obsessive compulsive disorder) was on prozac and paxil in past Seasonal allergies Dr. Bassett Sleep apnea bipap, seeing Dr. Almanza Tobacco use Current Outpatient Medications Medication Sig gabapentin (NEURONTIN) 300 mg capsule Take 1-2 capsules 1 hour before bedtime. modafinil (PROVIGIL) 200 mg tablet Take 1 tablet in mid afternoon (no later than 5PM) as needed. armodafinil (NUVIGIL) 250 mg tab Take 1 tablet by mouth once daily for 180 days. meloxicam (MOBIC) 15 mg tablet Take 1 tablet by mouth once daily as needed for pain. With food. Norgestimate-Ethinyl Estradiol 0.18/0.215/0.25 mg-35 mcg (28) take 1 tablet daily sertraline (ZOLOFT) 100 mg tablet Take 2 tablets by mouth once daily. metFORMIN (GLUCOPHAGE) 1,000 mg tablet Take 1 tablet by mouth twice daily with meals. lisinopril (ZESTRIL) 5 mg tablet Take 1 tablet by mouth once daily. glimepiride (AMARYL) 1 mg tablet Take 1 tablet by mouth daily with breakfast. atorvastatin (LIPITOR) 10 mg tablet TAKE 1 TABLET DAILY AT BEDTIME FOR CHOLESTEROL CPAP Auto Bilevel PAP with humidification IPAP max 19, EPAP min 10 cmH2O, with pressure support of 4 cmH2O (Resmed). Lifetime supplies. famotidine (PEPCID ORAL) Take by mouth. CPAP Lower PAP to 17/13 cmH2O. Also please fit with a Wisp nasal mask. Current mask leaking and headgear not maintaining appropriate position. Lifetime supplies. Clindamycin-Benzoyl Peroxide 1-5 % gel Apply to affected area once daily. montelukast (SINGULAIR) 10 mg tablet Take 10 mg by mouth once daily. (Patient not taking: Reported on 08/15/2023) blood sugar diagnostic (ONETOUCH VERIO TEST STRIPS) test strip Test blood sugar(s) 1x times daily. Dx: Type 2 DM - Controlled E11.9 Insulin: No (Patient not taking: Reported on 12/23/2022) CPAP Please fit patient with a dreamwear under the nose nasal mask. Please provide download 2 weeks later. Thank you. acetaminophen (TYLENOL) 500 mg tablet Take 500 mg by mouth as needed. ipratropium bromide (ATROVENT) 42 mcg (0.06 %) nasal spray Use 2 Sprays in the nose as needed. levocetirizine dihydrochloride (LEVOCETIRIZINE ORAL) Take 1 tablet by mouth once daily. CPAP Bilevel PAP 21/17 cmH2O with humidification. A small/medium Sleep Bustos nasal mask, HUMIDITY. LIFETIME SUPPLIES. Dx: G47.33 multivitamin tablet Take 1 tablet by mouth once daily. pyridoxine, vitamin B6, (VITAMIN B-6) 100 mg tablet Take 100 mg by mouth once daily. cyanocobalamin (VITAMIN B-12) 1,000 mcg tab Take 1 tablet by mouth once daily. Cholecalciferol, Vitamin D3, 2,000 unit cap Take 1 tablet by mout (more content not included)... [facility] 08-15-2023 History of Present illness Narrative Images from the original note were not included. Consultation requested by Dr. Paez for an opinion regarding right foot pain. My final recommendations will be communicated back to the requesting physician by way of shared Medical record or letter to requesting physician via US mail. Initial Office Visit Subjective: This 43 year old female presents to clinic for diabetic foot check. Patient has the following complaints: right foot pain. Patient presents to clinic for evaluation of right foot. She states that she has been dealing with right foot pain for 1.5 years. She states it all started when she did a lot of walking last year in [facility]. When she returned from her [employer] trip. She rolled her right ankle and then sprained her knee. She went to rehab and was informed that her right lower extremity was weaker than the left. She did therapy and the strength in her lower extremity has improved but she still has intermittent pain to the plantar and dorsal aspect of right foot. She states that though the pain changes from the top or the bottom of right foot, pain is on a daily basis. Patient will take advil if the pain is really bad but she tries to avoid medication. Patient was prescribed mobic by Dr. Paez but he has not yet taken. Patient admits to being diabetic for 4-5 years now. Patient +B/T/N in feet at this time. Patient -pain in legs when walking. No other pedal complaints at this time. No change in medications or medical history since last visit. PAIN EVALUATION 08/15/2023 1405 Pain Level: 6 Pain Location: Foot-Right Description: Aching Duration Units: Years Frequency: Continuous Intervention/Comfort measure: Reposition;Relaxation;Medication ibuprofen Hemoglobin A1C (%) Date Value 07/22/2023 6.7 08/06/2022 6.4 10/07/2021 6.7 07/01/2021 6.8 09/23/2020 6.4 06/13/2020 7.1 03/14/2020 7.0 08/29/2019 6.4 PCP: Merlyn Paez MD PAST MEDICAL HISTORY Diagnosis Date CTS (carpal tunnel syndrome) bilateral on NCT Diabetes mellitus type II, controlled ([facility]) Eczema GERD (gastroesophageal reflux disease) Hyperlipidemia Insomnia Iron deficiency anemia Lumbar disc herniation age 24 Morbid obesity with BMI of 40.0-44.9, adult ([facility]CC) OCD (obsessive compulsive disorder) was on prozac and paxil in past Seasonal allergies Dr. Bassett Sleep apnea bipap, seeing Dr. Almanza Tobacco use Current Outpatient Medications Medication Sig gabapentin (NEURONTIN) 300 mg capsule Take 1-2 capsules 1 hour before bedtime. modafinil (PROVIGIL) 200 mg tablet Take 1 tablet in mid afternoon (no later than 5PM) as needed. armodafinil (NUVIGIL) 250 mg tab Take 1 tablet by mouth once daily for 180 days. meloxicam (MOBIC) 15 mg tablet Take 1 tablet by mouth once daily as needed for pain. With food. Norgestimate-Ethinyl Estradiol 0.18/0.215/0.25 mg-35 mcg (28) take 1 tablet daily sertraline (ZOLOFT) 100 mg tablet Take 2 tablets by mouth once daily. metFORMIN (GLUCOPHAGE) 1,000 mg tablet Take 1 tablet by mouth twice daily with meals. lisinopril (ZESTRIL) 5 mg tablet Take 1 tablet by mouth once daily. glimepiride (AMARYL) 1 mg tablet Take 1 tablet by mouth daily with breakfast. atorvastatin (LIPITOR) 10 mg tablet TAKE 1 TABLET DAILY AT BEDTIME FOR CHOLESTEROL CPAP Auto Bilevel PAP with humidification IPAP max 19, EPAP min 10 cmH2O, with pressure support of 4 cmH2O (Resmed). Lifetime supplies. famotidine (PEPCID ORAL) Take by mouth. CPAP Lower PAP to 17/13 cmH2O. Also please fit with a Wisp nasal mask. Current mask leaking and headgear not maintaining appropriate position. Lifetime supplies. Clindamycin-Benzoyl Peroxide 1-5 % gel Apply to affected area once daily. montelukast (SINGULAIR) 10 mg tablet Take 10 mg by mouth once daily. (Patient not taking: Reported on 08/15/2023) blood sugar diagnostic (PrismaticUCH VERIO TEST STRIPS) test strip Test blood sugar(s) 1x times daily. Dx: Type 2 DM - Controlled E11.9 Insulin: No (Patient not taking: Reported on 12/23/2022) CPAP Please fit patient with a dreamwear under the nose nasal mask. Please provide download 2 weeks later. Thank you. acetaminophen (TYLENOL) 500 mg tablet Take 500 mg by mouth as needed. ipratropium bromide (ATROVENT) 42 mcg (0.06 %) nasal spray Use 2 Sprays in the nose as needed. levocetirizine dihydrochloride (LEVOCETIRIZINE ORAL) Take 1 tablet by mouth once daily. CPAP Bilevel PAP 21/17 cmH2O with humidification. A small/medium Sleep Bustos nasal mask, HUMIDITY. LIFETIME SUPPLIES. Dx: G47.33 multivitamin tablet Take 1 tablet by mouth once daily. pyridoxine, vitamin B6, (VITAMIN B-6) 100 mg tablet Take 100 mg by mouth once daily. cyanocobalamin (VITAMIN B-12) 1,000 mcg tab Take 1 tablet by mouth once daily. Cholecalciferol, Vitamin D3, 2,000 unit cap Take 1 tablet by mouth once daily. No current facility-administered medications for this visit. ALLERGIES Allergen Reactions Amoxicillin rash and swelling Bactrim [Sulfametho* Rash Erythromycin Base rash and swelling Sulfa (Sulfonamide * bactrim rash and swelling Wellbutrin [Bupropi* Rash, Other: See Comments Chest pain PAST SURGICAL HISTORY Procedure Laterality Date COLONOSCOPY FLX DX W/COLLJ SPEC WHEN PFRMD 06/23/2016 Colonoscopy mac ESOPHAGOGASTRODUODENOSCOPY TRANSORAL DIAGNOSTIC 06/23/2016 EGD mac LIPOMA (LARGE) 02/06/2019 excision lipoma abdomen NEUROPLASTY &/TRANSPOS MEDIAN NRV CARPAL TUNNE 12/2013 right FAMILY HISTORY Problem Relation Age of Onset Depression Mother COPD Mother Diabetes Mother Depression Father OCD Father Cancer Father multiple myeloma, leukemia Bipolar disorder Brother GI Brother absorption issues ADD/ADHD Brother Ischemic Heart Disease Maternal Grandfather Cancer Paternal Grandfather esophageal other (no colon cancer) Other other (no breast cancer) Other Diabetes Other Social History Tobacco Use Smoking status: Former Packs/day: 0.25 Years: 1.00 Additional pack years: 0.00 Total pack years: 0.25 Types: Cigarettes Quit date: 03/25/2019 Years since quittin.3 Smokeless tobacco: Never Vaping Use Vaping Use: Never used Substance Use Topics Alcohol use: Yes Alcohol/week: 12.0 standard drinks of alcohol Types: 12 Cans of Beer (12oz) per week Comment: socially Drug use: No REVIEW OF SYSTEMS GENERAL: Negative for Malaise, significant weight loss, fever RESPIRATORY: Negative for cough, wheezing and shortness of breath CARDIOVASCULAR: Negative for chest pain, leg swelling and palpitations GI: Negative for abdominal discomfort, blood in stools or black stools and change in bowel habits : Negative for dysuria, frequency and incontinence MUSCULOSKELETAL: Negative for joint pain or swelling, back pain, and muscle pain. SKIN: Negative for lesions, rash, and itching. HEMATOLOGY/LYMPHOLOGY Negative for prolonged bleeding, bruising easily, and swollen nodes. ENDOCRINE: Negative for cold or heat intolerance, polyuria, polydipsia and goiter. NEURO: negative The remainder of the review of systems is noncontributory. Objective: Patient presents to clinic ambulating in eakers Constitutional: Pt is a well developed 43 year old female who is alert, oriented, cooperative and in no apparent distress. Eyes: Following during examination. No redness or drainage. Respiratory: RR normal and nonlabored. Even breathing. No evidence of distress. Psychology: Patient is engaged during conversation. Normal affect and mood. Does not appear depressed or anxious. Vasc: DP and PT pulses are palpable bilateral. CFT is less than 5 seconds bilateral. Skin temperature is warm to warm proximal to distal bilateral. There is no edema or varicosities noted. Hair growth present. Neuro: Protective sensation is intact to the foot and toes when tested with the 5.07 SWM bilateral. Vibratory sensation is decreased at the hallux bilateral. + Significant neurological defecits. Derm: Inspection and palpation performed. Nails 1-5 b/l are normal in length and thickness. Skin is dry. Hyperkeratosis noted to not present. NO ulcerations, scars, verruca or other lesions noted. Ortho: Ankle joint DF is fulll with the knee extended and full with knee flexed. No pain or crepitus noted. STJ, MTJ ROM are full and free of pain or crepitus. Muscle strength is 5/5 for dorsiflexors, plantarflexors, inverters, everters. Digital deformities include cavus foot b/l R>L. Pain to palpation of 4th ray right Assessment: (Q66.71, Q66.72) Pes cavus of both feet (primary encounter diagnosis) (M79.671, G89.29) Chronic foot pain, right diabetes Plan: 1. Patient was seen and evaluated. 2. Patient was instructed on the continued importance of diabetic foot care along with proper diet and keeping their blood sugar under control to prevent complications. Instructions given both oral and written. 3. Discussed pain in righ foot. Suspect this is related to cavus foot and placing increased pressure on lateral column. Offered repeat xrays to assure no stress fracture. She chose to hold on xray. Will try good supportive shoe with powerstep inserts. 4. If pain fails to improve, call for followup Rocky Ro DPM AMB ROOMING INTAKE FLOWSHEET DATA Pain Pain Level: 6 Pain Location: Foot-Right Description: Aching Duration Units: Years Frequency: Continuous Intervention/Comfort measure: Reposition, Relaxation, Medication (ibuprofen) Patient presents with: Right Foot - New, Pain, Numbness, Diabetic Foot Care Left Foot - Diabetic Foot Care, New Harriet Parks LPN documented in this encounter [facility] 08-15-2023 Note HNO ID: [id number] Author: HARRIET PARKS LPN Service: ? Author Type: LICENSED NURSE Type: Progress Notes Filed: 08/15/2023 14:41 Note Text: AMB ROOMING INTAKE FLOWSHEET DATA Pain Pain Level: 6 Pain Location: Foot-Right Description: Aching Duration Units: Years Frequency: Continuous Intervention/Comfort measure: Reposition, Relaxation, Medication (ibuprofen) Patient presents with: Right Foot - New, Pain, Numbness, Diabetic Foot Care Left Foot - Diabetic Foot Care, New Harriet Parks LPN [facility] 08-15-2023 Nurse Note JULIANNA BP average: BP 134/87 P 111 #1 BP 138/96 P 108 #2 BP 139/88 P 114 #3 BP 132/87 P 114 #4 BP 139/90 P 111 #5 BP 135/87 P 108 #6 BP 127/81 P 112 Lesley Cotton LPN documented in this encounter [facility] 08-15-2023 Note HNO ID: [id number] Author: KATHY WILKINS APRN.[employer] Service: ? Author Type: Nurse Practitioner Type: Progress Notes Filed: 08/15/2023 15:12 Note Text: 08/15/2023 Patient presents with: F/U 6 months SUBJECTIVE: This is a 43 year old that is here today for Above Complaints. DIABETES MELLITUS: Since our last visit she denies excessive thirst or increased frequency of urination, chest pain or dyspnea , numbness, tingling or pain in extremities, new or unusual visual symptoms, low sugar/hypoglycemic reactions, weight loss/gain, lightheadedness/dizziness, and bowel changes/loose stools. Follows a diabetic diet some of the time. She is compliant with medication(s) and is tolerating med(s) without any side effects. She reports checking her glucose on a infrequent to not at all basis schedule . Patient's last HgA1C was Hemoglobin A1C (%) Date Value 07/22/2023 6.7 08/06/2022 6.4 07/01/2021 6.8 09/23/2020 6.4 ) Last Ophthalmology exam was within the past 6 months SERGEY: Follows with sleep medicine with last appointment today. No changes in current regime PAST MEDICAL HISTORY Diagnosis Date CTS (carpal tunnel syndrome) bilateral on NCT Diabetes mellitus type II, controlled ([facility]) Eczema GERD (gastroesophageal reflux disease) Hyperlipidemia Insomnia Iron deficiency anemia Lumbar disc herniation age 24 Morbid obesity with BMI of 40.0-44.9, adult ([facility]) OCD (obsessive compulsive disorder) was on prozac and paxil in past Seasonal allergies Dr. Bassett Sleep apnea bipap, seeing Dr. Almanza Tobacco use ALLERGIES Amoxicillin, Bactrim [Sulfamethoxazole-Trimethoprim], Erythromycin Base, Sulfa (Sulfonamide Antibiotics), and Wellbutrin [Bupropion Hcl] MEDICATIONS Current Outpatient Medications Medication Sig gabapentin (NEURONTIN) 300 mg capsule Take 1-2 capsules 1 hour before bedtime. modafinil (PROVIGIL) 200 mg tablet Take 1 tablet in mid afternoon (no later than 5PM) as needed. armodafinil (NUVIGIL) 250 mg tab Take 1 tablet by mouth once daily for 180 days. meloxicam (MOBIC) 15 mg tablet Take 1 tablet by mouth once daily as needed for pain. With food. Norgestimate-Ethinyl Estradiol 0.18/0.215/0.25 mg-35 mcg (28) take 1 tablet daily sertraline (ZOLOFT) 100 mg tablet Take 2 tablets by mouth once daily. metFORMIN (GLUCOPHAGE) 1,000 mg tablet Take 1 tablet by mouth twice daily with meals. lisinopril (ZESTRIL) 5 mg tablet Take 1 tablet by mouth once daily. glimepiride (AMARYL) 1 mg tablet Take 1 tablet by mouth daily with breakfast. atorvastatin (LIPITOR) 10 mg tablet TAKE 1 TABLET DAILY AT BEDTIME FOR CHOLESTEROL CPAP Auto Bilevel PAP with humidification IPAP max 19, EPAP min 10 cmH2O, with pressure support of 4 cmH2O (Resmed). Lifetime supplies. famotidine (PEPCID ORAL) Take by mouth. CPAP Lower PAP to 17/13 cmH2O. Also please fit with a Wisp nasal mask. Current mask leaking and headgear not maintaining appropriate position. Lifetime supplies. Clindamycin-Benzoyl Peroxide 1-5 % gel Apply to affected area once daily. montelukast (SINGULAIR) 10 mg tablet Take 10 mg by mouth once daily. (Patient not taking: Reported on 08/15/2023) blood sugar diagnostic (FarmLinkTOUCH VERIO TEST STRIPS) test strip Test blood sugar(s) 1x times daily. Dx: Type 2 DM - Controlled E11.9 Insulin: No (Patient not taking: Reported on 12/23/2022) CPAP Please fit patient with a dreamwear under the nose nasal mask. Please provide download 2 weeks later. Thank you. acetaminophen (TYLENOL) 500 mg tablet Take 500 mg by mouth as needed. ipratropium bromide (ATROVENT) 42 mcg (0.06 %) nasal spray Use 2 Sprays in the nose as needed. levocetirizine dihydrochloride (LEVOCETIRIZINE ORAL) Take 1 tablet by mouth once daily. CPAP Bilevel PAP 21/17 cmH2O with humidification. A small/medium Sleep Bustos nasal mask, HUMIDITY. LIFETIME SUPPLIES. Dx: G47.33 multivitamin tablet Take 1 tablet by mouth once daily. pyridoxine, vitamin B6, (VITAMIN B-6) 100 mg tablet Take 100 mg by mouth once daily. cyanocobalamin (VITAMIN B-12) 1,000 mcg tab Take 1 tablet by mouth once daily. Cholecalciferol, Vitamin D3, 2,000 unit cap Take 1 tablet by mouth once daily. No current facility-administered medications for this visit. Medications and allergies reviewed by this provider. SOCIAL HISTORY Social History Tobacco Use Smoking status: Former Packs/day: 0.25 Years: 1.00 Additional pack years: 0.00 Total pack years: 0.25 Types: Cigarettes Quit date: 03/25/2019 Years since quittin.3 Smokeless tobacco: Never Vaping Use Vaping Use: Never used Substance Use Topics Alcohol use: Yes Alcohol/week: 12.0 standard drinks of alcohol Types: 12 Cans of Beer (12oz) per week Comment: socially Drug use: No REVIEW OF SYSTEMS All other reviewed and negative other than HPI. OBJECTIVE: BP 134/87 Pulse 111 Resp 18 Wt 115.1 kg (253 lb 12.8 oz) LMP (LMP Unknown) SpO2 98% BMI (more content not included)... [facility] 08-15-2023 History of Present illness Narrative 08/15/2023 Patient presents with: F/U 6 months SUBJECTIVE: This is a 43 year old that is here today for Above Complaints. DIABETES MELLITUS: Since our last visit she denies excessive thirst or increased frequency of urination, chest pain or dyspnea , numbness, tingling or pain in extremities, new or unusual visual symptoms, low sugar/hypoglycemic reactions, weight loss/gain, lightheadedness/dizziness, and bowel changes/loose stools. Follows a diabetic diet some of the time. She is compliant with medication(s) and is tolerating med(s) without any side effects. She reports checking her glucose on a infrequent to not at all basis schedule . Patient's last HgA1C was Hemoglobin A1C (%) Date Value 07/22/2023 6.7 08/06/2022 6.4 07/01/2021 6.8 09/23/2020 6.4 ) Last Ophthalmology exam was within the past 6 months SERGEY: Follows with sleep medicine with last appointment today. No changes in current regime PAST MEDICAL HISTORY Diagnosis Date CTS (carpal tunnel syndrome) bilateral on NCT Diabetes mellitus type II, controlled (HCC) Eczema GERD (gastroesophageal reflux disease) Hyperlipidemia Insomnia Iron deficiency anemia Lumbar disc herniation age 24 Morbid obesity with BMI of 40.0-44.9, adult (HCC) OCD (obsessive compulsive disorder) was on prozac and paxil in past Seasonal allergies Dr. Bassett Sleep apnea bipap, seeing Dr. Almanza Tobacco use ALLERGIES Amoxicillin, Bactrim [Sulfamethoxazole-Trimethoprim], Erythromycin Base, Sulfa (Sulfonamide Antibiotics), and Wellbutrin [Bupropion Hcl] MEDICATIONS Current Outpatient Medications Medication Sig gabapentin (NEURONTIN) 300 mg capsule Take 1-2 capsules 1 hour before bedtime. modafinil (PROVIGIL) 200 mg tablet Take 1 tablet in mid afternoon (no later than 5PM) as needed. armodafinil (NUVIGIL) 250 mg tab Take 1 tablet by mouth once daily for 180 days. meloxicam (MOBIC) 15 mg tablet Take 1 tablet by mouth once daily as needed for pain. With food. Norgestimate-Ethinyl Estradiol 0.18/0.215/0.25 mg-35 mcg (28) take 1 tablet daily sertraline (ZOLOFT) 100 mg tablet Take 2 tablets by mouth once daily. metFORMIN (GLUCOPHAGE) 1,000 mg tablet Take 1 tablet by mouth twice daily with meals. lisinopril (ZESTRIL) 5 mg tablet Take 1 tablet by mouth once daily. glimepiride (AMARYL) 1 mg tablet Take 1 tablet by mouth daily with breakfast. atorvastatin (LIPITOR) 10 mg tablet TAKE 1 TABLET DAILY AT BEDTIME FOR CHOLESTEROL CPAP Auto Bilevel PAP with humidification IPAP max 19, EPAP min 10 cmH2O, with pressure support of 4 cmH2O (Resmed). Lifetime supplies. famotidine (PEPCID ORAL) Take by mouth. CPAP Lower PAP to 17/13 cmH2O. Also please fit with a Wisp nasal mask. Current mask leaking and headgear not maintaining appropriate position. Lifetime supplies. Clindamycin-Benzoyl Peroxide 1-5 % gel Apply to affected area once daily. montelukast (SINGULAIR) 10 mg tablet Take 10 mg by mouth once daily. (Patient not taking: Reported on 08/15/2023) blood sugar diagnostic (PrismaticUCH VERIO TEST STRIPS) test strip Test blood sugar(s) 1x times daily. Dx: Type 2 DM - Controlled E11.9 Insulin: No (Patient not taking: Reported on 12/23/2022) CPAP Please fit patient with a dreamwear under the nose nasal mask. Please provide download 2 weeks later. Thank you. acetaminophen (TYLENOL) 500 mg tablet Take 500 mg by mouth as needed. ipratropium bromide (ATROVENT) 42 mcg (0.06 %) nasal spray Use 2 Sprays in the nose as needed. levocetirizine dihydrochloride (LEVOCETIRIZINE ORAL) Take 1 tablet by mouth once daily. CPAP Bilevel PAP 21/17 cmH2O with humidification. A small/medium Sleep Bustos nasal mask, HUMIDITY. LIFETIME SUPPLIES. Dx: G47.33 multivitamin tablet Take 1 tablet by mouth once daily. pyridoxine, vitamin B6, (VITAMIN B-6) 100 mg tablet Take 100 mg by mouth once daily. cyanocobalamin (VITAMIN B-12) 1,000 mcg tab Take 1 tablet by mouth once daily. Cholecalciferol, Vitamin D3, 2,000 unit cap Take 1 tablet by mouth once daily. No current facility-administered medications for this visit. Medications and allergies reviewed by this provider. SOCIAL HISTORY Social History Tobacco Use Smoking status: Former Packs/day: 0.25 Years: 1.00 Additional pack years: 0.00 Total pack years: 0.25 Types: Cigarettes Quit date: 03/25/2019 Years since quittin.3 Smokeless tobacco: Never Vaping Use Vaping Use: Never used Substance Use Topics Alcohol use: Yes Alcohol/week: 12.0 standard drinks of alcohol Types: 12 Cans of Beer (12oz) per week Comment: socially Drug use: No REVIEW OF SYSTEMS All other reviewed and negative other than HPI. OBJECTIVE: BP 134/87 Pulse 111 Resp 18 Wt 115.1 kg (253 lb 12.8 oz) LMP (LMP Unknown) SpO2 98% BMI 39.75 kg/m . Vital signs reviewed by this provider. APPEARANCE Well appearing, alert, in no acute distress, well-hydrated, well nourished. EYES conjunctiva and sclera normal. HEART RRR with normal S1 and S2, no murmurs, no gallops, no JVD appreciated LUNG clear to auscultation. No wheezes, rhonchi or rales EXTREMITIES Extremities normal, No deformities, No skin discoloration, and No edema SKIN Skin color, texture, turgor normal, no suspicious rashes or lesions to exposed skin Component Latest Ref Rng & Units 07/22/2023 WBC 3.70 - 11.00 k/uL 10.49 RBC 3.90 - 5.20 m/uL 4.08 Hemoglobin 11.5 - 15.5 g/dL 11.9 Hematocrit 36.0 - 46.0 % 37.3 MCV 80.0 - 100.0 fL 91.4 MCH 26.0 - 34.0 pg 29.2 MCHC 30.5 - 36.0 g/dL 31.9 RDW-CV 11.5 - 15.0 % 13.7 Platelet Count 150 - 400 k/uL 342 MPV 9.0 - 12.7 fL 10.2 Neut% % 59.1 Abs Neut (ANC) 1.45 - 7.50 k/uL 6.21 Lymph% % 30.3 Abs Lymph 1.00 - 4.00 k/uL 3.18 [place]% % 6.7 Abs [place] <0.87 k/uL 0.70 Eosin% % 2.5 Abs Eosin <0.46 k/uL 0.26 Baso% % 0.8 Abs Baso <0.11 k/uL 0.08 Immature Gran % % 0.6 IMMATURE GRANS (ABS) <0.10 k/uL 0.06 NRBC /100 WBC 0.0 Absolute nRBC <0.01 k/uL <0.01 DTYPE Auto Protein, Total 6.3 - 8.0 g/dL 7.4 Albumin 3.9 - 4.9 g/dL 4.4 Calcium 8.5 - 10.2 mg/dL 9.9 Bilirubin, Total 0.2 - 1.3 mg/dL 0.2 Alkaline Phosphatase 34 - 123 U/L 69 AST 13 - 35 U/L 23 ALT 7 - 38 U/L 25 Glucose 74 - 99 mg/dL 150 (H) BUN 7 - 21 mg/dL 11 Creatinine 0.58 - 0.96 mg/dL 0.47 (L) Sodium 136 - 144 mmol/L 137 Potassium 3.7 - 5.1 mmol/L 4.9 Chloride 97 - 105 mmol/L 98 CO2 22 - 30 mmol/L 24 Anion Gap 9 - 18 mmol/L 15 eGFR >=60 mL/min/1.73m 121 Total Cholesterol, Nonfasting <200 mg/dL 188 Triglycerides, Nonfasting <150 mg/dL 231 (H) HDL Cholesterol, Nonfasting >39 mg/dL 58 LDL Cholesterol, Nonfasting <100 mg/dL 84 Non HDL Cholesterol, Nonfasting <130 mg/dL 130 (H) VLDL Cholesterol, Nonfasting <30 mg/dL 46 (H) Total Chol/HDL Ratio, Nonfasting <5.10 mg/dL 3.24 LDL/HDL Ratio, Nonfasting <2.54 mg/dL 1.45 Creatinine, Ur Random (UCRR) 20.0 - 300.0 mg/dL 85.5 Albumin, Urine Random mg/L 23.1 Albumin/Creat Ratio <30 mg/g 27 Iron 41 - 186 ug/dL 82 TIBC 232 - 386 ug/dL 391 (H) Transferrin Saturation 15.0 - 57.0 % 21.0 Hemoglobin A1C 4.3 - 5.6 % 6.7 (H) Estimated Average Glucose mg/dL 146 Ferritin 14.7 - 205.1 ng/mL 310.0 (H) Hepatitis C Screening Never done HIV Screening Never done Dilated Retinal Exam due on 08/03/2022 Pap Testing due on 09/23/2022 HPV Testing due on 09/23/2022 Influenza Vaccine(1) due on 03/11/2023 Covid-19 Vaccine( season) due on 03/11/2023 Depression Assessment due on 07/11/2023 Diabetic Foot Exam due on 08/10/2023 HbA1C due on 01/20/2024 Mammogram Screening due on 03/02/2024 Urine Albumin:Creatinine Ratio due on 07/22/2024 LDL Cholesterol due on 07/22/2024 Annual PCP Team Chronic Disease Visit due on 08/15/2024 DTaP,Tdap,Td Vaccine(3 - Td or Tdap) due on 01/20/2026 Hepatitis B Vaccine Completed Pneumococcal Vaccine Completed HPV Vaccine Aged Out ASSESSMENT/PLAN: 1. Controlled type 2 diabetes mellitus without complication, without long-term current use of insulin (HCC) - ICD9: 250.00, ICD10: E11.9 (primary diagnosis) - Controlled - Continue current medications - Statin prescribed - atorvastatin - Blood glucose monitoring on a once daily schedule - Discussed need for and benefit of weight loss. BMI 39.75 kg/(m^2) - Discussed diabetic education issues of diabetes complications and monitoring required - Follow up in 6 months, sooner should any other issues arise. - HGB A1C - COMP METABOLIC PANEL 2. SERGEY on CPAP - ICD9: 327.23, ICD10: G47.33 - stable on current regime - follow-up with sleep medicine 3. Iron deficiency anemia, unspecified iron deficiency anemia type - ICD9: 280.9, ICD10: D50.9 - stable on current regime 4. Class 2 obesity with body mass index (BMI) of 39.0 to 39.9 in adult, unspecified obesity type, unspecified whether serious comorbidity present - ICD9: 278.00, V85.39, ICD10: E66.9, Z68.39 Weight increasing - Behavioral intervention - Lengthy discussion in office today regarding diet and exercise. Discussed use of small plate to eat meals from, drink 1 glass of water 10-15 minutes prior to eating meal, drink 8 glasses of water daily, eat fresh fruit and vegetable during meal first then lean protein such as grilled/baked chicken breast or fish, limit carbohydrate intake (less pasta, breads, rice and snack foods) as well as limiting sugars (desserts etc). Important to count / track your calories and exercise as well. Kathy Wilkins APRN.CNP Prescription instructions reviewed with patient as applicable. Patient advised if symptoms do not improve or if symptoms worsen sooner, to contact their primary care physician. Potential red flag symptoms discussed with the patient. Reviewed appropriate action plan to take if red flag symptoms occur. Patient agreeable to treatment plan. Medical Decision Making: Problems: Moderate: 2+ stable chronic illnesses and New problem with uncertain prognosis Risk: Moderate: Drug management Medical Decision Making Level: 4 - Moderate documented in this encounter [facility] 08-15-2023 Note HNO ID: [id number] Author: AARON ALMANZA JR, MD Service: ? Author Type: Physician Type: Progress Notes Filed: 08/15/2023 13:01 Note Text: ESTABLISHED PATIENT VISIT CHIEF COMPLAINT: Follow Up HISTORY OF PRESENT ILLNESS: Sushma Botello is a 43 year old female, BMI 39.41 kg/m2 with a PMH significant for and per last office visit note of 01/31/23: 1. RLS (restless legs syndrome) - ICD9: 333.94, ICD10: G25.81 (primary diagnosis) Stable as above. No changes in meds. Rx provided for gabapentin 300-600mg QHS. 2. Obstructive sleep apnea syndrome - ICD9: 327.23, ICD10: G47.33 No PAP complaints. Subjective and Objective compliance confirmed with perceived benefit. Pt however is in need of new PAP device. Given goal of weight loss and possible need for less pressure in future, will request that new device is an auto-bilevel PAP with humidification set at IPAP max of 20 and EPAP min of 10 with PS of 4 cmH2O. Reminded pt to clean and replace equipment regularly. 3. Hypersomnia - ICD9: 780.54, ICD10: G47.10 4. Circadian rhythm disorder - ICD9: 327.30, ICD10: G47.20 5. Insufficient sleep syndrome - ICD9: 307.44, ICD10: F51.12 Worsening daytime sleepiness in late afternoon that I suspect is multifactorial including change in circadian pattern due to needing to provide her dog medications after midnight as well as insufficient sleep. Recommended pt try to sleep as in the past, going to bed around 9-10PM, but then wake up to give medications and then return to bed. This way not only would patient return to prior circadian pattern but also increase the amount of PAP use during the night (otherwise falling asleep on sofa without PAP). She will try. In meantime, will also provide, in addition to her Nuvigil 250mg in AM, Provigil 100 to 200mg in mid to late afternoon in case needing to be up during early evening hours. SE and ADRs d/w pt. She agrees with plan. Advised pt not to drive or operate heavy machinery if sleepy. Note BP stable and no cardiac symptoms. 6. Class 2 obesity with body mass index (BMI) of 39.0 to 39.9 in adult, unspecified obesity type, unspecified whether serious comorbidity present - ICD9: 278.00, V85.39, ICD10: E66.9, Z68.39 Encouraged weight loss. After d/w pt, will make referral to: - CONSULT TO [facility] ([place]) 7. Long-term use of high-risk medication - ICD9: V58.69, ICD10: Z79.899 - TOX SCREEN ROUT UR PAP data download for past 90 days shows 90/90 with avg use of 9 hours and 44 minutes. PAP set at 17/13 cmH2O. AHI is 1.9. 95% leak is 7.2 LPM. Addition of Provigil to Nuvigil is helping and when takes, will do so about 4PM, and that helps her stay awake once home. Does not remember to take it everyday. Pt states that still going to bed too late and waking up too late. Currently going to bed about MN-1AM and waking about 9AM. However, should be at work by 9AM. Alarm is set for 7AM. RLS is doing well. Taking Gabapentin 600mg nightly. No longer taking Trazodone. No longer falling asleep driving. If takes Provigil, definitely no issues falling asleep in afternoon. Provigil will let her stay up until bedtime. No PAP complaints. Has not contacted bariatric med yet. Sleep Questionnaire Data Depression Screening 04/19/2022 08/10/2022 01/27/2023 PHQ-2 Score 0 0 0 PHQ-9 Score 3 - 3 PED PHQ-9 04/19/2022 08/10/2022 01/27/2023 Little interest or pleasure in doing things Not at all - Not at all Feeling down, depressed, or hopeless Not at all - Not at all Trouble falling or staying asleep, or sleeping too much Not at all - Several days Feeling tired or having little energy More than half the days - Several days Poor appetite or overeating Not at all - Not at all Feeling bad about yourself - or that you are a failure or have let yourself or your family down Not at all - Not at all Trouble concentrating on things, such as reading the newspaper or watching television Several days - Several days Moving or speaking so slowly that other people could have noticed. Or the opposite - being so fidgety or restless that you have been moving around a lot more than usual Not at all - Not at all Thoughts that you would be better off , or of hurting yourself in some way Not at all - Not at all If you checked off any problems, how difficult have these problems made it for you to do your work, take care of things at home, or get along with other people? Somewhat difficult - Somewhat difficult PHQ-9 Score 3 (None-Minimal Depression) - 3 (None-Minimal Depression) [place] Sleepiness Scale 04/19/2022 08/10/2022 01/27/2023 Score 11 (present daytime sleepiness) - 13 (present daytime sleepiness) REVIEW OF SYSTEMS GENERAL:No weight loss, malaise or fevers. HEENT:Negative for frequent or significant headaches, No changes in hearing or vision, no nose bleeds or other nasal problems NECK:Negative for lumps, goiter, pain and significant neck swelling RESPIRATORY: Negative fo (more content not included)... [facility] 07-22-2023 History of Present illness Narrative Radiology Service Progress Note PATIENT NAME: Sushma Botello DATE OF SERVICE: July 22, 2023 TIME: 12:17 PM PATIENT IDENTITY VERIFICATION COMPLETED USING TWO (2) IDENTIFIERS: Name and Date of confirmed by patient verbally. FALL SCREENING: Has the patient had 2 falls in the last year or 1 fall with injury or currently using an Ambulatory Assistive Device (Walker, Cane, Wheelchair, Crutches, etc.)? No PATIENT GENDER DATA: Female. status: : No status: NO. PATIENT RELEVANT IMPLANT DATA REVIEWED: Yes RADIOLOGY DEPARTMENT: General X-ray: Exam(s) Completed: Lower Extremity X-Ray(s): Foot, Right PERIPHERAL IV DATA: Not applicable SIGNED BY: RT Jovany([place]) July 22, 2023 12:17 PM documented in this encounter [facility] 07-22-2023 Note HNO ID: [id number] Author: STEVEN LOO RT(R) Service: ? Author Type: Medical Office Supervisor Type: Progress Notes Filed: 07/22/2023 12:28 Note Text: Radiology Service Progress Note PATIENT NAME: Sushma Botello DATE OF SERVICE: July 22, 2023 TIME: 12:17 PM PATIENT IDENTITY VERIFICATION COMPLETED USING TWO (2) IDENTIFIERS: Name and Date of confirmed by patient verbally. FALL SCREENING: Has the patient had 2 falls in the last year or 1 fall with injury or currently using an Ambulatory Assistive Device (Walker, Cane, Wheelchair, Crutches, etc.)? No PATIENT GENDER DATA: Female. status: : No status: NO. PATIENT RELEVANT IMPLANT DATA REVIEWED: Yes RADIOLOGY DEPARTMENT: General X-ray: Exam(s) Completed: Lower Extremity X-Ray(s): Foot, Right PERIPHERAL IV DATA: Not applicable SIGNED BY: RT Jovany([place]) July 22, 2023 12:17 PM [facility] 07-22-2023 Note HNO ID: [id number] Author: MERLYN PAEZ MD Service: ? Author Type: Physician Type: Progress Notes Filed: 07/26/2023 15:01 Note Text: Chief Complaint Patient presents with: Follow Up: Right foot pain HPI Sushma Botello is a 43 year old female who presents here today for Above Complaints.. Patient referred to PT back in February after complaining of persistent pain x 1 year. Patient attended total of 10 sessions with last on 05/11 with discontinuation due to maximal benefit and was referred back to our office for continued RLE numbnes with relief for only a few hours with HEP. Today, states that her foot pain has improved, but has not completely resolved and flares up with more than 10,000 steps which is frequent. Has pain on the top of her foot, described as aching, currently 3/10. Has numbness on the bottom of her foot and tingling into her toes. Aside from HEP, not treating with anything OTC regularly or using ice/heat. Denies redness, swelling, bruising, new injury, limited ROM, weakness. Past medical history, appointments, medications, allergies reviewed. Previous Medical History PAST MEDICAL HISTORY Diagnosis Date CTS (carpal tunnel syndrome) bilateral on NCT Diabetes mellitus type II, controlled ([facility]) Eczema GERD (gastroesophageal reflux disease) Hyperlipidemia Insomnia Iron deficiency anemia Lumbar disc herniation age 24 Morbid obesity with BMI of 40.0-44.9, adult ([facility]) OCD (obsessive compulsive disorder) was on prozac and paxil in past Seasonal allergies Dr. Bassett Sleep apnea bipap, seeing Dr. Almanza Tobacco use Previous Surgical History PAST SURGICAL HISTORY Procedure Laterality Date COLONOSCOPY FLX DX W/COLLJ SPEC WHEN PFRMD 06/23/2016 Colonoscopy mac ESOPHAGOGASTRODUODENOSCOPY TRANSORAL DIAGNOSTIC 06/23/2016 EGD mac LIPOMA (LARGE) 02/06/2019 excision lipoma abdomen NEUROPLASTY AND/TRANSPOS MEDIAN NRV CARPAL TUNNE 12/2013 right Family History FAMILY HISTORY Problem Relation Age of Onset Depression Mother COPD Mother Diabetes Mother Depression Father OCD Father Cancer Father multiple myeloma, leukemia Bipolar disorder Brother GI Brother absorption issues ADD/ADHD Brother Ischemic Heart Disease Maternal Grandfather Cancer Paternal Grandfather esophageal other (no colon cancer) Other other (no breast cancer) Other Diabetes Other Patient Allergies ALLERGIES Allergen Reactions Amoxicillin rash and swelling Bactrim [Sulfametho* Rash Erythromycin Base rash and swelling Sulfa (Sulfonamide * bactrim rash and swelling Wellbutrin [Bupropi* Rash, Other: See Comments Chest pain Current Medications Current Outpatient Medications on File Prior to Visit Medication Sig Norgestimate-Ethinyl Estradiol 0.18/0.215/0.25 mg-35 mcg (28) take 1 tablet daily sertraline (ZOLOFT) 100 mg tablet Take 2 tablets by mouth once daily. metFORMIN (GLUCOPHAGE) 1,000 mg tablet Take 1 tablet by mouth twice daily with meals. lisinopril (ZESTRIL) 5 mg tablet Take 1 tablet by mouth once daily. glimepiride (AMARYL) 1 mg tablet Take 1 tablet by mouth daily with breakfast. atorvastatin (LIPITOR) 10 mg tablet TAKE 1 TABLET DAILY AT BEDTIME FOR CHOLESTEROL gabapentin (NEURONTIN) 300 mg capsule Take 1-2 capsules 1 hour before bedtime. traZODone (DESYREL) 50 mg tablet Take 1 tablet by mouth daily at bedtime. CPAP Auto Bilevel PAP with humidification IPAP max 19, EPAP min 10 cmH2O, with pressure support of 4 cmH2O (Resmed). Lifetime supplies. armodafinil (NUVIGIL) 250 mg tab Take 1 tablet by mouth once daily for 180 days. modafinil (PROVIGIL) 200 mg tablet Take 1 tablet in mid afternoon (no later than 5PM) as needed. famotidine (PEPCID ORAL) Take by mouth. CPAP Lower PAP to 17/13 cmH2O. Also please fit with a Wisp nasal mask. Current mask leaking and headgear not maintaining appropriate position. Lifetime supplies. Clindamycin-Benzoyl Peroxide 1-5 % gel Apply to affected area once daily. montelukast (SINGULAIR) 10 mg tablet Take 10 mg by mouth once daily. blood sugar diagnostic (PrismaticUCH VERIO TEST STRIPS) test strip Test blood sugar(s) 1x times daily. Dx: Type 2 DM - Controlled E11.9 Insulin: No (Patient not taking: Reported on 12/23/2022) CPAP Please fit patient with a dreamwear under the nose nasal mask. Please provide download 2 weeks later. Thank you. acetaminophen (TYLENOL) 500 mg tablet Take 500 mg by mouth as needed. ipratropium bromide (ATROVENT) 42 mcg (0.06 %) nasal spray Use 2 Sprays in the nose as needed. levocetirizine dihydrochloride (LEVOCETIRIZINE ORAL) Take 1 tablet by mouth once daily. CPAP Bilevel PAP 21/17 cmH2O with humidification. A small/medium Sleep Bustos nasal mask, HUMIDITY. LIFETIME SUPPLIES. Dx: G47.33 multivitamin tablet Take 1 tablet by mouth once daily. pyridoxine, vitamin B6, (VITAMIN B-6) 100 mg tablet Take 100 mg by mouth once daily. cyanocobala (more content not included)... [facility] 11-01-2023 Note HNO ID: [id number] Author: Fanta Kiran, PT Service: ? Author Type: Physical Therapist Type: Progress Notes Filed: 05/11/2023 1:23 PM Note Text: Episode Visit Count: 10 Therapist That Will Accept/Oversee The Plan Of Care: Fanta Kiran Start of Care Date: 02/28/23 Onset Date: 02/28/22 Plan of Care Certification Date: 04/11/23 Next Certification Due Date: 05/16/23 REHABILITATION AND SPORTS THERAPY PHYSICAL THERAPY DISCONTINUANCE OF CARE PLAN OF CARE UPDATE: Assessment: Sushma Botello is discontinued from Physical Therapy services due to maximal benefit.. Patient was seen for 10 visits from Start of Care Date: 02/28/23 to 05/11/2023 and treatment included: Therapeutic exercise, Neuromuscular re-education, Manual therapy, Self-alf management, and Gait training. Goals for Episode of Care: created on 02/28/23 through 04/11/23 Goals updated on 04/11/2023 through 05/16/23 Goals updated on 05/11/2023. [place] in home exercise program. -- MET Patient will decrease pain to 1 or less/10 with functional activities to allow patient to improve ambulation, transfers, and standing tolerance for ADLs. -- NOT MET, 2/10 reported Patient will demonstrate increase in right hip abductors, extension, and ER strength to 4/5 during manual muscle testing in order to improve function for prior functional tasks and work tasks. -- MET Perform sit <>stand from various surfaces without right ankle or knee Pain. -- MET Normal gait. --MET Patient Goals: improve right knee stabilty and reduce right foot pain -- MET SUBJECTIVE: Pt. reports that she notices that her pain is worse when she does not do the HEP. She uses a roller for STM on the RLE foot which reduces numbness and pain which resolves for a couple hours. She has been putting conscious effort into being mindful of her gait pattern. No longer has knee swelling.. Patient Goals: improve right knee stabilty and reduce right foot pain Functional Limitations: walking (>12,000 steps) Pain: Pain Pain Level: 2 Pain Location: Foot - Right Pain Level 2: 0 Pain Location 2: Knee - Right Post Treatment Pain Post Treatment Pain Location 2: Foot - Right PROMIS Scales Higher is Better 05/11/2023 02/28/2023 Phys Func - Score 54 (within normal limits) 47 (within normal limits) Phys Func - Percentile 66 % 38 % Self-Eff Symptom - Score 59 (Average) 49 (Average) Self-Eff Symptom - Percentile 82 % 46 % T-scores: mean of general population = 50. 5 points is clinically meaningfully difference Percentiles provide an indication of how the patient's score ranks in relation to the general population. Higher percentile rankings indicate better function/quality of life. 50th percentile is the average of the general population and indicates half of respondents had a worse score. OBJECTIVE MEASURES WITH LEVEL OF FUNCTION: LE AROM R Ankle Dorsiflexion: 26 Degrees R Ankle Plantar Flexion: 64 Degrees R Ankle Inversion: 47 R Ankle Eversion: 29 Gait Gait Observation: unremarkable, heel strike and toe push off demostrated with RLE TREATMENT: Therapeutic Exercise: 1: Seated Sciatic Tensioner - 2 x daily - 7 x weekly - 3 sets - 15 reps - 1 hold - Seated Plantar Fascia Mobilization with Small Ball - 2 x daily - 7 x weekly - 1 sets - 2-5 hold - Standing Hip Hiking - 1 x daily - 7 x weekly - 2 sets - 10 reps - 1 hold 2: seated R ankle DF, PF, INV, and EVR 1x each Skilled Intervention: Skilled judgment was used in selection of appropriate interventions. Provided written instruction for home exercise program to facilitate proper performance and compliance. Educated patient on rationale for performing exercises in regards to decreasing fatigue , increase ease of ADL, and ROM and function . Patient education as noted. Gait Training: Gait Cues: none needed 1: walking 50' no cues needed to heel strike Skilled Intervention: Patient was provided independence during pre-gait/gait training to prevent falls and insure safety. Self-Senior Care Management: 1: *discussed PT advise for pt. to return to physician due to continued RLE numbness with relief for only a few hours with HEP. Pt. may be referred to a underwriting support specialist by referring provider. 2: *at length discussed HEP changes and exercises that pt. finds least effective. Skilled Intervention: Skilled judgment in the selection of proper modification for activity of daily living/home management based on clinical presentation, deficits, and needs. Provided written instruction for activities of daily living techniques to facilitate proper performance and compliance. Activity progression based on professional judgement. Billing Therapeutic Exercise Treatment Minutes: 15 Self-Care/Home Management Treatment Minutes: 20 Gait Training Treatment Minutes: 5 Total Session Time (minutes): 40 Session Start Time : 1240 Session Stop Time : 1320 Fanta Kiran, PT [facility] 05-11-2023 History of Present illness Narrative Episode Visit Count: 10 Therapist That Will Accept/Oversee The Plan Of Care: Fanta Kiran Start of Care Date: 02/28/23 Onset Date: 02/28/22 Plan of Care Certification Date: 04/11/23 Next Certification Due Date: 05/16/23 REHABILITATION AND SPORTS THERAPY PHYSICAL THERAPY DISCONTINUANCE OF CARE PLAN OF CARE UPDATE: Assessment: Sushma Botello is discontinued from Physical Therapy services due to maximal benefit.. Patient was seen for 10 visits from Start of Care Date: 02/28/23 to 05/11/2023 and treatment included: Therapeutic exercise, Neuromuscular re-education, Manual therapy, Self-alf management, and Gait training. Goals for Episode of Care: created on 02/28/23 through 04/11/23 Goals updated on 04/11/2023 through 05/16/23 Goals updated on 05/11/2023. [place] in home exercise program. -- MET Patient will decrease pain to 1 or less/10 with functional activities to allow patient to improve ambulation, transfers, and standing tolerance for ADLs. -- NOT MET, 2/10 reported Patient will demonstrate increase in right hip abductors, extension, and ER strength to 4/5 during manual muscle testing in order to improve function for prior functional tasks and work tasks. -- MET Perform sit <>stand from various surfaces without right ankle or knee Pain. -- MET Normal gait. --MET Patient Goals: improve right knee stabilty and reduce right foot pain -- MET SUBJECTIVE: Pt. reports that she notices that her pain is worse when she does not do the HEP. She uses a roller for STM on the RLE foot which reduces numbness and pain which resolves for a couple hours. She has been putting conscious effort into being mindful of her gait pattern. No longer has knee swelling.. Patient Goals: improve right knee stabilty and reduce right foot pain Functional Limitations: walking (>12,000 steps) Pain: Pain Pain Level: 2 Pain Location: Foot - Right Pain Level 2: 0 Pain Location 2: Knee - Right Post Treatment Pain Post Treatment Pain Location 2: Foot - Right PROMIS Scales Higher is Better 05/11/2023 02/28/2023 Phys Func - Score 54 (within normal limits) 47 (within normal limits) Phys Func - Percentile 66 % 38 % Self-Eff Symptom - Score 59 (Average) 49 (Average) Self-Eff Symptom - Percentile 82 % 46 % T-scores: mean of general population = 50. 5 points is clinically meaningfully difference Percentiles provide an indication of how the patient's score ranks in relation to the general population. Higher percentile rankings indicate better function/quality of life. 50th percentile is the average of the general population and indicates half of respondents had a worse score. OBJECTIVE MEASURES WITH LEVEL OF FUNCTION: LE AROM R Ankle Dorsiflexion: 26 Degrees R Ankle Plantar Flexion: 64 Degrees R Ankle Inversion: 47 R Ankle Eversion: 29 Gait Gait Observation: unremarkable, heel strike and toe push off demostrated with RLE TREATMENT: Therapeutic Exercise: 1: Seated Sciatic Tensioner - 2 x daily - 7 x weekly - 3 sets - 15 reps - 1 hold - Seated Plantar Fascia Mobilization with Small Ball - 2 x daily - 7 x weekly - 1 sets - 2-5 hold - Standing Hip Hiking - 1 x daily - 7 x weekly - 2 sets - 10 reps - 1 hold 2: seated R ankle DF, PF, INV, and EVR 1x each Skilled Intervention: Skilled judgment was used in selection of appropriate interventions. Provided written instruction for home exercise program to facilitate proper performance and compliance. Educated patient on rationale for performing exercises in regards to decreasing fatigue , increase ease of ADL, and ROM and function . Patient education as noted. Gait Training: Gait Cues: none needed 1: walking 50' no cues needed to heel strike Skilled Intervention: Patient was provided independence during pre-gait/gait training to prevent falls and insure safety. Self-Senior Care Management: 1: *discussed PT advise for pt. to return to physician due to \continued RLE numbness with relief for only a few hours with HEP. Pt. may be referred to a underwriting support specialist by referring provider. 2: *at length discussed HEP changes and exercises that pt. finds least effective. Skilled Intervention: Skilled judgment in the selection of proper modification for activity of daily living/home management based on clinical presentation, deficits, and needs. Provided written instruction for activities of daily living techniques to facilitate proper performance and compliance. Activity progression based on professional judgement. Billing Therapeutic Exercise Treatment Minutes: 15 Self-Care/Home Management Treatment Minutes: 20 Gait Training Treatment Minutes: 5 Total Session Time (minutes): 40 Session Start Time : 1240 Session Stop Time : 1320 Fanta Kiran PT documented in this encounter [facility] 04-25-2023 Note HNO ID: [id number] Author: Fanta Kiran PT Service: ? Author Type: Physical Therapist Type: Progress Notes Filed: 04/25/2023 4:02 PM Note Text: Episode Visit Count: 9 Therapist That Will Accept/Oversee The Plan Of Care: Fanta Kiran Start of Care Date: 02/28/23 Onset Date: 02/28/22 Plan of Care Certification Date: 04/11/23 Next Certification Due Date: 05/16/23 REHABILITATION AND SPORTS THERAPY PHYSICAL THERAPY TREATMENT NOTE ASSESSMENT: Sushma Botello tolerated the session with increased symptoms. She demonstrated difficulty with increased right medial arch symptoms with toe towel scrunch and weight bearing activities as opposed to sitting. Denies knee pain. Gastroc stretching exercises do reduce symptoms, however, she continues to have some foot pain following exercises that emphasize hip stabilzation strengthening. The patient will continue to benefit from ongoing skilled physical therapy to progress toward set goals. PLAN FOR NEXT VISIT: assess symptom response to increased frequency of lacross ball massage at home with ball or rolling pin. SUBJECTIVE: Pt. reports 20,000 steps on Tuesday and increased R foot pain today. Lacrosse ball self STM does help but pt. states she is not sure if it will heal anything. Pt. reports my knee pain is completely gone. Foot pain does reduce with weight bearing. Pain: Pain Pain Level: 4 Pain Location: Foot - Right Description: ( just pain. lateral plantar surface and dorsal foot) Pain Level 2: 0 Pain Location 2: Knee - Right Post Treatment Pain Post Treatment Pain Level: 0 Post Treatment Pain Location: Knee - Right Post Treatment Pain Score 2: 3/10 Post Treatment Pain Location 2: Foot - Right OBJECTIVE MEASURES WITH LEVEL OF FUNCTION: Gait Gait: Independent Gait Device: None Gait Deviations: Right Lower Extremity Gait Deviations Right Lower Extremity: (lateral heel strike, push off medial R foot) TREATMENT: Therapeutic Exercise: 1: seated sciatic nerves glides 1x10 (does not reproduce symptoms) 2: seated R foot toe scrunch with wash cloth 1 min 3: Standing hip hikes 3x5 10 sec hold both sides (cues to not lean the trunk) 4: Standing gastroc stretch 3x30 sec 5: seated figure 4 R foot toe I-V flexion stretch 3x30 sec (reduces numbness) Skilled Intervention: Patient was educated in proper exercise technique and purpose for exercises. Reviewed and educated patient on additions/changes for home exercise program as above (*). Skilled judgment was used in selection of appropriate interventions. Correct performance of therapeutic exercises was facilitated with verbal, visual, and tactile cuing. Educated patient on rationale for performing exercises in regards to decreasing fatigue , increase ease of ADL, and ROM and function . Patient education as noted. Manual Therapy: 1: Lacrosse ball STM to plantar surface of foot 5 min Skilled Intervention: Manual skills to improve joint mobility, ROM, and decrease pain. Utilized anatomy knowledge of the therapist, and assessment of patient's response to intervention. Billing Therapeutic Exercise Treatment Minutes: 35 Manual TherapyTreatment Minutes: 5 Total Session Time (minutes): 40 Session Start Time : 1525 Session Stop Time : 1605 Fanta Kiran, PT [facility] 04-25-2023 History of Present illness Narrative Episode Visit Count: 9 Therapist That Will Accept/Oversee The Plan Of Care: Fanta Kiran Start of Care Date: 02/28/23 Onset Date: 02/28/22 Plan of Care Certification Date: 04/11/23 Next Certification Due Date: 05/16/23 REHABILITATION AND SPORTS THERAPY PHYSICAL THERAPY TREATMENT NOTE ASSESSMENT: Sushma Botello tolerated the session with increased symptoms. She demonstrated difficulty with increased right medial arch symptoms with toe towel scrunch and weight bearing activities as opposed to sitting. Denies knee pain. Gastroc stretching exercises do reduce symptoms, however, she continues to have some foot pain following exercises that emphasize hip stabilzation strengthening. The patient will continue to benefit from ongoing skilled physical therapy to progress toward set goals. PLAN FOR NEXT VISIT: assess symptom response to increased frequency of lacross ball massage at home with ball or rolling pin. SUBJECTIVE: Pt. reports 20,000 steps on Tuesday and increased R foot pain today. Lacrosse ball self STM does help but pt. states she is not sure if it will heal anything. Pt. reports my knee pain is completely gone. Foot pain does reduce with weight bearing. Pain: Pain Pain Level: 4 Pain Location: Foot - Right Description: ( just pain. lateral plantar surface and dorsal foot) Pain Level 2: 0 Pain Location 2: Knee - Right Post Treatment Pain Post Treatment Pain Level: 0 Post Treatment Pain Location: Knee - Right Post Treatment Pain Score 2: 3/10 Post Treatment Pain Location 2: Foot - Right OBJECTIVE MEASURES WITH LEVEL OF FUNCTION: Gait Gait: Independent Gait Device: None Gait Deviations: Right Lower Extremity Gait Deviations Right Lower Extremity: (lateral heel strike, push off medial R foot) TREATMENT: Therapeutic Exercise: 1: seated sciatic nerves glides 1x10 (does not reproduce symptoms) 2: seated R foot toe scrunch with wash cloth 1 min 3: Standing hip hikes 3x5 10 sec hold both sides (cues to not lean the trunk) 4: Standing gastroc stretch 3x30 sec 5: seated figure 4 R foot toe I-V flexion stretch 3x30 sec (reduces numbness) Skilled Intervention: Patient was educated in proper exercise technique and purpose for exercises. Reviewed and educated patient on additions/changes for home exercise program as above (*). Skilled judgment was used in selection of appropriate interventions. Correct performance of therapeutic exercises was facilitated with verbal, visual, and tactile cuing. Educated patient on rationale for performing exercises in regards to decreasing fatigue , increase ease of ADL, and ROM and function . Patient education as noted. Manual Therapy: 1: Lacrosse ball STM to plantar surface of foot 5 min Skilled Intervention: Manual skills to improve joint mobility, ROM, and decrease pain. Utilized anatomy knowledge of the therapist, and assessment of patient's response to intervention. Billing Therapeutic Exercise Treatment Minutes: 35 Manual TherapyTreatment Minutes: 5 Total Session Time (minutes): 40 Session Start Time : 1525 Session Stop Time : 1605 Fanta Kiran PT documented in this encounter [facility] 04-18-2023 Note HNO ID: [id number] Author: Fanta Kiran PT Service: ? Author Type: Physical Therapist Type: Progress Notes Filed: 04/18/2023 3:35 PM Note Text: Episode Visit Count: 8 Therapist That Will Accept/Oversee The Plan Of Care: Fanta Kiran Start of Care Date: 02/28/23 Onset Date: 02/28/22 Plan of Care Certification Date: 04/11/23 Next Certification Due Date: 05/16/23 REHABILITATION AND SPORTS THERAPY PHYSICAL THERAPY TREATMENT NOTE ASSESSMENT: Sushma Botello tolerated the session with fatigue and expected muscle soreness. She demonstrated improvements in R foot pain and BL hip strength. The patient will continue to benefit from ongoing skilled physical therapy to progress toward set goals. PLAN FOR NEXT VISIT: Continue CKC hip strengthening and STM to plantar fascia as needed SUBJECTIVE: pt is doing good and states that her foot feels better. She states that her foot hurt the worst after last session. pt. has had multiple busy days and her foot has held up well. She feels that the plantar fascia STM has been helpful. Pain: Pain Pain Level: 0 Pain Location: Foot - Right Pain Level 2: 0 Pain Location 2: Knee - Right Post Treatment Pain Post Treatment Pain Level: 0 Post Treatment Pain Location: Knee - Right Post Treatment Pain Score 2: 0/10 Post Treatment Pain Location 2: Foot - Right OBJECTIVE MEASURES WITH LEVEL OF FUNCTION: TREATMENT: Therapeutic Exercise: 1: *Seated gastroc stretch 3x30 secs (Replaces standing calf stretch) 2: SL clam shells 3x12 both sides 3: *Standing hip hikes 3x5 10 sec hold both sides 4: Monster walks with GTB 3x20' Skilled Intervention: Patient was educated in proper exercise technique and purpose for exercises. Skilled judgment was used in selection of appropriate interventions. Correct performance of therapeutic exercises was facilitated with verbal and visual cuing. Patient education as noted. Billing Therapeutic Exercise Treatment Minutes: 40 Skilled Treatment Time Minutes (timed and untimed codes): 40 Total Session Time (minutes): 40 Session Start Time : 1445 Session Stop Time : 1525 LOPEZ Shine Supervising therapist was present and guided the care of the patient for the entire session on this date. All documentation was reviewed and agreed upon. Fanta Kiran PT [facility] 04-18-2023 History of Present illness Narrative Episode Visit Count: 8 Therapist That Will Accept/Oversee The Plan Of Care: Fanta Kiran Start of Care Date: 02/28/23 Onset Date: 02/28/22 Plan of Care Certification Date: 04/11/23 Next Certification Due Date: 05/16/23 REHABILITATION AND SPORTS THERAPY PHYSICAL THERAPY TREATMENT NOTE ASSESSMENT: Sushma Botello tolerated the session with fatigue and expected muscle soreness. She demonstrated improvements in R foot pain and BL hip strength. The patient will continue to benefit from ongoing skilled physical therapy to progress toward set goals. PLAN FOR NEXT VISIT: Continue CKC hip strengthening and STM to plantar fascia as needed SUBJECTIVE: pt is doing good and states that her foot feels better. She states that her foot hurt the worst after last session. pt. has had multiple busy days and her foot has held up well. She feels that the plantar fascia STM has been helpful. Pain: Pain Pain Level: 0 Pain Location: Foot - Right Pain Level 2: 0 Pain Location 2: Knee - Right Post Treatment Pain Post Treatment Pain Level: 0 Post Treatment Pain Location: Knee - Right Post Treatment Pain Score 2: 0/10 Post Treatment Pain Location 2: Foot - Right OBJECTIVE MEASURES WITH LEVEL OF FUNCTION: TREATMENT: Therapeutic Exercise: 1: *Seated gastroc stretch 3x30 secs (Replaces standing calf stretch) 2: SL clam shells 3x12 both sides 3: *Standing hip hikes 3x5 10 sec hold both sides 4: Monster walks with GTB 3x20' Skilled Intervention: Patient was educated in proper exercise technique and purpose for exercises. Skilled judgment was used in selection of appropriate interventions. Correct performance of therapeutic exercises was facilitated with verbal and visual cuing. Patient education as noted. Billing Therapeutic Exercise Treatment Minutes: 40 Skilled Treatment Time Minutes (timed and untimed codes): 40 Total Session Time (minutes): 40 Session Start Time : 1445 Session Stop Time : 1525 LOPEZ Shine Supervising therapist was present and guided the care of the patient for the entire session on this date. All documentation was reviewed and agreed upon. Fanta Kiran PT documented in this encounter [facility] 04-11-2023 Note HNO ID: [id number] Author: Fanta Kiran, PT Service: ? Author Type: Physical Therapist Type: Progress Notes Filed: 04/11/2023 1:33 PM Note Text: Episode Visit Count: 7 Therapist That Will Accept/Oversee The Plan Of Care: Fanta Kiran Start of Care Date: 02/28/23 Onset Date: 02/28/22 Plan of Care Certification Date: 04/11/23 Next Certification Due Date: 05/16/23 REHABILITATION AND SPORTS THERAPY PHYSICAL THERAPY PROGRESS REPORT PLAN OF CARE UPDATE: Assessment: Sushma Botello demonstrates moderate improvement in rising from a chair, walking, walking in the house, walking in the community, stair negotiation, physical activities, and recreational activities. She has progressed toward goals. Patient continues to present with impairments in ADL's, gait, joint mobility, overall function, sensation, strength, and symptom management that interfere with walking (>12,000 steps) . Current prognosis is Good due to: current objective clinical presentation, good overall health status, positive past response to therapy . She will benefit from continued skilled therapy services to meet the updated goals for this plan of care as noted below. Goals for Episode of Care: created on 02/28/23 through 04/11/23 Goals updated on 04/11/2023 through 05/16/23 [place] in home exercise program. -- MET Patient will decrease pain to 1 or less/10 with functional activities to allow patient to improve ambulation, transfers, and standing tolerance for ADLs. -- PROGRESSING Patient will demonstrate increase in right hip abductors, extension, and ER strength to 4/5 during manual muscle testing in order to improve function for prior functional tasks and work tasks. -- MET Perform sit <>stand from various surfaces without right ankle or knee Pain. -- MET Normal gait. --MET Patient Goals: improve right knee stabilty and reduce right foot pain -- PROGRESSING Patient Goals: improve right knee stabilty and reduce right foot pain Planned Interventions, Frequency, and Duration: 1x/week, 4 weeks Total Number of Visits Planned: 4 Patient to be seen for Therapeutic exercise (45142), Neuromuscular re-education (22774), Manual therapy (33030), Therapeutic activities (55588), Self-alf management (21604), Gait Training (75290) PLAN FOR NEXT VISIT: Continue STM to plantar fascia SUBJECTIVE: pt. is doing well. She had increased pain last week after being overly active. Notices increases foot pain with >12,000 steps.Reports having a cramping feeling in the bottom of the foot and pain on the top of the foot. pt reports a 60% improvement from the beginning of therapy.. Patient Goals: improve right knee stabilty and reduce right foot pain Functional Limitations: walking (>12,000 steps) Pain: Pain Pain Level: 0 (increases after >10,000 steps) Pain Location: Foot - Right Description: Cramping, Numbness, Sharp Pain Level 2: 0 Pain Location 2: Knee - Right Post Treatment Pain Post Treatment Pain Level: 0 Post Treatment Pain Location: Knee - Right Post Treatment Pain Score 2: No Change Post Treatment Pain Location 2: Foot - Right PROMIS Scales Higher is Better 02/28/2023 Phys Func - Score 47 (within normal limits) Phys Func - Percentile 38 % Self-Eff Symptom - Score 49 (Average) Self-Eff Symptom - Percentile 46 % T-scores: mean of general population = 50. 5 points is clinically meaningfully difference Percentiles provide an indication of how the patient's score ranks in relation to the general population. Higher percentile rankings indicate better function/quality of life. 50th percentile is the average of the general population and indicates half of respondents had a worse score. OBJECTIVE MEASURES WITH LEVEL OF FUNCTION: Ankle Observations R Ankle Palpation Tenderness: Plantar fascia (Top of foot 3/4 metatarsal) R Foot Observations: High/rigid arches. 5mm navicular drop BL LE Strength R Hip Extension: 5/5 R Hip ABduction: 4/5 R Hip External Rotation: 4+/5 R Ankle Dorsiflexion (L4): 5/5 R Ankle Plantar Flexion: 5/5 R Ankle Inversion: 5/5 R Ankle Eversion: 5/5 L Hip Extension: 5/5 L Hip ABduction: 4/5 L Hip External Rotation: 4+/5 L Ankle Dorsiflexion (L4): 5/5 L Ankle Plantar Flexion: 5/5 L Ankle Inversion: 5/5 L Ankle Eversion: 5/5 TREATMENT: Therapeutic Exercise: 1: Seated G toe extension stretch 1x15 (DC due to pain) 2: *Seated figure 4 G toe extension strecth 2x12 3: *sciatic nerve glides 3x15 4: *Standing gastroc stretch 3x30 sec Skilled Intervention: Patient was educated in proper exercise technique and purpose for exercises. Skilled judgment was provided in selection of appropriate interventions. Correct performance of therapeutic exercises was facilitated with verbal and visual cuing. Patient education as noted. Manual Therapy: 1: Lacrosse ball STM to plantar surface of foot 5 min Skilled Intervention: Manual skills to improve j (more content not included)... [facility] 04-11-2023 History of Present illness Narrative Episode Visit Count: 7 Therapist That Will Accept/Oversee The Plan Of Care: Fanta Kiran Start of Care Date: 02/28/23 Onset Date: 02/28/22 Plan of Care Certification Date: 04/11/23 Next Certification Due Date: 05/16/23 REHABILITATION AND SPORTS THERAPY PHYSICAL THERAPY PROGRESS REPORT PLAN OF CARE UPDATE: Assessment: Sushma Botello demonstrates moderate improvement in rising from a chair, walking, walking in the house, walking in the community, stair negotiation, physical activities, and recreational activities. She has progressed toward goals. Patient continues to present with impairments in ADL's, gait, joint mobility, overall function, sensation, strength, and symptom management that interfere with walking (>12,000 steps) . Current prognosis is Good due to: current objective clinical presentation, good overall health status, positive past response to therapy . She will benefit from continued skilled therapy services to meet the updated goals for this plan of care as noted below. Goals for Episode of Care: created on 02/28/23 through 04/11/23 Goals updated on 04/11/2023 through 05/16/23 [place] in home exercise program. -- MET Patient will decrease pain to 1 or less/10 with functional activities to allow patient to improve ambulation, transfers, and standing tolerance for ADLs. -- PROGRESSING Patient will demonstrate increase in right hip abductors, extension, and ER strength to 4/5 during manual muscle testing in order to improve function for prior functional tasks and work tasks. -- MET Perform sit <>stand from various surfaces without right ankle or knee Pain. -- MET Normal gait. --MET Patient Goals: improve right knee stabilty and reduce right foot pain -- PROGRESSING Patient Goals: improve right knee stabilty and reduce right foot pain Planned Interventions, Frequency, and Duration: 1x/week, 4 weeks Total Number of Visits Planned: 4 Patient to be seen for Therapeutic exercise (97703), Neuromuscular re-education (24004), Manual therapy (61046), Therapeutic activities (39798), Self-alf management (56166), Gait Training (13657) PLAN FOR NEXT VISIT: Continue STM to plantar fascia SUBJECTIVE: pt. is doing well. She had increased pain last week after being overly active. Notices increases foot pain with >12,000 steps.Reports having a cramping feeling in the bottom of the foot and pain on the top of the foot. pt reports a 60% improvement from the beginning of therapy.. Patient Goals: improve right knee stabilty and reduce right foot pain Functional Limitations: walking (>12,000 steps) Pain: Pain Pain Level: 0 (increases after >10,000 steps) Pain Location: Foot - Right Description: Cramping, Numbness, Sharp Pain Level 2: 0 Pain Location 2: Knee - Right Post Treatment Pain Post Treatment Pain Level: 0 Post Treatment Pain Location: Knee - Right Post Treatment Pain Score 2: No Change Post Treatment Pain Location 2: Foot - Right PROMIS Scales Higher is Better 02/28/2023 Phys Func - Score 47 (within normal limits) Phys Func - Percentile 38 % Self-Eff Symptom - Score 49 (Average) Self-Eff Symptom - Percentile 46 % T-scores: mean of general population = 50. 5 points is clinically meaningfully difference Percentiles provide an indication of how the patient's score ranks in relation to the general population. Higher percentile rankings indicate better function/quality of life. 50th percentile is the average of the general population and indicates half of respondents had a worse score. OBJECTIVE MEASURES WITH LEVEL OF FUNCTION: Ankle Observations R Ankle Palpation Tenderness: Plantar fascia (Top of foot 3/4 metatarsal) R Foot Observations: High/rigid arches. 5mm navicular drop BL LE Strength R Hip Extension: 5/5 R Hip ABduction: 4/5 R Hip External Rotation: 4+/5 R Ankle Dorsiflexion (L4): 5/5 R Ankle Plantar Flexion: 5/5 R Ankle Inversion: 5/5 R Ankle Eversion: 5/5 L Hip Extension: 5/5 L Hip ABduction: 4/5 L Hip External Rotation: 4+/5 L Ankle Dorsiflexion (L4): 5/5 L Ankle Plantar Flexion: 5/5 L Ankle Inversion: 5/5 L Ankle Eversion: 5/5 TREATMENT: Therapeutic Exercise: 1: Seated G toe extension stretch 1x15 (DC due to pain) 2: *Seated figure 4 G toe extension strecth 2x12 3: *sciatic nerve glides 3x15 4: *Standing gastroc stretch 3x30 sec Skilled Intervention: Patient was educated in proper exercise technique and purpose for exercises. Skilled judgment was provided in selection of appropriate interventions. Correct performance of therapeutic exercises was facilitated with verbal and visual cuing. Patient education as noted. Manual Therapy: 1: Lacrosse ball STM to plantar surface of foot 5 min Skilled Intervention: Manual skills to improve joint mobility, ROM, and decrease pain. Utilized anatomy knowledge of the therapist, and assessment of patient's response to intervention. Self-Senior Care Management: 1: *discussed benefits of continuing with PT. 2: *discussed shoe selection as it relates to R foot pain 3: *discussed actvity modfication in order to reduce R foot pain 4: *encouraged compliance with HEP with emphasis on sciatic nerve glides Skilled Intervention: Skilled judgment in the selection of proper modification for activity of daily living/home management based on clinical presentation, deficits, and needs. Reviewed patient specific diagnosis in relation to activities of daily living/home management. Activity progression based on professional judgement. Billing Therapeutic Exercise Treatment Minutes: 15 Manual TherapyTreatment Minutes: 5 Self-Care/Home Management Treatment Minutes: 20 Skilled Treatment Time Minutes (timed and untimed codes): 40 Total Session Time (minutes): 40 Session Start Time : 1235 Session Stop Time : 1315 LOPEZ Shine documented in this encounter [facility] 03-31-2023 Miscellaneous Notes Patient has been identified by name and date of : Yes, Denise Osborne RN Date 03/31/2023 Time 2:58 pm Pharmacy phones for refill(s): Requested Prescriptions Pending Prescriptions Disp Refills sertraline (ZOLOFT) 100 mg tablet 180 tablet 1 Sig: Take 2 tablets by mouth once daily. Date of last office visit with pcp: 02/08/2023 Future appt: 08/15/2023 Last 2 Encounter Wt Readings: Date: Wt: 02/08/2023 112.5 kg (248 lb) 01/31/2023 112 kg (246 lb 14.4 oz) Previous labs/tests for medication: Blood Pressure: BUN (mg/dL) Date Value 08/06/2022 9 07/01/2021 12 Sodium (mmol/L) Date Value 08/06/2022 136 07/01/2021 135 Last 1 Encounter BP Readings: Date: BP: 02/08/2023 132/84 Liver Function: ALT (U/L) Date Value 08/06/2022 32 07/01/2021 36 AST (U/L) Date Value 08/06/2022 29 07/01/2021 39 Please advise. Thank you. Denise Osborne RN documented in this encounter [facility] 03-23-2023 History of Present illness Narrative Episode Visit Count: 6 Therapist That Will Accept/Oversee The Plan Of Care: Fanta Kiran Start of Care Date: 02/28/23 Onset Date: 02/28/22 Plan of Care Certification Date: 02/28/23 Next Certification Due Date: 04/04/23 REHABILITATION AND SPORTS THERAPY PHYSICAL THERAPY TREATMENT NOTE ASSESSMENT: Sushma Botello tolerated the session with fatigue and expected muscle soreness. She demonstrated improvements in symptom management and hip abduction strength. The patient will continue to benefit from ongoing skilled physical therapy to progress toward set goals. PLAN FOR NEXT VISIT: Continue hip abduction training. Add SLS training on firm and foam surface for R LE. SUBJECTIVE: pt. is feeling good since last visit. Numbness in foot has improved and pt. feels that nerve glides are helping. Pain: Pain Pain Level: (better than last time) Pain Location: Foot - Right Description: Numbness Pain Location 2: Knee - Right Post Treatment Pain Post Treatment Pain Level: 0 Post Treatment Pain Location: Knee - Right Post Treatment Pain Location 2: Foot - Right OBJECTIVE MEASURES WITH LEVEL OF FUNCTION: TREATMENT: Therapeutic Exercise: 1: Tibial nerve glide 2x10 long sitting 2: Standing R calf stretch 3x10 3 sec hold 3: SL hip abuction BL 3x10 4: Lateral step downs pn 6 in step with 1 UE support for LLE and 2 UE support for RLE 3x10 BL 5: Lateral shuffle with GTB between ankle 3x20' each direction 6: SL Clam shells 3x12 BL Skilled Intervention: Patient was educated in proper exercise technique and purpose for exercises. Skilled judgment was provided in selection of appropriate interventions. Correct performance of therapeutic exercises was facilitated with verbal and visual cuing. Patient education as noted. Self-Senior Care Management: 1: *discussed how numbness and tingling in foot can be related to diabetes and to speak to doctor about concerns Skilled Intervention: Skilled judgment in the selection of proper modification for activity of daily living/home management based on clinical presentation, deficits, and needs. Provided written instruction for activities of daily living techniques to facilitate proper performance and compliance. Activity progression based on professional judgement. Billing Therapeutic Exercise Treatment Minutes: 38 Self-Care/Home Management Treatment Minutes: 2 Skilled Treatment Time Minutes (timed and untimed codes): 40 Total Session Time (minutes): 40 Session Start Time : 0950 Session Stop Time : 1030 LOPEZ Shine Supervising therapist was present and guided the care of the patient for the entire session on this date. All documentation was reviewed and agreed upon. Fanta Kiran PT documented in this encounter [facility] 03-21-2023 History of Present illness Narrative Episode Visit Count: 5 Therapist That Will Accept/Oversee The Plan Of Care: Fanta Kiran Start of Care Date: 02/28/23 Onset Date: 02/28/22 Plan of Care Certification Date: 02/28/23 Next Certification Due Date: 04/04/23 Patient Identified by Name and Date of : Yes REHABILITATION AND SPORTS THERAPY PHYSICAL THERAPY TREATMENT NOTE ASSESSMENT: Sushma Botello tolerated the session with fatigue, decreased symptoms, and no issues. She demonstrated improvements in numbness in R foot with weightbearing after tibial nerve glide. The patient will continue to benefit from ongoing skilled physical therapy to progress toward set goals. PLAN FOR NEXT VISIT: Asses response to tibial nerve glide. Continue with hip stabilitiy strengthening. SUBJECTIVE: Pt states that she is feeling pretty good today. Pt reports that she completed 18,000 steps on Tuesday along with therapy and was worried she would wake up hurting on Tuesday, but she didn't. Pt stated having a few muscle spasms in her foot on Tuesday, but not as many as she has previously had. Pain: Pain Pain Level: (it doesn't hurt, just numbness) Pain Location: Foot - Right Description: Numbness Pain Level 2: 0 Pain Location 2: Knee - Right Post Treatment Pain Post Treatment Pain Level: 0 Post Treatment Pain Location: Knee - Right Post Treatment Pain Location 2: Foot - Right Post Treatment Pain Description 2: (decreased numbness) OBJECTIVE MEASURES WITH LEVEL OF FUNCTION: TREATMENT: Therapeutic Exercise: 1: *Tibial nerve glide 2x10 long sitting 2: *SL hip abduction series 1x10 B 3: SLS hip alphabet A-Z x 1 B 4: Step ups on BOSU forward 1x10 B 5: Lateral step ups on BOSU 2x10 B 6: Squats at parallel bars 2x10 Skilled Intervention: Patient was educated in proper exercise technique and purpose for exercises. Reviewed and educated patient on additions/changes for home exercise program as above (*). Skilled judgment was provided in selection of appropriate interventions. Provided written instruction for home exercise program to facilitate proper performance and compliance. Correct performance of therapeutic exercises was facilitated with verbal and visual cuing. Neuromuscular Re-Education: 1: SLS ball toss into rebounder 2x10 each LE with CGA at gait belt. Skilled Intervention: Skilled judgment used to assess appropriate program for balance and coordination activity. Ensured patient safety with use of gait belt. Billing Therapeutic Exercise Treatment Minutes: 38 Neuromuscular Re-Education Treatment Minutes: 5 Total Session Time (minutes): 43 Session Start Time : 931 Session Stop Time : 1014 ALBERT Lassiter PT documented in this encounter [facility] 03-18-2023 History of Present illness Narrative Episode Visit Count: 4 Therapist That Will Accept/Oversee The Plan Of Care: Fanta Kiran Start of Care Date: 02/28/23 Onset Date: 02/28/22 Plan of Care Certification Date: 02/28/23 Next Certification Due Date: 04/04/23 Patient Identified by Name and Date of : Yes REHABILITATION AND SPORTS THERAPY PHYSICAL THERAPY TREATMENT NOTE ASSESSMENT: Sushma Botello tolerated the session with fatigue and expected muscle soreness. She demonstrated difficulty with SL hip circles . The patient will continue to benefit from ongoing skilled physical therapy to progress toward set goals. PLAN FOR NEXT VISIT: Asses repsonse to SL hip abduction series and give for HEP if favorable. SUBJECTIVE: Pt reports that she is feeling fine today. Pt states that the exercises are getting easier, her R foot is still bothering her. Pt states that her R foot feels tight on top and numbness on the bottom. Pain: Pain Pain Level: 2 Pain Location: Foot - Right Description: Numbness, Tingling Pain Level 2: 0 Pain Location 2: Knee - Right Post Treatment Pain Post Treatment Pain Level: No Change Post Treatment Pain Location: Knee - Right Post Treatment Pain Score 2: No Change Post Treatment Pain Location 2: Foot - Right OBJECTIVE MEASURES WITH LEVEL OF FUNCTION: TREATMENT: Therapeutic Exercise: 1: SL Clam shells 3x12 BL 2: SL hip abduction series 1x10 B 3: SLS hip alphabet A-Z x 1 B 4: Lateral step downs 3x12 each side 5: Lateral shuffles with green band between ankles 3x40 ft each direction Skilled Intervention: Patient was educated in proper exercise technique and purpose for exercises. Skilled judgment was provided in selection of appropriate interventions. Correct performance of therapeutic exercises was facilitated with verbal and visual cuing. Billing Therapeutic Exercise Treatment Minutes: 40 Skilled Treatment Time Minutes (timed and untimed codes): 40 Total Session Time (minutes): 40 Session Start Time : 1148 Session Stop Time : 1228 ALBERT Lassiter PT documented in this encounter [facility] 03-09-2023 History of Present illness Narrative Episode Visit Count: 3 Therapist That Will Accept/Oversee The Plan Of Care: Fanta Kiran Start of Care Date: 02/28/23 Onset Date: 02/28/22 Plan of Care Certification Date: 02/28/23 Next Certification Due Date: 04/04/23 REHABILITATION AND SPORTS THERAPY PHYSICAL THERAPY TREATMENT NOTE ASSESSMENT: Sushma Botello tolerated the session with fatigue and expected muscle soreness. She demonstrated difficulty with muscle soreness and hip abduction strength. The patient will continue to benefit from ongoing skilled physical therapy to progress toward set goals. PLAN FOR NEXT VISIT: continue hip strengthening. Add more dynamic strengthening. SUBJECTIVE: Pt. presents 10 min late. Pt. feels soreness in the R LE after last visit. Pain: Pain Pain Level: 3 (soreness) Pain Location: Foot - Right Description: Sore Pain Level 2: 3 Pain Location 2: Knee - Right Description 2: Sore Post Treatment Pain Post Treatment Pain Level: Better Post Treatment Pain Location: Knee - Right Post Treatment Pain Location 2: Ankle - Right OBJECTIVE MEASURES WITH LEVEL OF FUNCTION: TREATMENT: Therapeutic Exercise: 1: Sci fit level 2 5 min 1:1 subjective collected throughout 2: Lateral step downs 3x12 each side 3: Lateral shuffles with green band between ankles 3x40 ft each direction 4: SL Clam shells 3x12 BL Skilled Intervention: Patient was educated in proper exercise technique and purpose for exercises. Skilled judgment was provided in selection of appropriate interventions. Correct performance of therapeutic exercises was facilitated with verbal and visual cuing. Patient education as noted. Self-Senior Care Management: 1: *disscusse importance of hip strengthening and staying active 2: *disscussed muscle soreness and whe it should subside Skilled Intervention: Skilled judgment in the selection of proper modification for activity of daily living/home management based on clinical presentation, deficits, and needs. Educated the patient regarding recommendations and provided written instruction to facilitate compliance. Activity progression based on professional judgement. Billing Therapeutic Exercise Treatment Minutes: 30 Self-Care/Home Management Treatment Minutes: 10 Total Treatment Time Minutes (timed/untimed): 40 Session Start Time : 1630 Session Stop Time : 1710 LOPEZ Shine Supervising therapist was present and guided the care of the patient for the entire session on this date. All documentation was reviewed and agreed upon. Fanta Kiran PT documented in this encounter [facility] 03-07-2023 History of Present illness Narrative Episode Visit Count: 2 Therapist That Will Accept/Oversee The Plan Of Care: Fanta Kiran Start of Care Date: 02/28/23 Onset Date: 02/28/22 Plan of Care Certification Date: 02/28/23 Next Certification Due Date: 04/04/23 REHABILITATION AND SPORTS THERAPY PHYSICAL THERAPY TREATMENT NOTE ASSESSMENT: Sushma Botello tolerated the session with no issues. She demonstrated difficulty with hip abduction strength. The patient will continue to benefit from ongoing skilled physical therapy to progress toward set goals. PLAN FOR NEXT VISIT: continue hip stengthen. Add more dynamic hip abductr strengtheing SUBJECTIVE: Pt. [place] hip soreness on tuesday night. Noticed muscle spasms and shooting pains on tuesday. It resolved on tuesday. Pain: Pain Pain Level: 0 Pain Location: Foot - Right Pain Level 2: 0 Pain Location 2: Knee - Right Post Treatment Pain Post Treatment Pain Level: No Change Post Treatment Pain Location: Knee - Right Post Treatment Pain Score 2: No Change Post Treatment Pain Location 2: Ankle - Right OBJECTIVE MEASURES WITH LEVEL OF FUNCTION: TREATMENT: Therapeutic Exercise: 1: *Lateral step downs 3x12 each side 2: Mini squats with touch support 2x12 3: Lateral shuffles with green band between ankles 2x 40 ft each direction 4: SL Clam shells 3x12 5: Bridges with green band around thighs 3x10 6: SL hip abduction BL 3x12 1 sec hold at top for L Skilled Intervention: Patient was educated in proper exercise technique and purpose for exercises. Reviewed and educated patient on additions/changes for home exercise program as above (*). Skilled judgment was provided in selection of appropriate interventions. Patient education as noted. Self-Senior Care Management: 1: *disscused reasoning behind hip weakness an dhow back injuries can contibute Skilled Intervention: Skilled judgment in the selection of proper modification for activity of daily living/home management based on clinical presentation, deficits, and needs. Educated the patient regarding recommendations and provided written instruction to facilitate compliance. Reviewed patient specific diagnosis in relation to activities of daily living/home management. Activity progression based on professional judgement. Billing Therapeutic Exercise Treatment Minutes: 35 Self-Care/Home Management Treatment Minutes: 5 Total Treatment Time Minutes (timed/untimed): 40 Session Start Time : 1015 Session Stop Time : 1055 LOPEZ Shine Supervising therapist was present and guided the care of the patient for the entire session on this date. All documentation was reviewed and agreed upon. Fanta Kiran PT documented in this encounter [facility] 03-04-2023 History of Present illness Narrative Episode Visit Count: 2 Therapist That Will Accept/Oversee The Plan Of Care: Fanta Kiran Start of Care Date: 02/28/23 Onset Date: 02/28/22 Plan of Care Certification Date: 02/28/23 Next Certification Due Date: 04/04/23 REHABILITATION AND SPORTS THERAPY PHYSICAL THERAPY TREATMENT NOTE ASSESSMENT: Sushma Botello tolerated the session with expected muscle soreness. She demonstrated difficulty with hip abduction with increased difficulty on the right side. The patient will continue to benefit from ongoing skilled physical therapy to progress toward set goals. PLAN FOR NEXT VISIT: (Continue hip strengthening. Add lateral step downs to HEP) SUBJECTIVE: Pt. had difficulty checking in. Sciatic nerve glides have been helping. Pt. noticed a difference in her gait and thinks it is an improvement. Pain: Pain Pain Level: 0 Pain Location: Foot - Right Pain Level 2: 0 Pain Location 2: Knee - Right Post Treatment Pain Post Treatment Pain Level: No Change Post Treatment Pain Location: Knee - Right Post Treatment Pain Score 2: No Change Post Treatment Pain Location 2: Ankle - Right OBJECTIVE MEASURES WITH LEVEL OF FUNCTION: Special Tests - Hip and Spine Hip and Spine Special Tests: Slump Test Slump Test: Right Positive Gait Gait: Independent Gait Observation: Tredelenburg sign bilaterally TREATMENT: Therapeutic Exercise: 1: seated sciatic nerve glide, 2 sets of 10 RLE (dorsiflexion makes it worse.) 2: *SL hip abduction BL 3x10 3: * Prone BL hip extension 3x10 4: Lateral step down 6 inch step 2x12 each side Skilled Intervention: Patient was educated in proper exercise technique and purpose for exercises. Reviewed and educated patient on additions/changes for home exercise program as above (*). Skilled judgment was provided in selection of appropriate interventions. Provided written instruction for home exercise program to facilitate proper performance and compliance. Correct performance of therapeutic exercises was facilitated with verbal, visual, and tactile cuing. Patient education as noted. Gait Training: Gait Cues: reaffirmed pat. that gait pattern was correct with heel strike. 1: 1x 80' Skilled Intervention: Patient was provided independence during pre-gait/gait training to prevent falls and insure safety. Facilitated proper gait cycle with the use of verbal cues for correction of gait deviations identified in the objective section above. Self-Senior Care Management: 1: *disscussed proper technique for sciatic nerve glides. 2: *disscussed trendelenberg sign and how that relates to gait. Skilled Intervention: Skilled judgment in the selection of proper modification for activity of daily living/home management based on clinical presentation, deficits, and needs. Physical assistance was provided during education for modifications and patient safety. Educated the patient regarding recommendations and provided written instruction to facilitate compliance. Provided written instruction for activities of daily living techniques to facilitate proper performance and compliance. Reviewed patient specific diagnosis in relation to activities of daily living/home management. Activity progression based on professional judgement. Billing Therapeutic Exercise Treatment Minutes: 30 Self-Care/Home Management Treatment Minutes: 5 Gait Training Treatment Minutes: 5 Total Treatment Time Minutes (timed/untimed): 40 Session Start Time : 1017 Session Stop Time : 1057 LOPEZ Shine Supervising therapist was present and guided the care of the patient for the entire session on this date. All documentation was reviewed and agreed upon. Fanta Kiran PT documented in this encounter [facility] 03-02-2023 Miscellaneous Notes March 03, 2023 PID: [id number] Sushma Botello [address] [place] [address] [place] [address] Dear Ms. Botello, We are pleased to inform you that the results of your recent breast imaging exam on 03/02/2023 are normal. Early detection of cancer is very important. We also understand recommendations regarding breast cancer screening are controversial. Please discuss with your primary care provider which strategy is best for you and whether a mammogram is right for you. Your imaging studies and report will be kept on file at [facility] as part of your permanent medical record and are available for your continuing care. Thank you for allowing us to help in meeting your health care needs. Sincerely, Dr. Hayden Interpreting Radiologist (Normal over 40) documented in this encounter [facility] 02-28-2023 History of Present illness Narrative Episode Visit Count: 1 Therapist That Will Accept/Oversee The Plan Of Care: Fanta Kiran Start of Care Date: 02/28/23 Onset Date: 02/28/22 Plan of Care Certification Date: 02/28/23 Next Certification Due Date: 04/04/23 Patient Identified by Name and Date of : Yes REHABILITATION AND SPORTS THERAPY PHYSICAL THERAPY EVALUATION PLAN OF CARE: Assessment: Sushma Botello presents with diagnosis of right foot pain that interferes with walking (>12,000 steps) . She presents with impairments in gait, independence in exercise, overall function, patient reported outcome measures, strength, symptom management, and tissue tenderness. PROMIS (Patient-Reported Outcomes Measurement Information System) scores were reviewed and all domains identified as within normal limits. Prognosis for therapy is Good due to: current objective clinical presentation, good overall health status, acuteness of condition . She will benefit from skilled therapy services to meet the goals established for this plan of care as noted below. Classification Low Back Pain Subgroup Classification: Graded activity subgroup: recommended visits 12. Goals for Episode of Care: created on 02/28/23 through 04/11/23 [place] in home exercise program. Patient will decrease pain to 1 or less/10 with functional activities to allow patient to improve ambulation, transfers, and standing tolerance for ADLs. Patient will demonstrate increase in right hip abductors, extension, and ER strength to 4/5 during manual muscle testing in order to improve function for prior functional tasks and work tasks. Perform sit <>stand from various surfaces without right ankle or knee pain. Normal gait. Patient Goals: improve right knee stabilty and reduce right foot pain Planned Interventions, Frequency, and Duration: Current Frequency: 2x/week Duration: 6 weeks Total Number of Visits Planned: 12 Planned Treatment Interventions: Therapeutic exercise (45527), Neuromuscular re-education (09213), Manual therapy (64578), Therapeutic activities (70860), Self-alf management (08561), Gait Training (74020) PLAN FOR NEXT VISIT: assess symptom response to the HEP, right foot numbness with sciatic nerve glides, begin hip stabilization strengthening. Assess gait. Patient demonstrates good understanding of plan of care and treatment. The above goals and plan of care were discussed and agreed upon by patient/family. SUBJECTIVE: for right foot pain that onset after a trip to [facility]. Pain has come and gone since. Pt. most recently hurt her knee hiking in [facility]. She slipped hurting her R knee and right dorsal foot pain returned. X-ray negative for fracture. Pt. is active, reports >10,000 steps/day. Pt. noticed R lateral knee weakness with standing up from the raft while white water rafting 2 weeks ago. She has right dorsal foot pain and numbness with walking >12,000 steps. Pt. reports history of LBP and herniated disc. 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 Hobbies / Interests: hiking Intake Information: Prescription present Previous Treatment: None Falls Interview: No positive findings with falls interview Red Flags Vertebral Fracture Red Flags: Female Vertebral Fracture Clinical Reasonin.834 Abdominal Aortic Aneurysm Clinical Reasoning: Proceed with caution Cancer Clinical Reasoning: No identified risk factors. Infection Clinical Reasoning: No identified risk factors. Cauda Equina Syndrome Clinical Reasoning: No identified risk factors. Red Flags - Cervical Cancer Clinical Reasoning: No identified risk factors. Infection Clinical Reasoning: No identified risk factors. Spine History Symptoms Location at Onset: Foot Symptoms Since Onset: Worsening Pain is Worse Always: Walking Pain is Better Sometimes: Rest Sleep Affected by Pain: Not affected by pain Pain: Pain Pain Level: 2 Pain Location: Foot - Right Description: Aching Frequency: Standing, Walking Additional Pain Information : Location 2 Pain Level 2: 0 Pain Location 2: Knee - Right Description 2: (weakness) Frequency 2: Walking, Standing Post Treatment Pain Post Treatment Pain Level: 0 Post Treatment Pain Location: Knee - Right Post Treatment Pain Description: Aching Post Treatment Pain Score 2: 0/10 Post Treatment Pain Location 2: Ankle - Right Post Treatment Pain Description 2: Numbness PROMIS Scales Higher is Better 02/28/2023 Phys Func - Score 47 (within normal limits) Phys Func - Percentile 38 % Self-Eff Symptom - Score 49 (Average) Self-Eff Symptom - Percentile 46 % T-scores: mean of general population = 50. 5 points is clinically meaningfully difference Percentiles provide an indication of how the patient's score ranks in relation to the general population. Higher percentile rankings indicate better function/quality of life. 50th percentile is the average of the general population and indicates half of respondents had a worse score. OBJECTIVE MEASURES WITH LEVEL OF FUNCTION: Knee Observations R Knee Presents with: Swelling R Swelling: inferolateral patella R Knee Palpation Tenderness: Lateral joint line Ankle Observations Ankle Brace/Support: None Lumbar Spine AROM Lumbar Flexion: Normal Lumbar Extension: Minimal limitation Lumbar R Side-Bend: Normal Lumbar L Side-Bend: Normal Lumbar R Rotation: Normal Lumbar L Rotation: Normal Lumbar Spine AROM Comments: lumbar felt good, however, no concordant symptoms reported with lumbar movement grossly LE AROM R Knee Flexion: 142 Degrees R Ankle Dorsiflexion: 20 Degrees R Ankle Plantar Flexion: 55 Degrees R Ankle Inversion: 37 R Ankle Eversion: 27 LE Flexibility Flexibility: Gastrocnemius Flexibility (tightness gastroc) R Gastrocnemius Flexibility: limited LE Strength R Hip Flexion (L2): 5/5 R Knee Extension (L3): 5/5 Special Tests - Hip and Spine Hip and Spine Special Tests: SLR Test, MAXIM Test, FADDIR Test, Scour Test, Active SLR SLR Test: Right Negative, Left Negative MAXIM Test: Right Negative, Left Negative FADDIR Test: Left Negative, Right Negative Scour Test: Left Negative, Right Negative Active SLR: Left Negative, Right Negative Special Tests - Knee Knee Special Tests: Valgus stress at 0 degrees, Valgus stress at 30 degrees, Varus stress at 0 degrees, Varus stress at 30 degrees, Daisha Daisha: Right Negative, Left Negative Valgus stress at 0 degrees: Right Negative, Left Negative Valgus stress at 30 degrees: Left Negative, Right Negative Varus stress at 0 degrees: Right Negative, Left Negative Varus stress at 30 degrees: Right Negative, Left Negative Education: Education Learning Preferences: Demonstration, Explanation, Performance, Printed Materials Barriers: Acuity of Illness Learning/educational needs: Plan of Care, Home exercise program, Gait Training Education Provided: Yes, see treatment interventions for education provided Education Provided To: Patient Education Mode/Type: Demonstration, Explanation/Discussion, Literature/Printed Materials, Performance Response to Education/Teach Back: States/Identifies, Return Demonstration TREATMENT: PT Treatment Interventions: Therapeutic Exercise, Self-Senior Care Management Evaluation Therapeutic Exercise: 1: *seated sciatic nerve glide, 2-3 sets of 10 RLE 2: *standing gastroc stretch 3x30 seconds each side Skilled Intervention: Patient was educated in proper exercise technique and purpose for exercises. Skilled judgment was provided in selection of appropriate interventions. Provided written instruction for home exercise program to facilitate proper performance and compliance. Correct performance of therapeutic exercises was facilitated with verbal, visual, and tactile cuing. Educated patient on rationale for performing exercises in regards to decreasing fatigue and increase ease of ADL. Patient education as noted. Self-Senior Care Management: 1: *discussed how hip weakness may affect rotation at the knee 2: *discussed normal AROM values at knee and ankle - PT plan to emphasize hip strengthening 3: *discussed purpose of sciatic nerve glides to reduce numbness in the foot Skilled Intervention: Skilled judgment in the selection of proper modification for activity of daily living/home management based on clinical presentation, deficits, and needs. Provided written instruction for activities of daily living techniques to facilitate proper performance and compliance. Activity progression based on professional judgement. Reviewed and educated patient on additions/changes for home program as noted above with an (*). Provided written instruction for home program to facilitate proper performance and compliance. Correct performance of home program was facilitated with verbal, visual, and tactile cueing. Billing * Evaluation Low Complexity: 1 Unit Therapeutic Exercise Treatment Minutes: 15 Self-Care/Home Management Treatment Minutes: 10 Total Treatment Time Minutes (timed/untimed): 45 Session Start Time : 1100 Session Stop Time : 1145 Fanta Kiran PT documented in this encounter [facility] 02-08-2023 History of Present illness Narrative 02/08/2023 Patient presents with: Follow Up SUBJECTIVE: This is a 42 year old that is here today for Above Complaints. DIABETES MELLITUS: Ms. Botello was last seen on 08/10/2022. Since our last visit she denies excessive thirst or increased frequency of urination, chest pain or dyspnea , numbness, tingling or pain in extremities, low sugar/hypoglycemic reactions, weight loss/gain, lightheadedness/dizziness, and bowel changes/loose stools. Follows a diabetic diet most of the time. She is compliant with medication(s) and is tolerating med(s) without any side effects. She reports checking her glucose on a infrequent to not at all basis schedule. Patient's last HgA1C was Hemoglobin A1C (%) Date Value 08/06/2022 6.4 10/07/2021 6.7 07/01/2021 6.8 09/23/2020 6.4 ) Last Ophthalmology exam was yesterday per patient CPAP: follows with sleep medicine with last appointment on 01/31/2023 Right foot still bothering her from last year. No injury. Never went to PT but would iman referral to go. Pain located top of foot and is described as aching[place] [id number] steps is when she notices the pain the most. Denies redness warmth or swelling Reports [facility]. Pain located right upper out knee and described as aching. Swells at times. Had xray completed as well. Denies redness or excessive warmth PAST MEDICAL HISTORY Diagnosis Date CTS (carpal tunnel syndrome) bilateral on NCT Diabetes mellitus type II, controlled (HCC) Eczema GERD (gastroesophageal reflux disease) Hyperlipidemia Insomnia Iron deficiency anemia Lumbar disc herniation age 24 Morbid obesity with BMI of 40.0-44.9, adult (HCC) OCD (obsessive compulsive disorder) was on prozac and paxil in past Seasonal allergies Dr. Bassett Sleep apnea bipap, seeing Dr. Almanza Tobacco use ALLERGIES Amoxicillin, Bactrim [Sulfamethoxazole-Trimethoprim], Erythromycin Base, Sulfa (Sulfonamide Antibiotics), and Wellbutrin [Bupropion Hcl] MEDICATIONS Current Outpatient Medications Medication Sig metFORMIN (GLUCOPHAGE) 1,000 mg tablet Take 1 tablet by mouth twice daily with meals. lisinopril (ZESTRIL) 5 mg tablet Take 1 tablet by mouth once daily. glimepiride (AMARYL) 1 mg tablet Take 1 tablet by mouth daily with breakfast. atorvastatin (LIPITOR) 10 mg tablet TAKE 1 TABLET DAILY AT BEDTIME FOR CHOLESTEROL gabapentin (NEURONTIN) 300 mg capsule Take 1-2 capsules 1 hour before bedtime. traZODone (DESYREL) 50 mg tablet Take 1 tablet by mouth daily at bedtime. CPAP Auto Bilevel PAP with humidification IPAP max 19, EPAP min 10 cmH2O, with pressure support of 4 cmH2O (Resmed). Lifetime supplies. armodafinil (NUVIGIL) 250 mg tab Take 1 tablet by mouth once daily for 180 days. modafinil (PROVIGIL) 200 mg tablet Take 1 tablet in mid afternoon (no later than 5PM) as needed. sertraline (ZOLOFT) 100 mg tablet Take 2 tablets by mouth once daily. famotidine (PEPCID ORAL) Take by mouth. Norgestimate-Ethinyl Estradiol 0.18/0.215/0.25 mg-35 mcg (28) TAKE 1 TABLET DAILY CPAP Lower PAP to 17/13 cmH2O. Also please fit with a Wisp nasal mask. Current mask leaking and headgear not maintaining appropriate position. Lifetime supplies. Clindamycin-Benzoyl Peroxide 1-5 % gel Apply to affected area once daily. montelukast (SINGULAIR) 10 mg tablet Take 10 mg by mouth once daily. blood sugar diagnostic ([employer] VERIO TEST STRIPS) test strip Test blood sugar(s) 1x times daily. Dx: Type 2 DM - Controlled E11.9 Insulin: No (Patient not taking: Reported on 12/23/2022) CPAP Please fit patient with a dreamwear under the nose nasal mask. Please provide download 2 weeks later. Thank you. acetaminophen (TYLENOL) 500 mg tablet Take 500 mg by mouth as needed. ipratropium bromide (ATROVENT) 42 mcg (0.06 %) nasal spray Use 2 Sprays in the nose as needed. levocetirizine dihydrochloride (LEVOCETIRIZINE ORAL) Take 1 tablet by mouth once daily. CPAP Bilevel PAP 21/17 cmH2O with humidification. A small/medium Sleep Bustos nasal mask, HUMIDITY. LIFETIME SUPPLIES. Dx: G47.33 multivitamin tablet Take 1 tablet by mouth once daily. pyridoxine, vitamin B6, (VITAMIN B-6) 100 mg tablet Take 100 mg by mouth once daily. cyanocobalamin (VITAMIN B-12) 1,000 mcg tab Take 1 tablet by mouth once daily. Cholecalciferol, Vitamin D3, 2,000 unit cap Take 1 tablet by mouth once daily. No current facility-administered medications for this visit. Medications and allergies reviewed by this provider. SOCIAL HISTORY Social History Tobacco Use Smoking status: Former Packs/day: 0.25 Years: 1.00 Total pack years: 0.25 Types: Cigarettes Quit date: 03/25/2019 Years since quittin.8 Smokeless tobacco: Never Vaping Use Vaping Use: Never used Substance Use Topics Alcohol use: Yes Alcohol/week: 30.0 standard drinks of alcohol Types: 12 Cans of Beer (12oz) per week Comment: socially Drug use: No REVIEW OF SYSTEMS All other reviewed and negative other than HPI. OBJECTIVE: BP 132/84 Pulse 72 Resp 16 Ht 170.2 cm (5' 7 ) Wt 112.5 kg (248 lb) LMP (LMP Unknown) BMI 38.84 kg/m . Vital signs reviewed by this provider. APPEARANCE Well appearing, alert, in no acute distress, well-hydrated, well nourished. HEART RRR with normal S1 and S2, no murmurs, no gallops, no JVD appreciated LUNG clear to auscultation. No wheezes, rhonchi or rales EXTREMITIES Extremities normal, No deformities, No skin discoloration, No edemaSKIN Skin color, texture, turgor normal, no suspicious rashes or lesions to exposed ski Component Latest Ref Rng & Units 08/06/2022 WBC 3.70 - 11.00 k/uL 9.81 RBC 3.90 - 5.20 m/uL 4.16 Hemoglobin 11.5 - 15.5 g/dL 12.1 Hematocrit 36.0 - 46.0 % 38.0 MCV 80.0 - 100.0 fL 91.3 MCH 26.0 - 34.0 pg 29.1 MCHC 30.5 - 36.0 g/dL 31.8 RDW-CV 11.5 - 15.0 % 13.4 Platelet Count 150 - 400 k/uL 307 MPV 9.0 - 12.7 fL 10.1 Neut% % 56.0 Abs Neut (ANC) 1.45 - 7.50 k/uL 5.49 Lymph% % 33.0 Abs Lymph 1.00 - 4.00 k/uL 3.24 [place]% % 6.3 Abs [place] <0.87 k/uL 0.62 Eosin% % 3.5 Abs Eosin <0.46 k/uL 0.34 Baso% % 0.9 Abs Baso <0.11 k/uL 0.09 Immature Gran % % 0.3 IMMATURE GRANS (ABS) <0.10 k/uL 0.03 NRBC /100 WBC 0.0 Absolute nRBC <0.01 k/uL <0.01 DTYPE Auto Protein, Total 6.3 - 8.0 g/dL 7.1 Albumin 3.9 - 4.9 g/dL 4.1 Calcium 8.5 - 10.2 mg/dL 9.7 Bilirubin, Total 0.2 - 1.3 mg/dL 0.2 Alkaline Phosphatase 34 - 123 U/L 54 AST 13 - 35 U/L 29 ALT 7 - 38 U/L 32 Glucose 74 - 99 mg/dL 114 (H) BUN 7 - 21 mg/dL 9 Creatinine 0.58 - 0.96 mg/dL 0.48 (L) Sodium 136 - 144 mmol/L 136 Potassium 3.7 - 5.1 mmol/L 4.9 Chloride 97 - 105 mmol/L 99 CO2 22 - 30 mmol/L 25 Anion Gap 9 - 18 mmol/L 12 eGFR >=60 mL/min/1.73m 121 Cholesterol, Total <200 mg/dL 188 Triglyceride <150 mg/dL 123 HDL Cholesterol >39 mg/dL 59 Non HDL Cholesterol <130 mg/dL 129 Fasting Time hrs 11 VLDL Cholesterol <30 mg/dL 25 TC:HDL Ratio <5.10 3.19 LDL Cholesterol <100 mg/dL 104 (H) LDL:HDL Ratio <2.54 1.76 Iron 41 - 186 ug/dL 43 TIBC 232 - 386 ug/dL 340 Transferrin Saturation 15.0 - 57.0 % 12.6 (L) Hemoglobin A1C 4.3 - 5.6 % 6.4 (H) Estimated Average Glucose mg/dL 137 Ferritin 14.7 - 205.1 ng/mL 295.0 (H) URINE ALBUMIN:CREATININE RATIO due on 07/01/2022 DILATED RETINAL EXAM due on 08/03/2022 PAP TESTING due on 09/23/2022 HPV TESTING due on 09/23/2022 MAMMOGRAM due on 11/10/2022 HBA1C due on 02/03/2023 HEPATITIS C SCREENING due on 08/10/2023 HIV SCREENING due on 08/10/2023 INFLUENZA(1) due on 03/11/2023 LDL CHOLESTEROL due on 08/06/2023 DIABETIC FOOT EXAM due on 08/10/2023 ANNUAL PCP TEAM CHRONIC DISEASE VISIT due on 08/10/2023 DTAP,TDAP,TD(3 - Td or Tdap) due on 01/20/2026 HEPATITIS B Completed DEPRESSION ASSESSMENT Completed COVID-19 VACCINE Completed PNEUMOCOCCAL Completed HPV VACCINE Aged Out ASSESSMENT/PLAN: 1. Controlled type 2 diabetes mellitus without complication, without long-term current use of insulin (HCC) - ICD9: 250.00, ICD10: E11.9 (primary diagnosis) - Control undetermined, due for labs - Continue current medications - Counseled on healthy diet and regular exercise - Discussed need for and benefit of weight loss. BMI 38.84 kg/(m^2) - Follow up in 6 months, sooner should any other issues arise. - HGB A1C - ALBUMIN/CREAT RATIO RND UR - COMP METABOLIC PANEL 2. Acute pain of right knee - ICD9: 719.46, ICD10: M25.561 - no red flag symptoms or exam findings - red flag symptoms discussed, verbalizes understanding - CONSULT TO PHYSICAL THERAPY - follow-up if symptoms fail to improve 3. Foot pain, right - ICD9: 729.5, ICD10: M79.671 - CONSULT TO PHYSICAL THERAPY - follow-up if symptoms fail to improve 4. Hyperlipidemia, mixed - ICD9: 272.2, ICD10: E78.2 - Control undetermined, due for labs - Continue current medications - Counseled on healthy diet and regular exercise - Discussed need for and benefit of weight loss. BMI 38.84 kg/(m^2) - Follow up in 6 months, sooner should any other issues arise. - LIPID PANEL BASIC 5. SERGEY on CPAP - ICD9: 327.23, V46.8, ICD10: G47.33 - follow-up with sleep medicine as recommended Kathy Wilkins APRN.CNP Prescription instructions reviewed with patient as applicable. Patient advised if symptoms do not improve or if symptoms worsen sooner, to contact their primary care physician. Potential red flag symptoms discussed with the patient. Reviewed appropriate action plan to take if red flag symptoms occur. Patient agreeable to treatment plan. I spent a total of 25 minutes on the date of the service which included preparing to see the patient, [id number] patient care, completing clinical documentation, obtaining and/or reviewing separately obtained history, performing a medically appropriate examination, counseling and educating the patient/family/caregiver, and ordering medications, tests, or procedures. documented in this encounter [facility] 02-08-2023 Miscellaneous Notes [facility] to [facility] to confirm with pharmacist she is taking both medications. Pharmacist will send both scripts out today. Fanta Bass LPN Ning Pulido calling from [facility], states they received an Rx from provider for armodafinil & one for modafinil. She is asking if pt to suppose to be taking both meds? Reference # [id number]. Please advise. Rona Lanza LPN documented in this encounter [facility] 02-04-2023 Miscellaneous Notes See scanned document dated 02/04/23 from [facility]. Fanta Bass LPN documented in this encounter [facility] 01-12-2023 Miscellaneous Notes [facility] 08/02/22 with [facility] NOV 01/31/23 with [facility] Refill 08-02-22 with qty: 180 and 1 refills Pt is taking 2 per night Fanta Bass LPN [facility] Assessment/Plan Assessment and Plan: ASSESSMENT/PLAN: 1. RLS (restless legs syndrome) - ICD9: 333.94, ICD10: G25.81 Clinically stable at this time. Patient will be getting Fe levels soon and if low, knows to schedule follow up with Heme, as already has had Fe infusions in the past. No change in meds at this time. Continue gabapentin 300mg QHS. SE and ADRs reviewed. 2. Obstructive sleep apnea syndrome - ICD9: 327.23, ICD10: G47.33 Doing well on PAP. No complaints except in need of new device later this year (? October 2022). Pt will contact [facility] to confirm when she can get new device. Note she did ask about portable PAP but explained with pt being on bilevel this would not be an option. No other PAP issues. Reminded to clean and replace equipment regularly. 3. Hypersomnia - ICD9: 780.54, ICD10: G47.10 Doing well on Nuvigil 250mg QAM without side effects. Pt would like to continue. HR and BP stable. Reviewed SE and ADRs. Refills provided. ESS = 10 in office. Aaron Almanza MD documented in this encounter [facility] 12-23-2022 History of Present illness Narrative Images from the original note were not included. Subjective Patient came in with complaints of right knee pain. Patient says she fell 10 days ago in [facility]. Patient says [place]. Patient said she did was able to complete her trip. Patient says is not getting any worse but its not getting better. Patient says she does have some swelling and throbbing in the right outer knee. Patient denies any other symptoms patient denies any numbness tingling. The history is provided by the patient. No language therapist was used. Review of Systems Constitutional: Negative. Skin: Negative. Objective Physical Exam Constitutional: Appearance: Normal appearance. Pulmonary: Effort: Pulmonary effort is normal. Musculoskeletal: Legs: Comments: Patient has mild to moderate amount of swelling in the area marked above. No discoloration noted. Patient is tender in the area when palpated. Neurological: Mental Status: She is alert. PAST MEDICAL HISTORY Diagnosis Date CTS (carpal tunnel syndrome) bilateral on NCT Diabetes mellitus type II, controlled (HCC) Eczema GERD (gastroesophageal reflux disease) Hyperlipidemia Insomnia Iron deficiency anemia Lumbar disc herniation age 24 Morbid obesity with BMI of 40.0-44.9, adult (HCC) OCD (obsessive compulsive disorder) was on prozac and paxil in past Seasonal allergies Dr. Bassett Sleep apnea bipap, seeing Dr. Almanza Tobacco use PAST SURGICAL HISTORY Procedure Laterality Date COLONOSCOPY FLX DX W/COLLJ SPEC WHEN PFRMD 06/23/2016 Colonoscopy mac ESOPHAGOGASTRODUODENOSCOPY TRANSORAL DIAGNOSTIC 06/23/2016 EGD mac LIPOMA (LARGE) 02/06/2019 excision lipoma abdomen NEUROPLASTY &/TRANSPOS MEDIAN NRV ZORAIDA ACEVEDO 12/2013 right ALLERGIES Amoxicillin, Bactrim [Sulfamethoxazole-Trimethoprim], Erythromycin Base, Sulfa (Sulfonamide Antibiotics), and Wellbutrin [Bupropion Hcl] MEDICATIONS traZODone (DESYREL) 50 mg tablet TAKE 1 TABLET DAILY AT BEDTIME metFORMIN (GLUCOPHAGE) 1,000 mg tablet Take 1 tablet by mouth twice daily with meals. lisinopril (ZESTRIL, PRINIVIL) 5 mg tablet Take 1 tablet by mouth once daily. glimepiride (AMARYL) 1 mg tablet Take 1 tablet by mouth daily with breakfast. sertraline (ZOLOFT) 100 mg tablet Take 2 tablets by mouth once daily. atorvastatin (LIPITOR) 10 mg tablet TAKE 1 TABLET DAILY AT BEDTIME FOR CHOLESTEROL famotidine (PEPCID ORAL) Take by mouth. gabapentin (NEURONTIN) 300 mg capsule Take 1-2 capsules 1 hour before bedtime. armodafinil (NUVIGIL) 250 mg tab Take 1 tablet by mouth once daily for 180 days. Norgestimate-Ethinyl Estradiol 0.18/0.215/0.25 mg-35 mcg (28) TAKE 1 TABLET DAILY CPAP Lower PAP to 17/13 cmH2O. Also please fit with a Wisp nasal mask. Current mask leaking and headgear not maintaining appropriate position. Lifetime supplies. Clindamycin-Benzoyl Peroxide 1-5 % gel Apply to affected area once daily. montelukast (SINGULAIR) 10 mg tablet Take 10 mg by mouth once daily. CPAP Decrease PAP setting to 19/15 cmH2O. DME = [facility]. CPAP Please fit patient with a dreamwear under the nose nasal mask. Please provide download 2 weeks later. Thank you. acetaminophen (TYLENOL) 500 mg tablet Take 500 mg by mouth as needed. ipratropium bromide (ATROVENT) 42 mcg (0.06 %) nasal spray Use 2 Sprays in the nose as needed. levocetirizine dihydrochloride (LEVOCETIRIZINE ORAL) Take 1 tablet by mouth once daily. CPAP Bilevel PAP 21/17 cmH2O with humidification. A small/medium Sleep Bustos nasal mask, HUMIDITY. LIFETIME SUPPLIES. Dx: G47.33 multivitamin tablet Take 1 tablet by mouth once daily. pyridoxine, vitamin B6, (VITAMIN B-6) 100 mg tablet Take 100 mg by mouth once daily. cyanocobalamin (VITAMIN B-12) 1,000 mcg tab Take 1 tablet by mouth once daily. Cholecalciferol, Vitamin D3, 2,000 unit cap Take 1 tablet by mouth once daily. blood sugar diagnostic ([employer] VERIO TEST STRIPS) test strip Test blood sugar(s) 1x times daily. Dx: Type 2 DM - Controlled E11.9 Insulin: No (Patient not taking: Reported on 12/23/2022) FAMILY HISTORY Problem Relation Age of Onset Depression Mother COPD Mother Diabetes Mother Depression Father OCD Father Cancer Father multiple myeloma, leukemia Bipolar disorder Brother GI Brother absorption issues ADD/ADHD Brother Ischemic Heart Disease Maternal Grandfather Cancer Paternal Grandfather esophageal other (no colon cancer) Other other (no breast cancer) Other Diabetes Other Social History Tobacco Use Smoking status: Former Packs/day: 0.25 Years: 1.00 Pack years: 0.25 Types: Cigarettes Quit date: 03/25/2019 Years since quittin.7 Smokeless tobacco: Never Vaping Use Vaping Use: Never used Substance Use Topics Alcohol use: Yes Alcohol/week: 30.0 standard drinks Types: 12 Cans of Beer (12oz) per week Comment: socially Drug use: No ASSESSMENT/PLAN: 1. Swelling - ICD9: 782.3, ICD10: R60.9 (primary diagnosis) 2. Pain - ICD9: 780.96, ICD10: R52 - XR KNEE GENERAL 4V AP BOTH/PA BOTH/LAT/MERC RIGHT * * * * Physician Interpretation * * * * EXAMINATION: XR KNEE 4V AP/PA BOTH+LAT/ROSARIO RT PATIENT/TECHNOLOGIST PROVIDED HISTORY: Right knee pain with some swelling after hiking 10 days ago. Pain/swelling is on lateral side of knee. CLINICAL INFORMATION: 42 years old Female with Pain TECHNIQUE: XR KNEE 4V AP/PA BOTH+LAT/ROSARIO RT Laterality: RIGHT Number of different views (projections): 4 COMPARISON: Radiographs 09/17/2014 RESULT: Tricompartmental osteophytes. Joint spaces are maintained. Small joint effusion. No fracture. Images of the LEFT knee demonstrate tricompartmental osteophytes. IMPRESSION IMPRESSION: No acute osseous abnormality. Early degenerative changes. Remote Sensing Analyst: TIA Transcribe Date/Time: Dec 23 2022 5:44P Dictated by : BRANDON BENZ, DO Was educated to rest ice and elevate for about a week or so and see if it gets any better. Patient was educated to alternate Tylenol Motrin. Since patient was overutilizing on vacation I think resting it will help significantly. Patient will follow-up if signs and symptoms do not seem to be getting any better. Patient was okay with this care plan. Jessica Uriarte APRN.VIVI documented in this encounter [facility] 08-02-2022 Miscellaneous Notes Reviewed. Kathy Wilkins APRN.VIVI Patient scheduled for 08/10/22 with Kathy Fasting blood work ordered. Needs to schedule office appointment. Please assist in scheduling. Kathy Wilkins APRN.VIVI Pt requesting lab orders. Please advise. Thank you. documented in this encounter [facility] 08-02-2022 History of Present illness Narrative ESTABLISHED PATIENT VISIT CHIEF COMPLAINT: Follow Up HISTORY OF PRESENT ILLNESS: Sushma Botello is a 42 year old female, BMI 37.59 kg/m2 with a PMH significant for and per last office visit of 11/23/21: 1. Obstructive sleep apnea syndrome - ICD9: 327.23, ICD10: G47.33 (primary diagnosis) Doing well on PAP except for noted mask leaks both subjective and objective as above. Will refer for mask fitting and trial of a Wisp - reviewed with pt during visit by means of WWW. Also will again try to lower PAP setting as to reduce leak --- may not need as much pressure given ongoing weight loss. Pt agrees with plan. Next year when due for new device, will order Auto-bilevel PAP given goal of further weight loss. Encouraged continued weight loss. 2. RLS (restless legs syndrome) - ICD9: 333.94, ICD10: G25.81 Improved with Fe infusions. Now using gabapentin 300mg QHS on most nights. Refills provided. No side effects. 3. Hypersomnia - ICD9: 780.54, ICD10: G47.10 Did not complete sleep questionnaire but stable on Nuvigil 250mg QAM. No side effects. Refills provided. Advised not to drive or operate heavy machinery when sleepy. Patient reports doing well. PAP data download for last 90 days shows used / days for an avg of 9 hours 32 minutes. Set at 17/13 cmH2O. AHI 1.7. 95% leak 24 LPM. Pt was aware of leaks, but needs new mask and leaks resolved when tightened current mask. No issues falling asleep or staying asleep. Finds sleep to be restorative. Some issues with RLS in May but has since resolved. No Fe infusion in some time but going for labs soon due to giving blood. Nuvigil still working. No dozing off driving. Able to get through the day. Estimates about 8 hours of sleep on most nights. No issues overnight. Discussed travel PAPs and explained pt on bilevel PAP. Sleep Questionnaire Data Depression Screening 04/13/2021 07/21/2021 04/19/2022 PHQ-2 Score 0 0 0 PHQ-9 Score 5 2 3 ELLIE-2 Total Score 0 0 - ELLIE-7 Total Score 2 1 - PED PHQ-9 04/13/2021 07/21/2021 04/19/2022 Little interest or pleasure in doing things Not at all Not at all Not at all Feeling down, depressed, or hopeless Not at all Not at all Not at all Trouble falling or staying asleep, or sleeping too much More than half the days Several days Not at all Feeling tired or having little energy Several days Several days More than half the days Poor appetite or overeating Not at all Not at all Not at all Feeling bad about yourself - or that you are a failure or have let yourself or your family down Not at all Not at all Not at all Trouble concentrating on things, such as reading the newspaper or watching television More than half the days Not at all Several days Moving or speaking so slowly that other people could have noticed. Or the opposite - being so fidgety or restless that you have been moving around a lot more than usual Not at all Not at all Not at all Thoughts that you would be better off , or of hurting yourself in some way Not at all Not at all Not at all If you checked off any problems, how difficult have these problems made it for you to do your work, take care of things at home, or get along with other people? Somewhat difficult Not difficult at all Somewhat difficult PHQ-9 Score 5 (Mild Depression) 2 (None-Minimal Depression) 3 (None-Minimal Depression) [place] Sleepiness Scale 04/13/2021 07/21/2021 04/19/2022 Score - - 11 (present daytime sleepiness) REVIEW OF SYSTEMS GENERAL:No weight loss, malaise or fevers. HEENT:Negative for frequent or significant headaches, No changes in hearing or vision, no nose bleeds or other nasal problems RESPIRATORY: Negative for cough, wheezing or shortness of breath. CARDIOVASCULAR: Negative for chest pain, leg swelling or palpitations. LAB/IMAGING: Those performed since patient's last visit have been reviewed. WBC (k/uL) Date Value 11/19/2021 11.86 (H) RBC (m/uL) Date Value 11/19/2021 4.17 Hemoglobin (g/dL) Date Value 11/19/2021 12.0 Hematocrit (%) Date Value 11/19/2021 37.6 MCV (fL) Date Value 11/19/2021 90.2 MCH (pg) Date Value 11/19/2021 28.8 MCHC (g/dL) Date Value 11/19/2021 31.9 RDW-CV (%) Date Value 11/19/2021 13.2 Platelet Count (k/uL) Date Value 11/19/2021 332 MPV (fL) Date Value 11/19/2021 10.2 Glucose (mg/dL) Date Value 10/07/2021 111 (H) BUN (mg/dL) Date Value 10/07/2021 10 Creatinine (mg/dL) Date Value 10/07/2021 0.46 (L) Sodium (mmol/L) Date Value 10/07/2021 135 (L) Potassium (mmol/L) Date Value 10/07/2021 5.0 Chloride (mmol/L) Date Value 10/07/2021 98 CO2 (mmol/L) Date Value 10/07/2021 22 Protein, Total (g/dL) Date Value 10/07/2021 7.5 Albumin (g/dL) Date Value 10/07/2021 4.3 Calcium, Total (mg/dL) Date Value 10/07/2021 10.0 Alkaline Phosphatase (U/L) Date Value 10/07/2021 53 Bilirubin, Total (mg/dL) Date Value 10/07/2021 0.3 AST (U/L) Date Value 10/07/2021 31 ALT (U/L) Date Value 10/07/2021 16 MEDICATIONS: sertraline (ZOLOFT) 100 mg tablet Take 2 tablets by mouth once daily. armodafinil (NUVIGIL) 250 mg tab Take 1 tablet by mouth once daily for 180 days. Norgestimate-Ethinyl Estradiol 0.18/0.215/0.25 mg-35 mcg (28) TAKE 1 TABLET DAILY atorvastatin (LIPITOR) 10 mg tablet TAKE 1 TABLET DAILY AT BEDTIME FOR CHOLESTEROL metFORMIN (GLUCOPHAGE) 1,000 mg tablet Take 1 tablet by mouth twice daily with meals. lisinopril (ZESTRIL, PRINIVIL) 5 mg tablet Take 1 tablet by mouth once daily. glimepiride (AMARYL) 1 mg tablet Take 1 tablet by mouth daily with breakfast. traZODone (DESYREL) 50 mg tablet TAKE 1 TABLET DAILY AT BEDTIME CPAP Lower PAP to 17/13 cmH2O. Also please fit with a Wisp nasal mask. Current mask leaking and headgear not maintaining appropriate position. Lifetime supplies. gabapentin (NEURONTIN) 300 mg capsule Take 1-2 capsules 1 hour before bedtime. montelukast (SINGULAIR) 10 mg tablet Take 10 mg by mouth once daily. blood sugar diagnostic ([employer] VERIO TEST STRIPS) test strip Test blood sugar(s) 1x times daily. Dx: Type 2 DM - Controlled E11.9 Insulin: No CPAP Decrease PAP setting to 19/15 cmH2O. DME = [facility]. CPAP Please fit patient with a dreamwear under the nose nasal mask. Please provide download 2 weeks later. Thank you. acetaminophen (TYLENOL) 500 mg tablet Take 500 mg by mouth as needed. ipratropium bromide (ATROVENT) 42 mcg (0.06 %) nasal spray Use 2 Sprays in the nose as needed. levocetirizine dihydrochloride (LEVOCETIRIZINE ORAL) Take 1 tablet by mouth once daily. CPAP Bilevel PAP 21/17 cmH2O with humidification. A small/medium Sleep Bustos nasal mask, HUMIDITY. LIFETIME SUPPLIES. Dx: G47.33 multivitamin tablet Take 1 tablet by mouth once daily. pyridoxine, vitamin B6, (VITAMIN B-6) 100 mg tablet Take 100 mg by mouth once daily. cyanocobalamin (VITAMIN B-12) 1,000 mcg tab Take 1 tablet by mouth once daily. Cholecalciferol, Vitamin D3, 2,000 unit cap Take 1 tablet by mouth once daily. famotidine (PEPCID ORAL) Take by mouth. Clindamycin-Benzoyl Peroxide 1-5 % gel Apply to affected area once daily. (Patient not taking: Reported on 08/02/2022) HISTORIES PAST MEDICAL HISTORY Diagnosis Date CTS (carpal tunnel syndrome) bilateral on NCT Diabetes mellitus type II, controlled (HCC) Eczema GERD (gastroesophageal reflux disease) Hyperlipidemia Insomnia Iron deficiency anemia Lumbar disc herniation age 24 Morbid obesity with BMI of 40.0-44.9, adult (HCC) OCD (obsessive compulsive disorder) was on prozac and paxil in past Seasonal allergies Dr. Bassett Sleep apnea bipap, seeing Dr. Almanza Tobacco use FAMILY HISTORY Problem Relation Age of Onset Depression Mother COPD Mother Diabetes Mother Depression Father OCD Father Cancer Father multiple myeloma, leukemia Bipolar disorder Brother GI Brother absorption issues ADD/ADHD Brother Ischemic Heart Disease Maternal Grandfather Cancer Paternal Grandfather esophageal other (no colon cancer) Other other (no breast cancer) Other Diabetes Other SOCIAL HISTORY Social History Tobacco Use Smoking status: Former Packs/day: 0.25 Years: 1.00 Pack years: 0.25 Types: Cigarettes Quit date: 03/25/2019 Years since quittin.3 Smokeless tobacco: Never Vaping Use Vaping Use: Never used Substance Use Topics Alcohol use: Yes Alcohol/week: 30.0 standard drinks Types: 12 Cans of Beer (12oz) per week Comment: socially Drug use: No PHYSICAL EXAMINATION BP 130/84 Pulse 97 Temp 36.1 C (96.9 F) Resp 16 Wt 108.9 kg (240 lb) LMP (LMP Unknown) SpO2 98% BMI 37.59 kg/m GENERAL EXAM: General appearance: NAD, pleasant. HEENT: NC/AT, nasal congestion absent, no oral lesions, membranes moist. Lungs: CTA bilaterally. CV: RRR nl S1, S2 NEUROLOGICAL EXAM: General: Awake, alert, oriented x3 (person,place,time), speech fluent, no dysarthria; comprehension, naming, repetition intact. CN: PERRL, EOMI and without nystagmus, VFF to confrontation, facial sensation and strength are normal and symmetric, hearing is intact to finger rub bilaterally, palate and tongue movements are intact and symmetric. SCM and trapezius strength normal. Motor: Normal tone, bulk and strength (5/5) bilaterally (throughout extremities x4). Coordination: FNF, TERRENCE intact. No tremors. Sensation: LT intact throughout. No evidence of neglect. Gait: Stable with normal stride and arm swing. Assessment and Plan: ASSESSMENT/PLAN: 1. RLS (restless legs syndrome) - ICD9: 333.94, ICD10: G25.81 Clinically stable at this time. Patient will be getting Fe levels soon and if low, knows to schedule follow up with Heme, as already has had Fe infusions in the past. No change in meds at this time. Continue gabapentin 300mg QHS. SE and ADRs reviewed. 2. Obstructive sleep apnea syndrome - ICD9: 327.23, ICD10: G47.33 Doing well on PAP. No complaints except in need of new device later this year (? October 2022). Pt will contact Mildred to confirm when she can get new device. Note she did ask about portable PAP but explained with pt being on bilevel this would not be an option. No other PAP issues. Reminded to clean and replace equipment regularly. 3. Hypersomnia - ICD9: 780.54, ICD10: G47.10 Doing well on Nuvigil 250mg QAM without side effects. Pt would like to continue. HR and BP stable. Reviewed SE and ADRs. Refills provided. ESS = 10 in office. Aaron Almanza MD I spent a total of 31 minutes on the date of the service which included preparing to see the patient, [id number] patient care, completing clinical documentation, obtaining and/or reviewing separately obtained history, performing a medically appropriate examination, counseling and educating the patient/family/caregiver, ordering medications, tests, or procedures, independently interpreting results (not separately reported), and communicating results to the patient/family/caregiver (results = PAP download). PDMP website checked and validated. All prescriptions have been APPROPRIATELY filled. No suspicious activity was identified. 08/02/2022 by Aaron Almanza MD documented in this encounter [facility] 07-02-2022 Miscellaneous Notes Patient has been identified by name and date of : Yes, Patient phones for refill(s): Requested Prescriptions Pending Prescriptions Disp Refills sertraline (ZOLOFT) 100 mg tablet 180 tablet 1 Sig: Take 2 tablets by mouth once daily. Date of last office visit in primary care: 01/06/2022, no future appt scheduled Last 2 Encounter Wt Readings: Date: Wt: 02/08/2022 109.8 kg (242 lb) 11/23/2021 108.9 kg (240 lb) Previous labs/tests for medication: Not applicable Please advise. Thank you. Nikki Dominique LPN documented in this encounter [facility] 06-15-2022 Miscellaneous Notes Pt updated through that refill was denied due to one being available at the pharmacy. MARA Dickey Patient has been identified by name and date of : Yes Patient phones for refill(s): Requested Prescriptions Pending Prescriptions Disp Refills armodafinil (NUVIGIL) 250 mg tab 90 tablet 1 Sig: Take 1 tablet by mouth once daily for 180 days. Date of last office visit in primary care: [facility] 11/23/2021 Appointment scheduled 09/06/22 Last 2 Encounter Wt Readings: Date: Wt: 02/08/2022 109.8 kg (242 lb) 11/23/2021 108.9 kg (240 lb) Please advise. Thank you. MARA Dickey documented in this encounter [facility] 05-17-2022 Miscellaneous Notes VISH: LAST REFILL: 06/15/2021 NEXT OV: No Lesley Eid Cma documented in this encounter [facility] 04-23-2022 Miscellaneous Notes Patient has labs she needs to complete. Please let her know. Kathy Wilkins APRN.VIVI Patient has been identified by name and date of : Yes Pharmacy phones for refill(s): Requested Prescriptions Pending Prescriptions Disp Refills atorvastatin (LIPITOR) 10 mg tablet 90 tablet 3 Sig: TAKE 1 TABLET DAILY AT BEDTIME FOR CHOLESTEROL metFORMIN (GLUCOPHAGE) 1,000 mg tablet 180 tablet 3 Sig: Take 1 tablet by mouth twice daily with meals. lisinopril (ZESTRIL, PRINIVIL) 5 mg tablet 90 tablet 3 Sig: Take 1 tablet by mouth once daily. glimepiride (AMARYL) 1 mg tablet 90 tablet 3 Sig: Take 1 tablet by mouth daily with breakfast. Date of last office visit in primary care: 01/06/22 Last 2 Encounter Wt Readings: Date: Wt: 02/08/2022 109.8 kg (242 lb) 11/23/2021 108.9 kg (240 lb) Previous labs/tests for medication: Not applicable Please advise. Thank you. Christine Logan LPN documented in this encounter [facility] 02-08-2022 History of Present illness Narrative Radiology Service Progress Note PATIENT NAME: Sushma Botello DATE OF SERVICE: February 08, 2022 TIME: 2:18 PM PATIENT IDENTITY VERIFICATION COMPLETED USING TWO (2) IDENTIFIERS: Name and Date of confirmed by patient verbally. FALL SCREENING: Has the patient had 2 falls in the last year or 1 fall with injury or currently using an Ambulatory Assistive Device (Walker, Cane, Wheelchair, Crutches, etc.)? No PATIENT GENDER DATA: Female. status: : No status: NO. PATIENT RELEVANT IMPLANT DATA REVIEWED: Not Applicable RADIOLOGY DEPARTMENT: General X-ray: Exam(s) Completed: Lower Extremity X-Ray(s): Ankle, Right and Wt. Bearing PERIPHERAL IV DATA: Not applicable SIGNED BY: RT Taisha(R) February 08, 2022 2:18 PM documented in this encounter [facility] 01-08-2022 Miscellaneous Notes Patient notified of results, verbalizes understanding of instructions. Lesley Cotton LPN Please call patient and let her know her foot xray does not show any acute findings. Does show some heel spurs, However other than rest, ice and over the counter antiinflammatories there is nothing more to do for these. She may have just irritated them with all the walking. Thanks, Kathy Wilkins APRN.CNP documented in this encounter [facility] 01-07-2022 History of Present illness Narrative Radiology Service Progress Note PATIENT NAME: Sushma Botello DATE OF SERVICE: January 07, 2022 TIME: 1:37 PM PATIENT IDENTITY VERIFICATION COMPLETED USING TWO (2) IDENTIFIERS: Name and Date of confirmed by patient verbally. FALL SCREENING: Has the patient had 2 falls in the last year or 1 fall with injury or currently using an Ambulatory Assistive Device (Walker, Cane, Wheelchair, Crutches, etc.)? No PATIENT GENDER DATA: Female. status: : No status: NO. PATIENT RELEVANT IMPLANT DATA REVIEWED: Yes RADIOLOGY DEPARTMENT: General X-ray: Exam(s) Completed: Lower Extremity X-Ray(s): Foot, Right and Wt. Bearing PERIPHERAL IV DATA: Not applicable SIGNED BY: RT Joseph(R) January 07, 2022 1:37 PM documented in this encounter [facility] 01-06-2022 History of Present illness Narrative 01/06/2022 Patient presents with: Recheck SUBJECTIVE: This is a 41 year old that is here today for Above Complaints. Since last office visit has been in good health without ER visits or hospitalizations. DIABETES MELLITUS: Ms. Botello was last seen 3 months ago. Since our last visit she denies excessive thirst or increased frequency of urination, chest pain or dyspnea, numbness, tingling or pain in extremities, new or unusual visual symptoms, low sugar/hypoglycemic reactions, weight loss/gain, lightheadedness/dizziness and bowel changes/loose stools. Follows a diabetic diet most of the time. She is compliant with medication(s) and is tolerating med(s) without any side effects. She reports checking her glucose on a infrequent to not at all basis schedule. Patient's last HgA1C was Hemoglobin A1C (%) Date Value 10/07/2021 6.7 07/01/2021 6.8 09/23/2020 6.4 ) Last Ophthalmology exam was within the past 12 months HYPERLIPIDEMIA: Patient is taking medications: Yes. Patient is watching diet: Yes. Patient denies myalgias: Yes. Patient denies gi upset: Yes CPAP: Follows with sleep medicine. Last appointment in November with follow-up in April scheduled. Right foot pain since [place] trip 2-3 weeks ago. Reports normally walks about 9000 steps [place] [id number] [place]. Pain located to top and bottom of foot mid arch. Aggravated when points toe and ambulates, however does get better after she ambulates for awhile. Not much pain when sitting. Not using any pain relieving measures. Past hx of tendonitis otherwise denies past injury or surgery, redness, warmth or swelling. Iron anemia: feeling well. Denies fatigue, shortness of breath or restless legs. Not taking any OTC iron supplements. PAST MEDICAL HISTORY Diagnosis Date CTS (carpal tunnel syndrome) bilateral on NCT Diabetes mellitus type II, controlled ([facility]) Eczema GERD (gastroesophageal reflux disease) Hyperlipidemia Insomnia Iron deficiency anemia Lumbar disc herniation age 24 Morbid obesity with BMI of 40.0-44.9, adult ([facility]) OCD (obsessive compulsive disorder) was on prozac and paxil in past Seasonal allergies Dr. Bassett Sleep apnea bipap, seeing Dr. Almanza Tobacco use ALLERGIES Amoxicillin, Bactrim [Sulfamethoxazole-Trimethoprim], Erythromycin Base, Sulfa (Sulfonamide Antibiotics), and Wellbutrin [Bupropion Hcl] MEDICATIONS Current Outpatient Medications Medication Sig traZODone (DESYREL) 50 mg tablet TAKE 1 TABLET DAILY AT BEDTIME CPAP Lower PAP to 17/13 cmH2O. Also please fit with a Wisp nasal mask. Current mask leaking and headgear not maintaining appropriate position. Lifetime supplies. gabapentin (NEURONTIN) 300 mg capsule Take 1-2 capsules 1 hour before bedtime. armodafinil (NUVIGIL) 250 mg tab Take 1 tablet by mouth once daily for 180 days. glimepiride (AMARYL) 1 mg tablet Take 1 tablet by mouth daily with breakfast. lisinopril (ZESTRIL, PRINIVIL) 5 mg tablet Take 1 tablet by mouth once daily. metFORMIN (GLUCOPHAGE) 1,000 mg tablet Take 1 tablet by mouth twice daily with meals. atorvastatin (LIPITOR) 10 mg tablet TAKE 1 TABLET DAILY AT BEDTIME FOR CHOLESTEROL Clindamycin-Benzoyl Peroxide 1-5 % gel Apply to affected area once daily. montelukast (SINGULAIR) 10 mg tablet Take 10 mg by mouth once daily. Norgestimate-Ethinyl Estradiol 0.18/0.215/0.25 mg-35 mcg (28) TAKE 1 TABLET DAILY sertraline (ZOLOFT) 100 mg tablet Take 2 tablets by mouth once daily. blood sugar diagnostic ([employer] VERIO TEST STRIPS) test strip Test blood sugar(s) 1x times daily. Dx: Type 2 DM - Controlled E11.9 Insulin: No CPAP Decrease PAP setting to 19/15 cmH2O. DME = [facility]. CPAP Please fit patient with a dreamwear under the nose nasal mask. Please provide download 2 weeks later. Thank you. medroxyPROGESTERone (DEPO-PROVERA) 150 mg/mL injection Inject 1 mL intramuscularly every 12 weeks. (Patient not taking: Reported on 09/23/2020 ) acetaminophen (TYLENOL EXTRA STRENGTH) 500 mg tablet Take 500 mg by mouth as needed. ipratropium bromide (ATROVENT) 42 mcg (0.06 %) nasal spray Use 2 Sprays in the nose as needed. levocetirizine dihydrochloride (LEVOCETIRIZINE ORAL) Take 1 tablet by mouth once daily. CPAP Bilevel PAP 21/17 cmH2O with humidification. A small/medium Sleep Bustos nasal mask, HUMIDITY. LIFETIME SUPPLIES. Dx: G47.33 multivitamin tablet Take 1 tablet by mouth once daily. pyridoxine, vitamin B6, (VITAMIN B-6) 100 mg tablet Take 100 mg by mouth once daily. cyanocobalamin (VITAMIN B-12) 1,000 mcg tab Take 1 tablet by mouth once daily. Cholecalciferol, Vitamin D3, 2,000 unit cap Take 1 tablet by mouth once daily. No current facility-administered medications for this visit. Medications and allergies reviewed by this provider. SOCIAL HISTORY Social History Tobacco Use Smoking status: Former Smoker Packs/day: 0.25 Years: 1.00 Pack years: 0.25 Types: Cigarettes Quit date: 03/25/2019 Years since quittin.7 Smokeless tobacco: Never Used Vaping Use Vaping Use: Never used Substance Use Topics Alcohol use: Yes Alcohol/week: 30.0 standard drinks Types: 12 Cans of Beer (12oz) per week Comment: socially Drug use: No REVIEW OF SYSTEMS All other reviewed and negative other than HPI. OBJECTIVE: LMP (LMP Unknown) . Vital signs reviewed by this provider. APPEARANCE Well appearing, alert, in no acute distress, well-hydrated, well nourished. Component Latest Ref Rng & Units 10/07/2021 11/10/2021 11/19/2021 Protein, Total 6.3 - 8.0 g/dL 7.5 Albumin 3.9 - 4.9 g/dL 4.3 Calcium 8.5 - 10.2 mg/dL 10.0 Bilirubin, Total 0.2 - 1.3 mg/dL 0.3 Alkaline Phosphatase 34 - 123 U/L 53 AST 13 - 35 U/L 31 ALT 7 - 38 U/L 16 Glucose 74 - 99 mg/dL 111 (H) BUN 7 - 21 mg/dL 10 Creatinine 0.58 - 0.96 mg/dL 0.46 (L) Sodium 136 - 144 mmol/L 135 (L) Potassium 3.7 - 5.1 mmol/L 5.0 Chloride 97 - 105 mmol/L 98 CO2 22 - 30 mmol/L 22 Anion Gap 9 - 18 mmol/L 15 eGFR >=60 mL/min/1.73m 123 WBC 3.70 - 11.00 k/uL 11.86 (H) RBC 3.90 - 5.20 m/uL 4.17 Hemoglobin 11.5 - 15.5 g/dL 12.0 Hematocrit 36.0 - 46.0 % 37.6 MCV 80.0 - 100.0 fL 90.2 MCH 26.0 - 34.0 pg 28.8 MCHC 30.5 - 36.0 g/dL 31.9 RDW-CV 11.5 - 15.0 % 13.2 Platelet Count 150 - 400 k/uL 332 MPV 9.0 - 12.7 fL 10.2 Absolute nRBC <0.01 k/uL <0.01 Iron 41 - 186 ug/dL 18 (L) TIBC 232 - 386 ug/dL 333 Transferrin Saturation 15 - 57 % 5 (L) Ferritin 14.7 - 205.1 ng/mL 446.0 (H) Component Latest Ref Rng & Units 09/23/2020 Cholesterol, Total <200 mg/dL 144 Triglyceride <150 mg/dL 196 (H) HDL Cholesterol >39 mg/dL 53 LDL Cholesterol <100 mg/dL 52 Non HDL Cholesterol <130 mg/dL 91 Fasting Time hrs 10 VLDL Cholesterol <30 mg/dL 39 (H) TC:HDL Ratio <5.10 2.72 LDL:HDL Ratio <2.54 0.98 HEPATITIS C SCREENING Never done HIV SCREENING Never done PNEUMOCOCCAL(2 - PCV) due on 06/28/2018 LDL CHOLESTEROL due on 09/23/2021 HBA1C due on 04/09/2022 URINE ALBUMIN:CREATININE RATIO due on 07/01/2022 DIABETIC FOOT EXAM due on 07/06/2022 ANNUAL PCP TEAM CHRONIC DISEASE VISIT due on 07/06/2022 DEPRESSION SCREENING due on 07/21/2022 DILATED RETINAL EXAM due on 08/03/2022 PAP TESTING due on 09/23/2022 HPV TESTING due on 09/23/2022 MAMMOGRAM due on 11/10/2022 DTAP,TDAP,TD(3 - Td or Tdap) due on 01/20/2026 HEPATITIS B Completed INFLUENZA Completed COVID-19 VACCINE Completed ASSESSMENT/PLAN: 1. Controlled type 2 diabetes mellitus without complication, without long-term current use of insulin (HCC) - ICD9: 250.00, ICD10: E11.9 (primary diagnosis) Controlled. - Continue current medications - Blood glucose monitoring on a weekly schedule - Encouraged regular aerobic exercise and weight loss - Follow up in 3 months, sooner should any other issues arise. - BP goal of <130/80 - LDL goal of <100 - HGB A1C - LIPID PANEL BASIC - COMP METABOLIC PANEL - ATORVASTATIN 10 MG TABLET - METFORMIN 1,000 MG TABLET - LISINOPRIL 5 MG TABLET - GLIMEPIRIDE 1 MG TABLET 2. Foot pain, right - ICD9: 729.5, ICD10: M79.671 - possibly plantar fascitis vs stress fracture or overuse - wear good supportive shoes - foot stretches daily. - may use OTC pain relievers as recommended on packaging or ice for 15 minutes at a time - XR FOOT GENERAL 3V AP/LAT/OBL RIGHT 3. Iron deficiency anemia, unspecified iron deficiency anemia type - ICD9: 280.9, ICD10: D50.9 - stable without anemia at this time - CBC - IRON + TIBC - FERRITIN BLD 4. SERGEY on CPAP - ICD9: 327.23, V46.8, ICD10: G47.33, Z99.89 - continue CPAP and follow-up with sleep medicine as scheduled Kathy Wilkins APRN.CNP Prescription instructions reviewed with patient as applicable. Patient advised if symptoms do not improve or if symptoms worsen sooner, to contact their primary care physician. Potential red flag symptoms discussed with the patient. Reviewed appropriate action plan to take if red flag symptoms occur. Patient agreeable to treatment plan. documented in this encounter [facility] 12-25-2021 Miscellaneous Notes Patient is scheduled Please schedule the patient for a six-month follow-up for SERGEY with a sleep nurse practitioner. Schedule the patient sometime in Apr or May for virtual or in-person. documented in this encounter [facility] 11-23-2021 Miscellaneous Notes Order for changing CPAP settings was faxed to [facility] #[phone]. MARA Dickey documented in this encounter [facility] 11-23-2021 History of Present illness Narrative ESTABLISHED PATIENT VISIT CHIEF COMPLAINT: Follow Up HISTORY OF PRESENT ILLNESS: Sushma Botello is a 41 year old female, with a PMH significant for and per last office visit note of 01/05/21: 1. Obstructive sleep apnea syndrome - ICD9: 327.23, ICD10: G47.33 (primary diagnosis) Doing well on PAP as above. Still with mask leak. Given that AHI controlled and finding of leak, will try to lower pressure empirically to 19/15 cmH2O - this may allow for resolution of leak, improved fit of mask, as well as continuing control of AHI. Encouraged PAP compliance. Reminded to clean and replace equipment regularly. 2. RLS (restless legs syndrome) - ICD9: 333.94, ICD10: G25.81 Stable as above. Continue Gabapentin 600mg QHS. 3. Hypersomnia - ICD9: 780.54, ICD10: G47.10 ESS = 9. No complaints of EDS if using med. Continue Nuvigil 250mg QAM. 4. Attention deficit disorder, unspecified hyperactivity presence - ICD9: 314.00, ICD10: F98.8 Pt still with concerns for underlying disorder given poor attention. As per last office visit plan, will refer to psychiatry for evaluation. PAP data download from today shows use of PAP device 89/90 days for avg of 9 hours and 9 minutes. Currently set at 19/15 cmH2O. AHI is 1.5 cmH2O. 95% leak is 39.1 LPM despite lowering pressure last visit. RLS doing well and only taking gabapentin 300mg QHS. States rarely has a bad night. Does receive Fe infusions for known Fe deficiency anemia. Pt states PAP mask is insane. States the mask is constantly slipping up and always leaking. Coughing more at night. Was sick in 06/2022 but states COVID testing negative. Pt also questions if due to known seasonal allergies. Does not feel out of breath but more like tickle in back of throat. Pt down ~25 pounds since last seen. ADD symptoms resolved with new job. Still takes Nuvigil daily for hypersomnia. REVIEW OF SYSTEMS GENERAL:No weight loss, malaise or fevers. HEENT:Negative for frequent or significant headaches, No changes in hearing or vision, no nose bleeds or other nasal problems RESPIRATORY: Negative for cough, wheezing or shortness of breath. CARDIOVASCULAR: Negative for chest pain, leg swelling or palpitations. LAB/IMAGING: Those performed since patient's last visit have been reviewed. WBC (k/uL) Date Value 11/19/2021 11.86 (H) RBC (m/uL) Date Value 11/19/2021 4.17 Hemoglobin (g/dL) Date Value 11/19/2021 12.0 Hematocrit (%) Date Value 11/19/2021 37.6 MCV (fL) Date Value 11/19/2021 90.2 MCH (pg) Date Value 11/19/2021 28.8 MCHC (g/dL) Date Value 11/19/2021 31.9 RDW-CV (%) Date Value 11/19/2021 13.2 Platelet Count (k/uL) Date Value 11/19/2021 332 MPV (fL) Date Value 11/19/2021 10.2 Glucose (mg/dL) Date Value 10/07/2021 111 (H) BUN (mg/dL) Date Value 10/07/2021 10 Creatinine (mg/dL) Date Value 10/07/2021 0.46 (L) Sodium (mmol/L) Date Value 10/07/2021 135 (L) Potassium (mmol/L) Date Value 10/07/2021 5.0 Chloride (mmol/L) Date Value 10/07/2021 98 CO2 (mmol/L) Date Value 10/07/2021 22 Protein, Total (g/dL) Date Value 10/07/2021 7.5 Albumin (g/dL) Date Value 10/07/2021 4.3 Calcium, Total (mg/dL) Date Value 10/07/2021 10.0 Alkaline Phosphatase (U/L) Date Value 10/07/2021 53 Bilirubin, Total (mg/dL) Date Value 10/07/2021 0.3 AST (U/L) Date Value 10/07/2021 31 ALT (U/L) Date Value 10/07/2021 16 MEDICATIONS: glimepiride (AMARYL) 1 mg tablet Take 1 tablet by mouth daily with breakfast. lisinopril (ZESTRIL, PRINIVIL) 5 mg tablet Take 1 tablet by mouth once daily. metFORMIN (GLUCOPHAGE) 1,000 mg tablet Take 1 tablet by mouth twice daily with meals. atorvastatin (LIPITOR) 10 mg tablet TAKE 1 TABLET DAILY AT BEDTIME FOR CHOLESTEROL Clindamycin-Benzoyl Peroxide 1-5 % gel Apply to affected area once daily. traZODone (DESYREL) 50 mg tablet TAKE 1 TABLET DAILY AT BEDTIME armodafinil (NUVIGIL) 250 mg tab Take 1 tablet by mouth once daily for 90 days. montelukast (SINGULAIR) 10 mg tablet Take 10 mg by mouth once daily. Norgestimate-Ethinyl Estradiol 0.18/0.215/0.25 mg-35 mcg (28) TAKE 1 TABLET DAILY sertraline (ZOLOFT) 100 mg tablet Take 2 tablets by mouth once daily. blood sugar diagnostic (PrismaticUCH VERIO TEST STRIPS) test strip Test blood sugar(s) 1x times daily. Dx: Type 2 DM - Controlled E11.9 Insulin: No gabapentin (NEURONTIN) 300 mg capsule Take 2 capsules 1 hour before bedtime. CPAP Decrease PAP setting to 19/15 cmH2O. DME = [facility]. CPAP Please fit patient with a dreamwear under the nose nasal mask. Please provide download 2 weeks later.Thank you. medroxyPROGESTERone (DEPO-PROVERA) 150 mg/mL injection Inject 1 mL intramuscularly every 12 weeks. acetaminophen (TYLENOL EXTRA STRENGTH) 500 mg tablet Take 500 mg by mouth as needed. magnesium oxide 400 mg magnesium cap Take 400 mg by mouth once daily. ipratropium bromide (ATROVENT) 42 mcg (0.06 %) nasal spray Use 2 Sprays in the nose as needed. levocetirizine dihydrochloride (LEVOCETIRIZINE ORAL) Take 1 tablet by mouth once daily. lancets (ONE TOUCH DELICA) 33 gauge misc Test blood sugar(s) 1x daily. Dx: Type 2 DM - Controlled E11.9 Insulin: No CPAP Bilevel PAP 21/17 cmH2O with humidification. A small/medium Sleep Bustos nasal mask, HUMIDITY. LIFETIME SUPPLIES.Dx: G47.33 multivitamin tablet Take 1 tablet by mouth once daily. pyridoxine, vitamin B6, (VITAMIN B-6) 100 mg tablet Take 100 mg by mouth once daily. cyanocobalamin (VITAMIN B-12) 1,000 mcg tab Take 1 tablet by mouth once daily. Cholecalciferol, Vitamin D3, 2,000 unit cap Take 1 tablet by mouth once daily. HISTORIES PAST MEDICAL HISTORY Diagnosis Date CTS (carpal tunnel syndrome) bilateral on NCT Diabetes mellitus type II, controlled (HCC) Eczema GERD (gastroesophageal reflux disease) Hyperlipidemia Insomnia Iron deficiency anemia Lumbar disc herniation age 24 Morbid obesity with BMI of 40.0-44.9, adult (HCC) OCD (obsessive compulsive disorder) was on prozac and paxil in past Seasonal allergies Dr. Bassett Sleep apnea bipap, seeing Dr. Almanza Tobacco use FAMILY HISTORY Problem Relation Age of Onset Depression Mother COPD Mother Diabetes Mother Depression Father OCD Father Cancer Father multiple myeloma, leukemia Bipolar disorder Brother GI Brother absorption issues ADD/ADHD Brother Ischemic Heart Disease Maternal Grandfather Cancer Paternal Grandfather esophageal other (no colon cancer) Other other (no breast cancer) Other Diabetes Other SOCIAL HISTORY Social History Tobacco Use Smoking status: Former Smoker Packs/day: 0.25 Years: 1.00 Pack years: 0.25 Types: Cigarettes Quit date: 03/25/2019 Years since quittin.6 Smokeless tobacco: Never Used Vaping Use Vaping Use: Never used Substance Use Topics Alcohol use: Yes Alcohol/week: 30.0 standard drinks Types: 12 Cans of Beer (12oz) per week Comment: socially Drug use: No PHYSICAL EXAMINATION LMP (LMP Unknown) Blood pressure 120/72, pulse 89, temperature 36.4 C (97.5 F), resp. rate 18, weight 108.9 kg (240 lb), SpO2 98 %. GENERAL EXAM: General appearance: NAD HEENT: NC/AT, nasal congestion absent, no oral lesions, membranes moist. Lungs: CTA bilaterally. CV: RRR nl S1, S2. NEUROLOGICAL EXAM: General: Awake, alert, oriented x3 (person,place,time), speech fluent, no dysarthria; comprehension, naming, repetition intact. CN: PERRL, EOMI and without nystagmus, VFF to confrontation, facial sensation and strength are normal and symmetric, hearing is intact to finger rub bilaterally, palate and tongue movements are intact and symmetric. SCM and trapezius strength normal. Motor: Normal tone, bulk and strength (5/5) bilaterally (throughout extremities x4). Coordination: FNF, TERRENCE, HTS intact. No tremors. Sensation: Light touch intact throughout. No evidence of neglect. Gait: Stable with normal stride and arm swing. Assessment and Plan: ASSESSMENT/PLAN: 1. Obstructive sleep apnea syndrome - ICD9: 327.23, ICD10: G47.33 (primary diagnosis) Doing well on PAP except for noted mask leaks both subjective and objective as above. Will refer for mask fitting and trial of a Wisp - reviewed with pt during visit by means of WWW. Also will again try to lower PAP setting as to reduce leak --- may not need as much pressure given ongoing weight loss. Pt agrees with plan. Next year when due for new device, will order Auto-bilevel PAP given goal of further weight loss. Encouraged continued weight loss. 2. RLS (restless legs syndrome) - ICD9: 333.94, ICD10: G25.81 Improved with Fe infusions. Now using gabapentin 300mg QHS on most nights. Refills provided. No side effects. 3. Hypersomnia - ICD9: 780.54, ICD10: G47.10 Did not complete sleep questionnaire but stable on Nuvigil 250mg QAM. No side effects. Refills provided. Advised not to drive or operate heavy machinery when sleepy. Follow up 6 months or sooner prn. Aaron Almanza MD I spent a total of 30+ minutes on the date of the service which included preparing to see the patient, [id number] patient care, completing clinical documentation, obtaining and/or reviewing separately obtained history, performing a medically appropriate examination, counseling and educating the patient/family/caregiver, ordering medications, tests, or procedures, independently interpreting results (not separately reported) and communicating results to the patient/family/caregiver. PDMP website checked and validated. All prescriptions have been APPROPRIATELY filled. No suspicious activity was identified. 11/23/2021 by Aaron Almanza MD documented in this encounter [facility] 11-11-2021 Miscellaneous Notes Patient notified and will complete repeat lab. Eliza Odell Ma Please call patient and let her know Dr. Mijares wants her to repeat the CBC and if she is not anemic she does not need to follow- up with him. I placed orders so she may call and schedule at her convneince. Thanks, Kathy Wilkins APRN.CNP Yes. I will repeat the CBC. Thanks, Kathy Wilkins APRN.CNP Can they repeat her CBC first? She does not need iron infusion if she is not anemic. Component Latest Ref Rng & Units 10/07/2021 11/10/2021 WBC 3.70 - 11.00 k/uL 8.27 RBC 3.90 - 5.20 m/uL 4.12 Hemoglobin 11.5 - 15.5 g/dL 12.0 Hematocrit 36.0 - 46.0 % 38.8 MCV 80.0 - 100.0 fL 94.2 MCH 26.0 - 34.0 pg 29.1 MCHC 30.5 - 36.0 g/dL 30.9 RDW-CV 11.5 - 15.0 % 13.6 Platelet Count 150 - 400 k/uL 346 MPV 9.0 - 12.7 fL 10.2 Absolute nRBC <0.01 k/uL <0.01 Iron 41 - 186 ug/dL 65 18 (L) TIBC 232 - 386 ug/dL 333 Transferrin Saturation 15 - 57 % 5 (L) Ferritin 14.7 - 205.1 ng/mL 386.0 (H) 446.0 (H) Samantha Mijares MD Dr. Mijares- last OV 09/16/2020. CBC done 10/07/2021 and iron studies completed yesterday. What other labs are needed for an OV? Katherine Goodson LPN Patient was notified and willing to follow up with hemoc again. Please call patient to make appointment. Eliza Odell Ma Please call patient and let her know her stores of iron are elevated but iron in blood is low. Recommend she follow-up with hematology. Kathy Wilkins APRN.VIVI documented in this encounter [facility] 11-10-2021 Miscellaneous Notes November 10, 2021 PID: [id number] Sushma Botello [address] [place] [address] [place] [address] Dear Ms. Botello, We are pleased to inform you that the results of your recent breast imaging exam on 11/10/2021 are normal. Early detection of cancer is very important. We also understand recommendations regarding breast cancer screening are controversial. Please discuss with your primary care provider which strategy is best for you and whether a mammogram is right for you. Your imaging studies and report will be kept on file at [facility] as part of your permanent medical record and are available for your continuing care. Thank you for allowing us to help in meeting your health care needs. Sincerely, Dr. Adam Interpreting Radiologist (Normal over 40) documented in this encounter [facility] 11-10-2021 History of Present illness Narrative Radiology Service Progress Note PATIENT NAME: Sushma Botello DATE OF SERVICE: November 10, 2021 TIME: 9:01 AM PATIENT IDENTITY VERIFICATION COMPLETED USING TWO (2) IDENTIFIERS: Name and Date of confirmed by patient verbally. FALL SCREENING: Has the patient had 2 falls in the last year or 1 fall with injury or currently using an Ambulatory Assistive Device (Walker, Cane, Wheelchair, Crutches, etc.)? No PATIENT GENDER DATA: Female. status: : No status: NO. PATIENT RELEVANT IMPLANT DATA REVIEWED: Not Applicable RADIOLOGY DEPARTMENT: Mammography PERIPHERAL IV DATA: Not applicable SIGNED BY: RT Meme(R) November 10, 2021 9:01 AM documented in this encounter [facility] 11-06-2021 Miscellaneous Notes Patient has been identified by name and date of : Yes Patient phones for refill(s): Pending Prescriptions Disp Refills CLINDAMYCIN 1 %-BENZOYL PEROXIDE 5 % TOPICAL GEL 50 g 1 BLOSSOM: No Date of last office visit in primary care: VISH 07/06/2021 Appointment scheduled for 01/06/2022 TC to patient to verify that she is requesting this medication because it has not been filled since 2018. Patient says her face is starting to break out again and she thinks it would be helpful to have again. Please advise. Thank you. MARA Dickey documented in this encounter [facility] 11-06-2021 Miscellaneous Notes Patient has been identified by name and date of : Yes Patient phones for refill(s): Pending Prescriptions Disp Refills GLIMEPIRIDE 1 MG TABLET 90 tablet 0 Sig: Take 1 tablet by mouth daily with breakfast. BLOSSOM: No LISINOPRIL 5 MG TABLET 90 tablet 0 Sig: Take 1 tablet by mouth once daily. BLOSSOM: No METFORMIN 1,000 MG TABLET 180 tablet 0 Sig: Take 1 tablet by mouth twice daily with meals. BLOSSOM: No ATORVASTATIN 10 MG TABLET 90 tablet 0 Sig: TAKE 1 TABLET DAILY AT BEDTIME FOR CHOLESTEROL BLOSSOM: No Date of last office visit in primary care: VISH 07/06/2021 Appointment scheduled for 01/06/2022 Last 2 Encounter Wt Readings: Date: Wt: 07/21/2021 113.4 kg (250 lb) 07/06/2021 112 kg (247 lb) Please advise. Thank you. MARA Dickey documented in this encounter [facility] 10-12-2021 Miscellaneous Notes Patient telephoned and made aware. Will be in to have the iron redrawn. Lesley Cotton LPN New orders for blood work placed. Let her know her A1c is 6.7% which is great. Continue current medications, the rest of her blood work is normal. Kathy Wilkins APRN.VIVI Can you put in a new order and I will call patient to come in for a redraw. Lesley Cotton LPN I received a message from lab saying patients blood work for her iron hemolyzed. I am trying to reorder but it will now allow me to. Please call and let them know patient needs to have this completed and find out how I can reorder it. Kathy Wilkins APRN.CNP documented in this encounter [facility] 10-08-2021 Miscellaneous Notes Please review and advise. Thanks. Angel Lakhani I, I got a notice that it has been a year since my last mammogram and I was wondering if you think it is necessary to get one every year? I wanted to check with you before scheduling anything just in case. Thanks, Sushma documented in this encounter [facility] 07-27-2005 History of Past i llness Narrative Problem Noted Date Resolved Date OBSESSIVE-COMPULSIVE DISORDER 07/27/2005 Tobacco use 01/03/2018 documented as of this encounter (statuses as of 10/08/2021) [facility] History of Past illness Narrative* Problem Noted Date Resolved Date OBSESSIVE-COMPULSIVE DISORDER 07/27/2005 Tobacco use 01/03/2018 documented as of this encounter (statuses as of 11/06/2021) [facility] History of Past illness Narrative* Problem Noted Date Resolved Date OBSESSIVE-COMPULSIVE DISORDER 07/27/2005 Tobacco use 01/03/2018 documented as of this encounter (statuses as of 11/06/2021) [facility] History of Past illness Narrative* Problem Noted Date Resolved Date OBSESSIVE-COMPULSIVE DISORDER 07/27/2005 Tobacco use 01/03/2018 documented as of this encounter (statuses as of 11/11/2021) [facility] History of Past illness Narrative* Problem Noted Date Resolved Date OBSESSIVE-COMPULSIVE DISORDER 07/27/2005 Tobacco use 01/03/2018 documented as of this encounter (statuses as of 11/12/2021) [facility] History of Past illness Narrative* Problem Noted Date Resolved Date OBSESSIVE-COMPULSIVE DISORDER 07/27/2005 Tobacco use 01/03/2018 documented as of this encounter (statuses as of 11/23/2021) [address]17-2006 History of Past illness Narrative* Problem Noted Date Resolved Date OBSESSIVE-COMPULSIVE DISORDER 07/27/2005 Tobacco use 01/03/2018 documented as of this encounter (statuses as of 11/23/2021) [address]17-2006 History of Past illness Narrative* Problem Noted Date Resolved Date OBSESSIVE-COMPULSIVE DISORDER 07/27/2005 Tobacco use 01/03/2018 documented as of this encounter (statuses as of 12/25/2021) [address]17[address]2006 History of Past illness Narrative* Problem Noted Date Resolved Date OBSESSIVE-COMPULSIVE DISORDER 07/27/2005 Tobacco use 01/03/2018 documented as of this encounter (statuses as of 01/06/2022) [address]17[address]2006 History of Past illness Narrative* Problem Noted Date Resolved Date OBSESSIVE-COMPULSIVE DISORDER 07/27/2005 Tobacco use 01/03/2018 documented as of this encounter (statuses as of 01/08/2022) [address]17[address]2006 History of Past illness Narrative* Problem Noted Date Resolved Date OBSESSIVE-COMPULSIVE DISORDER 07/27/2005 Tobacco use 01/03/2018 documented as of this encounter (statuses as of 01/25/2022) [address]2006 History of Past illness Narrative* Problem Noted Date Resolved Date OBSESSIVE-COMPULSIVE DISORDER 07/27/2005 Tobacco use 01/03/2018 documented as of this encounter (statuses as of 01/29/2022) [address]2006 History of Past illness Narrative* Problem Noted Date Resolved Date OBSESSIVE-COMPULSIVE DISORDER 07/27/2005 Tobacco use 01/03/2018 documented as of this encounter (statuses as of 04/23/2022) [address]17[address]2006 History of Past illness Narrative* Problem Noted Date Resolved Date OBSESSIVE-COMPULSIVE DISORDER 07/27/2005 Tobacco use 01/03/2018 documented as of this encounter (statuses as of 05/17/2022) [address]17[address]2006 History of Past illness Narrative* Problem Noted Date Resolved Date OBSESSIVE-COMPULSIVE DISORDER 07/27/2005 Tobacco use 01/03/2018 documented as of this encounter (statuses as of 06/15/2022) [address]2006 History of Past illness Narrative* Problem Noted Date Resolved Date OBSESSIVE-COMPULSIVE DISORDER 07/27/2005 Tobacco use 01/03/2018 documented as of this encounter (statuses as of 07/04/2022) [address]17[address]2006 History of Past illness Narrative* Problem Noted Date Resolved Date OBSESSIVE-COMPULSIVE DISORDER 07/27/2005 Tobacco use 01/03/2018 documented as of this encounter (statuses as of 08/02/2022) [address]17[address]2006 History of Past illness Narrative* Problem Noted Date Resolved Date OBSESSIVE-COMPULSIVE DISORDER 07/27/2005 Tobacco use 01/03/2018 documented as of this encounter (statuses as of 08/04/2022) [address]17[address]2006 History of Past illness Narrative* Problem Noted Date Resolved Date OBSESSIVE-COMPULSIVE DISORDER 07/27/2005 Tobacco use 01/03/2018 documented as of this encounter (statuses as of 12/24/2022) [address]17[address]2006 History of Past illness Narrative* Problem Noted Date Resolved Date OBSESSIVE-COMPULSIVE DISORDER 07/27/2005 Tobacco use 01/03/2018 documented as of this encounter (statuses as of 12/27/2022) [address]17[address]2006 History of Past illness Narrative* Problem Noted Date Resolved Date OBSESSIVE-COMPULSIVE DISORDER 07/27/2005 Tobacco use 01/03/2018 documented as of this encounter (statuses as of 01/14/2023) [address]17[address]2006 History of Past illness Narrative* Problem Noted Date Diagnosed Date Resolved Date OBSESSIVE-COMPULSIVE DISORDER 07/27/2005 09/17/2014 Tobacco use 01/03/2018 documented as of this encounter (statuses as of 02/08/2023) [address]17[address]2006 History of Past illness Narrative* Problem Noted Date Diagnosed Date Resolved Date OBSESSIVE-COMPULSIVE DISORDER 07/27/2005 09/17/2014 Tobacco use 01/03/2018 documented as of this encounter (statuses as of 02/08/2023) [address]17[address]2006 History of Past illness Narrative* Problem Noted Date Diagnosed Date Resolved Date OBSESSIVE-COMPULSIVE DISORDER 07/27/2005 09/17/2014 Tobacco use 01/03/2018 documented as of this encounter (statuses as of 02/08/2023) [address]17-2006 History of Past illness Narrative* Problem Noted Date Diagnosed Date Resolved Date OBSESSIVE-COMPULSIVE DISORDER 07/27/2005 09/17/2014 Tobacco use 01/03/2018 documented as of this encounter (statuses as of 02/28/2023) [address]17[address]2006 History of Past illness Narrative* Problem Noted Date Diagnosed Date Resolved Date OBSESSIVE-COMPULSIVE DISORDER 07/27/2005 09/17/2014 Tobacco use 01/03/2018 documented as of this encounter (statuses as of 03/04/2023) [address]17[address]2006 History of Past illness Narrative* Problem Noted Date Diagnosed Date Resolved Date OBSESSIVE-COMPULSIVE DISORDER 07/27/2005 09/17/2014 Tobacco use 01/03/2018 documented as of this encounter (statuses as of 03/04/2023) [address]17[address]2006 History of Past illness Narrative* Problem Noted Date Diagnosed Date Resolved Date OBSESSIVE-COMPULSIVE DISORDER 07/27/2005 09/17/2014 Tobacco use 01/03/2018 documented as of this encounter (statuses as of 03/07/2023) [address]17-2006 History of Past illness Narrative* Problem Noted Date Diagnosed Date Resolved Date OBSESSIVE-COMPULSIVE DISORDER 07/27/2005 09/17/2014 Tobacco use 01/03/2018 documented as of this encounter (statuses as of 03/10/2023) [address]17[address]2006 History of Past illness Narrative* Problem Noted Date Diagnosed Date Resolved Date OBSESSIVE-COMPULSIVE DISORDER 07/27/2005 09/17/2014 Tobacco use 01/03/2018 documented as of this encounter (statuses as of 03/18/2023) [address]17-2006 History of Past illness Narrative* Problem Noted Date Diagnosed Date Resolved Date OBSESSIVE-COMPULSIVE DISORDER 07/27/2005 09/17/2014 Tobacco use 01/03/2018 documented as of this encounter (statuses as of 03/21/2023) [address]17-2006 History of Past illness Narrative* Problem Noted Date Diagnosed Date Resolved Date OBSESSIVE-COMPULSIVE DISORDER 07/27/2005 09/17/2014 Tobacco use 01/03/2018 documented as of this encounter (statuses as of 03/23/2023) [address]17[address]2006 History of Past illness Narrative* Problem Noted Date Diagnosed Date Resolved Date OBSESSIVE-COMPULSIVE DISORDER 07/27/2005 09/17/2014 Tobacco use 01/03/2018 documented as of this encounter (statuses as of 04/01/2023) [address]17-2006 History of Past illness Narrative* Problem Noted Date Diagnosed Date Resolved Date OBSESSIVE-COMPULSIVE DISORDER 07/27/2005 09/17/2014 Tobacco use 01/03/2018 documented as of this encounter (statuses as of 04/12/2023) [address]17[address]2006 History of Past illness Narrative* Problem Noted Date Diagnosed Date Resolved Date OBSESSIVE-COMPULSIVE DISORDER 07/27/2005 09/17/2014 Tobacco use 01/03/2018 documented as of this encounter (statuses as of 04/19/2023) [address]17-2006 History of Past illness Narrative* Problem Noted Date Diagnosed Date Resolved Date OBSESSIVE-COMPULSIVE DISORDER 07/27/2005 09/17/2014 Tobacco use 01/03/2018 documented as of this encounter (statuses as of 04/26/2023) [address]17-2006 History of Past illness Narrative* Problem Noted Date Diagnosed Date Resolved Date OBSESSIVE-COMPULSIVE DISORDER 07/27/2005 09/17/2014 Tobacco use 01/03/2018 documented as of this encounter (statuses as of 05/11/2023) [address]17-2006 History of Past illness Narrative* Problem Noted Date Diagnosed Date Resolved Date OBSESSIVE-COMPULSIVE DISORDER 07/27/2005 09/17/2014 Tobacco use 01/03/2018 documented as of this encounter (statuses as of 05/15/2023) [address]17[address]2006 History of Past illness Narrative* Problem Noted Date Diagnosed Date Resolved Date OBSESSIVE-COMPULSIVE DISORDER 07/27/2005 09/17/2014 Tobacco use 01/03/2018 documented as of this encounter (statuses as of 08/16/2023) [address]17[address]2006 History of Past illness Narrative* Problem Noted Date Diagnosed Date Resolved Date OBSESSIVE-COMPULSIVE DISORDER 07/27/2005 09/17/2014 Tobacco use 01/03/2018 documented as of this encounter (statuses as of 08/16/2023) [facility] Encounter for screening mammogram for malignant neoplasm of breast- Primary Other screening mammogram [facility] Diagnosis Diabetes mellitus without complication (HCC) Type II or unspecified type diabetes mellitus without mention of complication, not stated as uncontrolled [facility] Diagnosis Acne vulgaris Other acne [facility] Diagnosis Encounter for screening mammogram for malignant neoplasm of breast Other screening mammogram [facility] Diagnosis Low iron- Primary Iron deficiency anemia, unspecified [facility] Diagnosis Obstructive sleep apnea syndrome- Primary Obstructive sleep apnea (adult) (pediatric) RLS (restless legs syndrome) Restless legs syndrome (RLS) Hypersomnia Hypersomnia, unspecified [facility] Diagnosis Controlled type 2 diabetes mellitus without complication, without long-term current use of insulin (HCC)- Primary Foot pain, right Pain in limb Iron deficiency anemia, unspecified iron deficiency anemia type SERGEY on CPAP Obstructive sleep apnea (adult) (pediatric) [facility] Diagnosis Pain in both feet- Primary Pain in limb [facility] Diagnosis Iron deficiency anemia due to chronic blood loss- Primary Iron deficiency anemia secondary to blood loss (chronic) [facility] Diagnosis Controlled type 2 diabetes mellitus without complication, without long-term current use of insulin (HCC) [facility] Diagnosis Obstructive sleep apnea syndrome Obstructive sleep apnea (adult) (pediatric) Hypersomnia Hypersomnia, unspecified [facility] Diagnosis RLS (restless legs syndrome) Restless legs syndrome (RLS) Obstructive sleep apnea syndrome Obstructive sleep apnea (adult) (pediatric) Hypersomnia Hypersomnia, unspecified [facility] Diagnosis Iron deficiency anemia due to chronic blood loss- Primary Iron deficiency anemia secondary to blood loss (chronic) Diabetes mellitus without complication (HCC) Type II or unspecified type diabetes mellitus without mention of complication, not stated as uncontrolled [facility] Diagnosis Swelling- Primary Edema Pain Generalized pain [facility] Diagnosis Encounter for screening mammogram for breast cancer documented in this encounter [facility] [place] [facility] Diagnosis RLS (restless legs syndrome) Restless legs syndrome (RLS) documented in this encounter [facility] [place] [facility] Diagnosis Controlled type 2 diabetes mellitus without complication, without long-term current use of insulin (HCC)- Primary Acute pain of right knee Foot pain, right Pain in limb Hyperlipidemia, mixed Mixed hyperlipidemia SERGEY on CPAP Obstructive sleep apnea (adult) (pediatric) documented in this encounter [facility] [place] [facility]* Diagnosis Foot pain, right- Primary Pain in limb Acute pain of right knee documented in this encounter [facility] [place] [facility]* Diagnosis Foot pain, right- Primary Pain in limb documented in this encounter [facility] [place] [facility]* Diagnosis Foot pain, right- Primary Pain in limb documented in this encounter [facility] [place] [facility]* Diagnosis Foot pain, right- Primary Pain in limb documented in this encounter [facility] [place] [facility]* Diagnosis Foot pain, right- Primary Pain in limb documented in this encounter [facility] [place] [facility]* Diagnosis Foot pain, right- Primary Pain in limb documented in this encounter [facility] note* Diagnosis Foot pain, right- Primary Pain in limb documented in this encounter [facility] [place] [facility]* Diagnosis Foot pain, right- Primary Pain in limb documented in this encounter [facility] [place] [facility]* Diagnosis Encounter for screening mammogram for breast cancer documented in this encounter [facility] [place] [facility]* Diagnosis Pes cavus of both feet- Primary Chronic foot pain, right [facility] Diagnosis Controlled type 2 diabetes mellitus without complication, without long-term current use of insulin (HCC)- Primary SERGEY on CPAP Obstructive sleep apnea (adult) (pediatric) Iron deficiency anemia, unspecified iron deficiency anemia type Class 2 obesity with body mass index (BMI) of 39.0 to 39.9 in adult, unspecified obesity type, unspecified whether serious comorbidity present documented in this encounter [facility] note* Diagnosis Controlled type 2 diabetes mellitus without complication, without long-term current use of insulin (HCC) documented in this encounter [facility] note* Diagnosis Obesity, Class II, BMI 35-39.9- Primary Obesity, unspecified Controlled type 2 diabetes mellitus without complication, without long-term current use of insulin (HCC) documented in this encounter [facility] [place] [facility]* Diagnosis Uncontrolled type 2 diabetes mellitus with hyperglycemia (HCC)- Primary documented in this encounter [facility] note* Diagnosis RLS (restless legs syndrome) Restless legs syndrome (RLS) Obstructive sleep apnea syndrome Obstructive sleep apnea (adult) (pediatric) Hypersomnia Hypersomnia, unspecified documented in this encounter [facility] note* Diagnosis Uncontrolled type 2 diabetes mellitus with hyperglycemia (HCC) documented in this encounter [facility] note* Diagnosis Uncontrolled type 2 diabetes mellitus with hyperglycemia (HCC)- Primary SERGEY on CPAP Obstructive sleep apnea (adult) (pediatric) Hyperlipidemia, mixed Mixed hyperlipidemia Encounter for screening mammogram for breast cancer documented in this encounter [facility] note* Diagnosis Obstructive sleep apnea syndrome- Primary Obstructive sleep apnea (adult) (pediatric) Hypersomnia Hypersomnia, unspecified RLS (restless legs syndrome) Restless legs syndrome (RLS) Long-term use of high-risk medication 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, delayed sleep phase type Class 2 obesity with body mass index (BMI) of 36.0 to 36.9 in adult, unspecified obesity type, unspecified whether serious comorbidity present documented in this encounter [facility] note* Diagnosis Obstructive sleep apnea syndrome- Primary Obstructive sleep apnea (adult) (pediatric) documented in this encounter [facility] note* Diagnosis Chronic foot pain, right documented in this encounter [facility] note* Diagnosis Chronic foot pain, right- Primary Pes cavus of both feet documented in this encounter [facility] note* Diagnosis Pain Generalized pain documented in this encounter [facility] note* Diagnosis Foot pain, right Pain in limb documented in this encounter [facility] note* Diagnosis Injury of right ankle, initial encounter Acute right ankle pain documented in this encounter [facility] for referral (narrative)* Diagnostic Procedure Only (Routine) - Pending Review Specialty Diagnoses / Procedures Referred By Leta ott Referred To Contact [facility] Diagnoses Encounter for screening mammogram for malignant neoplasm of breast Procedures MIRACLE SCREENING SCREENING MAMMOGRAPHY BI 2-VIEW BREAST INC CAD Alexys Holden MD [address] [facility] [place] [address] [facility] [address] [facility] [address] Referral ID Status Reason Start Date Expiration Date Visits Requested Visits Authorized [id number] Pending Review Auto-Generat ed Referral 10/08/2021 11/07/2022 1 1 [facility] for referral (narrative)* Diagnostic Procedure Only (Routine) - Closed Specialty Diagnoses / Procedures Referred By Contac t Referred To Contact [facility] IM[facility] Diagnoses Encounter for screening mammogram for malignant neoplasm of breast Procedures MIRACLE SCREENING SCREENING MAMMOGRAPHY BI 2-VIEW BREAST INC CAD Alexys Holden MD [address] [facility] [place] [address] Br Imaging [address] [place] [address] Referral ID Status Reason Start Date Expiration Date V isits Requested Visits Authorized [id number] Closed Auto-Generate d Referral 11/10/2021 06/22/2022 1 1 [facility] for referral (narrative)* Diagnostic Procedure Only (Routine) - Pending Review Specialty Diagnoses / Procedures Referred By Contac t Referred To Contact XR IMAGING Diagnoses Foot pain, right Procedures XR FOOT GENERAL 3V AP/LAT/OBL RIGHT RADEX FOOT COMPLETE MINIMUM 3 VIEWS Kathy Wilkins APRN.DOOR CORE ASSEMBLER [address] [place] [address] Xr Imaging Referral ID Status Reason Start Date Expiration Date Visits Requested Visits Authorized [id number] Pending Review Auto-Generat ed Referral 01/06/2022 02/05/2023 1 1 T [facility] for referral (narrative)* Diagnostic Procedure Only (Routine) - Pending Review Specialty Diagnoses / Procedures Referred By Contac t Referred To Contact XR IMAGING Diagnoses Pain Procedures XR KNEE GENERAL 4V AP BOTH/PA BOTH/LAT/MERC RIGHT RADIOLOGIC EXAM KNEE COMPLETE 4/MORE VIEWS Jessica Uriarte ELECTRICAL EQUIPMENT ASSEMBLER.DOOR CORE ASSEMBLER [address] [place] [address] Xr Imaging Referral ID Status Reason Start Date Expiration Date V isits Requested Visits Authorized [id number] Pending Review 12/23/2022 01/22/2024 1 1 [facility] for referral (narrative)* Diagnostic Procedure Only (Routine) - Pending Review Specialty Diagnoses / Procedures Referred By Contac t Referred To Contact [facility] IMAG[facility] Diagnoses Encounter for screening mammogram for breast cancer Procedures MIRACLE SCREENING SCREENING MAMMOGRAPHY BI 2-VIEW BREAST INC Merlyn Moreno MD [address] [place] [address] Br Imaging [address] [place] [address] Referral ID Status Reason Start Date Expiration Date Visits Requested Visits Authorized [id number] Pending Review Auto-Generat ed Referral 12/22/2022 01/21/2024 1 1 [facility] for referral (narrative)* Diagnostic Procedure Only (Routine) - Closed Specialty Diagnoses / Procedures Referred By Contac t Referred To Contact BR IMAGING Diagnoses Encounter for screening mammogram for breast cancer Procedures MIRACLE SCREENING SCREENING MAMMOGRAPHY BI 2-VIEW BREAST INC Merlyn Moreno MD [address] [place] [address] [facility] Imaging [address] [place] [address] Referral ID Status Reason Start Date Expiration Date V isits Requested Visits Authorized [id number] Closed Auto-Generate d Referral 03/02/2023 07/10/2023 1 1 T [facility] for referral (narrative)* Diagnostic Procedure Only (Routine) - Denied Specialty Diagnoses / Procedures Referred By Contac t Referred To Contact XR IMAGING Diagnoses Chronic foot pain, right Procedures XR FOOT GENERAL 3V AP/LAT/OBL RIGHT RADEX FOOT COMPLETE MINIMUM 3 VIEWS Merlyn Paez MD [address] [place] [address] [place] [address] Referral ID Status Reason Start Date Expiration Date V isits Requested Visits Authorized [id number] Denied Auto-Generate d Referral 07/22/2023 08/20/2024 1 0 [facility] for referral (narrative)* Diagnostic Procedure Only (Routine) - Closed Specialty Diagnoses / Procedures Referred By Contac t Referred To Contact XR IMAGING Diagnoses Pain Procedures XR KNEE GENERAL 4V AP BOTH/PA BOTH/LAT/MERC RIGHT RADIOLOGIC EXAM KNEE COMPLETE 4/MORE VIEWS Jessica Uriarte APRN.DOOR CORE ASSEMBLER [address] [place] [address] [place] [address] Referral ID Status Reason Start Date Expiration Date Visits Re quested Visits Authorized [id number] Closed 12/23/2022 07/10/2023 1 1 [facility] for referral (narrative)* Diagnostic Procedure Only (Routine) - Closed Specialty Diagnoses / Procedures Referred By Contac t Referred To Contact XR IMAGING Diagnoses Foot pain, right Procedures XR FOOT GENERAL 3V AP/LAT/OBL RIGHT RADEX FOOT COMPLETE MINIMUM 3 VIEWS Kathy Wilkins APRN.DOOR CORE ASSEMBLER [address] [place] [address] [place] [address] Referral ID Status Reason Start Date Expiration Date V isits Requested Visits Authorized [id number] Closed Auto-Generate d Referral 01/06/2022 02/05/2023 1 1 [facility] for referral (narrative)* Diagnostic Procedure Only (Urgent) - Closed Specialty Diagnoses / Procedures Referred By Contac t Referred To Contact XR IMAGING Diagnoses Injury of right ankle, initial encounter Acute right ankle pain Procedures XR ANKLE GENERAL 3V AP/LAT/OBL RIGHT RADEX ANKLE COMPLETE MINIMUM 3 VIEWS Gwendolyn Purvis ELECTRICAL EQUIPMENT ASSEMBLER.DOOR CORE ASSEMBLER [address] [place] [id number] [place] [address] Referral ID Status Reason Start Date Expiration Date V isits Requested Visits Authorized [id number] Closed Auto-Generate d Referral 02/08/2022 07/10/2022 1 1 [facility] for visit Narrative* Diagnostic Procedure Only (Routine) - Closed Specialty Diagnoses / Procedures Referred By Contac t Referred To Contact BR IMAGING Diagnoses Encounter for screening mammogram for malignant neoplasm of breast Procedures MIRACLE SCREENING SCREENING MAMMOGRAPHY BI 2-VIEW BREAST INC CAD Alexys Holden MD [address] [place] [address] Br Imaging [address] [place] [address] Referral ID Status Reason Start Date Expiration Date V isits Requested Visits Authorized [id number] Closed Auto-Generate d Referral 11/10/2021 06/22/2022 1 1 [facility] for visit Narrative* Diagnostic Procedure Only (Routine) - Closed Specialty Diagnoses / Procedures Referred By Contac t Referred To Contact BR IMAGING Diagnoses Encounter for screening mammogram for breast cancer Procedures MIRACLE SCREENING SCREENING MAMMOGRAPHY BI 2-VIEW BREAST INC CAD Merlyn Paez MD [address] [place] [address] Br Imaging [address] [place] [address] Referral ID Status Reason Start Date Expiration Date V isits Requested Visits Authorized [id number] Closed Auto-Generate d Referral 03/02/2023 07/10/2023 1 1 [facility] for visit Narrative* Diagnostic Procedure Only (Routine) - Denied Specialty Diagnoses / Procedures Referred By Contac t Referred To Contact XR IMAGING Diagnoses Chronic foot pain, right Procedures XR FOOT GENERAL 3V AP/LAT/OBL RIGHT RADEX FOOT COMPLETE MINIMUM 3 VIEWS Merlyn Paez MD [address] [place] [address] [place] [address] Referral ID Status Reason Start Date Expiration Date V isits Requested Visits Authorized [id number] Denied Auto-Generate d Referral 07/22/2023 08/20/2024 1 0 [facility] for visit Narrative* Diagnostic Procedure Only (Routine) - Closed Specialty Diagnoses / Procedures Referred By Contac t Referred To Contact XR IMAGING Diagnoses Pain Procedures XR KNEE GENERAL 4V AP BOTH/PA BOTH/LAT/MERC RIGHT RADIOLOGIC EXAM KNEE COMPLETE 4/MORE VIEWS Jessica Uriarte, ELECTRICAL EQUIPMENT ASSEMBLER.DOOR CORE ASSEMBLER [address] [place] [address] [place] [address] Referral ID Status Reason Start Date Expiration Date Visits Re quested Visits Authorized [id number] Closed 12/23/2022 07/10/2023 1 1 [facility] for visit Narrative* Diagnostic Procedure Only (Routine) - Closed Specialty Diagnoses / Procedures Referred By Contac t Referred To Contact XR IMAGING Diagnoses Foot pain, right Procedures XR FOOT GENERAL 3V AP/LAT/OBL RIGHT RADEX FOOT COMPLETE MINIMUM 3 VIEWS Kathy Wilkins ELECTRICAL EQUIPMENT ASSEMBLER.DOOR CORE ASSEMBLER [address] [place] [address] [place] [address] Referral ID Status Reason Start Date Expiration Date V isits Requested Visits Authorized [id number] Closed Auto-Generate d Referral 01/06/2022 02/05/2023 1 1 [facility] for visit Narrative* Diagnostic Procedure Only (Urgent) - Closed Specialty Diagnoses / Procedures Referred By Contac t Referred To Contact XR IMAGING Diagnoses Injury of right ankle, initial encounter Acute right ankle pain Procedures XR ANKLE GENERAL 3V AP/LAT/OBL RIGHT RADEX ANKLE COMPLETE MINIMUM 3 VIEWS Gwendolyn Purvis, ELECTRICAL EQUIPMENT ASSEMBLER.DOOR CORE ASSEMBLER [address] [place] [id number] [place] [address] Referral ID Status Reason Start Date Expiration Date V isits Requested Visits Authorized [id number] Closed Auto-Generate d Referral 02/08/2022 07/10/2022 1 1 [facility] Summary Purpose Family History No Family History Records FoundNo Family History Records FoundNo Family History Records FoundNo Family History Records FoundNo Family History Records FoundNo Family History Records Found Advance Directives Documents on File Type Date Recorded Patient County Director Expl anation Advance Directive(s) 02/06/2019 12:25 PM Advance Directive(s) 06/23/2016 11:33 AM Documents on File Type Date Recorded Patient County Director Expl anation Advance Directive(s) 02/06/2019 12:25 PM Advance Directive(s) 06/23/2016 11:33 AM Reason for Referral Specialty Diagnoses / Procedures Referred By Contac t Referred To Contact Diagnoses Obstructive sleep apnea syndrome Hypersomnia Aaron Almanza Jr., [place] [address] [address] Referral ID Status Reason Start Date Expiration Date Visits Re quested Visits Authorized [id number] Closed 1 1 Specialty Diagnoses / Procedures Referred By Contac t Referred To Contact [facility] Diagnoses Pain in both feet Procedures CONSULT TO PHYSICAL THERAPY PHYSICAL THERAPY EVALUATION HIGH COMPLEX 45 MINS Podlogar, Kathy, ELECTRICAL EQUIPMENT ASSEMBLER.DOOR CORE ASSEMBLER [address] [place] [address] [facility] [address] [address] Referral ID Status Reason Start Date Expiration Date Visits Requested Visits Authorized [id number] Pending Review Auto-Generat ed Referral 01/25/2022 01/25/2023 1 1 Referral ID Status Reason Start Date Expiration Date Visits Re quested Visits Authorized [id number] Closed 1 1 Specialty Diagnoses / Procedures Referred By Contac t Referred To Contact [facility] Diagnoses Acute pain of right knee Foot pain, right Procedures CONSULT TO PHYSICAL THERAPY PHYSICAL THERAPY EVALUATION HIGH COMPLEX 45 MINS Podlogar, Kathy, ELECTRICAL EQUIPMENT ASSEMBLER.DOOR CORE ASSEMBLER [address] [place] [address] [facility] [address] [address] Referral ID Status Reason Start Date Expiration Date Visits Requested Visits Authorized [id number] Pending Review Auto-Generat ed Referral 02/08/2023 02/08/2024 1 1 Specialty Diagnoses / Procedures Referred By Contac t Referred To Contact Diagnoses Uncontrolled type 2 diabetes mellitus with hyperglycemia (HCC) Podlogar, Kathy, ELECTRICAL EQUIPMENT ASSEMBLER.DOOR CORE ASSEMBLER [address] [place] [address] Referral ID Status Reason Start Date Expiration Date Visits Re quested Visits Authorized [id number] Closed 1 1 Specialty Diagnoses / Procedures Referred By Contac t Referred To Contact [facility] Diagnoses Encounter for screening mammogram for breast cancer Procedures MIRACLE SCREENING W JAHAIRA SCREENING DIGITAL BREAST TOMOSYNTHESIS BI SCREENING MAMMOGRAPHY BI 2-VIEW BREAST INC CAD ReddlogKathy duncan APRN.DOOR CORE ASSEMBLER [address] [place] [address] [facility] Imaging [address] [place] [address] Referral ID Status Reason Start Date Expiration Date Visits Requested Visits Authorized [id number] Authorized Auto-Generat ed Referral 02/13/2024 03/14/2025 1 1 Referral ID Status Reason Start Date Expiration Date Visits Re quested Visits Authorized [id number] Closed 1 1 Referral ID Status Reason Start Date Expiration Date Visits Re quested Visits Authorized [id number] Closed 1 1 Specialty Diagnoses / Procedures Referred By Contac t Referred To Contact [facility] Diagnoses Chronic foot pain, right Pes cavus of both feet Procedures CONSULT TO PHYSICAL THERAPY PHYSICAL THERAPY EVALUATION HIGH COMPLEX 45 MINS [address] [place] [address] [facility] [address] [place] [address] Referral ID Status Reason Start Date Expiration Date Visits Requested Visits Authorized [id number] Pending Review Auto-Generat ed Referral 03/27/2024 03/27/2025 1 1 Additional Source Comments INFORMATION SOURCE (unrecogn ized section and content) DATE CREATED AUTHOR 12/27/2017 [facility] DATE CREATED AUTHOR AUTHOR'S ORGANIZ ATION 12/29/2017 [facility] DATE CREATED AUTHOR AUTHOR[facility]S ORGANIZ ATION [facility] DATE CREATED AUTHOR AUTHOR'S ORGANIZ ATION 12/06/2019 [facility] DATE CREATED AUTHOR AUTHOR'S ORGANIZ ATION 02/23/2020 [facility] DATE CREATED AUTHOR AUTHOR'S ORGANIZ ATION 03/29/2024 [facility] Source Comments (unrecognize d section and content) In the event this informatio n is protected by the Federal Confidentiality of Alcohol and Drug Abuse Patient Records regulations: The Federal rules restrict any use of the information to criminally investigate or prosecute any alcohol or drug abuse patient.[facility] the event this information is protected by the Federal Confidentiality of Alcohol and Drug Abuse Patient Records regulations: The Federal rules restrict any use of the information to criminally investigate or prosecute any alcohol or drug abuse patient.[facility] Hospital[facility] the event this information is protected by the Federal Confidentiality of Alcohol and Drug Abuse Patient Records regulations: The Federal rules restrict any use of the information to criminally investigate or prosecute any alcohol or drug abuse patient.[facility] Hospital[facility] the event this information is protected by the Federal Confidentiality of Alcohol and Drug Abuse Patient Records regulations: The Federal rules restrict any use of the information to criminally investigate or prosecute any alcohol or drug abuse patient.[facility] Hospital[facility] the event this information is protected by the Federal Confidentiality of Alcohol and Drug Abuse Patient Records regulations: The Federal rules restrict any use of the information to criminally investigate or prosecute any alcohol or drug abuse patient.[facility] Hospital[facility] the event this information is protected by the Federal Confidentiality of Alcohol and Drug Abuse Patient Records regulations: The Federal rules restrict any use of the information to criminally investigate or prosecute any alcohol or drug abuse patient.[facility] Hospital[facility] the event this information is protected by the Federal Confidentiality of Alcohol and Drug Abuse Patient Records regulations: The Federal rules restrict any use of the information to criminally investigate or prosecute any alcohol or drug abuse patient.[facility] Hospital[facility] the event this information is protected by the Federal Confidentiality of Alcohol and Drug Abuse Patient Records regulations: The Federal rules restrict any use of the information to criminally investigate or prosecute any alcohol or drug abuse patient.[facility] Hospital[facility] the event this information is protected by the Federal Confidentiality of Alcohol and Drug Abuse Patient Records regulations: The Federal rules restrict any use of the information to criminally investigate or prosecute any alcohol or drug abuse patient.[facility] Hospital[facility] the event this information is protected by the Federal Confidentiality of Alcohol and Drug Abuse Patient Records regulations: The Federal rules restrict any use of the information to criminally investigate or prosecute any alcohol or drug abuse patient.[facility] HospitalIn the event this information is protected by the Federal Confidentiality of Alcohol and Drug Abuse Patient Records regulations: The Federal rules restrict any use of the information to criminally investigate or prosecute any alcohol or drug abuse patient.[facility] Hospital[facility] the event this information is protected by the Federal Confidentiality of Alcohol and Drug Abuse Patient Records regulations: The Federal rules restrict any use of the information to criminally investigate or prosecute any alcohol or drug abuse patient.[facility] HospitalIn the event this information is protected by the Federal Confidentiality of Alcohol and Drug Abuse Patient Records regulations: The Federal rules restrict any use of the information to criminally investigate or prosecute any alcohol or drug abuse patient.[facility] HospitalIn the event this information is protected by the Federal Confidentiality of Alcohol and Drug Abuse Patient Records regulations: The Federal rules restrict any use of the information to criminally investigate or prosecute any alcohol or drug abuse patient.[facility] HospitalIn the event this information is protected by the Federal Confidentiality of Alcohol and Drug Abuse Patient Records regulations: The Federal rules restrict any use of the information to criminally investigate or prosecute any alcohol or drug abuse patient.[facility] HospitalIn the event this information is protected by the Federal Confidentiality of Alcohol and Drug Abuse Patient Records regulations: The Federal rules restrict any use of the information to criminally investigate or prosecute any alcohol or drug abuse patient.[facility] HospitalIn the event this information is protected by the Federal Confidentiality of Alcohol and Drug Abuse Patient Records regulations: The Federal rules restrict any use of the information to criminally investigate or prosecute any alcohol or drug abuse patient.[facility] HospitalIn the event this information is protected by the Federal Confidentiality of Alcohol and Drug Abuse Patient Records regulations: The Federal rules restrict any use of the information to criminally investigate or prosecute any alcohol or drug abuse patient.[facility] HospitalIn the event this information is protected by the Federal Confidentiality of Alcohol and Drug Abuse Patient Records regulations: The Federal rules restrict any use of the information to criminally investigate or prosecute any alcohol or drug abuse patient.[facility] HospitalIn the event this information is protected by the Federal Confidentiality of Alcohol and Drug Abuse Patient Records regulations: The Federal rules restrict any use of the information to criminally investigate or prosecute any alcohol or drug abuse patient.[facility] HospitalIn the event this information is protected by the Federal Confidentiality of Alcohol and Drug Abuse Patient Records regulations: The Federal rules restrict any use of the information to criminally investigate or prosecute any alcohol or drug abuse patient.[facility] HospitalIn the event this information is protected by the Federal Confidentiality of Alcohol and Drug Abuse Patient Records regulations: The Federal rules restrict any use of the information to criminally investigate or prosecute any alcohol or drug abuse patient.[facility] HospitalIn the event this information is protected by the Federal Confidentiality of Alcohol and Drug Abuse Patient Records regulations: The Federal rules restrict any use of the information to criminally investigate or prosecute any alcohol or drug abuse patient.[facility] HospitalIn the event this information is protected by the Federal Confidentiality of Alcohol and Drug Abuse Patient Records regulations: The Federal rules restrict any use of the information to criminally investigate or prosecute any alcohol or drug abuse patient.[facility] HospitalIn the event this information is protected by the Federal Confidentiality of Alcohol and Drug Abuse Patient Records regulations: The Federal rules restrict any use of the information to criminally investigate or prosecute any alcohol or drug abuse patient.[facility] HospitalIn the event this information is protected by the Federal Confidentiality of Alcohol and Drug Abuse Patient Records regulations: The Federal rules restrict any use of the information to criminally investigate or prosecute any alcohol or drug abuse patient.[facility] HospitalIn the event this information is protected by the Federal Confidentiality of Alcohol and Drug Abuse Patient Records regulations: The Federal rules restrict any use of the information to criminally investigate or prosecute any alcohol or drug abuse patient.[facility] HospitalIn the event this information is protected by the Federal Confidentiality of Alcohol and Drug Abuse Patient Records regulations: The Federal rules restrict any use of the information to criminally investigate or prosecute any alcohol or drug abuse patient.[facility] HospitalIn the event this information is protected by the Federal Confidentiality of Alcohol and Drug Abuse Patient Records regulations: The Federal rules restrict any use of the information to criminally investigate or prosecute any alcohol or drug abuse patient.[facility] HospitalIn the event this information is protected by the Federal Confidentiality of Alcohol and Drug Abuse Patient Records regulations: The Federal rules restrict any use of the information to criminally investigate or prosecute any alcohol or drug abuse patient.[facility] HospitalIn the event this information is protected by the Federal Confidentiality of Alcohol and Drug Abuse Patient Records regulations: The Federal rules restrict any use of the information to criminally investigate or prosecute any alcohol or drug abuse patient.[facility]In the event this information is protected by the Federal Confidentiality of Alcohol and Drug Abuse Patient Records regulations: The Federal rules restrict any use of the information to criminally investigate or prosecute any alcohol or drug abuse patient.[facility] HospitalIn the event this information is protected by the Federal Confidentiality of Alcohol and Drug Abuse Patient Records regulations: The Federal rules restrict any use of the information to criminally investigate or prosecute any alcohol or drug abuse patient.[facility] HospitalIn the event this information is protected by the Federal Confidentiality of Alcohol and Drug Abuse Patient Records regulations: The Federal rules restrict any use of the information to criminally investigate or prosecute any alcohol or drug abuse patient.[facility] HospitalIn the event this information is protected by the Federal Confidentiality of Alcohol and Drug Abuse Patient Records regulations: The Federal rules restrict any use of the information to criminally investigate or prosecute any alcohol or drug abuse patient.[facility] HospitalIn the event this information is protected by the Federal Confidentiality of Alcohol and Drug Abuse Patient Records regulations: The Federal rules restrict any use of the information to criminally investigate or prosecute any alcohol or drug abuse patient.[facility] HospitalIn the event this information is protected by the Federal Confidentiality of Alcohol and Drug Abuse Patient Records regulations: The Federal rules restrict any use of the information to criminally investigate or prosecute any alcohol or drug abuse patient.[facility] HospitalIn the event this information is protected by the Federal Confidentiality of Alcohol and Drug Abuse Patient Records regulations: The Federal rules restrict any use of the information to criminally investigate or prosecute any alcohol or drug abuse patient.[facility] HospitalIn the event this information is protected by the Federal Confidentiality of Alcohol and Drug Abuse Patient Records regulations: The Federal rules restrict any use of the information to criminally investigate or prosecute any alcohol or drug abuse patient.[facility] HospitalIn the event this information is protected by the Federal Confidentiality of Alcohol and Drug Abuse Patient Records regulations: The Federal rules restrict any use of the information to criminally investigate or prosecute any alcohol or drug abuse patient.[facility] HospitalIn the event this information is protected by the Federal Confidentiality of Alcohol and Drug Abuse Patient Records regulations: The Federal rules restrict any use of the information to criminally investigate or prosecute any alcohol or drug abuse patient.[facility] HospitalIn the event this information is protected by the Federal Confidentiality of Alcohol and Drug Abuse Patient Records regulations: The Federal rules restrict any use of the information to criminally investigate or prosecute any alcohol or drug abuse patient.[facility] HospitalIn the event this information is protected by the Federal Confidentiality of Alcohol and Drug Abuse Patient Records regulations: The Federal rules restrict any use of the information to criminally investigate or prosecute any alcohol or drug abuse patient.[facility] HospitalIn the event this information is protected by the Federal Confidentiality of Alcohol and Drug Abuse Patient Records regulations: The Federal rules restrict any use of the information to criminally investigate or prosecute any alcohol or drug abuse patient.[facility] HospitalIn the event this information is protected by the Federal Confidentiality of Alcohol and Drug Abuse Patient Records regulations: The Federal rules restrict any use of the information to criminally investigate or prosecute any alcohol or drug abuse patient.[facility] HospitalIn the event this information is protected by the Federal Confidentiality of Alcohol and Drug Abuse Patient Records regulations: The Federal rules restrict any use of the information to criminally investigate or prosecute any alcohol or drug abuse patient.[facility] HospitalIn the event this information is protected by the Federal Confidentiality of Alcohol and Drug Abuse Patient Records regulations: The Federal rules restrict any use of the information to criminally investigate or prosecute any alcohol or drug abuse patient.[facility] HospitalIn the event this information is protected by the Federal Confidentiality of Alcohol and Drug Abuse Patient Records regulations: The Federal rules restrict any use of the information to criminally investigate or prosecute any alcohol or drug abuse patient.[facility] HospitalIn the event this information is protected by the Federal Confidentiality of Alcohol and Drug Abuse Patient Records regulations: The Federal rules restrict any use of the information to criminally investigate or prosecute any alcohol or drug abuse patient.[facility] HospitalIn the event this information is protected by the Federal Confidentiality of Alcohol and Drug Abuse Patient Records regulations: The Federal rules restrict any use of the information to criminally investigate or prosecute any alcohol or drug abuse patient.[facility] HospitalIn the event this information is protected by the Federal Confidentiality of Alcohol and Drug Abuse Patient Records regulations: The Federal rules restrict any use of the information to criminally investigate or prosecute any alcohol or drug abuse patient.[facility] HospitalIn the event this information is protected by the Federal Confidentiality of Alcohol and Drug Abuse Patient Records regulations: The Federal rules restrict any use of the information to criminally investigate or prosecute any alcohol or drug abuse patient.[facility] HospitalIn the event this information is protected by the Federal Confidentiality of Alcohol and Drug Abuse Patient Records regulations: The Federal rules restrict any use of the information to criminally investigate or prosecute any alcohol or drug abuse patient.[facility] HospitalIn the event this information is protected by the Federal Confidentiality of Alcohol and Drug Abuse Patient Records regulations: The Federal rules restrict any use of the information to criminally investigate or prosecute any alcohol or drug abuse patient.[facility] HospitalIn the event this information is protected by the Federal Confidentiality of Alcohol and Drug Abuse Patient Records regulations: The Federal rules restrict any use of the information to criminally investigate or prosecute any alcohol or drug abuse patient.[facility] HospitalIn the event this information is protected by the Federal Confidentiality of Alcohol and Drug Abuse Patient Records regulations: The Federal rules restrict any use of the information to criminally investigate or prosecute any alcohol or drug abuse patient.[facility] HospitalIn the event this information is protected by the Federal Confidentiality of Alcohol and Drug Abuse Patient Records regulations: The Federal rules restrict any use of the information to criminally investigate or prosecute any alcohol or drug abuse patient.[facility] HospitalIn the event this information is protected by the Federal Confidentiality of Alcohol and Drug Abuse Patient Records regulations: The Federal rules restrict any use of the information to criminally investigate or prosecute any alcohol or drug abuse patient.[facility] Care Teams (unrecognized sec tion and content) Neon Sign Mechanic Relationship Specialty Start Date End Date Merlyn Paez MD [address] [facility] [place] [address] PCP - General Family Practice 08/02/17 Neon Sign Mechanic Relationship Specialty Start Date End Date Merlyn Paez MD [address] [place] [address] PCP - General Family Practice 08/02/17 Neon Sign Mechanic Relationship Specialty Start Date End Date Merlyn Paez MD [address] [place] [address] PCP - General Family Practice 08/02/17 Neon Sign Mechanic Relationship Specialty Start Date End Date Merlyn Paez MD [address] [place] [address] PCP - General Family Practice 08/02/17 Neon Sign Mechanic Relationship Specialty Start Date End Date Merlyn Paez MD [address] [place] [address] PCP - General Family Practice 08/02/17 Neon Sign Mechanic Relationship Specialty Start Date End Date Merlyn Paez MD [address] [place] [address] PCP - General Family Practice 08/02/17 Neon Sign Mechanic Relationship Specialty Start Date End Date Merlyn Paez MD [address] [place] [address] PCP - General Family Practice 08/02/17 Neon Sign Mechanic Relationship Specialty Start Date End Date Merlyn Paez MD [address] [place] [address] PCP - General Family Practice 08/02/17 Neon Sign Mechanic Relationship Specialty Start Date End Date Merlyn Paez MD [address] [place] [address] PCP - General Family Practice 08/02/17 Neon Sign Mechanic Relationship Specialty Start Date End Date Merlyn Paez MD [address] [place] [address] PCP - General Family Practice 08/02/17 Neon Sign Mechanic Relationship Specialty Start Date End Date Merlyn Paez MD [address] [place] [address] PCP - General Family Practice 08/02/17 Neon Sign Mechanic Relationship Specialty Start Date End Date Merlyn Paez MD [address] [place] [address] PCP - General Family Practice 08/02/17 Neon Sign Mechanic Relationship Specialty Start Date End Date Merlyn Paez MD [address] [place] [address] PCP - General Family Practice 08/02/17 Neon Sign Mechanic Relationship Specialty Start Date End Date Merlyn Paez MD [address] [place] [address] PCP - General Family Medicine 08/02/17 Neon Sign Mechanic Relationship Specialty Start Date End Date Merlyn Paez MD [address] [place] [address] PCP - General Family Medicine 08/02/17 Neon Sign Mechanic Relationship Specialty Start Date End Date Merlyn Paez MD [address] [place] [address] PCP - General Family Medicine 08/02/17 Neon Sign Mechanic Relationship Specialty Start Date End Date Merlyn Paez MD [address] [place] [address] PCP - General Family Medicine 08/02/17 Neon Sign Mechanic Relationship Specialty Start Date End Date Merlyn Paez MD [address] [place] [place] [address] PCP - General Family Medicine 08/02/17 Neon Sign Mechanic Relationship Specialty Start Date End Date Merlyn Paez MD [address] [place] [address] PCP - General Family Medicine 08/02/17 Neon Sign Mechanic Relationship Specialty Start Date End Date Merlyn Paez MD [address] [place] [address] PCP - General Family Medicine 08/02/17 Neon Sign Mechanic Relationship Specialty Start Date End Date Merlyn Paez MD [address] [place] [address] PCP - General Family Medicine 08/02/17 Neon Sign Mechanic Relationship Specialty Start Date End Date Merlyn Paez MD [address] [place] [address] PCP - General Family Medicine 08/02/17 Neon Sign Mechanic Relationship Specialty Start Date End Date Merlyn Paez MD [address] [place] [address] PCP - General Family Medicine 08/02/17 Neon Sign Mechanic Relationship Specialty Start Date End Date Merlyn Paez MD [address] [place] [address] PCP - General Family Medicine 08/02/17 Neon Sign Mechanic Relationship Specialty Start Date End Date Merlyn Paez MD [address] [place] [address] PCP - General Family Medicine 08/02/17 Neon Sign Mechanic Relationship Specialty Start Date End Date Merlyn Paez MD [address] [place] [address] PCP - General Family Medicine 08/02/17 Neon Sign Mechanic Relationship Specialty Start Date End Date Merlyn Paez MD [address] [place] [address] PCP - General Family Medicine 08/02/17 Neon Sign Mechanic Relationship Specialty Start Date End Date Merlyn Paez MD [address] [place] [address] PCP - General Family Medicine 08/02/17 Neon Sign Mechanic Relationship Specialty Start Date End Date Merlyn Paez MD [address] [place] [address] PCP - General Family Medicine 08/02/17 Neon Sign Mechanic Relationship Specialty Start Date End Date Merlyn Paez MD [address] [place] [address] PCP - General Family Medicine 08/02/17 Neon Sign Mechanic Relationship Specialty Start Date End Date Merlyn aPez MD [address] [place] [address] PCP - General Family Medicine 08/02/17 Neon Sign Mechanic Relationship Specialty Start Date End Date Merlyn Paez MD [address] [place] [address] PCP - General Family Medicine 08/02/17 Neon Sign Mechanic Relationship Specialty Start Date End Date Merlyn Paez MD [address] [place] [address] PCP - General Family Medicine 08/02/17 Neon Sign Mechanic Relationship Specialty Start Date End Date Merlyn Paez MD [address] [place] [address] PCP - General Family Medicine 08/02/17 Neon Sign Mechanic Relationship Specialty Start Date End Date Merlyn Paez MD [address] [place] [address] PCP - General Family Medicine 08/02/17 Neon Sign Mechanic Relationship Specialty Start Date End Date Merlyn Paez MD [address] [place] [address] PCP - General Family Medicine 08/02/17 Neon Sign Mechanic Relationship Specialty Start Date End Date Merlyn Paez MD [address] [place] [address] PCP - General Family Medicine 08/02/17 Neon Sign Mechanic Relationship Specialty Start Date End Date Merlyn Paez MD [address] [place] [address] PCP - General Family Medicine 08/02/17 Neon Sign Mechanic Relationship Specialty Start Date End Date Merlyn Paez MD [address] [place] [address] PCP - General Family Medicine 08/02/17 Neon Sign Mechanic Relationship Specialty Start Date End Date Merlyn Paez MD [address] [place] [address] PCP - General Family Medicine 08/02/17 Neon Sign Mechanic Relationship Specialty Start Date End Date Merlyn Paez MD [address] [place], [place] [address] PCP - General Family Medicine 08/02/17 Neon Sign Mechanic Relationship Specialty Start Date End Date Merlyn Paez MD [address] [place], [place] [address] PCP - General Family Medicine 08/02/17 Neon Sign Mechanic Relationship Specialty Start Date End Date Merlyn Paez MD [address] [place], [place] [id number] PCP - General [facility] Medicine 08/02/17 Neon Sign Mechanic Relationship Specialty Start Date End Date Merlyn Paez MD [address] [place], [place] [address] PCP - General [facility] Medicine 08/02/17 Reason for Visit (unrecogniz ed section and content) Reason Comments PT Discharge Specialty Diagnoses / Procedures Referred By Contac t Referred To Contact [facility] Diagnoses Acute pain of right knee Foot pain, right Procedures CONSULT TO PHYSICAL THERAPY PHYSICAL THERAPY EVALUATION HIGH COMPLEX 45 MINS THERAPEUTIC EXERCISES RE, EA 15 MIN. PodKathy womack APRN.[employer]OR C[employer]SEMBLER [address] [place] [address] [facility] [address] [address] Referral ID Status Reason Start Date Expiration Date Visits Requested Visits Authorized [id number] Authorized Auto-Generat ed Referral 07/11/2022 07/10/2023 45 45 Reason Comments Physical Therapy Reason Comments PT Progress Note Reason Comments PT Eval Reason Onset Date Comments Refill Request 11/06/2021 Reason Comments Patient Update Reason Comments Established NI Patient 6 month follow up Specialty Diagnoses / Procedures Referred By Contac t Referred To Contact Neurology / SLEEP DISORDERS Diagnoses 6 MONTH FOLLOW UP Procedures EST NI PATIENT Self Aaron Almanza Jr., [place] [address] [address] Referral ID Status Reason Start Date Expiration Date Visits Re quested Visits Authorized [id number] Closed 11/23/2021 07/10/2022 1 1 Reason Comments Orders Reason Comments Appointment Reason Comments Recheck Reason Comments Results Reason Onset Date Comments Refill Request 04/23/2022 Reason Comments Refill Request Reason Onset Date Comments Refill Request 06/13/2022 Reason Onset Date Comments Refill Request 07/02/2022 Reason Comments Follow Up Specialty Diagnoses / Procedures Referred By Contac t Referred To Contact Neurology / SLEEP DISORDERS Diagnoses Rescheduled from 04/21 - per pt request SERGEY Sleep FU Procedures EST SLEEP ADULT Self Aaron Almanza Jr., MD [address] [address] Referral ID Status Reason Start Date Expiration Date Visits Re quested Visits Authorized [id number] Closed 09/06/2022 07/10/2023 1 1 Reason Comments Knee Pain Pt reported (RT) kne e pain, x10 days reported fall. Reason Comments Medication Problem Reason Onset Date Comments Refill Request 03/31/2023 Reason Comments New Pain Numbness Diabetic Foot Care Specialty Diagnoses / Procedures Referred By Zeynepac t Referred To Contact Podiatry / PODIATRY Diagnoses Chronic foot pain, right Procedures CONSULT TO PODIATRY OFFICE/OUTPATIENT NEW HIGH MDM 60 MINUTES Merlyn Paez MD [address] [place] [address] [address] [place] [address] Referral ID Status Reason Start Date Expiration Date V isits Requested Visits Authorized [id number] Closed PCP Requested Referral 08/15/2023 07/10/2024 1 1 Reason Comments F/U 6 months Reason Onset Date Comments Refill Request 12/07/2023 Reason Comments Weight Loss Reason Onset Date Comments Refill Request 01/03/2024 Reason Onset Date Comments Refill Request 01/16/2024 Reason Comments F/U 6 months Specialty Diagnoses / Procedures Referred By Contac t Referred To Contact Family Medicine / FAMILY MEDICINE Diagnoses 6 month follow up Procedures 4C EST Self PodshantaKathyFELICITA.[employer] 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 [address] [place] [address] Referral ID Status Reason Start Date Expiration Date Visits Re quested Visits Authorized [id number] Closed 02/13/2024 05/13/2024 1 1 Reason Comments Patient Question Regarding BiPap Reason Comments Established Patient Follow Up Pain FOR RECORDS PERTAINING TO PATIENTS WHO ARE OR HAVE BEEN ENROLLED IN A CHEMICAL DEPENDENCY/SUBSTANCEABUSE PROGRAM, SOME INFORMATION MAY BE OMITTED. This clinical summary was aggregated from multiple sources. Caution should be exercised in using it in the provision of clinical care. This summary normalizes information from multiple sources, and as a consequence, information in this document may materially change the coding, format and clinical context of patient data. In addition, data may be omitted in some cases. CLINICAL DECISIONS SHOULD BE BASED ON THE PRIMARY CLINICAL RECORDS. [employer] provides no warranty or guarantee of the accuracy or completeness of information in this document.
== END | disposition home or self-care (01) ==
LOC: SL 20:07
PROVIDERS: PCP Family Medicine; Referring Provider Psychiatry & Neurology Sleep Medicine; Visit Provider Psychiatry & Neurology Sleep Medicine
DX: G47.33 Obstructive sleep apnea (adult) (pediatric) (principal)
CPT/HCPCS: 95811